=== PATIENT | male | born 1955 | race African-American/Black ===

== ENCOUNTER 2016-08-27 06:07 | Emergency (ER) ==
[2016-08-27] MEDS ORDERED: ZOSYN 3.375 GM/NS 50 ML IV ONE (07:09)
[2016-08-27 07:41] LABS: MANUAL DIFF NEEDED? NO
[2016-08-27 07:45] LABS: BASO% 0.2 % (0.0-0.8); IMM GRAN# 0.02 X1000 (0.0-0.04); IMM GRAN% 0.2 % (0.0-0.5); LYMPH# 1.33 X1000 (1.2-3.4); LYMPH% 13.4 % (20.5-51.1); MCH 29.6 PG (27-31); MCV 92.4 FL (81-99); MONO# 1.17 X1000 (0.11-0.59); MONO% 11.8 % (1.7-9.3); MPV 9.9 FL (7.4-10.4); NEUT% 74.4 % (42.2-75.2); PLT 298 X1000 (130-400); RBC 5.41 XMIL (4.7-6.1)
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
[2016-08-27 07:56] LABS: INR 1.2; PROTIME 12.7 Seconds (9.2-11.7); PTT 27.4 Seconds (22.0-36.0)
[2016-08-27 08:18] LABS: AGAP 16; ALBUMIN 3.5 g/dL (3.5-5.0); ALKALINE PHOSPHATASE 116 U/L (32-122); BUN 17 mg/dL (8-22); CALCIUM 8.6 mg/dL (8.8-10.2); CHLORIDE 91 mmol/L (98-107); COSMO 288; GOT 17 U/L (10-34); GPT 15 U/L (10-44); POTASSIUM 3.1 mmol/L (3.5-5.1); SODIUM 139 mmol/L (136-145); TCO2 32 mmol/L (25-35); TOTAL BILIRUBIN 2.27 mg/dL (0.20-1.00); TOTAL PROTEIN 7.4 g/dL (6.3-8.3)
[2016-08-27] MEDS ORDERED: NORCO-7.5 PO ONE (08:22)
[2016-08-27] MEDS ORDERED: CARDIZEM IV ONE (08:22)
--- NOTE | 2016-08-27 08:48 | EKG Report ---
Test Performed on : 08/27/2016 08:12:09 AM Test Reason : Chest Pain Blood Pressure : / mmHG Vent. Rate : 119 BPM Atrial Rate : 119 BPM P-R Int : 168 ms QRS Dur : 086 ms QT Int : 372 ms P-R-T Axes : 000 056 053 degrees QTc Int : 523 ms Sinus tachycardia. Low voltage QRS Prolonged QT Abnormal ECG No previous ECGs available Unconfirmed Result
[2016-08-27] MEDS ORDERED: SOLU-MEDROL IV ONE (09:17)
[2016-08-27 09:36] LABS: MAGNESIUM 1.1 mg/dL (1.5-2.7)
--- NOTE | 2016-08-27 10:01 | Diag Imaging Result Document ---
PROCEDURE NAME: ANGIOGRAM/PULMONARY ARTERIES - 08/27/2016 CTA CHEST: COMPARISON: None available. FINDINGS: There is no evidence of pulmonary embolism. There is trace atherosclerotic calcification at the aortic arch. There is no evidence of aortic aneurysm. There is cardiomegaly. There are coronary artery calcifications. Shotty mildly prominent noncalcified lymph nodes are noted in the mediastinum. There is a calcified right hilar lymph node indicating prior granulomatous disease. There is mild platelike subsegmental atelectasis at the inferior left upper lobe. The lungs are essentially clear otherwise. There is no definite airspace consolidation. There are no pleural fluid collections. There is no pneumothorax. IMPRESSION: 1. Mild left upper lobe atelectasis. 2. Cardiomegaly. 3. Nonspecific mild mediastinal lymphadenopathy. 4. No evidence of pulmonary embolism.
[2016-08-27 10:15] VITALS: BP 107/73
--- NOTE | 2016-08-27 10:42 | Diag Imaging Result Document ---
PROCEDURE NAME: KNEE 3 VIEWS LEFT - 08/27/2016 LEFT KNEE, THREE VIEWS: FINDINGS: There is some fragmentation of the attachment of the quadriceps tendon on the patella, which may be chronic. Otherwise, there is no evidence of fracture or dislocation. There is evidence of subcutaneous edema, generally. No definite evidence of effusion is present. IMPRESSION: No acute bony disease.
--- NOTE | 2016-08-29 13:33 | Extremity Venous Study ---
PROCEDURE NAME: Venous U/S Left Leg - 08/27/2016 REFERRING PHYSICIANS: Dr. Hair in the ER. INTERPRETING PHYSICIAN: Dr. Gaspar. REALTIME CAPTIONER: Chetna. PROCEDURE: The patient has pain, edema and redness of the left leg. The left lower extremity is imaged. The common femoral, superficial femoral, deep femoral, popliteal, posterior tibial, peroneal, greater saphenous are imaged. The Doppler is used to evaluate the veins for spontaneity, phasicity, respiratory excursion, and distal augmentation. All veins are compressible. No intraluminal clot is seen. INTERPRETATION: No evidence of deep or superficial venous thrombosis the left lower extremity in the veins identified.
== END 2016-08-27 10:20 | disposition home or self-care (01) ==
LOC: EDBD → ED 06:07
DX: L03.116 Cellulitis of left lower limb (principal); M79.662 Pain in left lower leg; M25.562 Pain in left knee; M79.89 Other specified soft tissue disorders; R94.31 Abnormal electrocardiogram [ECG] [EKG]; I50.9 Heart failure, unspecified; I10 Essential (primary) hypertension; G89.29 Other chronic pain; E11.9 Type 2 diabetes mellitus without complications; F17.210 Nicotine dependence, cigarettes, uncomplicated; Z79.899 Other long term (current) drug therapy
CPT/HCPCS: 71275; 80053; 82948; 83735; 83880; 84550; 85025; 85379; 85610; 85730; 87040; 93005; 93971; 96365; 96375; J2543; J2930; Q9967

== ENCOUNTER 2018-10-03 18:39 | Inpatient (IN) ==
[2018-10-03] MEDS ORDERED: ASPIRIN PO ONE (18:48)
[2018-10-03 19:54] LABS: BASO# 0.04 X1000 (0.0-0.2); BASO% 0.4 % (0.0-0.8); EOS# 0.02 X1000 (0.0-0.7); EOS% 0.2 % (0.0-10.0); HEMATOCRIT 44.9 % (42.0-52.0); HEMOGLOBIN 14.8 g/dL (14.0-18.0); IMM GRAN# 0.06 X1000 (0.0-0.04); IMM GRAN% 0.6 % (0.0-0.5); LYMPH# 1.02 X1000 (1.2-3.4); LYMPH% 9.7 % (20.5-51.1); MCH 30.5 PG (27-31); MCV 92.6 FL (81-99); MONO# 1.35 X1000 (0.11-0.59); MONO% 12.9 % (1.7-9.3); MPV 9.3 FL (7.4-10.4); NEUT# 7.98 X1000 (1.4-6.5); NEUT% 76.2 % (42.2-75.2); PLT 471 X1000 (130-400); RBC 4.85 XMIL (4.7-6.1); WBC 10.47 X1000 (4.8-10.8)
--- NOTE | 2018-10-03 20:00 | PROVIDER DOCUMENTATION ---
HPI-Respiratory General - General Chief Complaint: Dizziness Stated Complaint: Weakness/SOB Time Seen by Provider: 10/03/18 19:09 Unable to obtain history due to:: other (poor historian) Allergies/Adverse Reactions: Patient Allergies Allergy/AdvReac Type Severity Reaction Status Date / Time No Known Allergies Allergy Verified 10/03/18 18:46 Home Medications: Home Medication List Medication Instructions Recorded Confirmed Last Taken Type Valacyclovir [Valtrex] 500 mg PO BID #10 tab 07/29/18 08/13/18 08/11/18 08:00 Rx Hydroxyzine [Atarax] 25 mg PO TID PRN PRN 08/13/18 08/13/18 08/11/18 08:00 History Allopurinol [Zyloprim] 100 mg PO BID tablet 08/15/18 Unknown Rx Doxycycline 100 mg PO BID #10 tab 08/15/18 Unknown Rx Furosemide [Lasix] 40 mg PO BID #60 tab 08/15/18 Unknown Rx Insulin Glargine [Basaglar] 12 unit SUBQ DAILY #5 insuln.pen 08/15/18 Unknown Rx Spironolactone [Aldactone] 25 mg PO DAILY #30 tab 08/15/18 Unknown Rx Tramadol [Ultram] 50 mg PO Q6H PRN PRN tablet 08/15/18 Unknown Rx Furosemide [Lasix] 40 mg PO DAILY PRN #60 tab 09/18/18 Unknown Rx Spironolactone [Aldactone] 25 mg PO DAILY #30 tab 09/18/18 Unknown Rx - History of Present Illness-Resp Nature of Presenting Problem: C/O SOB and weakness. Pt is poor historian. He admits that sleeps in chair all the time, has been raising it for a week. Legs have had increasing swelling for a week, now abd is swollen. No fever, no cough, no palpitations. Has had occ brief (seconds) of CP. Says his PCP dismissed him, but denies running out of meds, says he is still taking them all Quality of Pain: reports: aching (legas) Severity in ED: reports: moderate Timing: reports: still present, constant, getting worse Context: denies: recent foreign travel Cough Quality/Degree: reports: no cough Modifying Factors: improves with: exertion Associated Symptoms: reports: shortness of breath, short of breath Similar Symptoms Previously?: Yes Recently seen or treated by another doctor?: No Review of Systems - Adult - REVIEW OF SYSTEMS - ADULT Constitutional: reports: no symptoms reported Eyes: reports: no symptoms reported Ears, Nose, Mouth & Throat: reports: no symptoms reported Cardiovascular: reports: no symptoms reported, edema Respiratory: reports: see HPI, dyspnea on exertion, shortness of breath Gastrointestinal: reports: no symptoms reported Genitourinary: reports: no symptoms reported Musculoskeletal: reports: no symptoms reported Integumentary: reports: no symptoms reported Neurological: reports: no symptoms reported Psychiatric: reports: no symptoms reported Endocrine: reports: no symptoms reported Hematologic/Lymphatic: reports: no symptoms reported Allergic/Immunologic: reports: no symptoms reported Past History - Adult - PAST MEDICAL HISTORY-ADULT Review of Records: reports: Medications Reviewed Major Childhood Illnesses: reports: denies history Cardiovascular: reports: blood clots, CHF, HTN, hyperlipidemia Respiratory: reports: asthma Gastrointestinal: reports: denies history Obstetrical/Gynecological: reports: denies history Genitourinary: reports: denies history Musculoskeletal: reports: chronic pain Neurological: reports: denies history Psychiatric: reports: anxiety Endocrine/Immune: reports: Diabetes Other Conditions: reports: denies history - PRIOR SURGERIES/PROCEDURES Surgical/Procedure History: reports: other (scrotal abscess) - IMMUNIZATION STATUS Childhood Immunizations: See Nurse Assessment Flu Vaccine: See Nurse Assessment - FAMILY HISTORY Family History: reviewed, not pertinent Physical Exam-General - PHYSICAL EXAM-ADULT Initial Vital Signs Reviewed: Yes - CONSTITUTIONAL General Appearance: alert, mild distress - EYES Eyes: PERRL/EOMI - HEAD, EARS, NOSE, MOUTH & THROAT HENMT: normocephalic/atraumatic, moist mucous membranes, normal ENT inspection, pharynx normal - NECK Neck: full range of motion, supple, normal inspection - RESPIRATORY Respiratory: no accessory muscle use, decreased breath sounds - CARDIOVASCULAR Cardiovascular: regular rate, rhythm, other (has 2+ pitting edema to abd, gets increasingly more as get further down on legs) - GASTROINTESTINAL (ABDOMEN) Abdominal Exam: non tender, soft - MUSCULOSKELETAL Back Exam: normal inspection, no CVA tenderness, no vertebral tenderness Extremity: normal range of motion, pedal edema. 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, grossly normal, no motor/sensory deficits - PSYCHIATRIC Psych/Mental Status: normal mood/affect, normal thought content, normal thought process, oriented x 3 Progress - PLAN OF CARE/RESULTS Progress/Plan/Lab Results: Vital Signs - 8 hr 10/03/18 18:42 10/03/18 21:06 Temperature 98.5 F Pulse Rate 90 88 Respiratory Rate 18 27 H Blood Pressure 109/79 114/83 O2 Sat by Pulse Oximetry 99 96 Laboratory Results - last 24 hr 10/03/18 10/03/18 10/03/18 18:48 19:37 19:37 WBC 10.47 RBC 4.85 Hgb 14.8 Hct 44.9 MCV 92.6 MCH 30.5 MCHC 33.0 RDW Std Deviation 16.0 H Plt Count 471 H MPV 9.3 Immature Gran % (Auto) 0.6 H Neut % (Auto) 76.2 H Lymph % (Auto) 9.7 L Leon % (Auto) 12.9 H Eos % (Auto) 0.2 Baso % (Auto) 0.4 Immature Gran # (Auto) 0.06 H Neut # (Auto) 7.98 H Lymph # (Auto) 1.02 L Leon # (Auto) 1.35 H Eos # (Auto) 0.02 Baso # (Auto) 0.04 PT INR PTT (Actin FS) Sodium 138 Potassium 3.1 L Chloride 99 Carbon Dioxide 26 Anion Gap 14 BUN 11 Creatinine 0.8 Estimated GFR/1.73 m2 > 60 BUN/Creatinine Ratio 14 Glucose 106 H POC Glucose 128 H Calculated Osmolality 275 Calcium 8.5 L Total Bilirubin 2.50 H AST 21 ALT 6 L Alkaline Phosphatase 198 H Creatine Kinase 147 Troponin T Bnw-H-Xisraiiknog Pept Total Protein 6.8 Albumin 3.0 L Globulin 4.0 Albumin/Globulin Ratio 1.0 10/03/18 10/03/18 10/03/18 19:37 19:37 19:52 WBC RBC Hgb Hct MCV MCH MCHC RDW Std Deviation Plt Count MPV Immature Gran % (Auto) Neut % (Auto) Lymph % (Auto) Leon % (Auto) Eos % (Auto) Baso % (Auto) Immature Gran # (Auto) Neut # (Auto) Lymph # (Auto) Leon # (Auto) Eos # (Auto) Baso # (Auto) PT 17.0 H INR 1.32 PTT (Actin FS) 33.4 Sodium Potassium Chloride Carbon Dioxide Anion Gap BUN Creatinine Estimated GFR/1.73 m2 BUN/Creatinine Ratio Glucose POC Glucose Calculated Osmolality Calcium Total Bilirubin AST ALT Alkaline Phosphatase Creatine Kinase Troponin T 0.124 H Bgi-M-Xhulzsgegkb Pept 1914 H Total Protein Albumin Globulin Albumin/Globulin Ratio Orders Category Date Time Status Cardiac Monitoring DIRECTED Care 10/03/18 18:49 Active Oxygen Therapy- ED Nursing DIRECTED Care 10/03/18 18:49 Active Saline Loc NOW Care 10/03/18 18:49 Active CHEST-PORTABLE [RAD] Stat Exams 10/03/18 18:49 Completed CBC WITH ELECTRONIC DIFF [HEME] Stat Lab 10/03/18 19:37 Completed CK PROFILE [SP CHEM] Stat Lab 10/03/18 19:37 Completed COMPREHENSIVE METABOLIC PANEL [CHEM] Stat Lab 10/03/18 19:37 Completed PRO B-NATRIURETIC PEPTIDE Stat Lab 10/03/18 19:37 Completed PROTIME WITH INR [COAG] Stat Lab 10/03/18 19:52 Completed PTT [COAG] Stat Lab 10/03/18 19:52 Completed TROPONIN T Stat Lab 10/03/18 19:37 Completed Aspirin Med 10/03/18 18:48 Discontinued 325 mg PO NOW ONE Enoxaparin 1 mg/kg [Lovenox 1 mg/kg] Med 10/03/18 21:52 Discontinued 1 each SUBQ NOW ONE Enoxaparin [Lovenox] Med 10/03/18 21:59 Discontinued 100 mg .ROUTE .STK-MED ONE Furosemide [Lasix] Med 10/03/18 20:50 Discontinued 80 mg IV NOW ONE Potassium Chloride 20% Liquid Med 10/03/18 20:50 Discontinued 40 meq PO NOW ONE CP/SOB/Palp >45 yrs of Age Stat Oth 10/03/18 18:48 Ordered EKG [EKG] Stat Ther 10/03/18 18:47 Draft He has mult old records, many were reviewed, He rendon shad a fib on EKG since 2017. Had mult echos last year, showing EF of 25% Has been seen by cards and nephrology. Also has hx od med noncompliance, taking meds just when he felt like it Result Diagrams: 10/03/18 19:37 10/03/18 19:37 - CONSULTS/PCP/HOSPITALIST Notification #1 *Consult/PCP/Hospitalist*: [facility] Consult Disposition: other (no answer) #2 Consult: [facility] Time Discussed: 22:35 Consult Disposition: Admit Departure - Departure Date of Disposition Decision: 10/03/18 Time of Disposition Decision: 19:20 DIAGNOSIS: Anasarca, Chronic atrial fibrillation Congestive heart failure Qualifiers: Heart failure type: unspecified Heart failure chronicity: unspecified Qualified Code(s): I50.9 - Heart failure, unspecified Disposition: ADMITTED INPATIENT 09 Certified Medical Emergency: Emergent Condition: Stable Additional Freetext Instructions: ED Follow Up Instructions: You have been treated by a care provider in the Emergency Department. These instructions are being provided to you so you can have an understanding of how to care for yourself upon discharge. Upon discharge from the Emergency Department, you are responsible for making arrangements for follow-up care by a physician of your choice. Take all prescribed medications as directed. Return to the Emergency Department immediately for any new or worsening symptoms. You may call the Physician Referral phone number at [phone] to obtain a list of Physicians who are taking new patients. Referrals and Follow-Ups: None,PCP [Primary Care Provider] - - Critical Care Note This patient required my direct & personal management of CC.: No Attestation - Physician/ ALESHIA Attestation Patient care was provided by Advanced Practice Provider:: No The physician spent face to face time with patient:: Yes Advanced Practice Provider documentation review:: Supervising physician onsite and consulted in the evaluation and care of this patient. The physician did have a face to face encounter with the patient.
[2018-10-03 20:02] LABS: AGAP 14; ALKALINE PHOSPHATASE 198 U/L (32-122); BUN 11 mg/dL (8-22); CALCIUM 8.5 mg/dL (8.8-10.2); CHLORIDE 99 mmol/L (98-107); CK PROFILE 147 U/L (24-204); COSMO 275; CREATININE 0.8 mg/dL (0.7-1.2); ESTIMATED GFR > 60; GLUCOSE 106 mg/dL (70-104); GOT 21 U/L (10-34); GPT 6 U/L (10-44); POTASSIUM 3.1 mmol/L (3.5-5.1); SODIUM 138 mmol/L (136-145); TCO2 26 mmol/L (25-35); TOTAL PROTEIN 6.8 g/dL (6.3-8.3)
--- NOTE | 2018-10-03 20:02 | Diag Imaging Result Doc PS360 ---
EXAM: CHEST-PORTABLE - 10/03/2018 HISTORY: dizziness/CP TECHNIQUE: Portable chest COMPARISON: 09/18/2018 FINDINGS: There is cardiomegaly similar to prior. There is mild prominence of vascular markings on the right. There is possibly some hazy edema at the left base. There is subsegmental atelectasis versus scarring at the left perihilar region. There is mild thickening of the right minor fissure. There are no large pleural effusion or pneumothorax identified. IMPRESSION: Cardiomegaly, with possible mild congestive heart failure. Electronically signed by Sp Becker 10/03/2018 8:00 PM
--- NOTE | 2018-10-03 20:02 | EKG Report ---
Test Performed on : 10/03/2018 6:53:30 PM Test Reason : dizziness Blood Pressure : / mmHG Vent. Rate : 081 BPM Atrial Rate : 241 BPM P-R Int : 000 ms QRS Dur : 092 ms QT Int : 420 ms P-R-T Axes : 000 106 -61 degrees QTc Int : 487 ms Atrial fibrillation. with premature ventricular or aberrantly conducted complexes. Rightward axis Pulmonary disease pattern Septal infarct (cited on or before 21-JAN-2018) Abnormal ECG When compared with ECG of 18-SEP-2018 12:41, (Unconfirmed) No significant change was found Unconfirmed Result
[2018-10-03 20:19] LABS: INR 1.32
[2018-10-03 20:20] LABS: PTT 33.4 Seconds (22.3-41.8)
[2018-10-03] MEDS ORDERED: LASIX IV ONE (20:50)
[2018-10-03] MEDS ORDERED: POTASSIUM CHLORIDE 20% LIQUID PO ONE (20:50)
[2018-10-03] MEDS ORDERED: LOVENOX 1 MG/KG SUBQ ONE (21:52)
[2018-10-03] MEDS ORDERED: LOVENOX ONE (21:59)
[2018-10-03] MEDS ORDERED: ZOFRAN ODT PO PRN (22:31)
[2018-10-04] MEDS: TYLENOL PO PRN ×2 (02:04→16:56)
[2018-10-04] MEDS: POTASSIUM CHLORIDE 20% LIQUID PO SCH ×4 (02:04→13:52)
[2018-10-04] MEDS: LASIX IV SCH ×3 (05:19→17:00)
--- NOTE | 2018-10-04 08:16 | HISTORY AND PHYSICAL ---
CHIEF COMPLAINT: Shortness of breath and dizziness. HISTORY OF PRESENT ILLNESS: This is a 63-year-old gentleman with a history of nonischemic cardiomyopathy with ejection fraction of 25% in June of 2018, systolic heart failure chronic and diabetes mellitus. He presented to the emergency room complaining of increasing shortness of breath, lower extremity edema and abdominal fullness, He was discharged from the hospital on 08/15, and at that time prescriptions were called in to [facility] for Lasix, spironolactone, glargine insulin, and doxycycline. The patient states that he opted not to fill these as he was feeling better on discharge. He does state that he was seen in the emergency room by Dr. Ochoa on 09/18, and at that time he was given prescriptions for Lasix and spironolactone. He stated he did pick these up although he states he has not taken them as directed. He denied any chest pain, palpitations, any syncope, any fevers or chills. PAST MEDICAL HISTORY: Nonischemic cardiomyopathy with an EF of 25% in June of 2018, chronic systolic heart failure, diabetes mellitus, gout, hypertension, medical noncompliance, history of Karen's gangrene and history of shingles. PAST SURGICAL HISTORY: Scrotal debridement secondary to Karen's gangrene, scrotal abscess, and right hydrocelectomy. SOCIAL HISTORY: He denies [*]or illicit drug use. He does drink alcohol. ALLERGIES: No known drug allergies. HOME MEDICATIONS: 1. Lasix 40 mg p.o. p.r.n. 2. Spironolactone. The patient states that he is not does not take these daily. REVIEW OF SYSTEMS: Discussed with the patient with pertinent positives stated in HPI. He denied any syncope, any productive cough, any fevers, chills, any night sweats, any nausea, vomiting, diarrhea, constipation, black or bloody vomitus or stools, any hematuria, dysuria, frequency, or urgency. PHYSICAL EXAMINATION: GENERAL: This is a 63-year-old gentleman who is lying in the bed watching TV in no distress. VITAL SIGNS: Blood pressure is 119/85 with a heart rate of 82, respirations are 20, temperature is 97.9 degrees, and O2 saturations are 98% on room air. EYES: Pupils are equal, round, and react to light. EOMs are intact. Sclerae are anicteric. HEENT: Head is normocephalic, atraumatic. Mucous membranes are moist. NECK: Supple with trachea midline. CARDIOVASCULAR: Regular rate and rhythm. S1 and S2 appreciated. No murmurs noted. He does have bilateral lower extremity edema from the thigh down with peripheral pulses palpable x4 extremities. PULMONARY: Breath sounds are clear with no increased work of breathing noted. GASTROINTESTINAL: Abdomen is soft, nontender, and nondistended with bowel sounds in all 4 quadrants. GENITOURINARY: He has no CVA nor suprapubic tenderness. NEUROLOGIC: He is alert and oriented x3. SKIN: Warm and dry. LABORATORY: WBC is 10.4 with hemoglobin 14.8, hematocrit 44.9, and platelets of 471,000. Sodium 138, potassium 3.1, BUN 11, creatinine 0.8 and glucose of 106. Total bilirubin is 2.5. Troponin is 0.124 with a proBNP of 1914. Chest x-ray revealed cardiomegaly with possible mild congestive heart failure. ASSESSMENT AND PLAN: 1. Acute systolic heart failure in the setting of chronic heart failure. 2. Shortness of breath. 3. Diabetes mellitus. 4. History of hypertension. 5. Elevated troponin. 6. Hypokalemia. 7. Medical noncompliance. PLAN: The patient has been admitted to the medical-surgical floor and placed on telemetry which we will continue. We will get a stat BMP as well as stat troponin and cardiac profile. He will have daily weights with strict I O. We will continue with IV Lasix for diuresis. We will monitor electrolytes and replete as appropriate. He will be placed on pattern blood glucose with sliding scale insulin. Further treatments pending hospital course. Dictated by FERNY Vital for Wilton Molina MD This chart was documented by, FERNY Vital and accurately reflects the services performed, treatment plan and medical decisions as attested by the providers signature Wilton Molina MD. cc: FERNY Vital MD
[2018-10-04 09:39] LABS: AGAP 14; BUN 11 mg/dL (8-22); CALCIUM 8.6 mg/dL (8.8-10.2); CHLORIDE 101 mmol/L (98-107); CK PROFILE 135 U/L (24-204); COSMO 284; CREATININE 0.7 mg/dL (0.7-1.2); ESTIMATED GFR > 60; GLUCOSE 133 mg/dL (70-104); POTASSIUM 2.9 mmol/L (3.5-5.1); SODIUM 142 mmol/L (136-145); TCO2 27 mmol/L (25-35)
[2018-10-04] MEDS ORDERED: LOVENOX SUBQ SCH (10:00)
[2018-10-04] MEDS: LOVENOX SUBQ SCH ×2 (10:13→21:51)
[2018-10-04] MEDS: LANOXIN PO SCH (18:18)
[2018-10-04] MEDS: CAPOTEN PO SCH (18:24)
--- NOTE | 2018-10-04 19:07 | CARDIOLOGY CONSULTATION ---
DATE: 10/04/2018 REQUESTING PHYSICIAN: Hospitalist Service REASON FOR CONSULTATION: Positive troponin. CHF. CHIEF COMPLAINT: Dyspnea and swelling. HISTORY OF PRESENT ILLNESS: Mr. Segal is an unfortunate 63-year-old black male who presented to the emergency room on 10/03/2018 at about 6:30 p.m. with complaints of two to three weeks of increasing swelling of the lower extremities associated with dyspnea/orthopnea. The patient states that since his last admission that took place in July 2018, the patient had been not very compliant with his medical regimen. He developed shingles at some point a few weeks ago and that has caused issues with discomfort in the left anterior rib cage where the shingle rash is and he has not really been following all of the instructions to deal with his underlying congestive heart failure. At the time of presentation, they did a chest x-ray that shows cardiomegaly with possible mild congestive heart failure and his admitting electrocardiogram done at 6:53 p.m. on 10/03/2018 shows atrial fibrillation with PVCs. The initial blood work showed a proBNP level of 1914, which is not necessarily the highest that he has ever had and his troponin levels were 0.124, 0.102, and 0.094 and that prompted the consultation. PAST MEDICAL HISTORY: Positive for systolic heart failure due to dilated nonischemic cardiomyopathy. In October of 2017 he underwent a left heart catheterization and right heart catheterization by Dr. Cornelius Herrera in [place]. This showed the presence of mild to moderate aortic stenosis, as he used dobutamine infusion to increase the gradient and calculate the valve area at 1 cm square.The coronary arteries were free of obstruction. The patient seems to have atrial fibrillation, at least since prior presentation to the hospital. He has diabetes mellitus. He has had issues with low blood pressure. PAST SURGICAL HISTORY: Positive for extensive scrotal debridement due to soft tissue necrosis with positive vancomycin resistant Enterococcus infection. This was done in April 2018 by Urology service. SOCIAL HISTORY: The patient is from his . He used to work at the [employer] in [place] for 34 years and he retired. He is not a smoker, not a drinker. FAMILY HISTORY: Is really noncontributory for the purposes of this admission. LIST OF HOME MEDICATIONS: Included, allopurinol 100 twice a day, doxycycline 100 twice a day, furosemide 40 twice a day, insulin, spironolactone, tramadol, and Valtrex. At some point in the past he was also on Xarelto, however that is not listed in his most recent medication list. The patient was supposed to follow up with Dr. Billy, however he has been dropped from his practice and right now he does not have any physician. He has not seen any of the cardiologists at the heart center at the office. He was supposed to make an appointment with Dr. Houston at some point. REVIEW OF SYSTEMS: The remaining review of systems is really noncontributory. His aortic stenosis is really not critical. PHYSICAL EXAMINATION: Blood pressure is 118/83, temperature 97.9, pulse 95, respirations 20. General: Awake and alert. Neck: Veins are distended. Chest: Diminished breath sounds at both bases. Decreased excursion at the bases. Heart sounds are irregularly irregular with a prominent systolic ejection murmur 2 to 3/6 at the left sternal border aortic area. He also has a third heart sound. Abdomen is obese, distended, possibly some ascites is present. Skin: He does have a rash of herpes zoster on the left anterior chest about the fifth intercostal space. This appears to be in a subacute to chronic state. Extremities showed 2+ edema, brawny. Pulses are diminished. Neurologic: Follows commands, moves all four extremities. LABORATORY DATA: Includes sodium of 142, potassium 2.9, BUN 11, creatinine 0.7. IMPRESSION: 1. Patient presents to the hospital with exacerbation of chronic congestive heart failure, systolic, 3 to 4 [place] Heart Association class, secondary to nonischemic dilated cardiomyopathy. 2. History of aortic stenosis with a prominent heart murmur. This is only mild to moderate. 3. Medically noncompliant. 4. Atrial fibrillation that appears to be permanent. 5. Diabetes mellitus type 2. 6. Hypokalemia. Electrolyte disturbance. 7. Elevation of troponin level. This probably corresponds to dilatation of the ventricles and a strain and not to coronary heart disease since his coronary arteries were normal in October of 2017 by cardiac catheterization. RECOMMENDATIONS: At this point in time I would suggest to educate this patient along the lines of needing to adhere to medical regimen that will require multiple medications, otherwise we will not be able to manage this patient at home. Perhaps it would be important to meet with family and caretakers to educate them also. At this point in time, I agree with your initial management of using loop diuretics and we will see how the patient does over the course of the ensuing days . No ischemic cardiac workup is necessary. The patient will be placed on Eliquis 5 mg twice a day for CVA prevention and we will see how he evolves. Upon discharge, refer back to PCP and Dr. Houston. cc: Joss Farmer MD MTDD
[2018-10-04] MEDS: ALDACTONE PO SCH (21:47)
--- NOTE | 2018-10-05 00:23 | HISTORY AND PHYSICAL ---
HISTORY AND PHYSICAL ADDENDUM: The patient is a 63-year-old, unfortunately extremely noncompliant, individual, who has chronic congestive heart failure, hypertension, hyperlipidemia, diabetes. We will admit him to the hospital, replace his potassium. His troponin is elevated. We will rule out myocardial infarction. He does have an EF around 25%. Continue Lasix. Will follow. cc: Wilton Molina MD
[2018-10-05] MEDS: CAPOTEN PO SCH ×3 (00:39→16:45)
[2018-10-05] MEDS: LANOXIN PO SCH ×2 (00:40→06:12)
--- NOTE | 2018-10-05 04:07 | EKG Report ---
Test Performed on : 10/05/2018 02:59:12 AM Test Reason : CHEST PAIN Blood Pressure : / mmHG Vent. Rate : 085 BPM Atrial Rate : 079 BPM P-R Int : 000 ms QRS Dur : 086 ms QT Int : 406 ms P-R-T Axes : 000 127 -67 degrees QTc Int : 483 ms Atrial fibrillation. with premature ventricular or aberrantly conducted complexes. Right axis deviation Pulmonary disease pattern Septal infarct (cited on or before 21-JAN-2018) Abnormal ECG When compared with ECG of 03-OCT-2018 18:53, No significant change was found Unconfirmed Result
[2018-10-05] MEDS: LASIX IV SCH ×2 (04:32→16:44)
[2018-10-05 06:31] LABS: HEMATOCRIT 44.8 % (42.0-52.0); HEMOGLOBIN 14.7 g/dL (14.0-18.0); MCH 30.5 PG (27-31); MCHC 32.8 g/dL (33-37); MCV 92.9 FL (81-99); MPV 9.7 FL (7.4-10.4); RBC 4.82 XMIL (4.7-6.1); RDW 16.2 % (11.5-14.5); WBC 12.62 X1000 (4.8-10.8)
[2018-10-05 08:32] LABS: AGAP 13; BUN 11 mg/dL (8-22); CALCIUM 8.5 mg/dL (8.8-10.2); CHLORIDE 101 mmol/L (98-107); COSMO 282; CREATININE 0.7 mg/dL (0.7-1.2); ESTIMATED GFR > 60; GLUCOSE 129 mg/dL (70-104); POTASSIUM 2.8 mmol/L (3.5-5.1); SODIUM 141 mmol/L (136-145); TCO2 27 mmol/L (25-35)
[2018-10-05] MEDS: LOVENOX SUBQ SCH ×2 (09:43→21:24)
[2018-10-05] MEDS: ALDACTONE PO SCH ×2 (09:43→21:19)
[2018-10-05] MEDS: TYLENOL PO PRN (10:01)
--- NOTE | 2018-10-05 23:58 | PROGRESS NOTE ---
DATE: 10/05/2018 SUBJECTIVE: Patient actually is asking to go home. States he is feeling better. Shortness of breath improved. Denies any chest pain, palpitations. States the swelling in his lower extremities has also improved. Denies any GI or issues. PHYSICAL EXAM: Vital signs: Temperature is afebrile, pulse 84, respiratory 16, BP 112/78. General: Patient is awake, alert, currently in no respiratory distress. Appears to be much improved from admission. HEENT: Normocephalic. Neck: Supple. Cardiovascular: Regular rate. No murmurs. Chest: Clear. No crackles currently. No wheezing. Good air movement. Abdomen: Soft, obese, nondistended, nontender. Extremities: Moves all extremities. Trace edema. Neurologic: No changes. ASSESSMENT: 1. Hypokalemia. Potassium is low at 2.9. 2. Mild leukocytosis. 3. Elevated troponin, which is actually back to normal. Cardiology does not feel as though this was an acute myocardial infarction. 4. Medical noncompliance. 5. Atrial fibrillation. 6. [place] Heart class 3 to 4, systolic congestive heart failure due to nonischemic cardiomyopathy. 7. Diabetes. PLAN: We will continue patient in the hospital. Replace his potassium, recheck in the a.m. Continue Lasix as well as captopril and Aldactone. If his potassium is back to normal tomorrow, we can discharge him home. cc: Wilton Molina MD
[2018-10-06] MEDS: CAPOTEN PO SCH ×2 (01:08→09:37)
[2018-10-06] MEDS: LASIX IV SCH (04:34)
[2018-10-06 06:07] VITALS: BP 123/90
[2018-10-06] MEDS ORDERED: LANOXIN PO SCH (09:00)
[2018-10-06] MEDS ORDERED: ELIQUIS PO SCH (09:00)
[2018-10-06 09:23] LABS: HEMATOCRIT 45.6 % (42.0-52.0); HEMOGLOBIN 14.9 g/dL (14.0-18.0); MCH 30.7 PG (27-31); MCHC 32.7 g/dL (33-37); MCV 93.8 FL (81-99); MPV 9.3 FL (7.4-10.4); RBC 4.86 XMIL (4.7-6.1); RDW 16.2 % (11.5-14.5); WBC 13.15 X1000 (4.8-10.8)
[2018-10-06] MEDS: ALDACTONE PO SCH (09:37)
[2018-10-06 09:46] LABS: AGAP 13; BUN 9 mg/dL (8-22); CALCIUM 8.8 mg/dL (8.8-10.2); CHLORIDE 99 mmol/L (98-107); COSMO 279; CREATININE 0.6 mg/dL (0.7-1.2); ESTIMATED GFR > 60; GLUCOSE 121 mg/dL (70-104); POTASSIUM 3.3 mmol/L (3.5-5.1); SODIUM 140 mmol/L (136-145); TCO2 28 mmol/L (25-35)
--- NOTE | 2018-10-06 21:02 | DISCHARGE SUMMARY ---
ADMISSION DATE: 10/03/2018 DISCHARGE DATE: 10/06/2018 DIAGNOSES: 1. Acute systolic heart failure in the setting of chronic systolic heart failure. 2. Shortness of breath. 3. Diabetes mellitus. 4. History of hypertension. 5. Elevated troponin. 6. Medical noncompliance. 7. Hypokalemia, resolved. CONSULTS: Dr. Joss Farmer, Cardiology. DIAGNOSTICS: Chest x-ray revealed cardiomegaly with possible mild congestive heart failure. HOSPITAL COURSE: Mr. Segal presented to the emergency room complaining of shortness of breath and dizziness. He was found to be in a systolic heart failure for which he was diuresed with IV Lasix. We continued his home medications with IV diuresis. Symptoms resolved. He improved greatly. The lower extremity edema that he had on admission improved, and he felt like he was back at his baseline. He denied any chest pain or palpitations while in the hospital. He did have an elevated troponin initially of 0.124. This was at 7:30 on the . We trended troponins, and on the at 2145 hours, troponin was normal at 0.085. Dr. Farmer was consulted due to his history of elevated troponins. He recommended that we continue with medical treatment. Mr. Segal has a long history of not being compliant with medications, many times after discharge not even picking them up from the pharmacy. Dr. Farmer did stress the importance of adhering to a medical regimen. The patient did voice understanding during the hospitalization. We trended electrolytes and repleted them as was appropriate. DISCHARGE MEDICATIONS: 1. Capoten 6.25 mg q.8 hours. 2. Digoxin 125 mcg p.o. daily. 3. Lasix 20 mg p.o. b.i.d. 4. Spironolactone 25 mg p.o. b.i.d. 5. Eliquis 5 mg p.o. b.i.d. FOLLOWUP: 1. He needs to follow up with Dr. 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 He did state that he has an appointment sometime in the next 2 weeks. He was encouraged to call, verify this appointment, and make sure that he keeps it. He did voice understanding. 2. He is being discharged home in stable condition with family members. This is a greater than 30-minute discharge. 3. Dr. Houston, he did state that he had a doctor's appointment with him, he thinks in the next 2 weeks. He was encouraged to call to verify the date and time of this appointment and encouraged strongly to keep this appointment as well as adhere to his medical regimen, to which he did voice understanding. 4. He has been instructed to call to be seen sooner or return to the ER for any syncope, dizziness, chest pain, palpitations, increasing shortness of breath, temperature greater than 101, any bruising, bleeding gums, any black or bloody vomitus or stools, or for any questions or concerns that he may have. Dictated by FERNY Vital for Wilton Molina MD This chart was documented by, FERNY Vital and accurately reflects the services performed, treatment plan and medical decisions as attested by the providers signature Wilton Molina MD. cc: FERNY Vital MD
--- NOTE | 2018-10-07 02:42 | DISCHARGE SUMMARY ---
ADMISSION DATE: 10/03/2018 DISCHARGE DATE: 10/06/2018 ADDENDUM: Patient seen and examined by myself. Full note dictated and discussed with nurse practitioner. On discharge, patient is awake, alert. Notes that he is feeling better. Discussed with patient the importance of controlling his symptoms by taking medications as prescribed. Hopefully, patient will continue to take his medication, Lasix, captopril, Aldactone and Eliquis. He will follow up outpatient with Cardiology. Please see full note. cc: Wilton Molina MD
== END 2018-10-06 14:34 | disposition home or self-care (01) | DRG 292 ==
LOC: P.ED 18:39 → SUATTDRO 22:51 → P.MEDSURG 22:51
PROVIDERS: ATTEND Family Medicine
CPT/HCPCS: 36415; 71010; 71045; 80048; 80053; 82550; 82948; 83735; 83880; 84484; 85025; 85027; 85610; 85730; 93005; 94761; 96372; 96374; 99285; A9270; J1650; J1940; XXXXX

== ENCOUNTER 2018-10-13 12:18 | Inpatient (IN) ==
[2018-10-13] MEDS ORDERED: VANCOMYCIN 1 GM/NS 1 GM/250 ML IVPB IV ONE (13:02)
[2018-10-13] MEDS ORDERED: NS 1,000 ML IV ONE ×4 (13:02→16:13)
[2018-10-13] MEDS ORDERED: NS 500 ML IV ONE ×2 (13:02→16:13)
[2018-10-13] MEDS ORDERED: ZOSYN 4.5 GM in NS 100 ML IV ONE (13:04)
[2018-10-13] MEDS ORDERED: LEVOPHED 8 MG in D5 1/2 NS 250 ML IV SCH ×2 (13:15→16:15)
--- NOTE | 2018-10-13 13:17 | PROVIDER DOCUMENTATION ---
This chart was entered by Eliza Wright Scribe, acting as scribe for Sridhar Muñiz MD. HPI-Male Problem - General Chief Complaint: Testicular Pain Stated Complaint: MALE Time Seen by Provider: 10/13/18 12:46 Source: patient, family Allergies/Adverse Reactions: Patient Allergies Allergy/AdvReac Type Severity Reaction Status Date / Time No Known Allergies Allergy Verified 10/09/18 23:59 Home Medications: Home Medication List Medication Instructions Recorded Confirmed Last Taken Type Apixaban [Eliquis] 2.5 mg PO BID #60 tab 10/06/18 Unknown Rx CAPTOpril [Capoten] 6.25 mg PO Q8H #90 tab 10/06/18 Unknown Rx Digoxin [Lanoxin] 125 microgm PO DAILY #30 tab 10/06/18 Unknown Rx Furosemide [Lasix] 20 mg PO BID #0 10/06/18 10/04/18 Unknown Rx Furosemide [Lasix] 20 mg PO BID #60 tab 10/06/18 Unknown Rx Spironolactone [Aldactone] 25 mg PO BID #60 tab 10/06/18 Unknown Rx Fluconazole [Diflucan] 150 mg PO DAILY #1 tab 10/10/18 Unknown Rx - History of Present Illness-Male Nature of Presenting Problem: 63 yo bm with history of chronic atrial fibrillation, CHF with EF of 25%, diabetes, DVT's requiring daily Eloquis, medication noncompliance,HTN, and scrotal abscess who presents by EMS with with markedly swollen red tender scrotum draining foul smelling purulent fluid and worsening abdomen swelling. Denies chest pain, fever, or sob. Location of Complaint: reports: scrotal Radiation: reports: other (abdomen) Quality of Pain: reports: fullness Severity in ED: reports: severe Onset/Duration: reports: other ("for a while") Timing: reports: still present, constant, getting worse Context/Activities at Onset: reports: light activity Urinary Symptoms: reports: no symptoms Sexual intercourse history: reports: Not Active Contraception: reports: none Associated Symptoms: reports: pain/swelling in testicle Associated Symptoms: reports: dizziness, malaise, swelling/mass in abdomen ( edema), weakness, other (scrotum edema with open wound). denies: back/neck pain , chest pain, cough, fever/chills, nausea, vomiting Similar Symptoms Previously?: Yes Recently seen or treated by another doctor?: No Review of Systems - Adult - REVIEW OF SYSTEMS - ADULT Constitutional: denies: chills, fever Eyes: denies: blurred vision, double vision Ears, Nose, Mouth & Throat: reports: no symptoms reported Cardiovascular: denies: chest pain, palpitations Respiratory: denies: cough, shortness of breath, wheezing Gastrointestinal: reports: see HPI, other (ascities). denies: diarrhea, nausea , vomiting Genitourinary: reports: see HPI, other (scrotum edema with open wound and infection) Musculoskeletal: reports: see HPI, other (weakness) Integumentary: reports: see HPI, skin sores/ulcer Neurological: reports: see HPI, dizziness/vertigo. denies: headache/migraines, slurred speech, syncope, tremors Psychiatric: reports: no symptoms reported Endocrine: reports: no symptoms reported Hematologic/Lymphatic: reports: no symptoms reported Allergic/Immunologic: reports: no symptoms reported All Other Systems: Reviewed and Negative Past History - Adult - PAST MEDICAL HISTORY-ADULT Review of Records: reports: Old Records Reviewed, Nursing Assessment Review, Medications Reviewed, Social history reviewed & non-contributory. Major Childhood Illnesses: reports: denies history Cardiovascular: reports: blood clots, CHF, HTN, hyperlipidemia Respiratory: reports: asthma Gastrointestinal: reports: denies history Genitourinary: reports: denies history Musculoskeletal: reports: chronic pain Neurological: reports: denies history Psychiatric: reports: anxiety Endocrine/Immune: reports: Diabetes Diabetes Type: Type 2 Other Conditions: reports: denies history - PRIOR SURGERIES/PROCEDURES Surgical/Procedure History: reports: other (scrotal abscess) - IMMUNIZATION STATUS Childhood Immunizations: See Nurse Assessment Flu Vaccine: See Nurse Assessment - FAMILY HISTORY Family History: reviewed, not pertinent - SOCIAL HISTORY Smoking: denies Substance Use: alcohol Alcohol Use Frequency: 2-3 times a month Number of drinks per typical drinking period:: 3-4 drinks Living Situation: alone Physical Exam-General - PHYSICAL EXAM-ADULT Exam Limited by: BP 75/46 Initial Vital Signs Reviewed: Yes - CONSTITUTIONAL General Appearance: alert, mild distress - EYES Eyes: PERRL/EOMI, pink conjunctivae - HEAD, EARS, NOSE, MOUTH & THROAT HENMT: moist mucous membranes, dental decay - NECK Neck: full range of motion, normal inspection - RESPIRATORY Respiratory: chest non-tender, lungs clear, normal breath sounds - CARDIOVASCULAR Cardiovascular: normal peripheral pulses, regular rate, rhythm - GASTROINTESTINAL (ABDOMEN) Abdominal Exam: distended (ascities). negative: rigid, rebound, tenderness - GENITOURINARY Male Genitalia: scrotal swelling, other (with open draining wound foul smell and yellow discharge) Rectal Exam: deferred Hemoccult Exam: deferred - LYMPHATIC Lymphatic: no adenopathy - MUSCULOSKELETAL Back Exam: normal inspection Extremity: no calf tenderness, normal capillary refill - SKIN Integumentary: normal color, normal turgor, warm/dry - NEUROLOGIC Neurologic: grossly normal, no motor/sensory deficits - PSYCHIATRIC Psych/Mental Status: normal mood/affect, normal thought content, normal thought process, oriented x 3 Progress - PLAN OF CARE/RESULTS Progress/Plan/Lab Results: 10/13/18 17:48 Gram Stain - Final Scrotum 10/13/18 13:37 Gram Stain - Final Scrotum Laboratory Results - last 24 hr 10/13/18 10/13/18 10/13/18 14:50 14:50 14:50 WBC 23.82 H RBC 4.62 L Hgb 13.6 L Hct 39.4 L MCV 85.3 MCH 29.4 MCHC 34.5 RDW Std Deviation 16.1 H Plt Count 280 MPV 9.7 Immature Gran % (Auto) 0.9 H Neut % (Auto) 92.6 H Lymph % (Auto) 2.6 L Williams % (Auto) 3.7 Eos % (Auto) 0.0 Baso % (Auto) 0.2 Immature Gran # (Auto) 0.22 H Neut # (Auto) 22.03 H Lymph # (Auto) 0.63 L Williams # (Auto) 0.89 H Eos # (Auto) 0.01 Baso # (Auto) 0.04 Segmented Neutrophils Not Reportable Sodium 142 Potassium 3.1 L Chloride 101 Carbon Dioxide 28 Anion Gap 13 BUN 24 H Creatinine 0.6 L Estimated GFR/1.73 m2 > 60 BUN/Creatinine Ratio 40 Glucose 85 POC Glucose Calculated Osmolality 286 Calcium 8.4 L Total Bilirubin 5.30 H AST 21 ALT 7 L Alkaline Phosphatase 205 H Total Protein 5.7 L Albumin 2.0 L Globulin 4.0 Albumin/Globulin Ratio 1.0 Lipase 7 L Plasma Lactate 1.8 10/13/18 18:58 WBC RBC Hgb Hct MCV MCH MCHC RDW Std Deviation Plt Count MPV Immature Gran % (Auto) Neut % (Auto) Lymph % (Auto) Williams % (Auto) Eos % (Auto) Baso % (Auto) Immature Gran # (Auto) Neut # (Auto) Lymph # (Auto) Williams # (Auto) Eos # (Auto) Baso # (Auto) Segmented Neutrophils Sodium Potassium Chloride Carbon Dioxide Anion Gap BUN Creatinine Estimated GFR/1.73 m2 BUN/Creatinine Ratio Glucose POC Glucose 77 Calculated Osmolality Calcium Total Bilirubin AST ALT Alkaline Phosphatase Total Protein Albumin Globulin Albumin/Globulin Ratio Lipase Plasma Lactate Orders Category Date Time Status Admit - [facility] Routine AdmDCTranf 10/13/18 20:08 Active Activity - Up with Assistance ORDERED Care 10/13/18 20:08 Active Central Line Placement per MD/ NOW Care 10/13/18 16:13 Inactive [place] Cath Insertion ORDERED Care 10/13/18 13:03 Completed IV Insertion ORDERED Care 10/13/18 16:13 Completed Intake and Output-Strict ORDERED Care 10/13/18 13:03 Completed Intake and Output-Strict ORDERED Care 10/13/18 16:13 Active Notify MD/PA/FERNY for exam NOW Care 10/13/18 16:13 Inactive Nursing- MD Consult Request ROUTINE Care 10/13/18 20:08 Completed Repeat Vital Signs .Blood Pressure Care 10/13/18 13:03 Inactive Repeat Vital Signs .Blood Pressure Care 10/13/18 16:13 Inactive Repeat Vital Signs .Heart Rate Care 10/13/18 13:03 Inactive Repeat Vital Signs .Heart Rate Care 10/13/18 16:13 Inactive Repeat Vital Signs .Oxygen Saturation Care 10/13/18 13:03 Inactive Repeat Vital Signs .Oxygen Saturation Care 10/13/18 16:13 Inactive Repeat Vital Signs .Respiratory Rate Care 10/13/18 13:03 Inactive Repeat Vital Signs .Respiratory Rate Care 10/13/18 16:13 Inactive Repeat Vital Signs .Temp Care 10/13/18 13:03 Inactive Repeat Vital Signs .Temp Care 10/13/18 16:13 Inactive Saline Loc DIRECTED Care 10/13/18 13:05 Completed Update & Confirm Home Medicati ROUTINE Care 10/13/18 20:08 Active Vital Signs Order ORDERED Care 10/13/18 20:08 Active Vital Signs Order Q15M Care 10/13/18 13:17 Completed Z-Document. for Tele Applied ORDERED Care 10/13/18 20:08 Completed Physician/Provider Consults Routine Cons 10/13/18 20:08 Ordered NPO Diet 10/13/18 13:05 Active ANAEROBIC CULTURE [RM] Routine Lab 10/13/18 17:48 Received BLOOD CULTURE [BLDCUL] Stat Lab 10/13/18 15:00 Results CBC WITH DIFF [HEME] Routine Lab 10/14/18 02:58 Completed CBC WITH ELECTRONIC DIFF [HEME] Stat Lab 10/13/18 14:50 Completed COMPREHENSIVE METABOLIC PANEL [CHEM] Routine Lab 10/13/18 20:44 Completed COMPREHENSIVE METABOLIC PANEL [CHEM] Stat Lab 10/13/18 14:50 Completed GRAM STAIN [DIREX] Routine Lab 10/13/18 17:48 Completed LACTATE, PLASMA [CHEM] Timed Lab 10/13/18 14:50 Completed LACTATE, PLASMA [CHEM] Timed Lab 10/13/18 16:13 Ordered LIPASE [CHEM] Stat Lab 10/13/18 14:50 Completed ROUTINE CULTURE [RM] Routine Lab 10/13/18 17:48 Received WOUND CULTURE INC GRAM STAIN [RM] Routine Lab 10/13/18 13:37 Results 0.9% Sodium Chloride Inj [Ns] 1,000 ml Med 10/13/18 13:06 Discontinued IV 999 mls/hr 0.9% Sodium Chloride Inj [Ns] 1,000 ml Med 10/13/18 16:08 Discontinued IV 999 mls/hr 0.9% Sodium Chloride Inj [Ns] 1,000 ml Med 10/13/18 13:02 Discontinued IV As Directed 0.9% Sodium Chloride Inj [Ns] 1,000 ml Med 10/13/18 16:13 Discontinued IV As Directed 0.9% Sodium Chloride Inj [Ns] 500 ml Med 10/13/18 13:02 Discontinued IV 999 mls/hr 0.9% Sodium Chloride Inj [Ns] 500 ml Med 10/13/18 16:13 Discontinued IV 999 mls/hr Dexamethasone [Decadron] Med 10/13/18 17:55 Discontinued 4 mg .ROUTE .STK-MED ONE Dextrose 5%-0.45% NaCl Inj [D5 1/2 Ns] 250 ml Med 10/13/18 13:15 Discontinued Norepinephrine [Levophed] 8 mg IV As Directed Dextrose 5%-0.45% NaCl Inj [D5 1/2 Ns] 250 ml Med 10/13/18 16:15 Discontinued Norepinephrine [Levophed] 8 mg IV As Directed Etomidate [Amidate] Med 10/13/18 17:22 Discontinued 40 mg .ROUTE .STK-MED ONE Lidocaine 2% Pf [Xylocaine-Mpf 2%] Med 10/13/18 17:22 Discontinued 5 ml .ROUTE .STK-MED ONE Ondansetron [Zofran] Med 10/13/18 17:55 Discontinued 4 mg .ROUTE .STK-MED ONE Pharmacy Order [Vancomycin IV Per Pharmacy] Med 10/13/18 20:08 Discontinued 1 each MISC DIRECTED Piperacillin/Tazobactam [Zosyn] 3.375 gm Med 10/13/18 20:08 Discontinued 0.9% Sodium Chloride Inj [Ns] 50 ml IV Q6H Piperacillin/Tazobactam [Zosyn] 4.5 gm Med 10/13/18 13:04 Discontinued 0.9% Sodium Chloride Inj [Ns] 100 ml IV NOW Vancomycin 1 gm/Ns Med 10/13/18 13:02 Discontinued 1 gm in 250 ml IV NOW Telemetry [OM.EQ] Routine Oth 10/13/18 20:08 Active EKG [EKG] Stat Ther 10/13/18 16:55 Ordered Transfer/Admit Order [TRANSFER] Routine Transfer 10/13/18 16:12 Completed MAP=73 at 1645, Dr. Botello request that central line be placed in operating room , urgent transfer to [facility] for emergent surgery Result Diagrams: 10/14/18 02:58 10/14/18 02:58 - REASSESSMENT Reassessment #1 Time Reassessed: 13:34 (dr muñiz at bedside speaking with family and pt about poc ) Status: unchanged Reassessment #2 Time Reassessed: 15:11 (dr muñiz at bedside speaking with pt) Status: unchanged Reassessment #3 Time Reassessed: 16:08 (blood pressure 83 stysolic) Status: unchanged Reassessment Comment: dr muñiz at bedside - CONSULTS/PCP/HOSPITALIST Notification #1 *Consult/PCP/Hospitalist*: dr sy sx Time Discussed: 16:22 Reason/Comments: consult #2 Consult: hospitalist dr roberts Time Discussed: 16:15 Reason/Comments: admit across [facility], admit to Dr. Bradley Consult Disposition: Admit #3 Consult: dr botello urologist Time Discussed: 16:36 Reason/Comments: sent to [facility] straight to OR,admit to hospitalist Consult Disposition: other (pt will go striaught to sx) Procedures - CENTRAL LINE Anesthetic: 1% Volume of Anesthetic (ml's): 10 Departure - Departure Date of Disposition Decision: 10/13/18 Time of Disposition Decision: 15:00 DIAGNOSIS: Septic shock, Karen's gangrene of scrotum, Chronic atrial fibrillation Disposition: ADMITTED INPATIENT 09 Certified Medical Emergency: Emergent Condition: Critical - Critical Care Note This patient required my direct & personal management of CC.: Yes Total Time (mins): 42 Critical Care Statement: This patient required my direct personal management to treat or rule out processes, the absence of which, could potentiallly result in sudden, clinically significant life or limb threatening deterioration. Attestation - Physician/ ALESHIA Attestation Patient care was provided by Advanced Practice Provider:: No The physician spent face to face time with patient:: Yes Advanced Practice Provider documentation review:: Supervising physician onsite and consulted in the evaluation and care of this patient. The physician did have a face to face encounter with the patient. This chart was documented by the indicated scribe, (Eliza Wright Scribe) and accurately reflects the services I performed and decisions made by me, Sridhar Muñiz MD, as attested by the provider's signature.
[2018-10-13 15:11] LABS: BASO# 0.04 X1000 (0.0-0.2); BASO% 0.2 % (0.0-0.8); EOS# 0.01 X1000 (0.0-0.7); HEMATOCRIT 39.4 % (42.0-52.0); HEMOGLOBIN 13.6 g/dL (14.0-18.0); IMM GRAN# 0.22 X1000 (0.0-0.04); IMM GRAN% 0.9 % (0.0-0.5); LYMPH# 0.63 X1000 (1.2-3.4); LYMPH% 2.6 % (20.5-51.1); MCH 29.4 PG (27-31); MCHC 34.5 g/dL (33-37); MCV 85.3 FL (81-99); MONO# 0.89 X1000 (0.11-0.59); MONO% 3.7 % (1.7-9.3); MPV 9.7 FL (7.4-10.4); NEUT# 22.03 X1000 (1.4-6.5); NEUT% 92.6 % (42.2-75.2); PLT 280 X1000 (130-400); RBC 4.62 XMIL (4.7-6.1); RDW 16.1 % (11.5-14.5); WBC 23.82 X1000 (4.8-10.8)
[2018-10-13 15:29] LABS: AGAP 13; ALKALINE PHOSPHATASE 205 U/L (32-122); BUN 24 mg/dL (8-22); CALCIUM 8.4 mg/dL (8.8-10.2); CHLORIDE 101 mmol/L (98-107); COSMO 286; CREATININE 0.6 mg/dL (0.7-1.2); ESTIMATED GFR > 60; GLUCOSE 85 mg/dL (70-104); GOT 21 U/L (10-34); GPT 7 U/L (10-44); LIPASE 7 U/L (13-60); POTASSIUM 3.1 mmol/L (3.5-5.1); SODIUM 142 mmol/L (136-145); TCO2 28 mmol/L (25-35); TOTAL PROTEIN 5.7 g/dL (6.3-8.3)
[2018-10-13] MEDS ORDERED: XYLOCAINE-MPF 2% ONE (17:22)
[2018-10-13] MEDS ORDERED: AMIDATE ONE (17:22)
--- NOTE | 2018-10-13 17:25 | HISTORY AND PHYSICAL ---
PRIMARY CARE PHYSICIAN: None. CHIEF COMPLAINT: Testicular pain. HISTORY OF PRESENTING ILLNESS: This is a 63-year-old male who presents to [facility] ER with complaints of scrotal swelling and pain. He states that they have been swollen for about 2 weeks, and this morning he had a pop and began draining a foul smelling purulent drainage. He has had a history of Karen's gangrene in the past. When he arrived, his blood pressure was 75/46. His white blood cell count was 23.82 and potassium was 3.1. We were unable to do a CT scan due to him being hypotensive and in septic shock. In the emergency room, he has been given 4 L of normal saline, vancomycin 1 gram IV x1, and Zosyn 4.5 g IV x1. The ER physician spoke with Urology who wants to send him to [facility] straight to surgery at this time for further evaluation and treatment. PAST MEDICAL HISTORY: Nonischemic cardiomyopathy with an ejection fraction of 25% in June of 2018, chronic systolic congestive heart failure, diabetes type 2, gout, DVT, hypertension and a history of Karen's gangrene. PAST SURGICAL HISTORY: Scrotal debridement, secondary to scrotal abscess, and right hydrocelectomy. FAMILY HISTORY: Reviewed and noncontributory. SOCIAL HISTORY: He currently lives alone. Denies any tobacco, alcohol or illicit drug use. ALLERGIES: He has no known drug allergies. HOME MEDICATIONS: A current list will need to be obtained and restarted as appropriate after reviewed. We will place an order for nursing to update and confirm home medications. LABORATORY DATA: White blood cell count of 23.82, hemoglobin 13.6, hematocrit 39.4, and platelets 280,000. Sodium 142, potassium 3.1, chloride 101, CO2 28, BUN of 24, creatinine 0.6, glucose 85, lipase of 7, and plasma lactate 1.8. REVIEW OF SYSTEMS: He denied any fever, chills, blurred vision, dizziness, chest pain, coughing, or shortness of breath. He denied any nausea or vomiting. He has had suprapubic abdominal pain, scrotal edema, and draining a foul smelling purulent drainage. Denied any constipation, diarrhea, burning or hurting with urination. PHYSICAL EXAMINATION: On arrival, he had a temperature of 97.7 degrees, pulse 84, respirations 18, blood pressure was 75/46. He has received 3 complete bags of normal saline, and is receiving a 4th at this time. Blood pressure is up to 91/59. GENERAL: This is a 63-year-old male who is lying in the bed and answers questions appropriately. HEENT: Normocephalic, atraumatic. Normal ENT inspection. Oropharynx and nares are clear. EYES: Pupils are equal, round, and reactive to light and accommodation. Extraocular movements are intact. NECK: Normal inspection. Normal range of motion. LUNGS: Clear to auscultation bilaterally with equal lung expansion, and chest wall movement. HEART: Regular rate and rhythm. No murmurs, rubs, or gallops. ABDOMEN: He had some distention with some ascites noted. Bowel sounds are present x4 quadrants. GENITOURINARY: He had some scrotal swelling and erythema, and an open drain to the underside of his scrotum that had a foul smelling yellow discharge. MUSCULOSKELETAL: He has 4/5 strength x4 extremities. NEUROLOGICAL: The cranial nerves 2-12 appear grossly intact. ASSESSMENT: 1. Septic shock. 2. Hypotension. 3. Scrotal cellulitis, concern for another Karen's gangrene. 4. Hypotension. 5. Leukocytosis. 6. Hypokalemia. PLAN: He is being transferred to the [facility]. The ER physician spoke with Urology. He wants to take him straight to surgery, and then he will be admitted to the intensive care unit. He is NPO at this time. Blood cultures x2 are pending. Urinalysis is pending. He has received 3 boluses of normal saline, and is on his 4th bag. He will be on vancomycin per pharmacy protocol. Zosyn 3.375 g IV q.6 placed on telemetry. Nursing will need to update and confirm home medications as previously discussed. Of course, we will consult Urology. Further orders after seen by attending and by urologist. Dictated by FERNY Jimenez for Joe Weston MD cc: FERNY Jimenez MD
[2018-10-13] MEDS ORDERED: ZOFRAN ONE (17:55)
[2018-10-13] MEDS ORDERED: DECADRON ONE (17:55)
--- NOTE | 2018-10-13 18:59 | HISTORY AND PHYSICAL ---
HISTORY AND PHYSICAL ADDENDUM: The patient came in with pain and draining in his right groin with excessive swelling. He has a history of CHF, EF about 25%, diabetes, gout. He also has a history of Karen gangrene. He was here not too long ago for a CHF exacerbation I believe. In any case, patient was evaluated and he had a white count, was somewhat hypokalemic. Kidney functions were normal, but his bilirubin has progressed. EXAMINATION: On exam, he has got a very swollen scrotum on both sides with evidence of drainage. He has got skin breakdown, which looks like an old scar, but then he has got subsequent drainage from the mid area of his scrotum with purulent brown drainage consistent with a septic abscess, which may be developing into gangrene and Karen gangrene. PROBLEM LIST: 1. Sepsis, associated with possible gangrene. He has had a lot of fluid in the ER and at risk for volume overload. 2. He is on vancomycin and Zosyn for antibiotic therapy. Dr. Botello has been contacted and will evaluate for debridement and excision of necrotic tissue, and he is being sent to [facility] for further management. We will monitor his blood sugars, vital signs. He may need some postoperative evaluation to make sure resuscitation has been completed. cc: Joe Weston MD
[2018-10-13] MEDS ORDERED: DEMEROL ONE (19:28)
[2018-10-13] MEDS ORDERED: LR 1,000 ML ONE (19:28)
[2018-10-13 19:34] LABS: HEMATOCRIT 41.7 % (42.0-52.0); HEMOGLOBIN 13.8 g/dL (14.0-18.0)
[2018-10-13] MEDS ORDERED: VANCOMYCIN IV PER PHARMACY MISC SCH ×2 (19:45→20:08)
[2018-10-13 19:51] LABS: AGAP 15; BUN 21 mg/dL (8-22); CALCIUM 8.4 mg/dL (8.8-10.2); CHLORIDE 101 mmol/L (98-107); COSMO 277; CREATININE 0.7 mg/dL (0.7-1.2); ESTIMATED GFR > 60; GLUCOSE 75 mg/dL (70-104); SODIUM 138 mmol/L (136-145); TCO2 22 mmol/L (25-35)
[2018-10-13] MEDS ORDERED: ZOSYN 3.375 GM in NS 50 ML IV SCH (20:08)
[2018-10-13] MEDS: LR 1,000 ML IV SCH (20:50)
[2018-10-13] MEDS: POTASSIUM CHLORIDE 20 MEQ/SWI 20 MEQ/100 ML IVPB IV SCH ×2 (20:51→23:30)
[2018-10-13] MEDS: ZOSYN 3.375 GM in NS 50 ML IV SCH (21:00)
[2018-10-13 21:15] LABS: AGAP 13; ALB/GLOB RATIO 0.5; ALBUMIN 1.7 g/dL (3.5-5.0); ALKALINE PHOSPHATASE 139 U/L (32-122); BUN 22 mg/dL (8-22); CALCIUM 8.3 mg/dL (8.8-10.2); CHLORIDE 102 mmol/L (98-107); COSMO 282; CREATININE 0.7 mg/dL (0.7-1.2); ESTIMATED GFR > 60; GLUCOSE 77 mg/dL (70-104); GOT 18 U/L (10-34); GPT 7 U/L (10-44); POTASSIUM 2.9 mmol/L (3.5-5.1); SODIUM 140 mmol/L (136-145); TCO2 25 mmol/L (25-35); TOTAL PROTEIN 5.1 g/dL (6.3-8.3)
--- NOTE | 2018-10-13 22:40 | CONSULTATION ---
DATE OF CONSULTATION: 10/13/2018 CHIEF COMPLAINT: Scrotal abscess. HISTORY OF PRESENT ILLNESS: Mr. Segal is a 63-year-old male with type 2 diabetes, CHF with ejection fraction of 25%, gout, hypertension, and history of prior Karen gangrene. The patient presents to the emergency room at [facility] with a severely swollen scrotum. This was stated to be present for several weeks now. However, earlier today, it started draining purulent, foul-smelling drainage. The patient has a history of Karen gangrene and underwent scrotal debridement back in April 2018. The patient had been seen several times by Urology and failed to follow up in the outpatient setting following his debridements of the scrotum. The patient presented today to the emergency room with a blood pressure of 75/46 and white blood cell count elevated at 23. The patient received 4 L of normal saline as well as vancomycin and Zosyn in the emergency room. The patient was transferred to [facility] for emergent surgical intervention. The patient was recently hospitalized earlier this week for scrotal swelling and CHF exacerbation. He was treated and discharged home. The patient re-presented back on October 09 as well as today with similar- type symptoms. Patient takes Eliquis and does not remember when he last took it. PAST MEDICAL HISTORY: 1. Nonischemic cardiomyopathy with an ejection fraction of 25%. 2. Chronic systolic heart failure. 3. Type 2 diabetes. 4. Gout. 5. History of hypertension. 6. History of Karen gangrene. PAST SURGICAL HISTORY: Scrotal debridement for Karen gangrene and right hydrocelectomy in April 2018. FAMILY HISTORY: Denies family history of malignancy. ALLERGIES: No known drug allergies. HOME MEDICATIONS: 1. Allopurinol 100 mg b.i.d. 2. Doxycycline 100 mg b.i.d. 3. Furosemide 40 mg b.i.d. 4. Insulin. 5. Spironolactone. 6. Tramadol. 7. Valtrex. 8. Eliquis SOCIAL HISTORY: The patient denies tobacco, alcohol or illicit drug use. PHYSICAL EXAMINATION: Vital signs: Temperature 97.4 degrees, heart rate 88, blood pressure 92/59, and oxygen saturation 95% on room air. General: No acute distress. Resting comfortably in bed. HEENT: Normocephalic, atraumatic. Pupils equal, round, reactive to light. The patient has poor dentition. He has moist mucous membranes. Cardiovascular: Evidence of lower extremity edema as well as irregular heartbeat with slight S1 heart murmur. Respiratory : Good respiratory effort without audible wheezing or rales. Abdomen: Soft, nontender, nondistended. Evidence of edema present in the suprapubic region. Genitourinary: Significant penile edema with inability to see the meatus. The penis appears to be quite firm due to underlying penile edema. The scrotum is significantly enlarged. Prior surgical site appears to be healthy. However, there is a necrotic area just medial to this overlying the median raphe. A moderate amount of purulence is seen coming from this necrotic area. No other areas of skin changes are seen. However, the patient has tenderness to palpation of the scrotum, and it is quite edematous and much larger than a normal appearance for him. Musculoskeletal: Moving all extremities. There is some lower extremity edema. Neurologic: Gross motor and sensory intact. Skin: The patient has a bandlike rash overlying his left chest wall as well as multiple other lesions present overlying the skin. LABORATORIES: White blood cell count 23.8, hemoglobin 13.8, hematocrit 41.7, platelets 280,000. Sodium 138, potassium 3, chloride 101, bicarb 22, BUN 21, creatinine 0.7, glucose 75, lactate 2.4, albumin 2.0. ASSESSMENT AND PLAN: Mr. Segal is a 63-year-old with a history of Karen gangrene of the scrotum, hypertension, congestive heart failure, type 2 diabetes, and ejection fraction of 25%, who presents in consultation regarding scrotal edema and scrotal abscess. The patient was initially evaluated by the emergency department at [facility] and transferred to [facility] for emergent procedure. The patient was seen in the preop area and had evidence of a necrotic lesion within the scrotum with significant purulent drainage. On arrival, it was recommended that he proceed with surgical intervention if he needed to have scrotal debridement and placement of a urethral catheter. H and P was delayed until after he was taken emergently to the operating room. Discussed with him the risks and benefits of procedure including resection of scrotal wall to remove infection, as well as remove all underlying infection from his subcutaneous tissue. The concern arose that he had a very large scrotal abscess due to the size and fluctuance of his scrotum which was leading to his pain and hypotension. I told him that this could be a very serious infection and can be life threatening if not treated. The patient had an elevated white blood cell count of 23,000 and had significant hypotension which is likely related to sepsis. Risks, benefits, and alternatives of the surgical procedure were discussed with the patient, and the patient elected to proceed. cc: Michael Dominguez MD MTDD
--- NOTE | 2018-10-13 22:59 | OPERATIVE NOTE ---
PROCEDURE DATE: 10/13/2018 PREOPERATIVE DIAGNOSES: 1. 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 2. Phimosis. POSTOPERATIVE DIAGNOSES: 1. 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 2. Phimosis. PROCEDURES PERFORMED: 1. Significant scrotal and perineal debridement with drainage of Karen gangrene. 2. Dorsal slit with urethral catheter placement. SURGEON: Michael Dominguez MD. MATH TEACHER: Rafi Botello MD. ESTIMATED BLOOD LOSS: 150 mL. SPECIMENS REMOVED: 1. Anaerobic cultures. 2. Scrotal tissue. DRAINS: A 14-Montserratian silicone catheter. ANESTHESIA: LMA. INDICATIONS FOR PROCEDURE: Mr. Segal is a 63 yo who presented as consult for scrotal swelling with purulent drainage. 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 He presented to the [place] ED today with significant scrotal drainage, hypotension, and elevated white blood cell count. Due to these findings, it was recommend that he be transferred to [facility] for emergent surgical intervention for possible Karen's gangrene. Risks, benefits, and alternatives were discussed with the patient and he elected to procedure. OPERATIVE FINDINGS: Patient was brought to the operating room and placed on the table in supine position. Patient had received preoperative antibiotics and underwent general anesthesia. Patient was then placed into dorsal lithotomy position. Patient was preppred and draped in usual sterile condition. Preoperative timeout was performed and all parties were in agreement including anesthesia, nursing, and surgical staff. The patient had a necrotic area in the mid portion of the scrotum with drainage of purulent material. The patient had prior resection scar present on the right hemiscrotum, with significant scrotal edema and penile edema were seen. There was purulence draining from this prior resection on the medial scrotal wall overlying the median raphe. The prior Karen's gangrene was also visualized and appeared to be well healed. Incision was made with a 10 blade into the scrotal wall, and this did not bleed, and a significant amount of purulence was then extracted and irrigated out. Several specimens were sent for anaerobic and aerobic cultures. The overlying tissue was then opened up using both sharp as well as electrocautery to open up the scrotal wall to get good access to the underlying subcutaneous tissues. A significant amount of purulence as well as necrotic tissue was seen and was sharply dissected out. This was all removed and sent for cultures as well as for scrotal pathology. This seemed to involve most of the right hemiscrotum and tracked up into bilateral inguinal canals. A large portion of necrotic tissue was removed in the subcutaneous planes. This was copiously irrigated with Saline solution and Betadine. Dissection was taken until good bleeding tissue was obtained, at which time the wound was then packed with laps. Attention was then placed to placing a urethral catheter. The patient had a very edematous foreskin that was quite firm, and it was difficult to retract to visualize the meatus. His penile shaft skin was very dense, and I was unable to adequately place the catheter. I performed dorsal slit to allow easy access to his urethral meatus. Using Metzenbaum scissors, overlying penile shaft skin was excised until the glans and the meatus were visualized. The dorsal slit was then closed using a 3-0 chromic suture in a running fashion, good hemostasis was obtained. I attempted to place a 16-Montserratian catheter at this time, but was unable to pass easily. Ultimately, I used a 14-Montserratian silicone catheter which was passed easily into the bladder with return of orange urine, then inflated 10 mL of sterile water and then placed to gravity drainage. Following this we re-evaluated our scrotal wound, and it appeared to be well debrided. Good hemostasis was visualized. Total resection of the scrotum took approximately 1 hour, at which time the decision was made to terminate the procedure, and the wound was then packed with Betadine-soaked Kerlix. Two Kerlix were inserted between the inguinal areas as well as into the underlying scrotal defect, and these two were tied to one another. Following this, hemostasis appeared to be well obtained. The patient's legs were taken out of candy canes, and a StatLock was applied to the lower extremity for stabilization of his catheter. ABD pads were then placed around the scrotum, and mesh panties were applied. The patient will be transferred to the hospital service and ICU for monitoring overnight. The patient has required blood pressure support with pressors with Levophed. The patient will continue on IV antibiotics and tailored to culture data. The patient remains on Zosyn and vancomycin. We will continue to monitor his renal function as well as his leukocytosis. cc: Michael Dominguez MD MTDD
[2018-10-13] MEDS: VANCOMYCIN 2 GM in NS 500 ML IV SCH (23:30)
[2018-10-13 23:43] LABS: URINE SOURCE CATH
[2018-10-13 23:44] LABS: COLOR YELLOW; GLUCOSE URINE TRACE mg/dL (NEGATIVE); TURBIDITY URINE TURBID (CLEAR)
[2018-10-13 23:45] LABS: BILIRUBIN URINE MODERATE (NEGATIVE); BLOOD URINE MODERATE (NEGATIVE); KETONE URINE TRACE mg/dL (NEGATIVE); PROTEIN URINE 300 mg/dL (NEGATIVE); SP GRAVITY URINE 1.021; UROBILINOGEN URINE 4 mg/dL (NORMAL)
[2018-10-13 23:46] LABS: LEUKOCYTES URINE TRACE (NEGATIVE); NITRITE URINE NEGATIVE (NEGATIVE); UR EPITHELIAL CELLS >10 /HPF (<10); URINE BACTERIA NEGATIVE /HPF; URINE RBC TNTC /HPF (<10); URINE WBC >40 /HPF (<10)
[2018-10-13 23:47] LABS: URINE CASTS GRANULAR PRESENT; URINE CRYSTALS NONE SEEN; URINE SMALL ROUND CELLS NONE SEEN; URINE YEAST NONE SEEN
[2018-10-14] MEDS: ZOSYN 3.375 GM in NS 50 ML IV SCH ×4 (03:17→21:39)
[2018-10-14 03:22] LABS: BASO% 0.3 % (0.0-0.8); HEMATOCRIT 36.9 % (42.0-52.0); HEMOGLOBIN 12.4 g/dL (14.0-18.0); IMM GRAN# 0.26 X1000 (0.0-0.04); IMM GRAN% 0.7 % (0.0-0.5); LYMPH% 2.8 % (20.5-51.1); MCH 29.3 PG (27-31); MCHC 33.6 g/dL (33-37); MCV 87.2 FL (81-99); MONO# 0.83 X1000 (0.11-0.59); MONO% 2.3 % (1.7-9.3); MPV 10.1 FL (7.4-10.4); NEUT# 33.91 X1000 (1.4-6.5); NEUT% 93.9 % (42.2-75.2); PLT 317 X1000 (130-400); RBC 4.23 XMIL (4.7-6.1); RDW 16.1 % (11.5-14.5)
[2018-10-14 03:49] LABS: LYMPHS 2 % (21-51); MONO 2 % (1-9); SEGS 96 % (42-75)
[2018-10-14 04:20] LABS: AGAP 13; ALB/GLOB RATIO 0.5; ALBUMIN 1.6 g/dL (3.5-5.0); ALKALINE PHOSPHATASE 136 U/L (32-122); BUN 22 mg/dL (8-22); CALCIUM 8.3 mg/dL (8.8-10.2); CHLORIDE 103 mmol/L (98-107); COSMO 280; CREATININE 0.7 mg/dL (0.7-1.2); ESTIMATED GFR > 60; GLUCOSE 88 mg/dL (70-104); GOT 17 U/L (10-34); GPT 7 U/L (10-44); MAGNESIUM 1.7 mg/dL (1.5-2.7); POTASSIUM 3.9 mmol/L (3.5-5.1); SODIUM 139 mmol/L (136-145); TCO2 23 mmol/L (25-35); TOTAL BILIRUBIN 4.69 mg/dL (0.20-1.00)
[2018-10-14] MEDS: LR 1,000 ML IV SCH (08:37)
[2018-10-14 09:43] LABS: INR 1.67
[2018-10-14 09:44] LABS: PTT 41.3 Seconds (22.3-41.8)
--- NOTE | 2018-10-14 09:50 | PROGRESS NOTE ---
DATE: 10/14/2018 SUBJECTIVE: The patient reports feeling fine. Mild pain around the surgical area. Denies any fever, chills, chest pain, or shortness of breath. OBJECTIVE: Vital Signs: Temperature 97.2 degrees, heart rate 116, respiratory rate 17, blood pressure 98/61, O2 saturation 100% on 4 L nasal cannula. General: This is a chronically ill- looking, 63-year-old, male, lying in bed, in no acute distress. HEENT: Head is normocephalic and atraumatic. Mucous membranes dry. Pupils are equal, round, reactive to light and accommodation. Neck: No JVD noted. No carotid bruits. No lymphadenopathy. No thyromegaly. Cardiovascular: S1 and S2 heard. No murmurs, gallops, or rubs. Regular rate and rhythm. Respiratory: Clear bilaterally to auscultation. No work of breathing or using accessory muscles. Abdomen: Soft. A little bit distended with some ascites noted. Bowel sounds present. No organomegaly. Genitourinary: Perineal area covered by a dressing. Good serosanguineous drainage. Extremities: No clubbing, cyanosis, or edema. Peripheral pulses present in both legs. Neurological: Patient alert and oriented x3. Moves 4 extremities. Coherent speech. LABORATORY DATA: White cell count 36.1, hemoglobin 12.4, hematocrit 36.9, platelets 317,000. Normal BMP. Total bilirubin 4.69, alkaline phosphatase 136. ASSESSMENT AND PLAN: 1. Septic shock secondary to scrotal abscess with near gangrene. Status post perineal debridement and drainage of gangrene. The patient is on vasopressors. Dr. Dominguez from Urology following this patient. White cell count is still very elevated. The patient is on vancomycin and Zosyn. I think, considering that this patient will require antibiotics for a long period of time, I prefer to get Infectious Disease involved in his care. Will follow recommendations from Urology. 2. Nonischemic cardiomyopathy with ejection fraction of 25%. The patient is not in exacerbation. Will continue with home medications for this patient. 3. Hypertension. Actually, the blood pressure is low because the patient is in septic shock. I would rather prefer to continue with vasopressors instead of using intravenous fluids because of the risk of volume overload for this patient. 4. Diabetes mellitus type 2. Will continue with Accu-Cheks before meals and also at bedtime, and sliding scale insulin as well. 5. Hypokalemia, resolved. DISPOSITION: At this point, will continue monitoring this patient here in the intensive care unit. Patient requiring vasopressors. White cell count is elevated. Will consult Infectious Disease and follow recommendations. cc: Boni Matthews MD MTDD
[2018-10-14] MEDS: CARDIZEM 125 MG in NS 100 ML IV SCH ×2 (10:09→18:12)
[2018-10-14] MEDS: DILAUDID IV PRN (10:15)
[2018-10-14] MEDS: VANCOMYCIN 2 GM in NS 500 ML IV SCH (10:43)
[2018-10-14] MEDS ORDERED: NS 250 ML ONE (11:16)
[2018-10-14 11:30] LABS: BASO# 0.38 X1000 (0.0-0.2); EOS# 0.35 X1000 (0.0-0.7); HEMATOCRIT 32.6 % (42.0-52.0); HEMOGLOBIN 11.5 g/dL (14.0-18.0); IMM GRAN# 1.33 X1000 (0.0-0.04); IMM GRAN% 3.6 % (0.0-0.5); LYMPH# 1.22 X1000 (1.2-3.4); LYMPH% 3.3 % (20.5-51.1); MCH 30.4 PG (27-31); MCHC 35.3 g/dL (33-37); MCV 86.2 FL (81-99); MONO# 1.22 X1000 (0.11-0.59); MONO% 3.3 % (1.7-9.3); MPV 10.6 FL (7.4-10.4); NEUT# 32.21 X1000 (1.4-6.5); NEUT% 87.8 % (42.2-75.2); PLT 294 X1000 (130-400); RBC 3.78 XMIL (4.7-6.1); WBC 36.71 X1000 (4.8-10.8)
[2018-10-14 11:47] LABS: BANDS 2 % (0-1); LYMPHS 8 % (21-51); SEGS 90 % (42-75)
--- NOTE | 2018-10-14 12:03 | INFECTIOUS DISEASE CONSULT REP ---
DATE: 10/14/2018 CONCLUSION: Dr. Bradley asked me to see the patient regarding shingles, which I think he has on the left side of the chest. Also, I noticed on examining the patient that he has oral candidiasis. The patient has undergone surgery for a scrotal abscess with concerns for Karen gangrene and phimosis. Dr. Dominguez performed the surgeries for that. RECOMMENDATIONS: I have gone ahead and started the patient on Valtrex 1 g p.o. every 8 hours and I have also started him on Mycostatin swish and swallow. DISCUSSION: The patient came in and has had surgery for the scrotal abscess, Karen gangrene and phimosis. He tells me that he started having a lot of pain in his left side of his chest which he has had before due to shingles where he has had pain before. He also told me that his tongue is sore. Laboratory tests thus [place] [address], hemoglobin 12.4, and platelet count 317,000. Creatinine is 0.7, GFR is greater than 60. Alkaline phosphatase is 136. Urinalysis showed white cells but no bacteria. The urine culture obtained yesterday and the surgical cultures from yesterday are all negative except one which is growing gram-positive cocci which have not been identified yet. REVIEW OF SYSTEMS: Eyes and ears: The patient can hear and see okay. Neck: He is not complaining of any stiffness. Respiratory: No cough or shortness of breath. Cardiac: No chest pain or palpitations. Gastrointestinal: No nausea, vomiting, or diarrhea. Genitourinary: See present illness. Neurologic: The patient is complaining of pain in the left side of the chest where he previously has had shingles. Has has not lost any motor or sensory function. Endocrine: Patient is diabetic. He does not have thyroid disease. Bones/joints/muscles: He is not complaining of any joint pain or muscle aching. MEDICAL DISEASES: Positive for diabetes mellitus, hypertension, congestive heart failure, and deep venous thrombosis of the legs. INFECTIOUS DISEASE HISTORY: Positive for Karen gangrene, scrotal abscess, leg cellulitis and shingles. FAMILY HISTORY: Positive for cancer, myocardial infarction and hypertension. [place]IAL HISTORY[place] He does not smoke cigarettes. He occasionally drinks alcoholic beverages. He does not abuse drugs. He is , he lives alone. He is retired. ALLERGIES: He has no known allergies. MEDICATIONS AT HOME: Include: 1. Eliquis. 2. Capoten. 3. Lanoxin. 4. Fluconazole. 5. Lasix. 6. Aldactone. PHYSICAL EXAMINATION: Vital Signs: Temperature is 98 degrees, pulse 82, respirations 17, blood pressure 98/61. The patient is 5 feet 10 inches tall and weighs 194 pounds. General: This is an ill-appearing middle-aged male. He does seem to be having pain from his shingles. Head/eyes/ears/nose/throat: He is missing many of his teeth. He has poor oral hygiene. There are no white patches on his tongue. He can hear my spoken words and see near objects. Neck: No stiffness. Lungs: Clear to auscultation. Cardiovascular: Heart rate is regular. Abdomen: Soft and nontender. Pelvic: The patient has multiple dressings in the perineal area and in the genital areas. He is bleeding. Thorax: The patient has some small pustular and vesicular lesions on the left part of the thorax. It is in a dermatomal disposition. Neurologic: The patient is awake. He can move his extremities. There is no tremor. His sensation is intact to touch. His memory was intact. Thank you for the consult. cc: James Mckoy MD
[2018-10-14] MEDS: LEVOPHED 8 MG in D5 1/2 NS 250 ML IV SCH ×2 (12:22→21:39)
--- NOTE | 2018-10-14 12:53 | PROGRESS NOTE ---
DATE: 10/14/2018 SUBJECTIVE: Postoperative day 1 from extensive scrotal debridement and a dorsal slit with urethral catheter placement. The patient had presented yesterday with hypotension and concern for sepsis due to scrotal abscess. This was drained and packed yesterday in the OR , and the patient has been in ICU since then. The patient had a fair bit of bleeding from the site overnight , which is a relatively good sign of healthy tissue. Dr. Botello was notified overnight of bleeding and recommend pressure dressing to be applied. The patient remains afebrile. His heart rate is stable at 100. Blood pressures are in the 90s, which has been unfortunately consistent for him, but he is requiring blood pressure support. The patient states that his pain is much improved since his procedure yesterday. OBJECTIVE: Vital Signs: Temperature 98.1 degrees, heart rate 96, blood pressure 93/62, oxygen saturation 100% on room air. Respiratory: Good respiratory effort without audible wheezing or rales. Abdomen: Soft, nontender, nondistended. No palpable masses. Slight suprapubic tenderness. Genitourinary: Evidence of moderate bleeding from the surgical site which has been packed with a pressure dressing. Dorsal slit appears to be well healed and closed with chromic sutures. Urethral catheter in place with clear yellow urine. The patient continues to have a significant amount of scrotal swelling, likely related to prior heart failure, as well as chronic inflammation of his scrotum. Dressing remains in place with Kerlix deep within his scrotum and groin bilaterally LABORATORY DATA: White blood cell count of 36.7, hemoglobin 11.5, hematocrit 32.6, platelets 294,000. PT 21, INR 1.6, PTT 41.3. Sodium 139, potassium 3.9, chloride 103, bicarbonate 23, BUN 22, creatinine 0.7, glucose 113. ASSESSMENT AND PLAN: Mr. Segal is a 63-year-old with history of significant chronic heart failure with an ejection fraction (EF) around 25%, hypertension, type 2 diabetes , and history of prior Karen's gangrene, who presented yesterday to the emergency room with scrotal swelling and drainage of purulent material. He was taken emergently to the operating room due to concern for septic shock and had drainage of his scrotum and resection of a portion of his scrotum. Necrotic tissue was seen throughout the subcutaneous tissues, which was excised. The patient was admitted to the ICU for blood pressure control with pressors overnight and continues to require pressors this morning. His white blood cell count is significantly elevated at 36,000. The patient had some bleeding last night, which seemed to respond to pressure dressing. His hematocrit at 11 o'clock today was 32.6, but 41.7 yesterday. On exam, he does have a significant amount of bleeding around the base of his penis and his scrotal incision. This appears to be slightly worse at lunchtime than this morning. In talking with Dr. Botello, the plan is to take him to the operating room later today if he continues to have bleeding. We will keep him n.p.o. at this time. The patient will be evaluated by Dr. Botello at bedside and likely will be taken by him to the operating room later. If he does not go today, the patient will ultimately need surgical intervention tomorrow for repeat excision and drainage of Karen's gangrene. We will continue with IV antibiotics and follow up Infectious Disease recommendations. cc: Michael Dominguez MD MTDD
[2018-10-14] MEDS: MYCOSTATIN SUSP PO SCH ×3 (13:00→21:37)
[2018-10-14] MEDS ORDERED: AMIDATE ONE (14:52)
[2018-10-14] MEDS: VALTREX PO SCH ×2 (15:38→21:37)
--- NOTE | 2018-10-14 17:27 | CARDIOLOGY CONSULTATION ---
DATE: 10/14/2018 REASON FOR PRESENTATION TO THE HOSPITAL: Bleeding and groin pain. HISTORY OF PRESENT ILLNESS: Mr. Segal is a 63-year-old black male who presented to the [facility] with scrotal swelling and pain. He had noticed some bleeding from that area. He has had a history of Karen gangrene in the past and has been treated with antibiotics on multiple occasions. He has been under urologic care. The patient has a nonischemic cardiomyopathy as well, and a history of atrial fibrillation. PAST MEDICAL HISTORY: 1. Significant for systolic heart failure with a nonischemic cardiomyopathy. Cardiac cath in 2018 demonstrated mild to moderate aortic stenosis and coronaries that were free of any obstruction. 2. Atrial fibrillation. 3. Repetitive infections in the groin area with a history of Karen gangrene. 4. Diabetes. 5. Gout. 6. Hypertension. SOCIAL HISTORY: Occasional alcohol. No tobacco or illicit drugs. FAMILY HISTORY: Significant for diabetes. REVIEW OF SYSTEMS: A 10-system review of systems is negative except for those things mentioned in HPI. PHYSICAL EXAMINATION: Vital signs: Patient is afebrile. Heart rate of 90, blood pressure 88/60. General: He is in no acute distress. HEENT: Oropharynx is moist. Poor dentition. Eye examination: Belmond conjunctivae. White sclerae. Neck: Examination shows no obvious thyromegaly or thyroid tenderness. Cardiovascular: He sounds to be in an irregularly irregular, mildly tachycardic rhythm. This is consistent with atrial fibrillation, which he has on a chronic basis. Chest: Clear bilaterally. He has no increased work of breathing. Abdomen: Soft, nontender, nondistended. He has no obvious organomegaly. Skin Exam: Seems warm and dry throughout. No obvious rashes. Neurological: He is moving all extremities well. He has no lateralizing deficits. Psychiatric: Alert, oriented and pleasant. Normal mood and affect pertinent data. PERTINENT DATA: His lab data demonstrates a white count of 36. Hematocrit of 32, platelet count of 294. He has a bandemia. INR 1.6, sodium 139, potassium 3.9. BUN is 22, creatinine 0.7. His albumin level is 1.6. His magnesium is 1.7. ASSESSMENT: Mr. Segal is a 63-year-old gentleman who presented with infectious issues, consistent with Karen gangrene. PLAN: Patient has a nonischemic cardiomyopathy, and it seems to be compensated. He has a history of chronic atrial fibrillation which presently seems to be reasonably rate controlled given his ongoing situation. For the time being, I have no further recommendations. We will try to manage his volume status as well as rate control. cc: Stevenson Boston MD
--- NOTE | 2018-10-14 17:31 | Diag Imaging Result Doc PS360 ---
CHEST-PORTABLE - 10/14/2018 INDICATION: central line placement COMPARISON: 10/03/2018 FINDINGS: There is a new left subclavian central line in good position with the catheter tip at the upper SVC. Stable significant cardiomegaly. Stable pulmonary vascular congestion. Stable opacification at the left lower lobe. IMPRESSION: No complication from line placement. Other findings are stable from prior. Electronically signed by Gatito Madrid 10/14/2018 5:28 PM
--- NOTE | 2018-10-14 21:46 | OPERATIVE NOTE ---
PROCEDURE DATE: 10/14/2018 PREOPERATIVE DIAGNOSES: 1. Karen gangrene. 2. Postoperative scrotal bleeding. POSTOPERATIVE DIAGNOSES: 1. Karen gangrene. 2. Postoperative scrotal bleeding. OPERATION: 1. Evacuation of scrotal hematoma with fulguration of bleeding. 2. Scrotal debridement of Karen gangrene. SURGEON: Michael Dominguez MD STORE SPECIALIST: Rafi Botello MD COMPLICATIONS: None. BLOOD LOSS: 10 mL SPECIMENS: Scrotal tissue and hematoma. DRAINS: Continued 14-Ukrainian silicone catheter. ANESTHESIA: LMA. OPERATIVE FINDINGS: The patient is brought to the operating room due to significant bleeding while in the ICU after his surgery yesterday. A large amount of clot was seen throughout the hemiscrotum and overlying dressings. Once all this was removed and inspected, there were several small areas or bleeding around the skin edges as well as deep within the right hemiscrotum. These were each fulgurated and good hemostasis was obtained. Some areas of devitalized tissue were seen deep within the surgical site which were also removed, and subsequently packing was replaced into the scrotum following hemostasis being obtained. INDICATIONS FOR PROCEDURE: Mr. Segal is a 63-year-old who presented to the emergency room yesterday with scrotal edema and purulent drainage from the scrotum. He was taken to the operating room and had significant scrotal debridement for Karen gangrene. The patient was admitted to the ICU and required blood pressure support overnight with Levophed. Last night the patient had significant bleeding postoperatively. On-call Urology attending was notified and recommended pressure dressing. This morning the patient continued to have a large amount of bleeding, and subsequently it was recommended that he receive fresh frozen plasma. He continued to have bleeding, likely related to being on Eliquis as well as underlying liver dysfunction. Due to these findings and significant bleeding, it was recommended that he be taken back to the operating room for repeat scrotal debridement and evacuation of hematoma. Risks , benefits and alternatives of the surgical procedure were discussed with the patient. The patient elected to proceed. PROCEDURE: After informed consent was obtained the patient was brought to the operating room and placed on the operating table in supine position. He underwent general anesthesia and complete infusion of previously scheduled antibiotics. Underwent General Anesthesia with LMA placed, he was placed into [employer] cane stirrups and his scrotal dressing was removed. A significant amount of overlying clot was adherent to his dressing, and this was all removed. Following removal, there was bleeding present from the scrotal skin edges as well as deep within the previously resected Karen gangrene. The patient was then prepped and draped in the usual sterile fashion. A preoperative time-out was performed, with all parties in agreement, including anesthesia, surgical and nursing staff. Following this, the residual clot within the prior resection bed was removed and devitalized tissue excised. Several small areas of bleeding were seen, most prominent on the right hemiscrotum, and each of these was cauterized. After removal of the deep and necrotic tissue, there was some active bleeding present, which was also removed and cauterized. Each layer of devitalized tissue was also removed. Difficult to know if this was related to clot formation overlying the tissue layers versus actual necrotic tissue. All of this was removed and then the wound was irrigated with saline and Vashe solution. All cavities were then adequately irrigated, and following this hemostasis was then again visualized, with no evidence of active bleeding. At this time Kerlix gauze was then was moistened with Vashe solution and reinserted into the wound beds. This was packed and ABD pads were then applied over top. Silk tape was then used for pressure support, and mesh panties were then attached. This patient was awoken and was taken to the ICU in stable condition. The patient will continue to be monitored in ICU overnight, with continued blood pressure control and IV antibiotics. Will follow-up his wound and blood cultures. cc: Michael Dominguez MD [facility]
[2018-10-15] MEDS: VANCOMYCIN 2 GM in NS 500 ML IV SCH (00:03)
[2018-10-15] MEDS: LR 1,000 ML IV SCH ×2 (00:12)
[2018-10-15] MEDS: DILAUDID IV PRN ×2 (01:10→09:33)
[2018-10-15] MEDS: CARDIZEM 125 MG in NS 100 ML IV SCH ×3 (01:13→22:13)
[2018-10-15] MEDS: ZOSYN 3.375 GM in NS 50 ML IV SCH ×4 (04:20→22:09)
[2018-10-15 05:59] LABS: BASO# 0.03 X1000 (0.0-0.2); BASO% 0.1 % (0.0-0.8); EOS# 0.01 X1000 (0.0-0.7); HEMATOCRIT 24.5 % (42.0-52.0); IMM GRAN# 0.51 X1000 (0.0-0.04); IMM GRAN% 1.9 % (0.0-0.5); LYMPH# 0.99 X1000 (1.2-3.4); LYMPH% 3.6 % (20.5-51.1); MCHC 32.7 g/dL (33-37); MCV 88.8 FL (81-99); MONO# 1.16 X1000 (0.11-0.59); MONO% 4.3 % (1.7-9.3); MPV 9.5 FL (7.4-10.4); NEUT# 24.48 X1000 (1.4-6.5); NEUT% 90.1 % (42.2-75.2); PLT 239 X1000 (130-400); RBC 2.76 XMIL (4.7-6.1); RDW 15.9 % (11.5-14.5); WBC 27.18 X1000 (4.8-10.8)
[2018-10-15] MEDS: VALTREX PO SCH ×3 (06:10→22:10)
[2018-10-15 06:14] LABS: LYMPHS 2 % (21-51); NRBC 1 % (0-0); SEGS 92 % (42-75)
[2018-10-15 06:31] LABS: AGAP 13; BUN 35 mg/dL (8-22); CHLORIDE 100 mmol/L (98-107); COSMO 289; CREATININE 1.1 mg/dL (0.7-1.2); ESTIMATED GFR > 60; GLUCOSE 187 mg/dL (70-104); POTASSIUM 4.1 mmol/L (3.5-5.1); SODIUM 138 mmol/L (136-145); TCO2 25 mmol/L (25-35)
[2018-10-15] MEDS: LEVOPHED 8 MG in D5 1/2 NS 250 ML IV SCH ×3 (06:35→22:12)
[2018-10-15] MEDS: MYCOSTATIN SUSP PO SCH ×4 (08:05→22:09)
[2018-10-15] MEDS: LASIX IV SCH ×2 (08:05→22:09)
--- NOTE | 2018-10-15 08:06 | PROGRESS NOTE ---
DATE: 10/15/2018 SUBJECTIVE: The patient was taken to the operating room yesterday due to the surgical bleeding, and underwent a scrotal debridement and evacuation of scrotal hematoma. The patient had minimal active bleeding on exploration, but it appears that he had coagulated a large portion of prior bleeding. There was some necrotic tissue that was also debrided yesterday. The patient was transferred back to the ICU. The patient has had decreased urinary output for the past 24 hours with only 352 mL recorded. He continues to have drainage from the catheter that is clear with no evidence of any bleeding. The patient overall states that he feels better. Denies any pain, abdominal distention, fevers or chills. He asked for more of a diet today. He remains on vasopressors for low BPs. OBJECTIVE: Vital Signs: Heart rate 76, blood pressure 103/50, and oxygen saturation 97%. General: No acute distress resting comfortably in bed. Respiratory: Good respiratory effort without audible wheezing or rales. Cardiovascular: 1+ lower extremity edema. Remains on Levophed. Abdomen: Soft, nontender, and nondistended. No suprapubic tenderness. : The patient has evidence of a dorsal slit with urethral catheter in place that is draining slightly orangish urine, without signs of bleeding. Wound is packed with no evidence of active bleeding. No obvious drainage of foul-smelling material. No evidence of crepitus. Musculoskeletal: Moving all extremities. Neurologic: Gross motor and sensory intact. LABORATORY: White blood cell count 27.1, hemoglobin 8, hematocrit 24.5, and platelets 239,000. Sodium 138, potassium 4.1, chloride 100, bicarb 25, BUN 35, creatinine 1.1, glucose 187, and calcium 8. Micro wound culture growing enterococcus. ASSESSMENT AND PLAN: Mr. 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 The patient underwent scrotal debridement both on 2018, as well as 10/14/2018. The patient had hematoma formation yesterday, and was taken back to the operating room to evacuate. A small amount of skin bleeding was visualized, but no evidence of any other active bleeding was seen. There was some necrotic tissue that was also excised yesterday. The patient's urinary output has decreased over the past 24 hours which could be partial related to being on Levophed. It does appear this Levophed dose has increased since yesterday. The patient has significant cardiac disease and typically is very tenuous regarding cardiorenal syndrome, and appears that he is starting to have an elevated renal function with creatinine 1.1 with decreased urinary output. His catheter is draining well and flushes easily. No evidence of any obstruction. Would re-engage Cardiology regarding management of fluid status as well as his pressors as he may benefit from switching to dobutamine or dopamine. Would plan for a wound change today with the wound care nurse. We will continue to monitor him and continue on broad-spectrum antibiotics. His infection count is slowly improving. His hemoglobin this morning though was 8 and hematocrit 24.5. Would recommend transfusion at this time, due to his cardiology history, hemodynamics, and acute drop in his hematocrit since admission. Ultimately, would leave up to Hospitalist and Cardiology on their threshold for transfusion. Continue urethral catheter to gravity drainage. Please call with questions or concerns. cc: Michael Dominguez MD [facility]
[2018-10-15] MEDS: BENADRYL IV PRN ×3 (08:07→22:10)
--- NOTE | 2018-10-15 08:15 | PROGRESS NOTE ---
DATE: 10/15/2018 SUBJECTIVE: Patient reports feeling itching, mostly in the left ribcage. Denies any other complaints. OBJECTIVE: Vitals: Temperature 97.6 degrees, heart rate 84, respiratory rate 19, blood pressure 102/64, O2 saturation 97% on 2 L nasal cannula. General Examination: This is a chronically ill- appearing 63-year-old -[place] male lying in bed in no acute distress. HEENT: Head is normocephalic, atraumatic. Neck: No JVD noted. No carotid bruits. No lymphadenopathy. No thyromegaly. Cardiovascular: S1, S2 heard. No murmurs, gallops, or rubs. Regular rate and rhythm. Respiratory: Clear bilaterally to auscultation. No work of breathing or using accessory muscles. Minimal crackles in both pulmonary bases. Abdomen: Soft, a little bit distended with some questionable ascites noted. Bowel sounds present. No organomegaly. Genitourinary: Perineal area covered by dressing. Extremities: No clubbing or cyanosis. Mild edema in both upper and lower extremities. Peripheral pulses present in both legs. Neurological: Patient alert and oriented x3. Moves 4 extremities. LABORATORY DATA: White cell count 27.80, hemoglobin 8.0, hematocrit 24.5, platelets 239,000. Normal BMP. ASSESSMENT AND PLAN: 1. 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 The patient clinically is doing fine. Yesterday, he underwent a second operation with evacuation of scrotal hematoma with fulguration of bleeding and scrotal debridement of Karen gangrene. That procedure was performed by Dr. Michael Dominguez, help appreciated. The patient continues to be on vasopressors. The patient is using Levophed. White cell count also continues to be elevated but he is not developing any fever. Currently, he is on vancomycin and Zosyn. Infectious Disease has been involved in his care. We will monitor this patient closely in the intensive care unit. 2. Non ischemic cardiomyopathy with ejection fraction of 25%. The patient is showing swelling in both upper and lower extremities. I think at this point, we need to restart Lasix. He is going to receive 40 mg IV q.12 hours. For further management of this condition Cardiology has been consulted. 3. Hypertension. Blood pressure actually is low. Patient on vasopressors. 4. Diabetes mellitus type 2. We are checking Accu-Chek before meals and also at bedtime and sliding scale insulin. 5. Hypokalemia, resolved. 6. Shingles. Patient has been evaluated by Dr. Mckoy and started him on valacyclovir. Will continue following recommendations from him. 7. Disposition: We will continue to monitor this patient closely in the ICU. cc: Boni Matthews MD MTDJackie
--- NOTE | 2018-10-15 22:14 | CARDIOLOGY PROGRESS NOTE ---
DATE: 10/15/2018 SUBJECTIVE: Mr. Segal underwent his operative intervention to his infection. He says he feels better today. His breathing is doing well. He is tolerating oral intake. He is a little bit sleepy during my examination, but wakes easily. OBJECTIVE/PHYSICAL: Vital signs: He is afebrile. Heart rate is 65, he appears to be in atrial fibrillation. His blood pressure is 97/63. General: He is in no acute distress. Cardiovascular: He sounds to be in an irregularly irregular rate controlled rhythm. He has no obvious murmurs. He has no S3. He has trace to 1+ bilateral lower extremity edema and warm extremities. He has chronic skin changes consistent with chronic edema. Chest: His chest exam sounds clear with poor inspiratory effort. Abdomen: His abdomen is soft, nontender. PERTINENT DATA: His white count is down to 27 from 36 yesterday, his hematocrit is 24, which was 41 on presentation, his platelet count is 239,000. He continues to have a significant left shift. His sodium is 138, potassium 4.1, BUN 35, creatinine is 1.1. ASSESSMENT: Mr. Segal is a 63-year-old black male who presented with complications related to a fairly chronic infection in his area. He has a chronic nonischemic cardiomyopathy as well as chronic atrial fibrillation. PLAN: We will continue with rate control, which seems to be doing reasonably well at this point. We will hold off any anticoagulation secondary to the patient's significant burden of anemia. He may benefit from a transfusion in the future. His rate is reasonably controlled. He is on IV diuretics which, at the present time, I agree with considering his significant load of IV fluids he is receiving. I have asked the pharmacy to concentrate any potential drips that could be concentrated. We will try to manage his volume status. cc: Stevenson Boston MD
--- NOTE | 2018-10-15 22:22 | INFECTIOUS DISEASE PROGRESS NO ---
DATE: 10/15/2018 PRESENT ILLNESS: Mr. Segal is being treated for shingles, oral candidiasis, and Karen gangrene with a scrotal abscess. He is status post evacuation of a scrotal hematoma and a scrotal debridement of Karen's gangrene. MEDICATIONS: He is receiving oral Valtrex 1000 mg every 8 hours, Nystatin swish and swallow 4 times a day, Zosyn 3.375 g IV every 6 hours, and IV vancomycin per pharmacy dosing. PHYSICAL EXAMINATION: Vital Signs: Temperature is 97.8 degrees, pulse rate 65 , respiratory rate 11, blood pressure 97/63, O2 saturation 98% on 3 L nasal cannula. General: This is a chronically ill-appearing, middle-aged gentleman. He is lying in the bed currently, in no acute distress. HEENT: Atraumatic, normocephalic. Oral mucous membranes are pink with a yellow coating. Sclerae are icteric. Neck: Supple. Trachea is midline. Cardiovascular: Irregularly irregular, atrial fibrillation on the monitor. There is a generalized pitting edema which is +1 to 2. Systolic murmur noted. Respiratory: Lung sounds are clear to auscultation in the upper lobes. Diminished in the bases. Abdomen: Soft, round, and nontender. Bowel sounds are active. Integumentary: Skin is warm and dry, with generalized edema noted. Scrotal incisions with dressings in place. There is a central line to the left subclavian, with site free of edema, erythema, or drainage. Neurologic: He is awake, alert, oriented. Able to move extremities with significant weakness noted. LABORATORY AND X-RAY: Today his white count is 27.18, hemoglobin 8, platelet count 239,000. Creatinine is 1.1. Estimated GFR is greater than 60. No imaging reports today. ASSESSMENT AND PLAN: Mr. Segal is being treated for left thoracic dermatome shingles rash which is improving. He was initially diagnosed with this several months ago in our office and was given Valtrex at that point. He says he took some and lost the rest, so he never completed his treatment. For now, we will continue the Valtrex 1 g every 8 hours as ordered. He also has oral candidiasis. We will continue the nystatin swish and swallow as well. As far as his scrotal infection is concerned, there is an Enterococcus faecalis growing which should be covered well with the Zosyn, which we will continue. There is another one with a gram-positive coccus growing which most likely will be the same Enterococcus faecalis. At this point, we will discontinue vancomycin because his urine output has diminished significantly, according to the nurse, and his creatinine has gone up. He has some lab work already ordered for Thursday. Unfortunately, Mr. Segal is very noncompliant with his treatments. These plans have been discussed with and recommended by Dr. Mckoy. COMORBIDITIES: Comorbidities for Mr. Segal include diabetes mellitus, congestive heart failure, lower extremity DVT, nonischemic cardiomyopathy, and previous scrotal debridement for Karen's gangrene, as well as medical noncompliance. Dictated by FERNY Aguirre for James Mckoy MD This chart was documented by, FERNY Aguirre and accurately reflects the services performed, treatment plan and medical decisions as attested by the providers signature James Mckoy MD. cc: MD JABARI Johns
[2018-10-16] MEDS: ZOSYN 3.375 GM in NS 50 ML IV SCH ×4 (02:37→21:27)
[2018-10-16] MEDS: DILAUDID IV PRN (02:38)
[2018-10-16] MEDS: VALTREX PO SCH ×3 (05:33→21:28)
[2018-10-16 06:07] LABS: BASO# 0.05 X1000 (0.0-0.2); BASO% 0.2 % (0.0-0.8); EOS# 0.01 X1000 (0.0-0.7); HEMATOCRIT 22.4 % (42.0-52.0); HEMOGLOBIN 7.2 g/dL (14.0-18.0); IMM GRAN# 1.17 X1000 (0.0-0.04); IMM GRAN% 4.3 % (0.0-0.5); LYMPH# 1.18 X1000 (1.2-3.4); LYMPH% 4.3 % (20.5-51.1); MCH 28.9 PG (27-31); MCHC 32.1 g/dL (33-37); MONO# 1.51 X1000 (0.11-0.59); MONO% 5.6 % (1.7-9.3); MPV 9.7 FL (7.4-10.4); NEUT# 23.21 X1000 (1.4-6.5); NEUT% 85.6 % (42.2-75.2); PLT 236 X1000 (130-400); RBC 2.49 XMIL (4.7-6.1); RDW 16.1 % (11.5-14.5); WBC 27.13 X1000 (4.8-10.8)
[2018-10-16 06:18] LABS: AGAP 14; BUN 41 mg/dL (8-22); CALCIUM 7.9 mg/dL (8.8-10.2); CHLORIDE 97 mmol/L (98-107); COSMO 285; CREATININE 1.4 mg/dL (0.7-1.2); ESTIMATED GFR > 60; GLUCOSE 185 mg/dL (70-104); POTASSIUM 4.1 mmol/L (3.5-5.1); SODIUM 135 mmol/L (136-145); TCO2 24 mmol/L (25-35)
[2018-10-16] MEDS: LEVOPHED 8 MG in D5 1/2 NS 250 ML IV SCH ×2 (06:40→19:13)
[2018-10-16 06:41] LABS: LYMPHS 8 % (21-51); NRBC 1 % (0-0); SEGS 92 % (42-75)
[2018-10-16] MEDS: MYCOSTATIN SUSP PO SCH ×4 (08:45→21:28)
[2018-10-16] MEDS ORDERED: NS 250 ML ONE (08:48)
--- NOTE | 2018-10-16 10:25 | PROGRESS NOTE ---
DATE: 10/16/2018 SUBJECTIVE: Patient reports still feeling itchy. He reports some burning and numbing in the left trunk. OBJECTIVE: VITAL SIGNS: Temperature 97.1 degrees, heart rate 67, respiratory rate 13, blood pressure 105/59, O2 sat 96% on 2 L nasal cannula. GENERAL: This is a chronically ill-looking 63- year-old -[place] male lying in the bed in no acute distress. HEENT: Head is normocephalic, atraumatic with icteric sclerae and pale conjunctivae. NECK: No JVD, no lymphadenopathy, no bruits, no thyromegaly. CARDIOVASCULAR: Irregularly irregular heart rhythm. There is systolic murmur located around the mitral area. No gallops or rubs noted. RESPIRATORY: Minimal crackles noted in pulmonary bases. The patient is not using any accessory muscles or having work of breathing. ABDOMEN: Soft, a little bit distended. Questionable ascites noted. Bowel sounds present. No organomegaly. GENITOURINARY: Perineal area covered by dressing. EXTREMITIES: No clubbing or cyanosis. Mild edema in both upper and lower extremities unchanged when compared with yesterday. Peripheral pulses present in both legs. Lower extremities and upper extremities cold to touch. NEUROLOGICAL: Patient alert and oriented x3. Moves 4 extremities. LABORATORY DATA: White cell count 27.13, hemoglobin 7.2, hematocrit 22.4, platelets 236,000. BMP remarkable for sodium 135 and creatinine 1.4. ASSESSMENT AND PLAN: 1. 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 Clinically, this patient is doing fine, not complaining of any pain in the surgical area. He underwent a total of 2 surgeries to take care of this infection. The second operation actually was evacuation of hematoma. The patient requiring still vasopressors, in this case Levophed that is 11 mcg per hour. We will continue with the same management. 2. Anemia of acute blood loss. As mentioned before, the patient had a scrotal hematoma that was draining but hemoglobin has dropped to 7.2 today so at this point, we are going to provide 2 units of PRBCs. Patient receiving Lasix 40 mg IV q.12 hours and will receive the first dose in the bag in between both units of blood. 3. Nonischemic cardiomyopathy with ejection fraction of 25%. Patient has been started on Lasix. Cardiology is following this patient. 4. Atrial fibrillation with RVR. Patient's heart rate is well controlled. We will continue with Cardizem. Currently he is requiring 5 mg per hour Cardizem. We will continue to monitor. 5. Hypertension. Blood pressure actually is low because of septic shock. Patient on vasopressors. All medications for high blood pressure have been held. 6. Diabetes mellitus type 2. We will continue with checking Accu-Cheks before meals and also at bedtime and sliding scale insulin as well. 7. Hypokalemia, resolved. 8. Shingles. Patient has been started on valacyclovir per Dr. Mckoy. There is a history of noncompliance. We will continue with the same management. 9. Acute kidney injury. Patient's creatinine started to get higher. Patient has been on vancomycin and according to cultures, the vancomycin has been stopped. I think at this point, we will continue to monitor BMP daily. The patient continues to be on Lasix. We will check renal function. If that continues to get worse, we may need to hold it. We will monitor this patient closely. DISPOSITION: The patient will remain in the ICU. cc: Boni Matthews MD [facility]
[2018-10-16] MEDS: LASIX IV SCH ×2 (11:40→21:28)
--- NOTE | 2018-10-16 14:03 | CARDIOLOGY PROGRESS NOTE ---
DATE: 10/16/2018 CHIEF COMPLAINT: Shortness of breath and swelling. SUBJECTIVE: Mr. Segal is receiving IV blood right now. He is feeling better. He is also on broad-spectrum antibiotics. He is growing Enterococcus Group D sensitive to vancomycin and penicillin from the wound of his scrotum. He is resting. OBJECTIVE: Vital Signs: Blood pressure is 94/65, temperature 97.2, pulse 64, and respirations 14. General: He is awake and follows commands. HEENT: Unremarkable. His conjunctivae are pale. He appears to be pale and chronically ill. Neck: The neck veins are slightly prominent. Respiratory: The chest sounds relatively clear to auscultation and percussion. Cardiovascular: Heart sounds are regular and rhythmic with a very loud third heart sound and a prominent systolic murmur over the mitral valve area and also a systolic murmur over the aortic area. The apical murmur is about 3/6 in intensity. The base of the aortic area appears to be 2/6 in intensity. There is a murmur of aortic regurgitation also noted. Gastrointestinal: The abdomen is nontender and not obese. Extremities: The extremities show trace diffuse edema. Neurological: He is somewhat lethargic. He moves all extremities. LABORATORY DATA: Blood work: White cell count has dropped to 27,000. Hemoglobin is 7.2 and hematocrit 22.4. Sodium is 135, potassium 4.1, BUN 41, and creatinine 1.4. IMPRESSION: 1. Patient who has soft tissue infection involving the perineal area. 2. Patient with nonischemic dilated cardiomyopathy. 3. Probably valvular heart disease including mitral regurgitation and aortic regurgitation. 4. Paroxysmal atrial fibrillation. 5. Chronic systolic heart failure, functional class 3 to 4. 6. Chronic kidney disease. 7. Diabetes mellitus type 2. 8. Previous episode of Karen's gangrene. RECOMMENDATIONS: At this point in time we will continue supportive care as we are doing. He is getting IV blood. We will keep in him on Lasix. We will use diltiazem as needed. Further advice will be forthcoming. cc: Joss Farmer MD
[2018-10-16] MEDS: CARDIZEM 125 MG in NS 100 ML IV SCH (19:13)
[2018-10-16 23:49] LABS: HEMATOCRIT 27.3 % (42.0-52.0); HEMOGLOBIN 9.1 g/dL (14.0-18.0)
[2018-10-17] MEDS: BENADRYL IV PRN ×2 (00:06→11:41)
[2018-10-17] MEDS: ZOSYN 3.375 GM in NS 50 ML IV SCH ×4 (02:50→20:40)
[2018-10-17] MEDS: DILAUDID IV PRN (02:51)
[2018-10-17 05:31] LABS: BASO# 0.04 X1000 (0.0-0.2); BASO% 0.2 % (0.0-0.8); EOS# 0.02 X1000 (0.0-0.7); EOS% 0.1 % (0.0-10.0); HEMATOCRIT 26.4 % (42.0-52.0); HEMOGLOBIN 8.6 g/dL (14.0-18.0); IMM GRAN# 1.37 X1000 (0.0-0.04); IMM GRAN% 6.7 % (0.0-0.5); LYMPH# 0.98 X1000 (1.2-3.4); LYMPH% 4.8 % (20.5-51.1); MCH 28.6 PG (27-31); MCHC 32.6 g/dL (33-37); MCV 87.7 FL (81-99); MONO# 1.13 X1000 (0.11-0.59); MONO% 5.5 % (1.7-9.3); MPV 9.6 FL (7.4-10.4); NEUT# 16.94 X1000 (1.4-6.5); NEUT% 82.7 % (42.2-75.2); PLT 184 X1000 (130-400); RBC 3.01 XMIL (4.7-6.1); RDW 15.7 % (11.5-14.5); WBC 20.48 X1000 (4.8-10.8)
[2018-10-17] MEDS: VALTREX PO SCH ×3 (05:40→21:33)
[2018-10-17 05:49] LABS: AGAP 12; BUN 35 mg/dL (8-22); CALCIUM 8.3 mg/dL (8.8-10.2); CHLORIDE 99 mmol/L (98-107); COSMO 286; CREATININE 1.3 mg/dL (0.7-1.2); ESTIMATED GFR > 60; GLUCOSE 170 mg/dL (70-104); POTASSIUM 3.5 mmol/L (3.5-5.1); SODIUM 137 mmol/L (136-145); TCO2 26 mmol/L (25-35)
--- NOTE | 2018-10-17 08:40 | PROGRESS NOTE ---
DATE: 10/17/2018 SUBJECTIVE: The patient reports feeling fine. He is a little bit sleepy this morning, but answered questions appropriately with coherent speech. As per nursing staff, he has been confused overnight and needed to be on soft restraints. OBJECTIVE: Vital Signs: Temperature 97.1 degrees, heart rate 70, respiratory rate 16, blood pressure 105/63. O2 saturation 99% on 3 L nasal cannula. General Examination: This is a chronically ill-looking,63-year-old, male, lying in bed, in no acute distress. HEENT: Head is normocephalic, atraumatic with anicteric sclerae, pale conjunctivae. Neck: No JVD noted. No carotid bruits. No lymphadenopathy. No thyromegaly. Cardiovascular: Irregularly irregular heart rhythm. Systolic murmur located in the mitral area and the aortic area as well. No gallops or rubs noted. Respiratory: Minimal crackles noted in both pulmonary bases. Patient not using any accessory muscles or having work of breathing. Abdomen: Abdomen is a little bit distended with questionable ascites noted, but bowel sounds are present. No organomegaly. Genitourinary: Perineal area covered by dressing, and Blackwood catheter in place with clear urine. Extremities: No clubbing, cyanosis, mild edema in both upper and lower extremities pretty much unchanged in comparing with the day before yesterday and yesterday. Peripheral pulses present in both legs. Upper and lower extremities also cold to touch. Neurological: Patient is a little bit sleepy, but answers questions appropriately. Moves 4 extremities spontaneously. LABORATORY DATA: White cell count 20.48, hemoglobin 8.6, hematocrit 26.4, platelets 194,000. BMP remarkable for creatinine 1.3. ASSESSMENT AND PLAN: 1. 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 Clinically, this patient is stable. There is no pain around the surgical area. White cell count is still elevated. Not developing any fever though. He continues to require vasopressors, in this case Levophed at 5 mcg/hour we will continue with the same management. Not on any vasopressors because of advanced heart disease. 2. Anemia of acute blood loss. Hemoglobin has dropped to 7.2, the patient had a hematoma that was drained the day before yesterday by Dr. Dominguez, so we have ordered 2 units of blood. After that, hemoglobin is 8.6. Today we will continue to monitor this patient closely. 3. Nonischemic cardiomyopathy with ejection fraction of 25%. The patient has been started on Lasix. There has been a mild elevation of creatinine, but it is not getting worse. We will continue with the same medications. 4. Atrial fibrillation with rapid ventricular rate. Cardizem drip has been administered to him. At this point, he is requiring 5 mg of Cardizem per hour so what we are going to do is to start Cardizem oral 30 mg p.o. q.6 hours and see if we can wean off this medication. 5. Hypertension. At this point, patient is in septic shock. Blood pressure is low. 6. Diabetes mellitus type 2. We will continue with incentive scale insulin and Accu-Chek before meals and also at bedtime. 7. Hypokalemia, resolved. 8. Shingles. Patient is on valacyclovir as per Dr. Mckoy recommendations. 9. Acute kidney injury. Creatinine has been slightly elevated today. We will continue to monitor. No worsening renal failure. 10. Disposition. Patient will remain in the ICU. cc: Boni Matthews MD
[2018-10-17] MEDS: LASIX IV SCH ×2 (09:00→20:40)
[2018-10-17] MEDS: MYCOSTATIN SUSP PO SCH ×4 (09:19→20:39)
[2018-10-17] MEDS: CARDIZEM PO SCH ×3 (09:19→20:38)
--- NOTE | 2018-10-17 11:24 | CARDIOLOGY PROGRESS NOTE ---
DATE: 10/17/2018 CHIEF COMPLAINT: Shortness of breath, irregular heartbeat. SUBJECTIVE: Mr. Segal remain somewhat confused, agitated last night. They had to apply restraints. He pulled his IJ line. He received a blood transfusion yesterday. Today his hemoglobin level actually is lower. He denies having any pain anywhere right now. He seems to be calm and comfortable. OBJECTIVE: Blood pressure is 107/63, temperature 97.2, pulse 77, respirations 12. He is awake and alert, follows commands. HEENT is unremarkable. Chest: Diminished breath sounds at bases. Heart sounds slightly irregular with a third heart sound and a prominent apical systolic murmur. Abdomen is nontender. Extremities showed trace edema. Neurologic: Follows some commands. He is slightly disoriented. DIAGNOSTIC DATA: Blood work shows sodium 137, potassium 3.5, BUN is 35, creatinine 1.3. White cell count is 20,480. IMPRESSION: 1. The patient has soft tissue infection in the perineal area. He has had Karen's gangrene before. 2. Nonischemic dilated cardiomyopathy. 3. Paroxysmal atrial fibrillation. 4. Congestive heart failure, chronic, functional class 3 to 4. Mitral regurgitation and aortic regurgitation. 5. Diabetes mellitus. 6. Chronic kidney disease. RECOMMENDATIONS: At this time, I would continue broad spectrum antibiotics as you are doing. We will resume some of his medications according to his clinical progress. Prognosis is really quite guarded. cc: Joss Farmer MD
[2018-10-17] MEDS: ALDACTONE PO SCH (11:36)
[2018-10-17] MEDS: LANOXIN PO SCH (11:36)
[2018-10-17] MEDS ORDERED: ATIVAN IV PRN (13:58)
[2018-10-17] MEDS: CAPOTEN PO SCH ×2 (14:02→21:34)
[2018-10-17] MEDS: LOVENOX SUBQ SCH (14:20)
[2018-10-17] MEDS: LEVOPHED 8 MG in D5 1/2 NS 250 ML IV SCH (15:24)
[2018-10-18] MEDS: CARDIZEM PO SCH ×4 (02:35→20:24)
[2018-10-18] MEDS: ZOSYN 3.375 GM in NS 50 ML IV SCH ×4 (02:36→20:24)
[2018-10-18 04:47] LABS: BASO# 0.03 X1000 (0.0-0.2); BASO% 0.2 % (0.0-0.8); EOS# 0.02 X1000 (0.0-0.7); EOS% 0.1 % (0.0-10.0); HEMATOCRIT 25.9 % (42.0-52.0); HEMOGLOBIN 8.6 g/dL (14.0-18.0); IMM GRAN# 0.74 X1000 (0.0-0.04); IMM GRAN% 4.6 % (0.0-0.5); LYMPH# 0.77 X1000 (1.2-3.4); LYMPH% 4.8 % (20.5-51.1); MCH 29.3 PG (27-31); MCHC 33.2 g/dL (33-37); MCV 88.1 FL (81-99); MONO# 0.96 X1000 (0.11-0.59); MONO% 5.9 % (1.7-9.3); MPV 9.6 FL (7.4-10.4); NEUT# 13.64 X1000 (1.4-6.5); NEUT% 84.4 % (42.2-75.2); PLT 164 X1000 (130-400); RBC 2.94 XMIL (4.7-6.1); RDW 15.6 % (11.5-14.5); WBC 16.16 X1000 (4.8-10.8)
[2018-10-18 04:58] LABS: AGAP 11; BUN 30 mg/dL (8-22); CALCIUM 8.4 mg/dL (8.8-10.2); CHLORIDE 100 mmol/L (98-107); COSMO 288; CREATININE 1.1 mg/dL (0.7-1.2); ESTIMATED GFR > 60; GLUCOSE 111 mg/dL (70-104); POTASSIUM 3.2 mmol/L (3.5-5.1); SODIUM 141 mmol/L (136-145); TCO2 30 mmol/L (25-35)
[2018-10-18 05:06] LABS: LYMPHS 2 % (21-51); MONO 2 % (1-9); NRBC 2 % (0-0); SEGS 96 % (42-75)
[2018-10-18] MEDS: CAPOTEN PO SCH ×3 (05:16→20:25)
[2018-10-18] MEDS: VALTREX PO SCH (05:16)
--- NOTE | 2018-10-18 08:39 | PROGRESS NOTE ---
DATE: 10/18/2018 SUBJECTIVE: Patient had been a little bit confused last night. This morning he looks fine to me. He is oriented to person and place not in time though. He answered questions appropriately with coherent speech. No other issues noted. OBJECTIVE: Vital Signs: Temperature 96.7 degrees, heart rate 72, respiratory rate 18, blood pressure 107/67, and O2 saturation 96% on 2 L nasal cannula. General Examination: This is a chronically ill-looking frail 63-year-old male lying in bed in no acute distress. HEENT: Head is normocephalic, atraumatic. Anicteric sclerae, and pale conjunctivae. Neck: No JVD noted. No carotid bruits. No lymphadenopathy. No thyromegaly. Cardiovascular: Irregularly irregular heart rhythm with systolic murmur located in the mitral area and in the aortic area as well. No murmurs, gallops, or rubs noted. Respiratory: Minimal crackles still noted in both pulmonary bases. Patient not using any accessory muscles or having work of breathing. Abdomen: A little bit distended with questionable ascites, but bowel sounds are present. No organomegaly noted. Genitourinary: Perineal area covered by dressing. Blackwood catheter in place with clear urine. Extremities: No clubbing, cyanosis, but mild edema in both upper and lower extremities. Peripheral pulses present in both legs. Neurological: Patient is a little bit sleepy, but patient answers questions appropriately. Moves 4 extremities spontaneously. LABORATORY DATA: White cell count 16.68, hemoglobin 8.6, hematocrit 25.9, and platelets 164,000 with normal BMP except potassium 3.2. ASSESSMENT AND PLAN: 1. 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 Clinically, patient is stable. Blood pressure also is stable. We have stopped vasopressors yesterday. Blood pressure is fine. White cell count has improved today from 20,000 to 16,000. At this point, we will continue with the same antibiotic. Dr. Mckoy from Infectious Disease is following this patient. We will follow recommendations. 2. Anemia of acute blood loss. Hemoglobin is stable so far after we transfused 2 units of blood. 3. Karen gangrene. Dr. Dominguez from Urology is following this patient. 4. Nonischemic cardiomyopathy with ejection fraction of 25%. The patient is on Lasix, that has been at the beginning of the treatment with Lasix and mild elevation of creatinine, but now is back to normal so we will continue with same management. There is less swelling in both upper and lower extremities as well. 5. Atrial fibrillation with rapid ventricular response. The patient is requiring Cardizem drip. I do see we decided to start oral Cardizem to help us wean off this drip, but unfortunately the patient has been confused and not able to take it by mouth. I think today we can try to do that and see how he does. 6. Hypertension. The patient is on septic shock so no blood pressure medication will be provided to him. 7. Diabetes mellitus type 2. We will continue with sliding scale insulin. Accu -Chek before meals and also at bedtime. 8. Shingles. Patient is on valacyclovir as per Dr. Mckoy recommendation. We will continue with the same management. 9. Acute kidney injury resolved. 10. Disposition: The patient will remain in the ICU for better monitoring. cc: Boni Matthews MD MTDD
[2018-10-18] MEDS: LANOXIN PO SCH (09:10)
[2018-10-18] MEDS: ALDACTONE PO SCH (09:10)
[2018-10-18] MEDS: LASIX IV SCH (09:10)
[2018-10-18] MEDS: MYCOSTATIN SUSP PO SCH ×4 (09:10→20:24)
[2018-10-18] MEDS: POTASSIUM CHLORIDE 20 MEQ/SWI 20 MEQ/100 ML IVPB IV SCH ×2 (09:11→10:37)
--- NOTE | 2018-10-18 10:17 | INFECTIOUS DISEASE PROGRESS NO ---
DATE: 10/18/2018 PRESENT ILLNESS: The patient has shingles on the left side of the chest. This has all cleared and there is no active infection. The patient also has oral candidiasis and Karen gangrene of the scrotum with an abscess present. MEDICATIONS: The patient is on Valtrex, nystatin swish and swallow and Zosyn. PHYSICAL EXAMINATION: Vital Signs: Temperature is 97.4 degrees, pulse 67, respirations 16, blood pressure 99/54. Generally: This is an ill-appearing, middle-aged male. He is sedated currently. Head/eyes/ears/nose/throat: No drainage noted from the nose or ears. Neck: No meningismus. Lungs: Clear to auscultation. Cardiovascular: Heart rate is regular. Chest: The area where the shingles were is completely dry. There are no vesicles. Abdomen: Soft and not tender. Cardiovascular: Heart rate is regular. Genitalia: The scrotal wound has a packing in it. The visible tissue that I saw was beefy red in color. There was no odor and I did not see any purulence in the wound. Neurologic: Patient is sedated. He did not respond to verbal stimuli. There is no tremor. LAB AND X-RAY: The patient's CBC today shows a white count of 16,160, hemoglobin is 8.6, and platelet count is 164,000 creatinine is 1.1. GFR is greater than 60. Culture from the scrotum grew Prevotella and Enterococcus. ASSESSMENT AND PLAN: As regarding the patient's shingles, it has cleared and I am going to discontinue Valtrex. As regarding the patient's scrotal infection, I am going to continue with Zosyn to provide coverage for both the Prevotella and the Enterococcus. As regarding the patient's oral candidiasis, I am going to keep nystatin going because the patient still is on antibiotics and if I stop it the oral candidiasis is likely to come back. COMORBIDITIES: Patient's comorbidities are the patient is a diabetic. He has congestive heart failure. He has had prior infections in his scrotum and the has medical noncompliance. cc: James Mckoy MD
[2018-10-18] MEDS: DILAUDID IV PRN (10:36)
--- NOTE | 2018-10-18 12:05 | INFECTIOUS DISEASE PROGRESS NO ---
DATE: 10/18/2018 I am back to see the patient again. All the packing has been removed from his scrotum now. He has a huge wound in his scrotum and much of the tissue is devitalized. There is no foul odor but there is some pus coming from the area also. There is tunneling of the infection also. cc: James Mckoy MD
[2018-10-18] MEDS: LOVENOX SUBQ SCH (15:06)
--- NOTE | 2018-10-18 17:38 | PROGRESS NOTE ---
DATE: 10/18/2018 SUBJECTIVE: No acute events overnight. The patient is resting comfortably in bed. The patient's packing of his wound was changed this morning by overnight nurse. The patient has had increased urinary output with over 8.9 L of urine recorded yesterday. The patient has been off pressors, and his blood pressures have been remaining stable. The patient remains afebrile. Denies any perineal pain. Denies any abdominal pain, nausea, vomiting, confusion, or shortness of breath. OBJECTIVE: Vital signs: Temperature 97.2, heart rate 63, oxygen saturation 100 % on room air, blood pressure 102/56. Respiratory: Good respiratory effort without audible wheezing or rales. Abdomen: Soft, nontender, nondistended. No palpable masses. Genitourinary: Urethral catheter in place with clear yellow urine. Redundant foreskin present that is slight edematous, able to visualize glans and meatus with catheter present. The patient's wound is packed with Kerlix. A small amount of brownish/necrotic material present on the lining of the anterior left scrotal wall. The rest of the tissue appears to be pink and healthy. Extremities: The patient has some 1+ lower extremity edema. Moving all extremities without issue. LABORATORY DATA: White blood cell count 16.6, hemoglobin 8.6, hematocrit 25.9, platelets 164,000. Sodium 141, potassium 3.2, chloride 100, bicarbonate 30, BUN 30, creatinine 1.1 , glucose 111. ASSESSMENT AND PLAN: Mr. Segal is a 63-year-old with congestive heart failure, hypertension, type 2 diabetes, and history of Karen's gangrene, who presented last Thursday as a consult regarding persistent scrotal edema with a draining abscess and another episode of Karen 's gangrene. Patient was taken to the operating room last week on Thursday and for scrotal debridement and resection of devitalized tissue. The patient has been packed over the weekend with regular exchanges by Nursing and appears to be doing better. His blood pressures have improved and he is off vasopressors. His white blood cell count is down trending and today is 16 from 20 yesterday. The patient denies any perineal pain and overall seems to be improving. The patient has had improved urinary output with over 8.9 L recorded yesterday. His creatinine is 1.1 from a creatinine of 1.3 on Thursday. Overall, I think the patient is improving. He is off pressors. He has been afebrile. We will continue to monitor. Likely, we will need another scrotal debridement likely on Thursday of this week. Will need continued wound management by [facility]. Continue antibiotics per Dr. Mckoy. We will continue to monitor. Please call with questions or concerns. cc: Michael Dominguez MD [facility]
[2018-10-19] MEDS: CARDIZEM PO SCH ×5 (02:45→20:07)
[2018-10-19] MEDS: DILAUDID IV PRN ×2 (02:45→13:00)
[2018-10-19] MEDS: ZOSYN 3.375 GM in NS 50 ML IV SCH ×4 (02:45→20:07)
[2018-10-19] MEDS: CAPOTEN PO SCH ×3 (04:26→20:06)
[2018-10-19 05:23] LABS: BASO# 0.03 X1000 (0.0-0.2); BASO% 0.2 % (0.0-0.8); HEMOGLOBIN 8.7 g/dL (14.0-18.0); IMM GRAN# 0.88 X1000 (0.0-0.04); IMM GRAN% 5.5 % (0.0-0.5); LYMPH# 1.07 X1000 (1.2-3.4); LYMPH% 6.7 % (20.5-51.1); MCHC 32.2 g/dL (33-37); MONO# 0.95 X1000 (0.11-0.59); MPV 9.6 FL (7.4-10.4); NEUT# 13.03 X1000 (1.4-6.5); NEUT% 81.6 % (42.2-75.2); PLT 177 X1000 (130-400); RDW 15.9 % (11.5-14.5); WBC 15.96 X1000 (4.8-10.8)
[2018-10-19 05:56] LABS: AGAP 10; BUN 22 mg/dL (8-22); CALCIUM 8.1 mg/dL (8.8-10.2); CHLORIDE 98 mmol/L (98-107); COSMO 284; CREATININE 0.8 mg/dL (0.7-1.2); ESTIMATED GFR > 60; GLUCOSE 120 mg/dL (70-104); MAGNESIUM 1.3 mg/dL (1.5-2.7); POTASSIUM 3.5 mmol/L (3.5-5.1); SODIUM 140 mmol/L (136-145); TCO2 32 mmol/L (25-35)
[2018-10-19] MEDS ORDERED: MAGNESIUM SULFATE 2 GM/S.W.I. 2 GM/50 ML IVPB IV ONE (07:04)
--- NOTE | 2018-10-19 08:21 | PROGRESS NOTE ---
DATE: 10/19/2018 SUBJECTIVE: No acute events overnight. Patient remains afebrile. The patient has good pain control and tolerating a diet. Denies any nausea or vomiting. The patient's wound dressings were changed yesterday by the wound care nurse and appear to be improving. OBJECTIVE: Vital signs: Temperature 97.4 degrees, heart rate 71, oxygen saturation 98% on room air. Blood pressure 96/58. General: No acute distress. Resting comfortably in bed. Respiratory: Good respiratory effort without audible wheezing or rales. Abdomen: Soft, nontender, nondistended. Genitourinary: The scrotal incision appears to be more pink than yesterday. Minimal devitalized tissue visualized within the scrotal wall. Packing and dressing in place. The patient's penis does have some areas of excoriation and remains very firm in the distal shaft skin. Urethral catheter in place draining clear yellow urine. No evidence of any crepitus present in penis or scrotum. Neurologic: Gross motor and sensory intact. Alert and oriented x3. Musculoskeletal: Moving all extremities. LABORATORY DATA: White blood cell count 15.96, hemoglobin 8.7, hematocrit 27, platelets 177,000. Sodium 140, potassium 3.5, chloride 98, bicarb 32, BUN 22, creatinine 0.8, glucose 120. ASSESSMENT AND PLAN: Mr. Segal is a 63-year-old with congestive heart failure, hypertension, type 2 diabetes, and history of Karen gangrene, who presented last week as a consult regarding persistent scrotal edema and a draining abscess, and developed another episode of Karen gangrene. The patient was taken to the operating room twice last week for scrotal debridement and resection of devitalized tissue. The patient has been packed and appears to be improving with b.i.d. wound changes. Most recent change this morning by the nursing staff. The patient's blood pressures have improved. He is off vasopressors. His white blood cell count remains stable at 15.96 today. The patient has minimal discomfort from his perineum. He has had good urinary output with over 4.5 L record yesterday. Overall, I think the patient has been doing well and continues to improve. I would recommend a repeat procedure, likely tomorrow, for scrotal debridement. Would make the patient n.p.o. in preparation for surgery tomorrow. Continue antibiotics per ID. Please call with questions or concerns. cc: Michael Dominguez MD MTDD
--- NOTE | 2018-10-19 08:29 | PROGRESS NOTE ---
DATE: 10/19/2018 SUBJECTIVE: Patient is definitely more awake today. No acute issues noted as per nursing staff overnight. OBJECTIVE: Vital Signs: Temperature 97.4 degrees, heart rate 61, respiratory 16, blood pressure 96/58, O2 saturation 100% on 3 L nasal cannula. General: This is a chronically ill-looking and frail, 63-year-old male, lying in bed, in no acute distress. HEENT: Head is normocephalic, atraumatic. Anicteric sclerae. Jamul conjunctivae. Neck: No JVD noted. No carotid bruit. No thyromegaly. Cardiovascular: Irregularly irregular heart rhythm with systolic murmur, 3- 4/6 intensity, located in the mitral and aortic area as well. No gallops or rubs noted. Respiratory: Crackles still noted in both pulmonary bases. Patient is not using any accessory muscles or having work of breathing. Abdomen: A little bit distended , questionable ascites. Bowel sounds are present. No organomegaly noted. Genitourinary: Perineal area covered by dressing, dry and clean. Blackwood catheter in place with clear urine. Extremities: No clubbing or cyanosis, but mild edema in both upper and lower extremities. Definitely better in comparing with a couple days ago. Peripheral pulses present in both legs. Neurological: Patient is definitely more awake than yesterday. The patient answers questions appropriately. Moves 4 extremities spontaneously. LABORATORY DATA: White cell count 15.96, hemoglobin 8.7, hematocrit 27.0, platelets 177,000. Normal BMP. Magnesium 1.3. ASSESSMENT AND PLAN: 1. 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 Clinically, this patient is stable. He was taken off of pressors yesterday. White cell [place] has [place] a [place] [address] to [address]. The patient is not spiking any fever. As per Dr. Dominguez from Urology, they are planning to do debridement tomorrow morning. We will follow recommendations. 2. Anemia of acute blood loss. After we transfused 2 units of blood, hemoglobin is much more stable. Will continue to check CBC daily 3. Karen gangrene. The patient receiving Zosyn. Dr. Dominguez is planning to do more procedures tomorrow. 4. Non ischemic cardiomyopathy with ejection fraction of 25%. The patient is on Lasix 60 mg IV. We will continue with the same management. 5. Atrial fibrillation with rapid ventricular response. Cardizem drip has been stopped. Currently the patient is on Cardizem 30 mg p.o. q.6 hours. We will continue to monitor this patient closely. 6. Hypertension. Blood pressure is better but he is not on any blood pressure medications because of septic shock. 7. Diabetes mellitus type 2. We will continue with sliding scale insulin and Accu-Chek before meals and also at bedtime. 8. Shingles. Patient is on valacyclovir as per Dr. Mckoy' recommendation. We will continue with same management. 9. Acute kidney injury, resolved. 10. Disposition. Will continue to keep this patient here in the intensive care unit. He is going to have a procedure, in this case debridement tomorrow. We will continue with the same management. cc: Boni Matthews MD MTDD
[2018-10-19] MEDS: ALDACTONE PO SCH (08:30)
[2018-10-19] MEDS: LASIX IV SCH (08:30)
[2018-10-19] MEDS: MYCOSTATIN SUSP PO SCH ×4 (08:30→20:07)
[2018-10-19] MEDS: LANOXIN PO SCH (08:30)
--- NOTE | 2018-10-19 10:39 | INFECTIOUS DISEASE PROGRESS NO ---
DATE: 10/19/2018 PRESENT ILLNESS: The patient's shingles have cleared. The patient now is being treated for Karen gangrene involving his scrotum. The patient also has oral candidiasis. MEDICATIONS: The patient is on Zosyn for treatment of the Karen gangrene and he is on nystatin swish and swallow for the oral candidiasis. PHYSICAL EXAMINATION: Vital Signs: Temperature is 97.5 degrees, pulse 63, respirations 13, blood pressure 98/72. General: This is a ill-appearing middle-aged male. He is alert today and in no acute distress. Head, eyes, ears, nose, and throat: He can hear my spoken words and see near objects. He does not have any white coating on his tongue. He has poor dental hygiene. Neck: No stiffness. Lungs: Clear to auscultation. Cardiovascular: Heart rate is regular. Thorax: The site where the patient had shingles has all cleared. Abdomen: Soft and nontender. Genitalia: This patient's scrotum is packed. Neurologic: Patient is alert. He can move his extremities. There is no tremor. Integument: No rash noted. LAB AND X-RAY: There is no new radiographic study. The CBC shows a white count of 15,960, hemoglobin 8.7, and platelet count 177,000. Creatinine is 0.8, GFR is greater than 60. ASSESSMENT AND PLAN: I plan to continue with Zosyn for the patient's Karen gangrene of the scrotum. Dr. Dominguez is going to be operating on the patient. COMORBIDITIES: He is a diabetic. He has congestive heart failure. He has a history of medical noncompliance. cc: James Mckoy MD
--- NOTE | 2018-10-19 14:58 | CARDIOLOGY PROGRESS NOTE ---
DATE: 10/19/2018 SUBJECTIVE: Mr. Segal reports he is doing well. He is not having any shortness of breath. No chest pain. OBJECTIVE: Vital Signs: He is afebrile, heart rate is 73, his blood pressure is 93/60. He continues to diurese. His I's and O's over the last 24 hours are -2.1 L. General: No acute distress. Cardiovascular: He is in a regular rate and rhythm. He has no obvious murmurs. He has no S3. He has minimal bilateral lower extremity edema with warm and well perfused lower extremities. Chest: Clear bilaterally. No increased work of breathing. Abdomen: Soft, nontender. PERTINENT DATA: Sodium is 140, potassium 3.5, BUN is 22, creatinine 0.8, which is improved. His magnesium level is 1.3. ASSESSMENT: Mr. Segal is a 63-year-old gentleman with a history of atrial fibrillation and nonischemic cardiomyopathy. PLAN: We will continue on current medications. We decreased his Lasix yesterday, and he has continued to diurese, although at a lesser amount. His rate is controlled. We will continue on the current medications with no alterations in care. cc: Stevenson Boston MD
[2018-10-19] MEDS: LOVENOX SUBQ SCH (15:02)
[2018-10-19] MEDS ORDERED: MIRALAX PO ONE (15:15)
[2018-10-19] MEDS ORDERED: TYLENOL PO PRN (15:17)
[2018-10-20] MEDS: DILAUDID IV PRN ×3 (02:40→11:53)
[2018-10-20] MEDS: ZOSYN 3.375 GM in NS 50 ML IV SCH ×4 (02:40→20:44)
[2018-10-20] MEDS: CARDIZEM PO SCH ×4 (02:40→21:28)
[2018-10-20] MEDS: BENADRYL IV PRN (04:30)
[2018-10-20] MEDS: CAPOTEN PO SCH ×3 (05:35→21:51)
[2018-10-20 06:07] LABS: BASO# 0.02 X1000 (0.0-0.2); BASO% 0.1 % (0.0-0.8); EOS# 0.01 X1000 (0.0-0.7); EOS% 0.1 % (0.0-10.0); HEMATOCRIT 27.4 % (42.0-52.0); HEMOGLOBIN 8.7 g/dL (14.0-18.0); IMM GRAN# 0.95 X1000 (0.0-0.04); LYMPH# 1.03 X1000 (1.2-3.4); LYMPH% 6.5 % (20.5-51.1); MCH 29.1 PG (27-31); MCHC 31.8 g/dL (33-37); MCV 91.6 FL (81-99); MONO# 1.05 X1000 (0.11-0.59); MONO% 6.6 % (1.7-9.3); MPV 10.2 FL (7.4-10.4); NEUT# 12.85 X1000 (1.4-6.5); NEUT% 80.7 % (42.2-75.2); PLT 193 X1000 (130-400); RBC 2.99 XMIL (4.7-6.1); RDW 16.5 % (11.5-14.5); WBC 15.91 X1000 (4.8-10.8)
[2018-10-20 06:27] LABS: LYMPHS 2 % (21-51); MONO 2 % (1-9); SEGS 94 % (42-75)
[2018-10-20 06:31] LABS: AGAP 10; BUN 19 mg/dL (8-22); CALCIUM 8.1 mg/dL (8.8-10.2); CHLORIDE 99 mmol/L (98-107); COSMO 283; CREATININE 0.7 mg/dL (0.7-1.2); ESTIMATED GFR > 60; GLUCOSE 119 mg/dL (70-104); MAGNESIUM 1.5 mg/dL (1.5-2.7); POTASSIUM 3.9 mmol/L (3.5-5.1); SODIUM 140 mmol/L (136-145); TCO2 31 mmol/L (25-35)
--- NOTE | 2018-10-20 07:36 | PROGRESS NOTE ---
DATE: 10/20/2018 SUBJECTIVE: No acute events overnight. The patient resting comfortably in bed this morning. Urethral catheter draining well, over the 3 L of urinary output of mostly thin, light orangish material. The patient has had regular wound dressing changes by nursing staff as well as wound care nursing. The patient has several areas of devitalized tissue that needs debridement. The patient is n.p.o. in preparation for procedure today. OBJECTIVE: Vital signs: Heart rate 66, blood pressure 96/65, oxygen saturation 98%, temperature 97.2 degrees. General: No acute distress. Resting comfortably in bed. Alert and oriented x3. Respiratory: Good respiratory effort without audible wheezing or rales. Abdomen: Soft, nontender, nondistended. No palpable masses. Genitourinary: Wound care dressing in place with Kerlix and ABD pads surrounding the phallus and scrotum. Urethral catheter in place draining light orangish urine. Musculoskeletal: Patient moving all extremities. LABORATORY DATA: White blood cell count 15.9, hemoglobin 8.7, hematocrit 27.4, platelets 193,000. Sodium 140, potassium 3.9, chloride 99, bicarb 31, BUN 19, creatinine 0.7, glucose 119, calcium 8.1. ASSESSMENT: Mr. Segal is a 63-year-old with congestive heart failure, hypertension, type 2 diabetes, and history of Karen gangrene, who presented with another episode of Karen gangrene with a draining abscess. The patient has been taking operative room twice for scrotal debridement and resection of devitalized tissue. The patient has had regular wound care changes. The patient continues to have a slightly elevated white blood cell count which is stable. Patient has remained afebrile and vital signs have been stable. PLAN: Take to the operating room today for scrotal debridement. Reviewed the risks, benefits, and alternatives to surgical intervention. Would continue with antibiotics per Infectious Disease. Please call with questions or concerns. cc: MD JABARI Celestin
[2018-10-20] MEDS: LASIX IV SCH (08:17)
[2018-10-20] MEDS: MIRALAX PO SCH (08:41)
[2018-10-20] MEDS: ALDACTONE PO SCH (08:41)
[2018-10-20] MEDS: LANOXIN PO SCH (08:41)
[2018-10-20] MEDS: MYCOSTATIN SUSP PO SCH ×4 (08:42→20:44)
--- NOTE | 2018-10-20 09:08 | PROGRESS NOTE ---
DATE: 10/20/2018 SUBJECTIVE: Patient continues to be awake and alert. No acute issues noted as per nursing staff overnight. OBJECTIVE: Vital Signs: Temperature 97.2, heart rate 61, respiratory rate 16, blood pressure 104/65, O2 saturation 100% on 2 L nasal cannula. General Examination: This is a chronically ill looking, 63-year-old, -[place] male, lying in bed, in no acute distress. HEENT: Head is normocephalic and atraumatic. Mucous membranes are dry. Icteric sclerae and pale conjunctivae. Neck: No JVD noted. No carotid bruits. No lymphadenopathy. Cardiovascular Examination: Irregularly irregular heart rhythm with a systolic murmur of 3-4/6 in intensity located in mitral and aortic area as well. No gallops or rubs noted. Respiratory Examination: Minimal crackles still noted in both pulmonary bases. The patient is not using any accessory muscles or having work of breathing. Abdomen: A little bit distended with questionable ascites but bowel sounds are present. No organomegaly noted. Genitourinary: Perineal area covered by dressing, dry and clean. Blackwood catheter in place with clear urine. Extremities: No clubbing or cyanosis but minimal edema in both upper and lower extremities, definitely better in comparing with a couple of days ago. Peripheral pulses present in both legs. Neurological Examination: The patient is alert and oriented x3. Moves 4 extremities. Laboratory Data: White cell count 15.91, hemoglobin 8.7, hematocrit 27.4, platelets 193,000. Normal BMP. ASSESSMENT AND PLAN: 1. 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 Clinically, this patient is stable. He has been off of pressors for the last 48 hours. White cell count is still elevated and it has not changed in comparing with yesterday. As per Dr. Dominguez, from Urology, they are planning to take him to the operating room today to do debridement of his scrotum. We will follow recommendations. 2. Karen's gangrene. The patient is receiving Zosyn as per Dr. James Mckoy' s recommendation. We will continue with same management. No fever or chills reported. 3. Shingles. The area of shingles located in the left ribcage has been cleared completely so valacyclovir has been discontinued. 4. Non ischemic cardiomyopathy with an ejection fraction of 25%. Cardiology is following with this patient. They have decreased the dose of Lasix from 60 to 40 mg intravenous. Swelling in both upper and lower extremities has been getting better. 5. Hypotension. Blood pressure is controlled without any vasopressors. Of course, all antihypertensive medication has been held. We will continue to monitor. 6. Diabetes mellitus type 2. We will continue with sliding scale insulin and Accu-Chek before meals and also at bedtime. 7. Atrial fibrillation with RVR. Patient is not on Cardizem drip anymore and we are able to control heart rate with oral medications. Will continue with the same management. 7. Acute kidney injury, resolved. 8. Disposition. We will continue to monitor this patient closely here in the intensive care unit. He is going to have debridement of the scrotal area today. I prefer to keep him here in the unit just in case he needs to be on pressors again or if his atrial fibrillation needs a Cardizem drip. We will continue to monitor this patient closely. cc: MD JABARI Leblanc
[2018-10-20] MEDS ORDERED: AMIDATE ONE (09:18)
[2018-10-20] MEDS ORDERED: XYLOCAINE-MPF 2% ONE (09:18)
[2018-10-20] MEDS ORDERED: ZOFRAN ONE (10:40)
[2018-10-20] MEDS ORDERED: EPHEDRINE ONE (10:47)
--- NOTE | 2018-10-20 10:52 | INFECTIOUS DISEASE PROGRESS NO ---
DATE: 10/20/2018 PRESENT ILLNESS: The patient is being treated for Karen's gangrene of the scrotum. The patient also has oral candidiasis. MEDICATIONS: The patient is on Zosyn for treatment of the Karen's gangrene and he is on nystatin swish and swallow for the oral candidiasis. PHYSICAL EXAMINATION: Vital Signs: The temperature is 97.8 degrees, pulse 56, respirations 15, blood pressure 96/65. General: In general this is an ill-appearing middle-aged male. He is in no acute distress. Head/eyes/ears/nose/throat: He can hear my spoken words and see near objects. He does not have any white coating on his tongue. He does have poor oral hygiene. Neck: The internal jugular catheter has been removed and the site is not swollen or draining. Thorax: Patient has a left subclavian catheter in place. The site is not swollen or draining. The place where he had shingles has cleared also. Abdomen: Soft and nontender. Genitalia: The patient's scrotal wound is packed. Neurologic: Patient is alert. He can move his extremities. There is no tremor. Integument: No rash. LAB AND X-RAY: There is no new lab or x-ray for today. ASSESSMENT AND PLAN: I plan to continue Zosyn for the Karen's gangrene and Mycostatin for the oral candidiasis. It appears that it has cleared; however, I am going to continue it because the patient is on long-term antibiotics and the oral candidiasis will probably return if the patient is not taking something to prevent that. COMORBIDITIES: Diabetes, congestive heart failure, and medical noncompliance. cc: James Mckoy MD
[2018-10-20] MEDS: LOVENOX SUBQ SCH (14:00)
--- NOTE | 2018-10-20 14:09 | OPERATIVE NOTE ---
PROCEDURE DATE: 10/20/2018 PREOPERATIVE DIAGNOSIS: Karen's gangrene. POSTOPERATIVE DIAGNOSIS: Karen's gangrene. PROCEDURE PERFORMED: 1. Scrotal debridement and resection of devitalized tissue. 2. Revision of dorsal slip. SURGEON: Michael Dominguez MD. PROP MAKING SUPERVISOR: None. COMPLICATIONS: None. BLOOD LOSS: 50 mL. DRAINS: 14-Mauritanian silicone catheter. SPECIMENS REMOVED: Penile and scrotal tissue. ANESTHESIA: LMA. OPERATIVE FINDINGS: Several areas of devitalized tissue were seen most prominent on the right proximal foreskin near the previous site of dorsal slit, and significant amount of necrotic tissue with a small amount of purulence was seen here. This was completely excised, and revision of the dorsal slit was undertaken as there was not enough penile shaft skin left after resection of the devitalized tissue. The patient also had a very firm end to this tissue with concern for residual infection. Looking at the scrotal skin as well as subcutaneous tissues, there was a significant amount of granulation tissue present in several areas that appeared to be necrotic, which were excised most prominent on the left portion of the scrotal defect. All of these areas removed and was washed out with Vashe solution with no residual scar tissue seen. Small amount of bleeding was seen from around the median raphe to the median septum which was cauterized. The rest of the wound was vigorously irrigated, and appeared to be healthy and viable. INDICATION FOR PROCEDURE: Mr. Segal is a 63-year-old with type 2 diabetes, hypertension, congestive heart failure, and history of prior Karen's gangrene, who presented to the emergency room last week with a draining scrotal abscess with a significant amount of purulence. He was taken to the operating room twice last week for debridement, and resection of overlying tissue. The patient presents back to the operating room today for repeat debridement. He has a concerning area of necrotic tissue present on the shaft skin which requires resection. It was recommended that he proceed to the operating room for surgical debridement and resection of Karen's gangrene. Risks, benefits, and alternatives of surgical procedure was discussed with the patient, and the patient elected to proceed. DESCRIPTION OF PROCEDURE: After informed consent was obtained, the patient was brought to the operating room, placed on the operative table in supine position, and received preoperative antibiotics. He underwent LMA placement. The patient was then placed into a dorsal lithotomy position with candy-cane like stirrups, at which time all of his packing was removed from the scrotum and scrotal wall. His Blackwood catheter was also removed. On inspection, the inner scrotal tissue appeared to be relatively well vascularized. There were several necrotic areas at the base of the scrotal wound as well as on the lateral portion on the left lateral wall of the scrotum. A large area within the penile shaft skin also appeared to be necrotic, and I was able to pass my finger through the necrotic tissue. At which time the patient then was prepped and draped in usual sterile fashion. A preoperative time-out was performed with all parties in agreement, including anesthesia, surgical and nursing staff. At which time, a 14-Mauritanian Blackwood catheter was inserted through the urethra into the bladder, which was obtained of a small amount of clear yellow urine. This was inflated with 10 mL of sterile water and placed to gravity drainage. At which time, attention was placed to the scrotal tissue. Several areas of devitalized tissue were seen, most prominent over the median raphe and septum as well as another area overlying the testicle. These were excised, and several areas that appeared to likely be granulation tissue were excised as well, as they had the appearance of necrotic tissue and infection. Good skin bleeding was seen from the cut surfaces and resolved with pressure. A small area overlying the testicle required cauterization due to persistent bleeding after pressure. The entirety of the wound was then irrigated with Vashe solution and, no other areas of devitalized or devascularized tissue were seen. Next, attention was placed to the penile shaft skin. I had previously placed a finger through a thinning of the skin wall of the previously performed dorsal slit. This easily punctured through on the right side with a small amount of purulence that returned. This appeared to be almost near the glans itself. Due to concern regarding the extra foreskin and a very firm indurated appearance, I performed a revision of his dorsal slit and excised the excess foreskin from the prior dorsal slit as well as the previously located necrotic area. Good skin bleeding was seen from all cut edges. Using a 3-0 chromic, a circumferential closure starting at the 12:00 position going in the clockwise position to the 06:00 position was performed. Then, a separate 3-0 chromic was used to go in a counterclockwise position and good hemostasis was obtained. There was a minimal collar around his glans and I was concerned about significant tethering or penile shortening with completion of a formal circumcision. Good hemostasis was visualized. The scrotal wound was then again irrigated with Vashe solution. Following this, Betadine soaked gauze was then inserted into the tunnels both in the right and left inguinal canals with no evidence of any devitalized tissue there. Then, the scrotum was then packed with the Kerlix. ABD pads were then placed, and a piece of iodoform was placed around the penile shaft and adhered with gauze to keep in place. The patient's legs were then lowered, and mesh panties were then applied. The patient was awoken and was taken to back to ICU in stable condition. The patient will continue to be monitored in the ICU. cc: Michael Dominguez MD MTDD
[2018-10-21] MEDS: CARDIZEM PO SCH ×4 (02:13→20:25)
[2018-10-21] MEDS: ZOSYN 3.375 GM in NS 50 ML IV SCH ×4 (02:14→20:25)
[2018-10-21 06:16] LABS: AGAP 9; BASO# 0.01 X1000 (0.0-0.2); BASO% 0.1 % (0.0-0.8); BUN 17 mg/dL (8-22); CALCIUM 7.5 mg/dL (8.8-10.2); CHLORIDE 98 mmol/L (98-107); COSMO 277; CREATININE 0.6 mg/dL (0.7-1.2); ESTIMATED GFR > 60; GLUCOSE 98 mg/dL (70-104); HEMATOCRIT 27.3 % (42.0-52.0); HEMOGLOBIN 8.4 g/dL (14.0-18.0); IMM GRAN# 0.42 X1000 (0.0-0.04); IMM GRAN% 3.7 % (0.0-0.5); LYMPH# 0.86 X1000 (1.2-3.4); LYMPH% 7.5 % (20.5-51.1); MCH 28.6 PG (27-31); MCHC 30.8 g/dL (33-37); MCV 92.9 FL (81-99); MONO# 1.01 X1000 (0.11-0.59); MONO% 8.8 % (1.7-9.3); MPV 10.1 FL (7.4-10.4); NEUT# 9.14 X1000 (1.4-6.5); NEUT% 79.9 % (42.2-75.2); PLT 197 X1000 (130-400); POTASSIUM 3.6 mmol/L (3.5-5.1); RBC 2.94 XMIL (4.7-6.1); RDW 16.9 % (11.5-14.5); SODIUM 138 mmol/L (136-145); TCO2 31 mmol/L (25-35); WBC 11.44 X1000 (4.8-10.8)
[2018-10-21] MEDS: CAPOTEN PO SCH ×3 (06:21→20:24)
[2018-10-21] MEDS: DILAUDID IV PRN ×3 (06:21→23:17)
[2018-10-21 07:08] LABS: LYMPHS 8 % (21-51); MONO 9 % (1-9); NRBC 3 % (0-0); SEGS 83 % (42-75)
--- NOTE | 2018-10-21 07:21 | PROGRESS NOTE ---
DATE: 10/21/2018 SUBJECTIVE: Postop day 1 from a scrotal debridement and revision of dorsal slit. No acute events overnight. The patient is resting comfortably this morning and is without complaints this morning. The patient has had good urinary output with over 2 L of urinary drainage that was clear yellow. The patient states his pain is well controlled. He has been tolerating a diet and has been afebrile with stable vital signs. OBJECTIVE: Vital Signs: Pulse 73, blood pressure 98/62, oxygen saturation 100% on room air, temperature 97.5 degrees. General: No acute distress. Resting comfortably in bed. Alert and oriented x3. Respiratory: Good respiratory effort without audible wheezing or rales. Abdomen: Soft, nontender, nondistended. No palpable masses. : Urethral catheter in place with well- healing revision of dorsal slit, chromic sutures in place with good hemostasis present. Scrotal wound with dressing in place. Edges appeared to be healthy and granulating appropriately. Decreased scrotal edema. Musculoskeletal: Moving all extremities. There is 1+ lower extremity edema. Labs: White blood cell count 11.4, hemoglobin 8.4, hematocrit 27.3, platelets 197,000. Sodium 138, potassium 3.6, chloride 98, bicarb 31, BUN 17, creatinine 0.6, glucose 98. ASSESSMENT AND PLAN: Mr. Segal is a 63-year-old with congestive heart failure, hypertension, type 2 diabetes, and a history of Karen's gangrene, who presented to the emergency room last week with a draining scrotal abscess and another episode of Karen's gangrene. The patient was taken to the operating room twice last week for scrotal debridement and resection of devitalized tissue. The patient had a repeat procedure yesterday with decreased evidence of devitalized tissue. He did have an area of necrotic tissue of the foreskin which was excised yesterday with revision of his dorsal slit. The patient's infection count has improved. He is down to 11.4 today. Patient remains afebrile with good drainage through his urethral catheter. We will continue to monitor him in the intensive care unit. Continue intravenous antibiotics per infectious disease, twice a day wound dressing changes per nursing and wound care nursing. Please call with questions or concerns. cc: MD JABARI Celestin
[2018-10-21] MEDS: LANOXIN PO SCH (07:59)
[2018-10-21] MEDS: LASIX IV SCH (07:59)
[2018-10-21] MEDS: MYCOSTATIN SUSP PO SCH ×4 (07:59→20:25)
[2018-10-21] MEDS: ALDACTONE PO SCH (08:12)
[2018-10-21] MEDS: MIRALAX PO SCH ×3 (08:13→20:25)
--- NOTE | 2018-10-21 09:55 | INFECTIOUS DISEASE PROGRESS NO ---
DATE: 10/21/2018 PRESENT ILLNESS: Mr. Segal is being treated for Karen's gangrene of the scrotum. He is status post debridement x3 on this admission. The most recent debridement was yesterday. There is also an oral candidiasis, which is improving. MEDICATIONS: He is receiving Zosyn 3.375 g IV every 6 hours as well as nystatin swish and swallow 4 times a day. PHYSICAL EXAMINATION: Vital Signs: Temperature is 97.5 degrees, pulse rate 79, respiratory rate 19, blood pressure 92/57, O2 saturation is 100% on room air. General: This is a chronically ill- appearing, middle-aged male who is lying in the bed, currently in mild distress due to dressing change to his wound site. HEENT: Atraumatic, normocephalic. Oral mucous membranes are pink and dry. Poor dentition is noted. Sclerae are mildly icteric. Neck: Supple. Trachea is midline. Cardiovascular: Regular rate and rhythm with normal sinus rhythm on the monitor. There is trace pretibial edema bilaterally as well as upper extremity edema which is moderate bilaterally. Respiratory: Lung sounds are generally clear to auscultation. Diminished in the bases. Abdomen: Soft, round, and nontender. Bowel sounds are active. Integumentary: There is an old shingles rash with scarring noted to his left thoracic dermatome. He has several skin tears and blisters noted to his upper extremities. The scrotum is swollen and mildly inflamed with tunneling noted. However, the area has improved with more beefy red tissue. The gangrenous foreskin has been removed. There is a central line in place to the left subclavian. The site is without edema, erythema, or drainage. Neurologic: He is awake, alert, and oriented. Able to move around in the bed with generalized weakness noted. LABORATORY AND X-RAY: Today, his white count has come down a little to 11.44, hemoglobin 8.4, platelet count 197,000. Creatinine is 0.6. Estimated GFR is greater than 60. He had previously grown Enterococcal faecalis and Prevotella bivia to the scrotal area. Urine and blood cultures have shown no growth. No imaging reports today. ASSESSMENT AND PLAN: Mr. Segal has been treated for Karen's gangrene of the scrotum which seems to be improving slowly. Today, his white count has come down some. For now, we will go ahead and continue the Zosyn as ordered, as well as the nystatin swish and swallow. His mouth looks better. However, we will continue the nystatin until a few days after his antibiotics have been discontinued. These plans have been discussed and recommended by Dr. Mckoy. COMORBIDITIES: For Mr. Segal include diabetes mellitus, congestive heart failure, and medical noncompliance. Dictated by FERNY Aguirre for James Mckoy MD This chart was documented by, FERNY Aguirre and accurately reflects the services performed, treatment plan and medical decisions as attested by the providers signature James Mckoy MD. cc: James Mckoy MD MTDJackie
--- NOTE | 2018-10-21 11:16 | PROGRESS NOTE ---
DATE: 10/21/2018 INTERVAL HISTORY: Patient underwent a surgical exploration, debridement of devitalized tissue, Karen gangrene on external genitalia yesterday which he tolerated well. Post procedure, he did not have acute overnight events. SUBJECTIVE: He is feeling fine, denying any complaints. He is eating okay. He has not had a bowel movement for a few days now. We discussed with him about possible transfer later today or tomorrow. I answered all of his questions currently. VITALS: Temperature 97.5 degrees, pulse 82, respiratory rate 15,blood pressure 105/71, saturating 100% on 1 to 2 L nasal cannula. PHYSICAL EXAMINATION: General: Does not appear in any acute distress. Mouth: Oral cavity is moist. Respiratory: Air entry bilaterally equal. No wheeze, rhonchi, or crackles. Cardiovascular: S1, S2 normal. Irregularly irregular. Systolic murmur about 4 on 6 intensity in mitral and aortic region. No gallop or rub. Abdomen: Soft, obese. Active bowel sounds. Nontender. Genitourinary: I removed the dressing on the wound of his surgical exploration. The dorsal surface of penis appears dry, healing well. There is a urine catheter. Neurologic: Alert and oriented x3. LABS: Suggestive of improving leukocytosis, normocytic anemia, normal platelet count, normal electrolytes. ASSESSMENT AND PLAN: 1. Septic shock secondary to Karen gangrene status post intravenous pressors. He has been off pressors for 48 hours. He is also status post debridement and surgical exploration of his wound 3 times during this admission by Urology, who is on board. Continue intravenous antibiotic, Zosyn, as per Infectious Disease recommendation. 2. Shingles on the left back dermatome status post valacyclovir, now resolved. 3. Acute systolic CHF exacerbation: History of nonischemic cardiomyopathy with ejection fraction of 25%. Continue intravenous Lasix as per Cardiology.Also, continue spironolactone and captopril for his heart failure. 4. Atrial fibrillation with rapid ventricular rate, status post intravenous Cardizem drip, now well controlled on oral diltiazem. Once we make sure he is not requiring any more surgical exploration, consider him on anticoagulation. Continue digoxin. 5. Constipation: increase Miralax frequency to BID. 5. Other issues: Acute kidney injury, resolved. Hypotension likely related to diltiazem use in acceptable range. 6. Disposition: I will consider to transfer this patient to floor as he is hemodynamically stable later today or tomorrow. Plan of care was discussed with him. All of his questions have been answered. CRITICAL CARE TIME: More than 30 minutes of critical care time was spent in taking care of this patient. cc: Kar Wan MD MTDD
[2018-10-21] MEDS: LOVENOX SUBQ SCH (14:47)
[2018-10-21] MEDS: BENADRYL IV PRN (21:39)
[2018-10-22] MEDS: CARDIZEM PO SCH ×4 (01:37→22:21)
[2018-10-22] MEDS: ZOSYN 3.375 GM in NS 50 ML IV SCH ×4 (02:59→22:22)
[2018-10-22] MEDS: BENADRYL IV PRN ×2 (03:00→23:59)
[2018-10-22] MEDS: CAPOTEN PO SCH ×3 (05:37→22:21)
[2018-10-22 05:39] LABS: BASO# 0.01 X1000 (0.0-0.2); BASO% 0.1 % (0.0-0.8); HEMATOCRIT 26.3 % (42.0-52.0); HEMOGLOBIN 8.2 g/dL (14.0-18.0); IMM GRAN# 0.23 X1000 (0.0-0.04); IMM GRAN% 2.1 % (0.0-0.5); LYMPH# 1.06 X1000 (1.2-3.4); LYMPH% 9.8 % (20.5-51.1); MCH 29.4 PG (27-31); MCHC 31.2 g/dL (33-37); MCV 94.3 FL (81-99); MONO# 0.96 X1000 (0.11-0.59); MONO% 8.9 % (1.7-9.3); MPV 10.1 FL (7.4-10.4); NEUT# 8.57 X1000 (1.4-6.5); NEUT% 79.1 % (42.2-75.2); PLT 233 X1000 (130-400); RBC 2.79 XMIL (4.7-6.1); RDW 17.8 % (11.5-14.5); WBC 10.83 X1000 (4.8-10.8)
[2018-10-22 06:02] LABS: AGAP 9; ALB/GLOB RATIO 0.7; ALBUMIN 2.3 g/dL (3.5-5.0); ALKALINE PHOSPHATASE 152 U/L (32-122); BUN 16 mg/dL (8-22); CALCIUM 8.3 mg/dL (8.8-10.2); CHLORIDE 97 mmol/L (98-107); COSMO 273; CREATININE 0.8 mg/dL (0.7-1.2); ESTIMATED GFR > 60; GLUCOSE 101 mg/dL (70-104); GOT 19 U/L (10-34); GPT 7 U/L (10-44); POTASSIUM 4.2 mmol/L (3.5-5.1); SODIUM 136 mmol/L (136-145); TCO2 30 mmol/L (25-35); TOTAL BILIRUBIN 2.26 mg/dL (0.20-1.00); TOTAL PROTEIN 5.5 g/dL (6.3-8.3)
[2018-10-22] MEDS: ALDACTONE PO SCH (08:46)
[2018-10-22] MEDS: LANOXIN PO SCH (08:46)
[2018-10-22] MEDS: LASIX IV SCH (08:46)
[2018-10-22] MEDS: MIRALAX PO SCH ×2 (08:47→22:22)
[2018-10-22] MEDS: MYCOSTATIN SUSP PO SCH ×4 (08:47→22:22)
[2018-10-22] MEDS: DILAUDID IV PRN ×2 (08:59→21:50)
--- NOTE | 2018-10-22 10:30 | PROGRESS NOTE ---
DATE: 10/22/2018 INTERVAL HISTORY: No acute events overnight. The patient's vitals were mostly in acceptable range. SUBJECTIVE: Patient denies new complaints. He has some soreness at the wound site, but no other complaints. He states he was taking blood thinners in the past for atrial fibrillation, could not tell me the details. However, looking at the records on previous discharge summary early 2018, he was discharged on Eliquis. Denying chest pain, shortness of breath. Denies nausea, vomiting, abdominal pain, except some soreness in the groin region. VITALS: Currently afebrile with temperature of 98.5 degrees, pulse 72 per minute, respiratory rate of 20 per minute, blood pressure 87/53. He is saturating 98% on room air. PHYSICAL EXAMINATION: General: He does not appear in any acute distress. Mouth: Oral cavity is moist. Lungs: Air entry bilaterally equal. No wheeze, rhonchi, crackles. Cardiovascular: S1, S2 normal. Irregularly irregular. Systolic murmur in mitral and aortic region about 4-6 intensity. No gallop, rub. Abdomen: Soft, obese. Active bowel sounds. Nontender. Genitourinary examination: He has a horizontal dorsal slit operation for his Karen gangrene. The wound has healthy granulation tissue without any pus, does not look infected. No active drainage. There is a urine catheter. Neurologic: Alert and oriented x3. INPUT AND OUTPUT: He had 2 L urine output yesterday. LABS: Suggestive of improving leukocytosis, normocytic anemia, normal platelet count, normal electrolytes with normal kidney function. ASSESSMENT AND PLAN: 1. Septic shock secondary to Karen gangrene status post intravenous pressors since 72 hours. He is also status post debridement surgical exploration with dorsal slit operation about 3 times during this admission by Urology. Continue intravenous Zosyn per Infectious Disease recommendation. 2. Shingles on the left back dermatome status post valacyclovir, now resolved. 3. Acute systolic congestive heart failure exacerbation with history of nonischemic cardiomyopathy and ejection fraction of 25%. Continue intravenous Lasix, spironolactone. He has not been getting his captopril because of low blood pressure. 4. Atrial fibrillation with rapid ventricular rate, status post intravenous Cardizem drip, now well controlled on oral diltiazem. Continue digoxin. Increase Lovenox dosing as his CHADS2 Vasc score is at least 3. He was previously on Eliquis at the time of discharge. I will consider switching him back to Eliquis. The Lovenox would be held on the day of any surgery intervention. 5. Hypotension due to drug use: Likely related to Diltiazem, lasix and aldactone. He is not receiving his captopril. 5. Constipation, resolved on MiraLAX. 6. Other issues. Acute kidney injury on admission, now resolved. Hypotension, likely in the setting of diltiazem and Lasix and spironolactone use, now improving. He has holding parameters on his captopril as well. DISPOSITION: I will transfer patient to routine surgical floor. Plan of care was discussed with him. All of his questions have been answered. cc: Kar Wan MD MTDD
[2018-10-22 10:33] LABS: IRON SATURATION 25 %; TIBC 232 ug/dL; TOTAL IRON 58 ug/dL (53-167); UNBOUND IRON 174 ug/dL (112-346)
[2018-10-22] MEDS: LOVENOX SUBQ SCH ×2 (10:34→22:22)
--- NOTE | 2018-10-22 11:00 | EKG Report ---
Test Performed on : 10/22/2018 10:05:03 AM Test Reason : FOllow up A Fib Blood Pressure : / mmHG Vent. Rate : 074 BPM Atrial Rate : 163 BPM P-R Int : 000 ms QRS Dur : 088 ms QT Int : 390 ms P-R-T Axes : 000 065 267 degrees QTc Int : 432 ms Atrial fibrillation. Low voltage QRS Septal infarct (cited on or before 21-JAN-2018) Abnormal ECG When compared with ECG of 05-OCT-2018 02:59, QRS axis shifted left Unconfirmed Result
--- NOTE | 2018-10-22 14:22 | PROGRESS NOTE ---
DATE: 10/22/2018 SUBJECTIVE: No acute events overnight. Remains afebrile with stable vital signs. Pain has been well controlled. Having good p.o. intake. The patient has been having regular wound dressing changes. He states he has had 2 done in the past 24 hours. Good urinary output from his Blackwood catheter. OBJECTIVE: Vital Signs: Temperature 98.6, heart rate 76, blood pressure 98/62, oxygen saturation 99% on 2 L nasal cannula. General: No acute distress. Resting comfortably in bed. HEENT: Normocephalic, atraumatic. Pupils equal, round, reactive to light. Abdomen: Soft, nontender, nondistended. Respiratory: No audible wheezing or rales. Genitourinary: Packing in place. Well-healing penile incision closed with a running chromic suture. No drainage present. Good healthy mucosa visualized around the urethra. Small amount of discoloration seen over the glans. Urethral catheter in place draining clear yellow urine. Skin edges of this scrotal wound are well healed without any issue. Neurologic: Gross motor and sensory intact. LABORATORY DATA: White blood cell count 10.8, hemoglobin 8.2, hematocrit 26.3, platelets 233,000. Sodium 136, potassium 4.2, chloride 97, bicarbonate 30, BUN 16, creatinine 0.8, glucose 101, calcium 8.3. ASSESSMENT AND PLAN: Mr. Segal is a 63-year-old with hypertension, type 2 diabetes, congestive heart failure, and a history of Karen gangrene who presents for an evaluation of repeat scrotal abscess. The patient has undergone several interventions with excision of devitalized tissue and underwent a revision of his dorsal slit on Thursday. His infection counts have improved. He remains afebrile. Vital signs are stable. His urethral catheter is in place draining clear yellow urine back. Continue to gravity drainage. The patient continues to be on intravenous antibiotics with twice daily wound changes. Overall, it seems like the patient is doing well. We will continue to monitor. cc: Michael Dominguez MD [facility]
--- NOTE | 2018-10-22 20:12 | INFECTIOUS DISEASE PROGRESS NO ---
DATE: 10/22/2018 PRESENT ILLNESS: The patient is being treated for Karen gangrene of his scrotum. However, the infection has spread into the suprapubic area and further in the perineum. The patient also has oral candidiasis, which continues to improve. MEDICATIONS: The patient is on Zosyn for the Karen gangrene and nystatin [id number] for the oral candidiasis. PHYSICAL EXAMINATION: Vital Signs: Temperature is 98.6 degrees, pulse 76, respirations 13, blood pressure 98/62. General: This is a chronically ill-appearing, middle-aged male. He is in no acute distress. Head, eyes, ears, nose, and throat: He can hear my spoken words and see near objects. He has poor oral hygiene, and there are no white patches present. The patient has poor oral hygiene. Neck: No stiffness. Lungs: Clear to auscultation. Cardiovascular: Heart rate is irregular. Abdomen: Soft and nontender. Genitalia: The penis has had debridement, and the scrotum has a large open wound where the scrotum is being packed. There is swelling in the suprapubic area as well as in the perineum. Neurologic: The patient is alert. He can move his extremities. There is no tremor. LABORATORY AND X-RAY: Creatinine 0.8. GFR is greater than 60. CBC shows a white count of 10,830, hemoglobin 8.2, and platelet count 233,000. There is no new radiographic study. ASSESSMENT AND PLAN: The patient has Karen gangrene of the scrotum, perineum, and suprapubic area. He also has oral candidiasis. My plan is to continue Zosyn and Mycostatin swish-and- swallow. COMORBIDITIES: Diabetes mellitus, congestive heart failure, medical noncompliance. cc: James Mckoy MD
[2018-10-23] MEDS: CARDIZEM PO SCH ×5 (03:30→21:30)
[2018-10-23] MEDS: ZOSYN 3.375 GM in NS 50 ML IV SCH ×4 (03:45→21:31)
[2018-10-23] MEDS: CAPOTEN PO SCH ×3 (04:09→21:30)
[2018-10-23] MEDS: BENADRYL IV PRN ×3 (04:56→14:32)
[2018-10-23] MEDS: DILAUDID IV PRN ×3 (05:46→15:55)
[2018-10-23] MEDS: MYCOSTATIN SUSP PO SCH ×4 (09:30→21:31)
[2018-10-23] MEDS: LOVENOX SUBQ SCH ×2 (09:31→21:56)
[2018-10-23] MEDS: LANOXIN PO SCH (09:32)
[2018-10-23] MEDS: LASIX PO SCH ×2 (09:32→21:32)
[2018-10-23] MEDS: ALDACTONE PO SCH (09:32)
[2018-10-23] MEDS: MIRALAX PO SCH ×2 (09:33→21:31)
--- NOTE | 2018-10-23 17:44 | PROGRESS NOTE ---
DATE: 10/23/2018 INTERVAL HISTORY: No acute overnight events. The patient was transferred from ICU to routine medical floor. SUBJECTIVE: He is feeling fine. He says physical therapy was able to walk with him yesterday. He does not remember the activities he did wit hPT. Denies chest pain, shortness of breath. He thinks his swelling of the lower extremity is better than before. OBJECTIVE: Vital Signs: Currently vitals suggest temperature of 97.7, pulse 75, respiratory rate 16, blood pressure 98/63, saturating 98% on room air. General: On physical exam he does not appear in any acute distress. HEENT: Oral cavity is moist. No pallor, cyanosis, clubbing, or icterus. Lungs: Air entry bilaterally equal. No wheezing, rhonchi or crackles. Cardiovascular: S1, S2 normal. No rub or gallop. He has a systolic murmur in mitral and aortic region of about 4 on 6 intensity without any radiation. Abdomen: Soft, obese. Active bowel sounds. Nontender. 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 Had evaluated the wound yesterday which had healthy granulation tissue without any pus. He also has a urine catheter. However, urine catheter is not currently connected with the urine collection bag and so that is why the urine is draining out. I immediately informed the patient's nurse about trying to reconnect the urine catheter under aseptic precautions. The patient's urologist will also be informed about this tomorrow. Input and output, he had 2.3 L of urine output yesterday, 3.2 L since today. Extremities: He does have bilateral lower extremity pitting edema which appears chronic. LABS: No new labs today. ASSESSMENT AND PLAN: 1. 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 He is status post debridement and surgical exploration with dorsal slit operation 3 times during this admission by Urology. Continue intravenous Zosyn as per Infectious disease recommendation. His septic shock has resolved. 2. Acute systolic congestive heart failure exacerbation with history of nonischemic cardiomyopathy and ejection fraction of 25%. Continue p.o. Lasix and spironolactone. He has not been receiving his captopril because of low blood pressure. 3. Atrial fibrillation with rapid ventricular rate, status post Cardizem drip, currently well controlled. Continue digoxin, diltiazem and enoxaparin for primary CV prophylaxis. He was previously on Eliquis at home. 4. Hypotension, due to use of diltiazem, Lasix and Aldactone. Currently in acceptable range. 5. Others: Continue MiraLAX for constipation. 6. Disposition: Patient remains inside the hospital as we monitor his postoperative course. 7. Physical therapy has been ordered. I will encourage patient to ambulate. He would likely go to rehab after this. Plan of care discussed with him. I will also place social work rehab consult. All of his questions have been answered satisfactorily. cc: Kar Wan MD MTDD
[2018-10-24] MEDS: DILAUDID IV PRN ×3 (00:21→15:42)
[2018-10-24] MEDS: CARDIZEM PO SCH ×4 (03:32→20:40)
[2018-10-24] MEDS: ZOSYN 3.375 GM in NS 50 ML IV SCH ×3 (04:00→18:44)
[2018-10-24] MEDS: CAPOTEN PO SCH ×3 (04:36→20:40)
[2018-10-24 06:53] LABS: BASO# 0.02 X1000 (0.0-0.2); BASO% 0.2 % (0.0-0.8); HEMATOCRIT 29.9 % (42.0-52.0); IMM GRAN# 0.06 X1000 (0.0-0.04); IMM GRAN% 0.6 % (0.0-0.5); LYMPH# 0.97 X1000 (1.2-3.4); LYMPH% 10.4 % (20.5-51.1); MCH 28.9 PG (27-31); MCHC 30.1 g/dL (33-37); MCV 96.1 FL (81-99); MONO# 1.32 X1000 (0.11-0.59); MONO% 14.1 % (1.7-9.3); MPV 9.9 FL (7.4-10.4); NEUT# 6.96 X1000 (1.4-6.5); NEUT% 74.7 % (42.2-75.2); PLT 396 X1000 (130-400); RBC 3.11 XMIL (4.7-6.1); RDW 19.4 % (11.5-14.5); WBC 9.33 X1000 (4.8-10.8)
[2018-10-24 07:10] LABS: AGAP 12; BUN 18 mg/dL (8-22); CALCIUM 8.7 mg/dL (8.8-10.2); CHLORIDE 98 mmol/L (98-107); COSMO 273; ESTIMATED GFR > 60; GLUCOSE 83 mg/dL (70-104); MAGNESIUM 1.7 mg/dL (1.5-2.7); PHOSPHORUS 2.9 mg/dL (2.7-4.5); SODIUM 136 mmol/L (136-145); TCO2 26 mmol/L (25-35)
[2018-10-24] MEDS ORDERED: MULTI-VITAMIN PO ONE (10:46)
--- NOTE | 2018-10-24 11:03 | PROGRESS NOTE ---
DATE: 10/24/2018 INTERVAL HISTORY: No acute overnight events. SUBJECTIVE: The patient is feeling much better today than he did yesterday. Denies chest pain, shortness of breath, abdominal pain. I discussed with him about his clinical condition and the fact that we are waiting for Urology. I also discussed with him that he needs to come out of bed and get a little stronger before we start talking about discharge. I also discussed with him about pending Urology recommendation about his wounds. I answered all of his questions satisfactorily. PHYSICAL EXAMINATION: Vital Signs: Currently, temperature 97.9 degrees, pulse 66, respiratory rate 18, blood pressure 101/72, saturating 95% on room air. General: Does not appear in any acute distress. He has a left-sided chest central line. HEENT: Oral cavity is moist. No pallor, cyanosis, clubbing, icterus. Lungs: Air entry bilaterally equal. No wheeze, rhonchi, crackles. Heart: S1, S2 normal. No murmur, rub, or gallop. Systolic murmur in mitral and aortic region, 4/6 intensity without radiation. Abdomen: Soft, obese. Active bowel sounds. Nontender. 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 He also has urine catheter connected with collection bag. LABORATORY DATA: Labs are suggestive of resolution of leukocytosis, normocytic anemia, normal platelet count, normal electrolytes. MICROBIOLOGY: No new microbiological data. IMAGING: No new imaging. ASSESSMENT AND PLAN: 1. 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 He is status post debridement, surgical exploration with dorsal slit operation 3 times during this hospital by Urology. Continue intravenous Zosyn as per Infectious Disease recommendation. 2. Acute systolic congestive heart failure exacerbation with history of nonischemic cardiomyopathy and an ejection fraction of 25%. Continue oral Lasix and spironolactone. He is receiving captopril intermittently. Continue Aldactone. 3. Atrial fibrillation with rapid ventricular rate, status post Cardizem drip. Currently well controlled on diltiazem, digoxin, and enoxaparin. Will resume his Eliquis at the time of discharge. 4. Acute blood loss anemia because of surgery. I will start the patient on iron and multivitamin. Currently stable without any need for blood transfusion. 5. Continue others. Continue MiraLAX for constipation. DISPOSITION: The patient will receive inpatient physical therapy for now. I am awaiting Urology evaluation of his wound, and decide if he would need further surgical exploration. Once there are no other surgical plans, my plan would be to discharge him home with home physical therapy. However, I want to have him come out of bed and walk using a cane or walker, and manage his activities before I could plan it. I am anticipating discharge in next 48 to 72 hours unless there is another surgical intervention planned. cc: Kar Wan MD
[2018-10-24] MEDS ORDERED: THERA M PLUS PO ONE (11:15)
[2018-10-24] MEDS: MIRALAX PO SCH ×2 (11:57→20:39)
[2018-10-24] MEDS: LANOXIN PO SCH (11:57)
[2018-10-24] MEDS: MYCOSTATIN SUSP PO SCH ×4 (11:57→20:39)
[2018-10-24] MEDS: ALDACTONE PO SCH (11:58)
[2018-10-24] MEDS: LASIX PO SCH ×2 (11:58→20:39)
[2018-10-24] MEDS: LOVENOX SUBQ SCH ×3 (11:59→23:54)
[2018-10-24] MEDS: FERROUS SULFATE PO SCH (12:02)
[2018-10-24] MEDS: BENADRYL IV PRN (20:41)
[2018-10-25] MEDS: ZOSYN 3.375 GM in NS 50 ML IV SCH ×4 (00:18→17:55)
[2018-10-25] MEDS: DILAUDID IV PRN ×2 (00:21→10:25)
[2018-10-25] MEDS: CAPOTEN PO SCH ×3 (05:14→20:54)
[2018-10-25] MEDS: CARDIZEM PO SCH ×4 (05:14→20:56)
--- NOTE | 2018-10-25 07:15 | PROGRESS NOTE ---
DATE: 10/25/2018 SUBJECTIVE: No acute events overnight. Patient is resting comfortably in bed this morning. Denies any fevers or chills. His urethral catheter is draining well with over 3 L of urine output of clear, yellow urinary output yesterday. The patient has been minimally ambulatory. He describes having some burning down in his scrotum and perineum this morning Denies scrotal pain this morning. He has been having b.i.d. wound dressing changes. OBJECTIVE: Vital Signs: Temperature 98.7 degrees, heart rate 77, blood pressure 100/74, oxygen saturation 98% on room air. General: No acute distress. Resting comfortably in bed. Alert and oriented x3. Respiratory: Good respiratory effort without audible wheezing or rales. Abdomen: Soft, nontender, nondistended. No palpable masses. : Urethral catheter in place with clear yellow urine. The glans of the penis has slight discoloration which appears to be getting better. The penile shaft skin is well healed with a small amount of clot present circumferentially. No active bleeding. Appears to be well healed without any obvious necrotic areas. Scrotal wound is packed with a Vashe dressing. Skin edges are clean, dry, and intact. Extremities: Lower extremity edema of 1+. Musculoskeletal: Moving all extremities. Labs: White blood cell count 9.3, hematocrit 29.9, hemoglobin 9, platelets 396,000. Sodium 136, potassium 4, chloride 98, bicarb 26, BUN 18, creatinine 1.0, glucose 83. ASSESSMENT/PLAN: Mr. Segal is a 63-year-old with hypertension, type 2 diabetes, congestive heart failure, and a history of Karen's gangrene who presented with repeat scrotal abscess and Karen's gangrene 2 weeks ago. The patient has been debrided three times now, most recently last Thursday. His penile and scrotal incisions appear to be well healing. He has been undergoing twice a day wound dressing changes. The patient clinically has improved. His white blood cell count has returned to normal. All of his incisions appear to be healing. We will continue with twice a day wound dressing changes, intravenous antibiotics per infectious disease recommendations. Ultimately, he will need closure of his scrotal wound but we will continue with twice a day wound dressing changes at this time. No necessary surgical intervention currently. The patient has been minimally ambulatory. Recommended continued physical therapy to assist in strength. Diet as tolerated. Encouraged him to be ambulatory today. Overall, I think he is improving and likely will be able to be discharged soon if deemed appropriate by the hospitalist for ambulation and his cardiac status. cc: Michael Dominguez MD MTDD
[2018-10-25] MEDS: MYCOSTATIN SUSP PO SCH ×4 (10:25→20:54)
[2018-10-25] MEDS: LASIX PO SCH ×2 (10:26→20:55)
[2018-10-25] MEDS: LANOXIN PO SCH (10:26)
[2018-10-25] MEDS: FERROUS SULFATE PO SCH (10:26)
[2018-10-25] MEDS: MIRALAX PO SCH ×2 (10:26→20:53)
[2018-10-25] MEDS: LOVENOX SUBQ SCH ×2 (10:26→20:55)
[2018-10-25] MEDS: ALDACTONE PO SCH (10:26)
[2018-10-25] MEDS: BENADRYL IV PRN (12:50)
[2018-10-25] MEDS: MORPHINE IV PRN (15:46)
--- NOTE | 2018-10-25 16:20 | PROGRESS NOTE ---
DATE: 10/25/2018 INTERVAL HISTORY: No acute events overnight. The patient denies any new complaints. We discussed with about possible transfer to long-term acute care tomorrow, and he is in agreement. He states that he has been making good amount of urine. Input and output suggests -2.5 L yesterday. He denies known history of using any inhalers at home. Currently, he denies any chest pain, shortness of breath, nausea, vomiting, or abdominal pain except for some pain at the wound site. OBJECTIVE: Vital Signs: Temperature 97.4 degrees, pulse 77 per minute, respiratory rate 18 per minute, blood pressure 100/82 and saturating 100% on room air. PHYSICAL EXAMINATION: General: He does not appear in any acute distress. Oral cavity is moist. No pallor, cyanosis, clubbing or icterus. Lungs: Air entry bilaterally equal. No wheezing, rhonchi or crackles. Cardiovascular: S1, S2 normal. No murmur, rub, or gallop. Systolic murmur in mitral and aortic region about 4 out of 6 intensity without any radiation. Abdomen: Soft, obese, and nontender. Active bowel sounds. On today's examination, he has horizontal scar after dorsal slit surgery for Karen gangrene with healthy granulation tissue and some mucoid discharge without any visible pus. He also has urine catheter connected with collection bag. LABORATORY: No new labs today. ASSESSMENT AND PLAN: 1. 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 Continue intravenous Zosyn as per ID recommendation. Infectious Disease is to plan for long-term antibiotics, and would appreciate recommendation at the time of discharge. Pending Urology recommendation about further plan. However, according to the note, they have recommended twice a day wound dressing changes with eventual need for closure of wound in the future without any need for current surgical intervention. 2. Acute systolic congestive heart failure exacerbation with history of nonischemic cardiomyopathy and ejection fraction of 25%. Continue oral Lasix and oral spironolactone with captopril. 3. Atrial fibrillation with rapid ventricular rate, status post Cardizem drip, currently well controlled on diltiazem drip, digoxin and enoxaparin. Resume Eliquis at the time of discharge. 4. Acute blood loss anemia because of surgery. Continue patient on iron and multivitamin currently stable without any need for blood transfusion. 5. Continue MiraLAX for constipation. 6. Disposition: The patient is hemodynamically stable. I think he should be ready to be discharged to long-term acute care facility in the next 24 to 48 hours. ID would recommend intravenous or p.o. antibiotics. Accordingly, we will discharge him in the next 24 hours and long-term acute care. 7. Plan of care were discussed with the patient. He is in agreement. All of his questions have been answered. cc: Kar Wan MD
--- NOTE | 2018-10-25 18:16 | INFECTIOUS DISEASE PROGRESS NO ---
DATE: 10/25/2018 PRESENT ILLNESS: The patient is being treated for Karen's gangrene of the scrotum. The infection had spread also to the suprapubic area and the perineum. The patient also has oral candidiasis which continues to improve. Enterococcus and Prevotella were the 2 organisms that were isolated from the patient's Karen's gangrene tissue. MEDICATIONS: The patient is on Zosyn 3.375 g IV every 6 hours and nystatin 5 mL swish and swallow q.i.d. for the candidiasis. PHYSICAL EXAMINATION: Vital Signs: Temperature is 97.8 degrees, pulse 73, respirations 18, blood pressure 103/66. General: This is a chronically ill-appearing middle-aged male. He is in no acute distress. Head, eyes, ears, nose, and throat: He can hear my spoken words and see near objects. He has poor oral hygiene. There are no white patches on his tongue tonight. Neck: No stiffness. Thorax: The patient has a left-sided subclavian catheter in place. The site is not swollen or draining. Lungs: Clear to auscultation. Cardiovascular: Heart rate is irregular. There is a systolic murmur present. Abdomen: Soft and nontender. Genitalia: The patient's wounds have been packed. Neurologic: Patient is alert. He can move his extremities. There is no tremor. DIAGNOSTIC STUDIES: There is no new radiographic study today. The CBC shows a white count of 9330, hemoglobin 9, and platelet count 396,000. Creatinine is 1, GFR is greater than 60. ASSESSMENT AND PLAN: 1. Patient has Karen's gangrene as mentioned above. 2. He also has oral candidiasis. He is being discharged to an LTAC tomorrow. I have written for the following orders while he is there at the LTAC for 2 weeks: Zosyn 3.375 g IV every 6 hours and nystatin 5 mL swish and swallow 4 times a day, both of these for 2 weeks. While he is there, I have also ordered a CBC with a differential and a creatinine every Thursday. I have also ordered that the patient's subclavian catheter should be removed after the last dose of Zosyn. I am giving the patient a appointment to come to my office in 2 weeks, at which time the patient will be examined. If he needs further antibiotics, then Augmentin can be used in a dose of 875 mg every [address] Dominguez is going to be following the patient and he will determine if any further surgery is needed and also he is in charge of the dressings to be used on the patient. PATIENT'S COMORBIDITIES: Include: 1. Diabetes mellitus. 2. Congestive heart failure. 3. Medical noncompliance. cc: James Mckoy MD
[2018-10-26] MEDS: ZOSYN 3.375 GM in NS 50 ML IV SCH ×3 (01:54→08:06)
[2018-10-26] MEDS: CARDIZEM PO SCH ×2 (01:54→10:03)
[2018-10-26] MEDS: MORPHINE IV PRN (03:18)
[2018-10-26] MEDS: CAPOTEN PO SCH (05:08)
[2018-10-26 06:02] LABS: BASO# 0.02 X1000 (0.0-0.2); BASO% 0.2 % (0.0-0.8); EOS# 0.03 X1000 (0.0-0.7); EOS% 0.3 % (0.0-10.0); HEMATOCRIT 31.6 % (42.0-52.0); HEMOGLOBIN 9.7 g/dL (14.0-18.0); IMM GRAN# 0.02 X1000 (0.0-0.04); IMM GRAN% 0.2 % (0.0-0.5); LYMPH# 0.93 X1000 (1.2-3.4); MCH 29.6 PG (27-31); MCHC 30.7 g/dL (33-37); MCV 96.3 FL (81-99); MONO# 1.19 X1000 (0.11-0.59); MONO% 12.8 % (1.7-9.3); MPV 9.5 FL (7.4-10.4); NEUT% 76.5 % (42.2-75.2); PLT 487 X1000 (130-400); RBC 3.28 XMIL (4.7-6.1); RDW 20.4 % (11.5-14.5); WBC 9.29 X1000 (4.8-10.8)
[2018-10-26 06:36] LABS: AGAP 12; BUN 18 mg/dL (8-22); CALCIUM 8.6 mg/dL (8.8-10.2); CHLORIDE 98 mmol/L (98-107); COSMO 276; CREATININE 0.9 mg/dL (0.7-1.2); ESTIMATED GFR > 60; GLUCOSE 103 mg/dL (70-104); MAGNESIUM 1.7 mg/dL (1.5-2.7); PHOSPHORUS 3.4 mg/dL (2.7-4.5); POTASSIUM 4.2 mmol/L (3.5-5.1); SODIUM 137 mmol/L (136-145); TCO2 27 mmol/L (25-35)
--- NOTE | 2018-10-26 07:06 | PROGRESS NOTE ---
DATE: 10/26/2018 SUBJECTIVE: No acute events overnight. The patient remains afebrile with stable vital signs. Pain seems to be well controlled, undergoing b.i.d. wound dressing changes without issue. Wounds appear to be well healing. Has some granulation tissue in the scrotal wound. His penile incision seems to be healing appropriately. A small amount of irritation is seen on the left portion of his glans that is improving. Urethral catheter in place draining clear yellow urine. OBJECTIVE: Vital Signs: Temperature 97.9 degrees, heart rate 59, blood pressure 98/57, oxygen saturation 100% on room air. General: No acute distress. Resting comfortably in bed. Respiratory: Good respiratory effort without audible wheezing or rales. Abdomen: Soft, nontender, nondistended. No palpable masses. Genitourinary: Urethral catheter in place with clear yellow urine. A small amount of meatal erosion, likely due to chronic indwelling catheter. The glans skin appears to be vascularized, slightly irritated. No evidence of necrosis. Penile incision is well healing. Dried blood clot present overlying it. No evidence of any necrotic tissue seen. Some discoloration from prior surgery is seen in the left portion of the foreskin. Scrotal wound appears to have good pink edges, scrotal packing in place. No pain to palpation or examination. LABORATORY DATA: White blood cell count 9.3, hemoglobin 9.7, hematocrit 31.6, platelets 487,000. Blood glucose 153. ASSESSMENT AND PLAN: Mr. Segal is a 63-year-old with hypertension, type 2 diabetes, congestive heart failure, and a history of Karen's gangrene who presented for draining scrotal abscess and another episode of Karen's gangrene approximately 2 weeks ago. The patient has been debrided multiple times now, last being on Thursday of last week. His incisions appear to be well healing. He has been undergoing twice daily wound dressing changes. The patient's clinical status is improved. His white blood cell count has returned to normal. The patient has indwelling catheter in draining clear yellow urine and is receiving intravenous antibiotics per Infectious Disease. I would recommend continued twice daily wound dressing changes at his facility. I would keep indwelling catheter in at this time to allow diversion of urine and healing of his scrotal incision. His catheter had previously been removed, and he just dribbled urine into the incision. I would hold off on removal at this time. If the patient's incisions are improving, we will potentially remove it at followup. Encouraged him to remain ambulatory while at the facility. Encouraged twice daily wound dressing changes and continue on intravenous antibiotics. We will continue to monitor while inpatient. Please call with questions or concerns. cc: Michael Dominguez MD MTDD
[2018-10-26] MEDS ORDERED: NORCO-7.5 PO PRN (09:10)
[2018-10-26] MEDS: MYCOSTATIN SUSP PO SCH (09:59)
[2018-10-26] MEDS: FERROUS SULFATE PO SCH (09:59)
[2018-10-26] MEDS: MIRALAX PO SCH (10:00)
[2018-10-26] MEDS: LOVENOX SUBQ SCH (10:00)
[2018-10-26] MEDS: ALDACTONE PO SCH (10:03)
[2018-10-26] MEDS: LANOXIN PO SCH (10:03)
--- NOTE | 2018-10-26 10:53 | DISCHARGE SUMMARY ---
ADMISSION DATE: 10/13/2018 DISCHARGE DATE: 10/26/2018 CONSULTATIONS: 1. Dr. Michael Dominguez with Urology. 2. Dr. James Mckoy with Infectious Disease. 3. Dr. Stevenson Boston with Cardiology. PERTINENT PROCEDURES: 1. scrotal and perineal debridement with drainage of Karen gangrene, dorsal slit with urethral catheter placement, performed by Dr. Dominguez. 2. Second scrotal debridement and resection of devitalized tissues, revision of the dorsal slit, performed by Dr. Allison Dominguez. 3. Evacuation of scrotal hematoma with fulguration, scrotal debridement of Karen gangrene, performed by Dr. Michael Dominguez. DISCHARGE DIAGNOSES: 1. 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 The patient has been on IV antibiotics with Zosyn per ID recommendations. The patient's Karen gangrene was secondary to Enterococcus and Prevotella, and will follow up with Dr. James Mckoy in [address] Dominguez in 10 days. He is being transitioned to LTAC to continue with IV antibiotics as well as wound care. He will keep his indwelling catheter at this time to allow diversion of urine and healing of his scrotal incision. 2. Acute systolic congestive heart failure exacerbation with history of nonischemic cardiomyopathy and an ejection fraction of 25%. He will continue on oral Lasix and oral spironolactone with captopril. He was evaluated by Cardiology. 3. Atrial fibrillation with rapid ventricular response status post Cardizem drip. Currently controlled with digoxin. He will resume his Eliquis at discharge. 4. Acute blood loss anemia because of surgery. The patient will continue on iron and multivitamin. He did receive 2 units of PRBCs and fresh frozen plasma. Hemoglobin and hematocrit remain stable. 5. Constipation. Continue MiraLAX. HOSPITAL COURSE: Briefly, Mr. Segal is a 63-year-old male with type 2 diabetes, congestive heart failure with an EF of 25%, gout, hypertension, and a history of prior for Karen gangrene. He presented to the ED at [facility] with a severely swollen scrotum that had been present for several weeks. However, on the day of his admission, it started draining a purulent, foul-smelling drainage. He did undergo a scrotal debridement back in April 2018 for his previous Karen gangrene and had been seen several times by Urology in failed to follow up for the outpatient appointment. When he arrived to [facility] ED, he was found to be in septic shock with blood pressures in the 70s and elevated white count of 23. He did receive the sepsis protocol with IV fluids and empiric antibiotics. Over the course of his hospital stay, he did have an episode of atrial fibrillation with rapid ventricular response and he had to be placed on a Cardizem drop drip. He also underwent 3 different scrotal debridements with Dr. Dominguez. He did have a drop in his hemoglobin and hematocrit secondary to surgeries. He had 2 units of blood as well as 2 units of FFP. He will continue with an indwelling [place] catheter. He is off IV pressors as well as the antiarrhythmics. He is tolerating p.o. and has been transitioned back to his home p.o. Lasix. He has been treated with IV Zosyn, followed by Infectious Disease, and will be discharged to LTAC today to continue IV Zosyn as well as wound care. VITAL SIGNS: At time of discharge, temperature is 97.6 degrees, heart rate 60, respirations 19, blood pressure is 98/57, O2 is 96% on room air. DISCHARGE DIET: Diabetic with Glucerna and LiquaCel protein 1 at lunch and 1 at the evening tray. DISCHARGE MEDICATIONS: 1. Ativan 1 mg IV q.3 hours p.r.n. 2. Cardizem 30 mg p.o. q.6 hours. 3. Captopril 6.25 mg p.o. q.8 hours. 4. Digoxin 125 mcg p.o. daily. 5. Benadryl 25 mg IV q.4 hours p.r.n. 1. Eliquis 5 mg p.o. b.i.d. 2. Lasix 40 mg p.o. daily. 7. Ferrous sulfate 325 mg p.o. daily. 9. [place] 7.5 one each p.o. q.6 hours p.r.n. 10. Morphine 2 mg IV b.i.d. p.r.n. 11. Mycostatin 5 mg p.o. 4 times a day. 12. Zosyn 3.375 g IV q.6 hours. 13. MiraLAX 17 g p.o. b.i.d. 14. Aldactone 25 mg p.o. daily. 15. Eliquis 5 mg p.o. b.i.d. FOLLOWUP: Mr. 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 He will need to discuss with his regular doctor about age- appropriate cancer screening including colonoscopy as well as the need for outpatient upper endoscopy for anemia, and follow up with Urologist, Dr. Dominguez, within 10 to 14 days of discharge, as well as Dr. James Mckoy in 2 weeks, and they have also increased his Eliquis dose to 5 mg b.i.d.; his home dose was 2.5 mg b.i.d. He can return to the ED or call 911 for any worsening symptoms. Dictated by FERNY Perales for Kar Wan MD cc: MD James Baeza MD Patrick Guthrie, MD Peter Johnson, MD I agree with the components of history, physical, assessment and plan. >30 minutes have been spent in discharging this patient. [facility]
[2018-10-26 11:37] VITALS: BP 95/68
--- NOTE | 2018-10-26 12:30 | PROGRESS NOTE ---
DATE: 10/26/2018 INTERVAL HISTORY: I evaluated the patient at bedside he did not have any interval overnight events. SUBJECTIVE: He is denying any complaints. His blood pressure was a little low and I made some changes in his Lasix; instead of b.i.d., I started him on once a day. OBJECTIVE: Vital signs: Currently, temperature 97.2 degrees, pulse 67, respiratory rate 16, blood pressure 95/68, saturating 95% on room air. Lungs: Air entry bilaterally equal. No wheeze, rhonchi, crackles. HEENT: He has missing teeth. Cardiovascular: S1, S2 normal. Systolic ejection murmur affecting mitral and aortic region. Abdomen: Soft, nontender. Extremities: On lower extremity examination, his edema bilateral lower extremities has significantly decreased. 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 ASSESSMENT AND PLAN: 1. 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 2. Acute systolic congestive heart failure exacerbation. 3. History of nonischemic cardiomyopathy with ejection fraction of 25%. 4. Atrial fibrillation with rapid ventricular rate. 5. Acute blood loss anemia because of surgery. 6. Constipation. PLAN: 1. The patient will be continued on intravenous antibiotics, Zosyn for about 2 weeks, with Nystatin swish and swallow for oral candidiasis. 2. The patient will follow up with Dr. Dominguez in 10 to 14 days' time. At that time, he will re- evaluate his wound and would decide if he would need further surgical intervention versus closure. 3. He should follow up with Dr. Mckoy in his clinic in about 2 weeks' time, at what point he would decide about continuing antibiotics versus switching it to Augmentin. 4. Hypotension. Is likely in the setting of multiple medication use and I have decreased his furosemide dose and he should hold his captopril if systolic blood pressure is less than 95 to 100. Plan of care discussed with him. All of his questions have been answered. Patient will be transferred to [facility] today. cc: Kar Wan MD
--- NOTE | 2018-10-26 14:24 | DISCHARGE SUMMARY ---
ADMISSION DATE: 10/13/2018 DISCHARGE DATE: 10/26/2018 ADDENDUM: MEDICATION LIST: 1. Eliquis 5 mg p.o. b.i.d. 2. Lasix 40 mg p.o. daily. Dictated by FERNY Perales for Kar Wan MD cc: Kar Wan MD These medications have been added in the previous discharge summary which has been edited. Patient was resumed on Eliquis and Lasix at discharge. [facility]
[2018-10-27] MEDS ORDERED: LASIX PO SCH (09:00)
== END 2018-10-26 14:09 | DRG 853 ==
LOC: P.ED 12:18 → ICU 18:58 → SUATTDRO 18:58 → 4N 10-22 14:28
PROVIDERS: ATTEND Internal Medicine
CPT/HCPCS: 36430; 71010; 71045; 80048; 80053; 80202; 81001; 82728; 82948; 83540; 83550; 83605; 83690; 83735; 84100; 85014; 85018; 85025; 85610; 85730; 86850; 86900; 86901; 86920; 87040; 87070; 87075; 87076; 87077; 87088; 87186; 87205; 88304; 93005; 93010; 94761; 96365; 96375; 97110; 97162; 97530; 99285; A9270; J1100; J1170; J1200; J1650; J1940; J2060; J2175; J2270; J2405; J2543; J3370; J3475; J3480; J7030; J7040; J7050; J7120; P9016; P9017; XXXXX

== ENCOUNTER 2019-01-25 14:18 | Inpatient (IN) ==
[2019-01-25] MEDS ORDERED: ROCEPHIN 1 GM in NS 50 ML IV ONE (15:14)
[2019-01-25] MEDS ORDERED: LASIX IV ONE (15:14)
[2019-01-25 16:09] LABS: BASO# 0.01 X1000 (0.0-0.2); BASO% 0.2 % (0.0-0.8); EOS# 0.02 X1000 (0.0-0.7); EOS% 0.3 % (0.0-10.0); HEMATOCRIT 42.2 % (42.0-52.0); LYMPH# 1.01 X1000 (1.2-3.4); LYMPH% 15.6 % (20.5-51.1); MCH 26.3 PG (27-31); MCHC 30.8 g/dL (33-37); MCV 85.3 FL (81-99); MONO# 0.88 X1000 (0.11-0.59); MONO% 13.6 % (1.7-9.3); MPV 9.9 FL (7.4-10.4); NEUT# 4.55 X1000 (1.4-6.5); NEUT% 70.3 % (42.2-75.2); PLT 260 X1000 (130-400); RBC 4.95 XMIL (4.7-6.1); RDW 17.9 % (11.5-14.5); WBC 6.47 X1000 (4.8-10.8)
--- NOTE | 2019-01-25 16:29 | Diag Imaging Result Doc PS360 ---
EXAM: CHEST-PORTABLE - 01/25/2019 HISTORY: sob, chf TECHNIQUE: Portable chest COMPARISON: 10/14/2018 FINDINGS: There is cardiomegaly similar to prior. There are vascular congestion and mild right basilar edema. There is dense opacity at the left base similar to prior. There are some perihilar atelectasis on the left. There is no pneumothorax identified. The prior central venous catheter has been removed. IMPRESSION: Mild pulmonary edema/congestive heart failure. Nonspecific dense opacity at left base similar to prior. Electronically signed by Sp Becker 01/25/2019 4:27 PM
[2019-01-25 16:42] LABS: AGAP 14; ALB/GLOB RATIO 0.7; ALBUMIN 3.3 g/dL (3.5-5.0); ALKALINE PHOSPHATASE 216 U/L (32-122); BUN 14 mg/dL (8-22); CHLORIDE 106 mmol/L (98-107); COSMO 281; CREATININE 0.9 mg/dL (0.7-1.2); ESTIMATED GFR > 60; GLUCOSE 88 mg/dL (70-104); GOT 29 U/L (10-34); GPT 15 U/L (10-44); POTASSIUM 3.8 mmol/L (3.5-5.1); SODIUM 141 mmol/L (136-145); TCO2 21 mmol/L (25-35); TOTAL BILIRUBIN 1.23 mg/dL (0.20-1.00); TOTAL PROTEIN 7.9 g/dL (6.3-8.3)
[2019-01-25] MEDS ORDERED: TYLENOL PO PRN (17:26)
[2019-01-25] MEDS ORDERED: ZOFRAN IV PRN (17:26)
[2019-01-25] MEDS ORDERED: NS NEB INH SCH (17:45)
[2019-01-25] MEDS ORDERED: LABETALOL IV PRN (18:08)
[2019-01-25] MEDS ORDERED: MAXIPIME 2 GM in NS 100 ML IV ONE (19:00)
[2019-01-25 19:24] LABS: URINE SOURCE CLEAN CATCH
[2019-01-25 19:30] LABS: UR EPITHELIAL CELLS <10 /HPF (<10); URINE BACTERIA NEGATIVE /HPF; URINE RBC <10 /HPF (<10); URINE WBC <10 /HPF (<10)
[2019-01-25 19:31] LABS: BILIRUBIN URINE NEGATIVE (NEGATIVE); BLOOD URINE NEGATIVE (NEGATIVE); COLOR STRAW; GLUCOSE URINE NEGATIVE (NEGATIVE); KETONE URINE NEGATIVE (NEGATIVE); LEUKOCYTES URINE NEGATIVE (NEGATIVE); NITRITE URINE NEGATIVE (NEGATIVE); PROTEIN URINE NEGATIVE (NEGATIVE); SP GRAVITY URINE 1.003; TURBIDITY URINE CLEAR (CLEAR); UROBILINOGEN URINE NORMAL (NORMAL)
[2019-01-25] MEDS: NORCO-5 PO PRN (19:56)
[2019-01-25 20:04] LABS: HEMOGLOBIN A1C 5.9 % (4.8-6.0)
[2019-01-25] MEDS: XOPENEX NEB INH SCH (22:00)
--- NOTE | 2019-01-25 22:14 | HISTORY AND PHYSICAL ---
CHIEF COMPLAINT: Three days of increasing shortness of breath and lower extremity swelling and pain. HISTORY OF PRESENT ILLNESS: Mr. Segal is a 63-year-old male with a history of nonischemic cardiomyopathy, chronic systolic congestive heart failure, atrial fibrillation on anticoagulation and chronic anemia who presented to the ER today with a chief complaint of 3 days of increasing shortness of breath and increased swelling in his lower extremities. The patient states that he noticed his legs were swollen quite a bit, and he was also having a lot of drainage from multiple bullae on his lower extremities. He denied having any chest pain, headache, dizziness or recent syncopal episodes. The patient states that he does not remember what medications he takes at home. The patient was discharged from [facility] about 3 months ago after being admitted with septic shock secondary to Karen gangrene, and he underwent extensive debridement at that time. Today in the ER, the patient was noted to have a blood pressure of 129/83 with heart rate of 55. PAST MEDICAL HISTORY: 1. Nonischemic cardiomyopathy. 2. Chronic systolic CHF with an ejection fraction of 25%. 3. Gout. 4. Atrial fibrillation. 5. Hypertension 6. History of DVT. 7. History of Karen gangrene. PAST SURGICAL HISTORY: 1. Scrotal debridement and irrigation. 2. Right hydrocelectomy. 3. Scrotal debridement and resection of devitalized tissue. 4. Secondary wound closure over scrotal wound. FAMILY HISTORY: Reviewed and noncontributory. SOCIAL HISTORY: The patient denies any tobacco, alcohol or illicit drug use. The patient states that he is and lives alone at home. ALLERGIES: No known drug allergies. HOME MEDICATIONS: The patient's home medication list is not available at this time. REVIEW OF SYSTEMS: A 12-point review of systems has been performed. Please refer to the history of present illness for pertinent positives and negatives. PHYSICAL EXAMINATION: VITAL SIGNS: Temperature 98 degrees, blood pressure 129/83, heart rate 55 respirations 16, O2 saturations 100% on 2 L nasal cannula. GENERAL: This is a chronically ill-appearing elderly male lying on the stretcher in no acute distress. HEAD: Normocephalic, atraumatic. EYES: Conjunctivae clear, EOMI, PERRLA. NECK: Supple. No JVD. No lymphadenopathy. HEART: S1, S2 normal. Bradycardic. LUNGS: Bilateral crackles. No wheezing. ABDOMEN: Positive bowel sounds. Soft, nontender, nondistended. EXTREMITIES: 3+ edema up to the thighs and abdomen. The patient has bullae on the lower extremities with serosanguineous fluid. NEUROLOGIC: The patient is alert and oriented x4. No focal neurologic deficits noted. LABORATORY DATA: White blood cell count 6.4, hemoglobin 13, hematocrit 42, platelets 260,000. Sodium 141, potassium 3.8, chloride 106, CO2 21, BUN 14, creatinine 0.9, AST 29, ALT 15, alkaline phosphatase 216. Troponin 0.09, proBNP 2447, albumin 3.3, lactate 2.7. UA negative. IMAGING: Chest x-ray shows mild pulmonary edema. Nonspecific dense opacity of the left lung base. ASSESSMENT AND PLAN: 1. Acute on chronic systolic congestive heart failure exacerbation. We will start the patient on diuretic therapy. We will also start the patient on aspirin, lisinopril and Coreg. We will also consult with the child development teacher for further recommendations. 2. Atrial fibrillation. The patient is currently rate controlled. We will continue on Coreg and Eliquis. 3. Nonischemic cardiomyopathy. Aware. 4. Possible pneumonia. Blood cultures have been ordered. The patient has been started on empiric antibiotic therapy. We will monitor the patient's response to therapy. We will also order procalcitonin. 5. Gastrointestinal prophylaxis. Continue on omeprazole. cc: Maura Dasilva MD MTDD
[2019-01-25] MEDS: HUMULIN R SUBQ SCH (23:54)
[2019-01-25] MEDS: ELIQUIS PO SCH (23:54)
[2019-01-25] MEDS: COREG PO SCH (23:54)
[2019-01-25] MEDS: ZYVOX 600 MG/D5W 600 MG/300 ML IVPB IV SCH (23:55)
[2019-01-26] MEDS ORDERED: KLOR-CON PO ONE (00:47)
[2019-01-26] MEDS ORDERED: LASIX IV SCH (04:00)
[2019-01-26] MEDS: PRILOSEC PO SCH (06:30)
[2019-01-26] MEDS: HUMULIN R SUBQ SCH ×4 (06:31→21:53)
[2019-01-26] MEDS: NORCO-5 PO PRN (06:36)
--- NOTE | 2019-01-26 06:37 | EKG Report ---
Test Performed on : 01/25/2019 2:38:19 PM Test Reason : SOB Blood Pressure : / mmHG Vent. Rate : 074 BPM Atrial Rate : 064 BPM P-R Int : 000 ms QRS Dur : 078 ms QT Int : 366 ms P-R-T Axes : 000 042 -67 degrees QTc Int : 406 ms Atrial fibrillation. Low voltage QRS Septal infarct (cited on or before 21-JAN-2018) Abnormal ECG When compared with ECG of 22-OCT-2018 10:05, No significant change was found Unconfirmed Result
[2019-01-26 07:53] LABS: HEMATOCRIT 40.3 % (42.0-52.0); HEMOGLOBIN 12.1 g/dL (14.0-18.0); MCH 25.9 PG (27-31); MCV 86.3 FL (81-99); MPV 9.9 FL (7.4-10.4); RBC 4.67 XMIL (4.7-6.1); RDW 17.9 % (11.5-14.5); WBC 6.31 X1000 (4.8-10.8)
[2019-01-26 08:14] LABS: AGAP 13; BUN 15 mg/dL (8-22); CALCIUM 8.3 mg/dL (8.8-10.2); CHLORIDE 106 mmol/L (98-107); COSMO 284; CREATININE 0.9 mg/dL (0.7-1.2); ESTIMATED GFR > 60; GLUCOSE 99 mg/dL (70-104); POTASSIUM 3.7 mmol/L (3.5-5.1); SODIUM 142 mmol/L (136-145); TCO2 23 mmol/L (25-35)
[2019-01-26] MEDS: MAXIPIME 2 GM in NS 100 ML IV SCH ×2 (09:27→21:44)
[2019-01-26] MEDS: COREG PO SCH (09:27)
[2019-01-26] MEDS: ASPIRIN EC PO SCH (09:27)
[2019-01-26] MEDS: ALDACTONE PO SCH (09:27)
[2019-01-26] MEDS: PRINIVIL PO SCH (09:28)
[2019-01-26] MEDS: ELIQUIS PO SCH ×2 (09:28→21:51)
[2019-01-26] MEDS: XOPENEX NEB INH SCH ×3 (10:34→22:25)
[2019-01-26] MEDS: HYDROCORTISONE 1% CREAM TOP SCH (11:45)
[2019-01-26] MEDS: ZYVOX 600 MG/D5W 600 MG/300 ML IVPB IV SCH (11:45)
[2019-01-26] MEDS ORDERED: MAGNESIUM SULFATE 2 GM/S.W.I. 2 GM/50 ML IVPB IV ONE (15:50)
--- NOTE | 2019-01-26 15:54 | CONSULTATION ---
DATE OF CONSULTATION: 01/26/2019 IMPRESSION: 1. Acute on chronic systolic heart failure. 2. Severe nonischemic cardiomyopathy with most recent left ventricular ejection fraction approximately 25%. 3. Moderate aortic stenosis. 4. Chronic atrial fibrillation. 5. Hypertension. 6. History of Karen's gangrene. RECOMMENDATIONS: 1. Diurese with intravenous Lasix as you are doing. 2. Continue angiotensin converting enzyme inhibitor and carvedilol as tolerated. 3. Continue long-term anticoagulation with Eliquis. 4. Patient counseled regarding need to limit sodium intake/salt intake. HISTORY: This 63-year-old male with past history of chronic systolic heart failure, severe nonischemic cardiomyopathy, moderate aortic stenosis, chronic atrial fibrillation, hypertension, and Karen's gangrene was admitted with progressive swelling and increasing shortness of breath with findings consistent with acute on chronic systolic heart failure. He reports a one week or so history of progressive dyspnea on exertion, orthopnea, and peripheral swelling. There has been no chest pain. He admits he does not restrict his sodium intake. He has been hospitalized several times over the last six months with congestive heart failure and also was hospitalized for Karen's gangrene with associated septic shock. He had extensive debridement for his Karen's gangrene. PAST MEDICAL HISTORY: 1. Severe nonischemic cardiomyopathy. 2. Moderate aortic stenosis. 3. Chronic atrial fibrillation. 4. Hypertension. 5. Previous DVT. 6. Gout. 7. Karen's gangrene. PAST SURGICAL HISTORY: Includes, scrotal debridement and irrigation, right hydrocelectomy, repeat scrotal debridement and resection of devitalized tissue, and secondary wound closure over scrotal wound. ALLERGIES: He has no known drug allergies. MEDICATIONS PRIOR TO ADMISSION: As listed. SOCIAL HISTORY: He denies smoking or alcohol use. He lives at home alone. FAMILY HISTORY: Negative for premature coronary disease. REVIEW OF SYSTEMS: Pulmonary: Noteworthy for progressive dyspnea. There has been no cough. Gastrointestinal: Negative. Constitutional: Noncontributory beyond history of present illness. Remainder of review of systems noncontributory beyond history of present illness with 14 total systems reviewed. PHYSICAL EXAMINATION: General: This is an older male in no distress on room air. Vital signs: Blood pressure 107/64, heart rate 67, oxygen saturation 98% on nasal cannula oxygen at 2 L per minute. HEENT exam: Extraocular movements intact. Mucous membranes are moist. Neck: Supple. Jugular venous distention is difficult to appreciate. Chest: Clear to auscultation bilaterally. Cardiac Exam: Reveals a irregular rate and rhythm without appreciable murmur or gallop. Abdomen: Soft. Bowel sounds are normal. Extremities: Demonstrate 2+ to 3+ edema extending up to the posterior thigh. Neurologic exam: Reveals him to be alert and fully oriented. Speech is fluent. He moves all four extremities equally well. Skin: Warm and dry. Psych exam: Reveals mood to be appropriate. PERTINENT DATA: Twelve lead EKG demonstrates atrial fibrillation and low voltage QRS. LABORATORY DATA: Includes a white blood cell count of 6.31, hematocrit 40.3, hemoglobin 12.1, platelet count 229. Sodium 142, potassium 3.7, chloride 106, carbon dioxide 23. BUN 15, creatinine 0.9, glucose 99. Initial troponin 0.098, followup troponin 0.087. proBNP level 2447. cc: Rafi Artis MD
--- NOTE | 2019-01-26 16:10 | PROGRESS NOTE ---
DATE: 01/26/2019 SUBJECTIVE: The patient continues to complain of extensive swelling in his abdomen and lower extremities. OBJECTIVE: Vital Signs: Temperature 98.6 degrees, blood pressure 107/64, heart rate 67, respirations 17, O2 saturation is 98% on 2 L nasal cannula. Intake 1.2 L. General: This is a chronically ill-appearing, elderly male lying in bed, in no acute distress. Head: Normocephalic, atraumatic. Heart: S1, S2 normal. Lungs: Diminished breath sounds at the bases. No crackles. No wheezing. Abdomen: Slightly distended. Positive bowel sounds. Soft, nontender. Extremities: There is 3+ edema up to the thighs. Neurologic: The patient is alert and oriented x4. LABS: Sodium 142, potassium 3.7, chloride 106, CO2 23, BUN 15, creatinine 0.9, glucose 99, magnesium 1.5, calcium 8.3. ASSESSMENT AND PLAN: 1. Acute on chronic systolic congestive heart failure exacerbation. Continue with diuretic therapy. Will await further recommendations from Cardiology. 2. Hypomagnesemia. We will replace the patient's magnesium. 3. Atrial fibrillation. The patient is rate controlled. Continue on Coreg and Eliquis. 4. Nonischemic cardiomyopathy. Aware. Continue on the current cardiac medications. 5. History of gout. Aware. 6. Pneumonia. Continue on cefepime and Zyvox. 7. Deep vein thrombosis prophylaxis. The patient is on Eliquis. cc: Maura Dasilva MD
[2019-01-26] MEDS ORDERED: NS 250 ML IV ONE (16:11)
--- NOTE | 2019-01-26 16:20 | EKG Report ---
Test Performed on : 01/26/2019 4:16:02 PM Test Reason : afib/aflutter? Blood Pressure : / mmHG Vent. Rate : 054 BPM Atrial Rate : 340 BPM P-R Int : 000 ms QRS Dur : 076 ms QT Int : 510 ms P-R-T Axes : 000 055 -65 degrees QTc Int : 483 ms Atrial fibrillation. with slow ventricular response. Low voltage QRS Nonspecific T wave abnormality Prolonged QT Abnormal ECG When compared with ECG of 25-JAN-2019 14:38, (Unconfirmed) QT has lengthened Confirmed by Sergio HAYES, Neal Olguin ([id number]) on 01/27/2019 4:19:21 PM
[2019-01-27] MEDS: HYDROCORTISONE 1% CREAM TOP SCH ×3 (00:42→22:48)
[2019-01-27] MEDS: ZYVOX 600 MG/D5W 600 MG/300 ML IVPB IV SCH ×2 (00:42→12:07)
[2019-01-27] MEDS: HUMULIN R SUBQ SCH ×4 (07:34→22:48)
[2019-01-27 07:42] LABS: AGAP 13; BUN 18 mg/dL (8-22); CALCIUM 8.5 mg/dL (8.8-10.2); CHLORIDE 104 mmol/L (98-107); COSMO 281; ESTIMATED GFR > 60; GLUCOSE 92 mg/dL (70-104); POTASSIUM 3.8 mmol/L (3.5-5.1); SODIUM 140 mmol/L (136-145); TCO2 23 mmol/L (25-35)
[2019-01-27] MEDS: PRILOSEC PO SCH (07:44)
[2019-01-27] MEDS: MAXIPIME 2 GM in NS 100 ML IV SCH (08:07)
[2019-01-27] MEDS: ASPIRIN EC PO SCH (08:07)
[2019-01-27] MEDS: ALDACTONE PO SCH (08:08)
[2019-01-27] MEDS: LASIX IV SCH ×2 (08:08→22:47)
[2019-01-27] MEDS: COREG PO SCH ×2 (08:08→22:47)
[2019-01-27] MEDS: PRINIVIL PO SCH (08:08)
[2019-01-27] MEDS: ELIQUIS PO SCH ×2 (08:08→22:47)
[2019-01-27] MEDS ORDERED: MAGNESIUM SULFATE 2 GM/S.W.I. 2 GM/50 ML IVPB IV ONE (10:09)
[2019-01-27] MEDS: XOPENEX NEB INH SCH ×3 (10:20→21:00)
--- NOTE | 2019-01-27 17:49 | PROGRESS NOTE ---
DATE: 01/27/2019 SUBJECTIVE: Patient reports some shortness of breath when recumbent and persistent swelling of lower extremities. Staff relates that he tends to get a relatively low blood pressure following his cardiovascular medications. OBJECTIVE: Vital Signs: Blood pressure 110/67, heart rate 50 to 57 with ECG monitor showing sinus bradycardia, oxygen saturation 100% on nasal cannula oxygen at 2 L/minute. Neck: Jugular venous distention is not appreciated. Chest: Fairly clear to auscultation. Cardiac: Regular rate and rhythm without appreciable murmur, rub, or gallop. Extremities: Moderate pretibial edema. LABORATORY DATA: Sodium 140, potassium 3.8, chloride 104, carbon dioxide 23, BUN 18, creatinine 1.0, glucose 92, albumin 3.0. IMPRESSION: 1. Acute on chronic systolic heart failure. 2. Severe nonischemic cardiomyopathy. 3. Moderate aortic stenosis. 4. Chronic atrial fibrillation. 5. Hypertension. 6. History of Karen gangrene. RECOMMENDATIONS: 1. Given tendency for low blood pressure, will stop lisinopril. Low dose losartan may be considered. 2. Continue low dose Coreg. 3. Continue efforts to diurese with intravenous Lasix. 4. Continue anticoagulation with Eliquis. cc: Rafi Artis MD
--- NOTE | 2019-01-28 03:54 | PROGRESS NOTE ---
DATE: 01/27/2019 SUBJECTIVE: The patient is resting comfortably in bed. He did have a period of low blood pressure this afternoon as well as some dizziness. OBJECTIVE: Vital Signs: Temperature 98.6 degrees, blood pressure 110/67, heart rate 50, respirations 18, O2 saturations 100% on 2 L nasal cannula. General: This is a chronically ill- appearing elderly male lying in bed in no acute distress. Heart: S1, S2, normal. Lungs: Equal air entry bilaterally. No crackles. No rales. Abdomen: Positive bowel sounds. Soft, nontender, and nondistended. Extremities: 3+ edema up to the thighs. Neurologic: The patient is alert and oriented x4. LABS: Reviewed. ASSESSMENT AND PLAN: 1. Acute on chronic systolic congestive heart failure exacerbation. Continue with diuretic therapy and the current cardiac medications. Cardiology is following. 2. Atrial fibrillation. Continue on Coreg and Eliquis. 3. Severe nonischemic cardiomyopathy. Aware. 4. Obesity. Aware. 5. Deep vein thrombosis prophylaxis. Continue on Eliquis. cc: Maura Dasilva MD
[2019-01-28] MEDS: HUMULIN R SUBQ SCH ×4 (06:41→23:48)
[2019-01-28] MEDS: PRILOSEC PO SCH (07:00)
[2019-01-28 07:14] LABS: HEMATOCRIT 38.7 % (42.0-52.0); HEMOGLOBIN 11.6 g/dL (14.0-18.0); MCH 26.3 PG (27-31); MCV 87.8 FL (81-99); MPV 9.6 FL (7.4-10.4); RBC 4.41 XMIL (4.7-6.1); RDW 18.2 % (11.5-14.5); WBC 5.25 X1000 (4.8-10.8)
[2019-01-28 07:33] LABS: MAGNESIUM 1.9 mg/dL (1.5-2.7); PHOSPHORUS 3.3 mg/dL (2.7-4.5)
[2019-01-28 07:47] LABS: AGAP 10; BUN 20 mg/dL (8-22); CALCIUM 8.2 mg/dL (8.8-10.2); CHLORIDE 104 mmol/L (98-107); COSMO 280; CREATININE 0.9 mg/dL (0.7-1.2); ESTIMATED GFR > 60; GLUCOSE 102 mg/dL (70-104); SODIUM 139 mmol/L (136-145); TCO2 25 mmol/L (25-35)
[2019-01-28] MEDS: ELIQUIS PO SCH ×2 (08:15→19:59)
[2019-01-28] MEDS: ALDACTONE PO SCH (08:15)
[2019-01-28] MEDS: COREG PO SCH ×2 (08:15→19:59)
[2019-01-28] MEDS: ASPIRIN EC PO SCH (08:15)
[2019-01-28] MEDS: LASIX IV SCH ×2 (08:16→19:58)
[2019-01-28] MEDS: HYDROCORTISONE 1% CREAM TOP SCH ×2 (08:16→20:30)
[2019-01-28] MEDS: XOPENEX NEB INH SCH ×3 (11:09→21:05)
[2019-01-29] MEDS: HUMULIN R SUBQ SCH ×4 (06:37→21:08)
[2019-01-29] MEDS: PRILOSEC PO SCH (06:40)
[2019-01-29 07:39] LABS: HEMATOCRIT 38.7 % (42.0-52.0); HEMOGLOBIN 11.7 g/dL (14.0-18.0); MCH 26.2 PG (27-31); MCHC 30.2 g/dL (33-37); MCV 86.6 FL (81-99); RBC 4.47 XMIL (4.7-6.1); WBC 5.43 X1000 (4.8-10.8)
[2019-01-29] MEDS: LASIX IV SCH ×2 (08:04→19:51)
[2019-01-29] MEDS: ELIQUIS PO SCH ×2 (08:04→21:01)
[2019-01-29] MEDS: ASPIRIN EC PO SCH (08:04)
[2019-01-29] MEDS: DIOVAN PO SCH (08:05)
[2019-01-29 08:06] LABS: AGAP 12; BUN 20 mg/dL (8-22); CALCIUM 8.4 mg/dL (8.8-10.2); CHLORIDE 103 mmol/L (98-107); COSMO 281; CREATININE 0.9 mg/dL (0.7-1.2); ESTIMATED GFR > 60; GLUCOSE 118 mg/dL (70-104); POTASSIUM 4.1 mmol/L (3.5-5.1); SODIUM 139 mmol/L (136-145); TCO2 24 mmol/L (25-35)
[2019-01-29] MEDS: ALDACTONE PO SCH (08:06)
[2019-01-29] MEDS: COREG PO SCH ×2 (08:06→21:01)
[2019-01-29] MEDS: HYDROCORTISONE 1% CREAM TOP SCH ×2 (08:21→21:10)
[2019-01-29] MEDS: XOPENEX NEB INH SCH ×3 (10:50→21:05)
--- NOTE | 2019-01-29 13:30 | PROGRESS NOTE ---
DATE: 01/29/2019 SUBJECTIVE: The patient is resting comfortably in bed. No acute events noted overnight. OBJECTIVE: Vital Signs: Temperature 97.7 degrees, blood pressure 113/64, heart rate 63, respirations 16, O2 saturations 100% on 2 L nasal cannula. General: This is an elderly male lying in bed in no acute distress. Heart: S1, S2 normal. Regular rate and rhythm. Lungs: Equal air entry bilaterally. No crackles, no rales. Abdomen: Positive bowel sounds. Soft, nontender, nondistended. Extremities: 2+ edema bilaterally. Neuro: The patient is alert and oriented x4. LABS: Reviewed. ASSESSMENT AND PLAN: 1. Acute on chronic systolic congestive heart failure exacerbation. Continue with diuretic therapy. 2. Severe nonischemic cardiomyopathy. Aware. 3. Atrial fibrillation. Continue on Coreg and Eliquis. 4. Morbid obesity. Aware. 5. Deep vein thrombosis prophylaxis. The patient is on Eliquis. 6. Will consult physical therapy. cc: Maura Dasilva MD MTDD
--- NOTE | 2019-01-29 19:02 | CARDIOLOGY PROGRESS NOTE ---
DATE: 01/29/2019 SUBJECTIVE: Mr. Segal reports he feels better. His breathing has improved. PHYSICAL EXAMINATION: Vital signs: Patient is afebrile. His heart rate is 67, blood pressure 100/70. Ins and outs seem poorly measured based on incontinent voids and continent voids not measured. His weight seems relatively stable. General: He is in no acute distress. Cardiovascular: He sounds to be in an irregularly irregular rhythm consistent with atrial fibrillation. He has marked bilateral lower extremity edema, which the patient feels has improved. Chest: Exam sounds coarse. He has mild basilar rales. No increased work of breathing. Abdomen: Soft, nontender. PERTINENT DATA: Sodium 139, potassium 4.1, BUN 20, creatinine 0.9. His proBNP is 2447 on the 11th. ASSESSMENT: Mr. Segal is a 63-year-old gentleman with heart failure. PLAN: We will continue on current medications. He seems to be diuresing and seems to be improving as far as his symptoms go. We will check a BMP in the morning to evaluate his volume status. He is on an ARB Aldactone as well as a beta-ramy. He continues on apixaban for his history of atrial fibrillation. cc: Stevenson Boston MD
[2019-01-30] MEDS: HUMULIN R SUBQ SCH ×4 (05:35→20:44)
[2019-01-30] MEDS: PRILOSEC PO SCH (06:20)
[2019-01-30] MEDS: ASPIRIN EC PO SCH (08:47)
[2019-01-30] MEDS: ELIQUIS PO SCH ×2 (08:47→20:42)
[2019-01-30] MEDS: DIOVAN PO SCH ×2 (08:47→20:43)
[2019-01-30] MEDS: COREG PO SCH ×2 (08:47→20:42)
[2019-01-30] MEDS: ALDACTONE PO SCH (08:47)
[2019-01-30] MEDS: LASIX IV SCH ×2 (08:47→20:44)
[2019-01-30] MEDS: HYDROCORTISONE 1% CREAM TOP SCH ×2 (08:48→20:50)
[2019-01-30 09:10] LABS: AGAP 10; BUN 22 mg/dL (8-22); CALCIUM 8.5 mg/dL (8.8-10.2); CHLORIDE 104 mmol/L (98-107); COSMO 284; CREATININE 0.9 mg/dL (0.7-1.2); ESTIMATED GFR > 60; GLUCOSE 130 mg/dL (70-104); SODIUM 140 mmol/L (136-145); TCO2 26 mmol/L (25-35)
[2019-01-30] MEDS: XOPENEX NEB INH SCH (10:27)
[2019-01-30] MEDS ORDERED: MAGNESIUM SULFATE 2 GM/S.W.I. 2 GM/50 ML IVPB IV ONE (10:35)
--- NOTE | 2019-01-30 14:52 | PROGRESS NOTE ---
DATE: 01/30/2019 SUBJECTIVE: The patient is resting comfortably in bed. He has no complaints. He states that he got up and walked with Physical Therapy yesterday. OBJECTIVE: Vital Signs: Temperature 97.5 degrees, blood pressure 130/66, heart rate 71, respirations 18, O2 saturation 96% on 2 L nasal cannula. General: This is a chronically ill- appearing elderly male, lying in bed in no acute distress. Heart: S1, S2 normal. Regular rate and rhythm. Lungs: Clear to auscultation bilaterally. No wheezing. No rales. No rhonchi. Abdomen: Positive bowel sounds. Soft, nontender, nondistended. Extremities: 2+ edema bilaterally. Neurologic: The patient is alert and oriented x4. DIAGNOSTIC STUDIES: Sodium 140, potassium 4, chloride 104, CO2 of 26, BUN 22, creatinine 0.9, glucose 130, magnesium 1.8. ASSESSMENT AND PLAN: 1. Acute on chronic systolic congestive heart failure exacerbation. Continue with diuretic therapy. 2. Severe nonischemic cardiomyopathy. Aware. 3. Atrial fibrillation. The patient is rate controlled. Continue on Coreg and Eliquis. 4. Morbid obesity. Aware. 5. Deep vein thrombosis prophylaxis. The patient is currently on Eliquis. 6. Continue with physical therapy. cc: aMura Dasilva MD
--- NOTE | 2019-01-30 15:20 | CARDIOLOGY PROGRESS NOTE ---
DATE: 01/30/2019 SUBJECTIVE: Mr. Segal reports he is doing okay today. He is having a little bit of back discomfort, making him a little bit uncomfortable. OBJECTIVE: Vital signs: Afebrile. Heart rate 71, blood pressure 130/66. His I's and O's are difficult to track as the patient has a number of incontinent voids. General: No acute distress. Cardiovascular: He is in an irregularly irregular rhythm. He has no murmurs. He has no S3. He has 2+ bilateral lower extremity edema. Warm and well-perfused extremities. Chest: Sounds clear bilaterally. He has no increased work of breathing. Abdomen: Soft, nontender. PERTINENT DATA: Sodium 140, potassium 4, BUN 22, creatinine 0.9, magnesium level is 1.8. ProBNP is 1,423 which is down from 2,447. ASSESSMENT: Mr. Segal is a 63-year-old gentleman with a history of heart failure. PLAN: I will try to bump up his valsartan to 40 mg b.i.d. We will recheck a BMP in the morning. He continues to diurese. I have no other recommendations at this time. cc: Stevenson Boston MD
[2019-01-30] MEDS: NORCO-5 PO PRN (23:12)
[2019-01-31 02:16] LABS: AGAP 12; BUN 24 mg/dL (8-22); CALCIUM 8.6 mg/dL (8.8-10.2); CHLORIDE 104 mmol/L (98-107); COSMO 285; CREATININE 0.9 mg/dL (0.7-1.2); ESTIMATED GFR > 60; GLUCOSE 129 mg/dL (70-104); MAGNESIUM 1.8 mg/dL (1.5-2.7); POTASSIUM 4.1 mmol/L (3.5-5.1); SODIUM 140 mmol/L (136-145); TCO2 24 mmol/L (25-35)
--- NOTE | 2019-01-31 04:17 | PROGRESS NOTE ---
DATE: 01/28/2019 SUBJECTIVE: The patient is resting comfortably in bed. He states that he feels that the swelling in his legs has improved. OBJECTIVE: Vital Signs: Temperature 98.1 degrees, blood pressure 100/63, heart rate 51, respirations 16, O2 saturation is 100% on room air. General: This is a chronically ill-appearing elderly male, lying in bed in no acute distress. Heart: S1, S2 normal, bradycardic. Lungs: Clear to auscultation bilaterally. Abdomen: Positive bowel sounds. Soft, nontender, nondistended. Extremities: 3+ edema. No cyanosis. No calf tenderness. Neurologic: The patient is alert and oriented x4. DIAGNOSTIC STUDIES: Reviewed. ASSESSMENT AND PLAN: 1. Acute on chronic systolic congestive heart failure exacerbation. Continue with diuretic therapy and the current cardiac medications. 2. Atrial fibrillation. Continue on Coreg and Eliquis. 3. Severe nonischemic cardiomyopathy. Aware. 4. Obesity. Aware. 5. Anemia. We will monitor the hemoglobin and hematocrit closely. 6. We will consult Physical Therapy. cc: Maura Dasilva MD
[2019-01-31] MEDS: HUMULIN R SUBQ SCH ×2 (06:01→21:00)
[2019-01-31] MEDS: PRILOSEC PO SCH (06:22)
--- NOTE | 2019-01-31 07:27 | EKG Report ---
Test Performed on : 01/31/2019 02:27:14 AM Test Reason : 30 beat run of v-tach per telemetry Blood Pressure : / mmHG Vent. Rate : 061 BPM Atrial Rate : 416 BPM P-R Int : 000 ms QRS Dur : 080 ms QT Int : 536 ms P-R-T Axes : 000 044 -61 degrees QTc Int : 539 ms Atrial fibrillation. Low voltage QRS Nonspecific T wave abnormality Abnormal ECG When compared with ECG of 26-JAN-2019 16:16, QT has lengthened Confirmed by Sergio HAYES, Neal Olguin ([id number]) on 02/01/2019 7:28:11 PM
[2019-01-31] MEDS: ASPIRIN EC PO SCH (09:02)
[2019-01-31] MEDS: DIOVAN PO SCH ×2 (09:02→20:26)
[2019-01-31] MEDS: ALDACTONE PO SCH (09:02)
[2019-01-31] MEDS: ELIQUIS PO SCH ×2 (09:02→20:26)
[2019-01-31] MEDS: COREG PO SCH (09:03)
[2019-01-31] MEDS: LASIX IV SCH ×2 (09:03→20:00)
[2019-01-31] MEDS: HYDROCORTISONE 1% CREAM TOP SCH ×2 (09:03→21:00)
[2019-01-31] MEDS ORDERED: LASIX IV ONE (11:05)
--- NOTE | 2019-01-31 11:37 | Diag Imaging Result Doc PS360 ---
EXAM: CHEST-PORTABLE HISTORY: dyspnea, chf TECHNIQUE: Chest single view COMPARISON: 01/25/2019 FINDINGS: Poor inspiratory effort. The heart remains enlarged. There is a small left pleural effusion with basilar atelectasis. There are infiltrates in the mid left lung and right lung base. The overall appearance is similar to the prior exam. IMPRESSION: No interval improvement. Electronically signed by Jaylon Delong 01/31/2019 11:35 AM
--- NOTE | 2019-01-31 14:02 | Diag Imaging Result Doc PS360 ---
CT THORAX W/O CONTRAST - 01/31/2019 INDICATION: pneumonia COMPARISON: Previous chest x-rays FINDINGS: There is severe cardiomegaly. There is also a moderate to large pericardial effusion. This measures about 2.6 cm posteriorly. There is severe body wall edema. There are [id number] bilateral pleural effusions. These measure up to about 3.3 cm in depth. No dense infiltrates. Upper abdominal images are grossly normal. There is calcified coronary artery disease. There are moderate degenerative changes of the spine. No acute or suspicious bony lesion. IMPRESSION: Negative for pneumonia. Congestive heart failure. Severe body wall edema. Pericardial and pleural effusions. This exam was performed using automated exposure control, adjustment of mA or kV according to patient size, and/or use of iterative reconstruction technique Electronically signed by Gatito Madrid 01/31/2019 2:00 PM
[2019-01-31] MEDS: NORCO-5 PO PRN (20:25)
[2019-01-31] MEDS: LOPRESSOR PO SCH ×2 (20:27→21:00)
[2019-02-01] MEDS: HUMULIN R SUBQ SCH ×6 (06:03→22:42)
--- NOTE | 2019-02-01 07:31 | EKG Report ---
Test Performed on : 02/01/2019 07:19:13 AM Test Reason : afib Blood Pressure : / mmHG Vent. Rate : 053 BPM Atrial Rate : 208 BPM P-R Int : 000 ms QRS Dur : 082 ms QT Int : 430 ms P-R-T Axes : 000 048 239 degrees QTc Int : 403 ms Atrial fibrillation. with slow ventricular response. Low voltage QRS Cannot rule out Anterior infarct , age undetermined Abnormal ECG When compared with ECG of 31-JAN-2019 02:27, (Unconfirmed) Nonspecific T wave abnormality no longer evident in Anterior leads QT has shortened Confirmed by Sergio HAYES, Neal Olguin ([id number]) on 02/01/2019 7:29:39 PM
[2019-02-01 07:39] LABS: HEMATOCRIT 36.9 % (42.0-52.0); HEMOGLOBIN 11.1 g/dL (14.0-18.0); MCH 25.8 PG (27-31); MCHC 30.1 g/dL (33-37); MCV 85.8 FL (81-99); MPV 9.6 FL (7.4-10.4); RBC 4.3 XMIL (4.7-6.1); RDW 17.8 % (11.5-14.5); WBC 4.6 X1000 (4.8-10.8)
[2019-02-01 07:52] LABS: MAGNESIUM 1.8 mg/dL (1.5-2.7); PHOSPHORUS 3.7 mg/dL (2.7-4.5)
[2019-02-01 07:53] LABS: AGAP 10; BUN 29 mg/dL (8-22); CALCIUM 8.9 mg/dL (8.8-10.2); CHLORIDE 103 mmol/L (98-107); COSMO 285; CREATININE 0.9 mg/dL (0.7-1.2); ESTIMATED GFR > 60; GLUCOSE 135 mg/dL (70-104); SODIUM 139 mmol/L (136-145); TCO2 26 mmol/L (25-35)
[2019-02-01] MEDS: NORCO-5 PO PRN ×2 (07:53→21:26)
[2019-02-01] MEDS: LASIX IV SCH ×2 (09:51→18:24)
[2019-02-01] MEDS: ALDACTONE PO SCH (09:51)
[2019-02-01] MEDS: ELIQUIS PO SCH ×2 (09:51→20:50)
[2019-02-01] MEDS: ASPIRIN EC PO SCH (09:51)
[2019-02-01] MEDS: DIOVAN PO SCH (09:51)
[2019-02-01] MEDS: PRILOSEC PO SCH (09:52)
[2019-02-01] MEDS: HYDROCORTISONE 1% CREAM TOP SCH ×2 (09:52→21:42)
[2019-02-01] MEDS: LOPRESSOR PO SCH ×2 (09:52→20:50)
[2019-02-01] MEDS ORDERED: ZAROXOLYN PO ONE (18:15)
--- NOTE | 2019-02-01 18:56 | PROGRESS NOTE ---
DATE: 02/01/2019 Mr. Segal was admitted on 01/25/2019. Presented with 3 days of increasing shortness of breath, lower extremity swelling and pain. A 63-year-old with a history of nonischemic cardiomyopathy, chronic systolic congestive heart failure, atrial fibrillation on anticoagulation, and chronic anemia, who presented to the emergency room with chief complaint of 3 days' history of increasing shortness of breath and increased swelling in the lower extremities. Patient states that he noticed his legs were swollen quite a bit, having a lot of drainage from multiple bullae in the lower extremities. Denied any chest pain, headache, dizziness, or recent syncopal episodes. States that he does not remember what medications he was taking. He came to [place]. PAST MEDICAL HISTORY: Once again: 1. Nonischemic cardiomyopathy. 2. Chronic systolic congestive heart failure with ejection fraction about 25%. 3. Gout. 4. Atrial fibrillation. 5. Hypertension. 6. History of DVT. 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 PAST SURGICAL HISTORY: 1. Scrotal debridement and irrigation. 2. Right hydrocelectomy. 3. Scrotal debridement and resection of devitalized treatment for his Karen gangrene. 4. Secondary wound closure over scrotal wound. He states that he is doing better, but he is very weak, unable to walk around. He wants to get home. Says he recently went through a divorce, had been 40 years, and so he is struggling. He is really homesick. OBJECTIVE: Temperature 97.6, pulse 45, respirations 18, blood pressure 96/64. Pupils are equal and round. No distended neck veins. Lungs are clear anterior and lateral. Cardiovascular exam regular rhythm and rate without murmur or S3. Abdomen is soft. Skin is warm and dry. DIAGNOSTIC STUDIES: Chest CT done on 01/31/2019: Negative for pneumonia. He does have pulmonary venous hypertension consistent with congestive heart failure. Severe body wall edema. Pericardial and pleural effusions. Chest x-ray from 01/31/2019 with no interval improvement. Poor inspiratory effort. Heart remains enlarged. Small left pleural effusion. Bibasilar atelectasis. There are infiltrates in the mid left lung and right lung base. Overall appearance similar to prior exam. ASSESSMENT AND PLAN: 1. Acute on chronic congestive heart failure. Making progress with diuresis. Continue diuretic therapy. 2. Severe nonischemic cardiomyopathy. 3. Atrial fibrillation. Rate is controlled. He is on Coreg and Eliquis. 4. Morbid obesity. 5. Deep vein thrombosis prophylaxis. 6. Weakness, deconditioning. Continue physical therapy and we will get Occupational Therapy to help as well. We will get Social Service involved to make sure of what our discharge plans are, and he wants to go home, but I do not know if he will have to go to rehabilitation for a while. cc: Neal Hill MD MTDD
--- NOTE | 2019-02-01 21:56 | PROGRESS NOTE ---
DATE: 01/31/2019 SUBJECTIVE: The patient is resting comfortably in bed. He has no complications at this time. OBJECTIVE: VITAL SIGNS: Temperature 97.4, blood pressure 117/76, heart rate 61, respirations 16, O2 saturation 99% on 3 L nasal cannula. GENERAL: This is a chronically ill appearing elderly male lying in bed in no acute distress. HEART: S1, S2 normal, regular rate and rhythm . LUNGS: Equal air entry bilaterally, no crackles, no rales. ABDOMEN: Positive bowel sounds, soft, nontender, nondistended. EXTREMITIES: No edema, no cyanosis. NEURO: The patient is alert, oriented. LABS: Reviewed. Chest x-ray shows infiltrates in the mid left lung and right lung base. ASSESSMENT AND PLAN: 1. Acute on chronic systolic congestive heart failure exacerbation. Patient remains on diuretic therapy. Management as per the lap hand tool. 2. Severe nonischemic cardiomyopathy . Aware. 3. Bilateral lung infiltrates. Will check a CT of the chest. The procalcitonin level was negative. 4. Atrial fibrillation. The patient is rate controlled. Continue on Coreg and Eliquis. 5. Morbid obesity. Aware. 6. Continue with physical therapy. cc: Maura Dasilva MD MTDD
[2019-02-02] MEDS: PRILOSEC PO SCH (06:41)
[2019-02-02] MEDS: LASIX IV SCH ×2 (06:42→17:29)
[2019-02-02] MEDS ORDERED: ZAROXOLYN PO ONE ×2 (07:00→18:23)
[2019-02-02] MEDS: HUMULIN R SUBQ SCH ×4 (07:06→21:18)
[2019-02-02] MEDS: LOPRESSOR PO SCH ×2 (09:28→20:12)
[2019-02-02] MEDS: DIOVAN PO SCH (09:28)
[2019-02-02] MEDS: ELIQUIS PO SCH ×2 (09:28→20:12)
[2019-02-02] MEDS: ALDACTONE PO SCH (09:28)
[2019-02-02] MEDS: ASPIRIN EC PO SCH (09:28)
[2019-02-02] MEDS: HYDROCORTISONE 1% CREAM TOP SCH ×2 (09:29→20:15)
[2019-02-02] MEDS: NORCO-5 PO PRN (12:43)
--- NOTE | 2019-02-02 16:04 | PROGRESS NOTE ---
DATE: 02/02/2019 SUBJECTIVE: Mr. Segal does feel a little better, a little stronger. His breathing is better, in better spirits today. OBJECTIVE: Temperature 97.2 degrees, pulse 50, respirations 22, blood pressure is 86/58. Blood pressures have ranged between 86-105/58-70. Less swelling in his legs. Lungs are clear in all lung palumbo. Cardiovascular Examination: Regular rhythm and rate without murmur or S3. Abdomen is soft. ASSESSMENT AND PLAN: 1. Acute on chronic congestive heart failure, making progress with diuresis. 2. Severe nonischemic cardiomyopathy. 3. Atrial fibrillation. Rate is controlled. He is on Coreg and Eliquis. 4. Morbid obesity. 5. Deep venous thrombosis prophylaxis. 6. Weakness. Continue physical therapy. His goal is to try and get back home. He will continue physical therapy and occupational therapy. 7. He is on Eliquis 5 mg twice a day, aspirin 81 mg a day, Lasix 60 mg intravenous every 12 hours, hydrocodone 5 mg every 6 hours as needed for pain. He is on sliding scale. Blood sugars appear well controlled. He is on Lopressor 25 mg twice a day, Prilosec 20 mg a day, spironolactone 25 mg daily, Diovan 40 mg daily, Zaroxolyn 5 mg that was given one dose yesterday and then another dose today. cc: Neal Hill MD
--- NOTE | 2019-02-02 21:24 | PROGRESS NOTE ---
DATE: 02/02/2019 SUBJECTIVE: Mr. Segal continues without shortness of breath or chest discomfort on room air. OBJECTIVE: Vital signs: Blood pressure 86/58, heart rate 50, oxygen saturation 92%. Jugular distention is evident suggesting elevated central venous pressure. Chest: Clear to auscultation. Cardiac Exam: Reveals an irregular rate and rhythm without appreciable murmur or gallop. Extremities: Demonstrate moderate edema. IMPRESSION: 1. Acute on chronic systolic heart failure. Patient continues to manifest signs of volume overload, but appears to be making progress slowly. 2. Severe nonischemic cardiomyopathy. 3. Moderate aortic stenosis. 4. Chronic atrial fibrillation. 5. Hypertension. 6. History of recent difficulty with Karen's gangrene. RECOMMENDATIONS: 1. Given tendency for low blood pressure, stop Coreg and start low-dose metoprolol. 2. Continue efforts to diurese aggressively. 3. Restrict sodium intake. cc: Rafi Artis MD MTDD
--- NOTE | 2019-02-02 21:32 | PROGRESS NOTE ---
DATE: 02/01/2019 SUBJECTIVE: Patient denies shortness of breath on room air. He continues with significant swelling. There has been no chest pain. OBJECTIVE: Blood pressure 96/64, heart rate 54 and regular. Oxygen saturation 100%.Neck: Jugular venous distention is demonstrated consistent with elevated central venous pressure. Chest: Clear to auscultation. Cardiac: Reveals a irregular rate and rhythm without appreciable gallop. Extremities: Demonstrate moderate edema. LABORATORY DATA: Includes a white blood cell count 4.6, hematocrit 36.9, hemoglobin 11.1, platelet count 237,000. Sodium 139, potassium 4.0, chloride 103, carbon dioxide 26, BUN 29, creatinine 0.9, glucose 135, magnesium 1.8. IMPRESSION: 1. Acute on chronic systolic heart failure. Patient continues to manifest signs of volume overload on exam and also radiographically despite diuresis thus far. It has been difficult to track his urine output as he is not using [place] catheter as he prefers to avoid this and is also not using bedside urinal. 2. Severe nonischemic cardiomyopathy. 3. Moderate aortic stenosis. 4. Chronic atrial fibrillation. 5. Hypertension. 6. History of Karen gangrene. RECOMMENDATIONS: 1. Continue low-dose valsartan. 2. Augment diuresis with a few doses of metolazone 5 mg as well as increase in IV Lasix to 60 mg IV q.12. cc: Rafi Artis MD
[2019-02-03] MEDS: LASIX IV SCH ×2 (06:17→17:27)
[2019-02-03] MEDS: PRILOSEC PO SCH (06:18)
[2019-02-03] MEDS: HUMULIN R SUBQ SCH ×3 (06:49→15:55)
[2019-02-03] MEDS: ALDACTONE PO SCH (09:37)
[2019-02-03] MEDS: ASPIRIN EC PO SCH (09:37)
[2019-02-03] MEDS: LOPRESSOR PO SCH (09:37)
[2019-02-03] MEDS: DIOVAN PO SCH (09:37)
[2019-02-03] MEDS: ELIQUIS PO SCH (09:37)
[2019-02-03] MEDS: HYDROCORTISONE 1% CREAM TOP SCH (09:38)
--- NOTE | 2019-02-03 13:15 | PROGRESS NOTE ---
DATE: 02/03/2019 SUBJECTIVE: Mr. Segal said he wants to go home. Still on supplementary O2. States his breathing is better and he is able to walk around and feels like he is ready. OBJECTIVE: Vital Signs: Temperature 98 degrees, pulse 67, respirations 18, blood pressure 95/57. HEENT: Pupils are equal and round. Lungs: Clear in all lung palumbo. Cardiovascular: Regular rate without murmur. S3. Extremities: Still has 1+ pitting edema from ankle pretty much up to his knee. ASSESSMENT: 1. Acute on chronic systolic heart failure. Continues to show manifest signs of volume overload, but making progress. He really wants to go home. 2. Severe nonischemic cardiomyopathy. 3. Moderate aortic stenosis. 4. Chronic atrial fibrillation. 5. Hypertension. 6. History of recent difficulty with Karen's gangrene. PLAN: I need to see if he is eligible for oxygen and if he needs it see if we can get it. He is determined to go home. We will try and get home health to help and see if we can get him ready for discharge. We are going to have to continue to diurese him. Continue present medication. cc: Neal Hill MD
--- NOTE | 2019-02-03 16:47 | ECHO REPORT ---
ORDER DATE: 01/31/2019 INDICATION: A 63-year-old male, patient of Dr. Dasilva, with pericardial effusion. M-MODE MEASUREMENTS: Left ventricle end diastole: 4.6. Left ventricle end systole: 4.1. Posterior wall: Cannot be properly measured, it is probably in the order of 1.2. Interventricular septum: 1.5. Left atrium: 5.6. Aortic diameter: 3.5. SUMMARY OF 2-DIMENSIONAL IMAGING: This study is very difficult. 1. The left ventricle is enlarged and it shows significant global impairment. Ejection fraction is estimated at 25% to no more than 30%. There is paradoxical contractility of the interventricular septum. There is mild to moderate concentric LVH. 2. The left atrium is markedly dilated. The right atrium is also markedly dilated. 3. The right ventricle is significantly enlarged. There is mild global hypokinesis of the right ventricle. 4. The tricuspid valve shows severe degree of regurgitation. 5. The inferior vena cava is dilated. Pulmonary pressure is estimated to be somewhere in the neighborhood of 57 to 62 mmHg. 6. The mitral annulus shows moderate calcification. The mitral valve shows moderate degree of regurgitation. The patient is in atrial fibrillation. 7. Pulsed wave Doppler of mitral inflow shows a single filling wave. 8. Diastolic function could not be evaluated. 9. The aortic valve is calcified and it shows restricted opening, consistent with a stenosis. Maximum gradient is 39 mmHg, mean gradient is 22 mmHg. Valve area is difficult to calculate, but it may be below 1 cm2. The patient seems to be in a low cardiac output state. The aortic stenosis may be severe. There is mild degree of aortic regurgitation. 10.The pulmonic valve shows mild to moderate degree of regurgitation. 11.There is some moderate sized, somewhat loculated pericardial effusion, appears to be larger in the posterior wall of the heart. There is also a moderate size to large size left pleural effusion. SUMMARY: This study shows: 1. Dilated left ventricle with mild to moderate concentric hypertrophy and impaired systolic function, ejection fraction 25% to 30%. 2. Marked dilatation of both atria. 3. Enlarged right ventricle with global hypokinesis. 4. Moderate mitral regurgitation. 5. Moderately severe to severe tricuspid regurgitation. 6. Pulmonary pressure of 57 to 62 mmHg. 7. Possibly severe aortic stenosis. Maximum gradient 39 mm, mean gradient 22 mmHg. 8. Low cardiac output state. Valve calculated at probably less than 1 cm2 in area. 9. Moderate to questionably large size pericardial effusion that appears to be loculated. It is adjacent to the posterior wall of the heart. 10.Left pleural effusion. Clinical correlation is strongly recommended. A CT of the chest should be performed to correlate or better assess the extent of the effusions. cc: MD Maura Gonzales MD
--- NOTE | 2019-02-03 17:29 | DISCHARGE SUMMARY ---
ADMISSION DATE: 01/25/2019 DISCHARGE DATE: 02/03/2019 INDICATION: He has no primary care physician. Complaint of 3 days history increased shortness of breath. Lower extremity swelling present on 01/25/2019. A 63-year-old with history of nonischemic cardiomyopathy, chronic systolic congestive heart failure, atrial fibrillation on anticoagulation, has chronic anemia. He presented to the emergency room with a chief complaint of 3-day history of increasing shortness of breath, increased swelling of lower extremities. The patient states that he noticed his legs were swollen quite a bit and he is having a lot a bit of drainage, multiple bullae in his lower extremities. Denied any chest pain, headache, dizziness or recent syncopal episodes. Patient states that he does not remember the medication he takes at home. The patient was discharged from [facility] about 3 months ago after being admitted for septic shock secondary to Karen gangrene, underwent extensive debridement at that time. PAST MEDICAL HISTORY: Once again: 1. Nonischemic cardiomyopathy. 2. Chronic systolic congestive heart failure with ejection fraction 25%. 3. Gout. 4. Atrial fibrillation. 5. Hypertension. 6. History of DVT. 7. History of Karen gangrene. PAST SURGICAL HISTORY: 1. Scrotal debridement and irrigation. 2. Right hydrocelectomy. 3. Scrotal debridement and resection of devitalized tissue last month. 4. Secondary wound closure over scrotal wound. ADMISSION DIAGNOSES: 1. Acute on chronic systolic congestive heart failure, nonischemic cardiomyopathy, was started on diuretic therapy. The patient on aspirin, lisinopril and Coreg. 2. Atrial fibrillation. His rate was controlled, kept on the Coreg and on his Eliquis. 3. Possible pneumonia. Was treated with some antibiotics. 4. Gastroesophageal reflux and gastrointestinal prophylaxis, was on omeprazole. 5. Dr. Artis was consulted. Cardiology felt he had acute on chronic systolic heart failure, severe nonischemic cardiomyopathy. Most recent left ventricular ejection fraction was estimated at 25%. 6. Moderate aortic stenosis. 7. Chronic atrial fibrillation. 8. Hypertension. 9. History of Karen gangrene. Continue diuresis. DIAGNOSTICS: 1. His EKG on 01/26 revealed atrial fibrillation, low voltage, and heart rate was 54 at that time. He showed continued progression with decreased pedal edema and leg edema and decreased pulmonary venous hypertension. 2. Chest x-ray repeated on 01/31/2019 did not show much interval improvement. Heart remains enlarged. 3. Chest CT on 01/31/2019 negative for pneumonia, but pulmonary venous hypertension severe body wall edema, pericardial and pleural effusions appreciated. He showed steady improvement and we got Physical Therapy involved. 4. Repeated an echocardiogram with Doppler on 01/31/2019. Summary: Left ventricle is enlarged, shows significant global impairment. Ejection fraction 25%, no more than 30%. There was paradoxical contractility of the interventricular septum. Mild to moderate concentric LVH. Left atrium markedly dilated. Right atrium also markedly dilated. Right ventricle is significantly enlarged. Mild global hypokinesis of the right ventricle. Tricuspid valve shows severe degree of regurgitation. Inferior vena cava was dilated. Pulmonary pressure estimated to be somewhere in the neighborhood of 57 to 62 mmHg. Mitral annulus showed moderate calcification. Mitral valve shows moderate degree of regurgitation. The patient was in atrial fibrillation during the exam. Pulsed wave Doppler of the mitral valve shows single filling wave. Diastolic dysfunction: Diastolic function could not be evaluated. Aortic valve calcified and showed restricted opening consistent with stenosis. Maximum gradient 39 mmHg, mean gradient 22 mmHg. Valve area difficult to calculate, may be below 1 cm sq. The patient seems to be a low cardiac output state. Aortic stenosis may be severe. Pulmonic valve showed moderate degree of regurgitation. He had some moderate size, somewhat loculated pericardial effusion, appears to be larger in the posterior of the heart. Also, moderate size, large size left pleural effusion. PLAN: Continue diuresis. Patient seemed to do better. We were able to wean him from the oxygen and he was requesting to go home on 02/03/2019. Encouraged him to get a primary care physician, follow up with Cardiology. He wants to go home and I will see if we can arrange for Home Health to come check on him. Encourage physical therapy and he needs to work on his weakness and deconditioning, but he has insisted on going home and not pursuing rehab. DISCHARGE MEDICATIONS: He will be on Eliquis 5 mg b.i.d., aspirin 81 mg a day, Lasix we will give him 80 mg p.o. twice a day. He has [place] 5 q.6 p.r.n. pain. He is on Lopressor 25 mg b.i.d., Prilosec 20 mg a day, Aldactone 25 mg a day and Diovan 40 mg a day. cc: Neal Hill MD
[2019-02-03 19:38] VITALS: BP 93/57
--- NOTE | 2019-02-03 20:41 | PROGRESS NOTE ---
DATE: 02/03/2019 SUBJECTIVE: Patient denies chest discomfort or dyspnea. He relates feeling much better and expresses strong desire to go home. OBJECTIVE: Vital Signs: Blood pressure 93/60, heart rate 50 and regular. Neck: Jugular venous distention still apparent. Chest: Clear to auscultation bilaterally. Cardiac: Reveals an irregular rate and rhythm without appreciable murmur or gallop. Extremities: Demonstrate moderate edema, which appears to be decreasing. IMPRESSION: 1. Acute on chronic systolic heart failure. Patient has made significant progress with diuresis. He strongly desires to go home today. 2. Severe nonischemic cardiomyopathy. 3. Moderate aortic stenosis. 4. Chronic atrial fibrillation. 5. Hypertension. 6. History of recent Karen gangrene. RECOMMENDATIONS: 1. Continue current cardiovascular regimen as tolerated. 2. Continue efforts to diurese as outpatient. 3. Close followup needed as an outpatient. He should have followup with Cardiology in approximately two weeks. cc: Rafi Artis MD
== END 2019-02-03 21:30 | disposition home or self-care (01) | DRG 293 ==
LOC: SUPCPDRO → ED 14:18 → EDIPHOLD 20:14 → SUATTDRO 20:14 → 3N 20:35
PROVIDERS: ATTEND Emergency Medicine
CPT/HCPCS: 71010; 71045; 71250; 80048; 80053; 81001; 82040; 82550; 82948; 83036; 83605; 83735; 83880; 84100; 84145; 84484; 85025; 85027; 87040; 93005; 93010; 93306; 94640; 94760; 94761; 96365; 96367; 96375; 97110; 97116; 97161; 97165; 97530; 97535; 99285; A9270; J0692; J0696; J1940; J2020; J2405; J3475; J7040; XXXXX

== ENCOUNTER 2019-02-08 12:43 | Inpatient (IN) ==
--- NOTE | 2019-02-08 13:37 | Diag Imaging Result Doc PS360 ---
CHEST-1 VIEW - 02/08/2019 INDICATION: edema COMPARISON: 01/31/2019 FINDINGS: Stable significant enlargement of the heart shadow. Stable pulmonary vascular congestion. There is decrease in the patchy infiltrate in the left midlung. No new infiltrates. No pneumothorax or large pleural effusion. IMPRESSION: Significant cardiomegaly and pulmonary vascular congestion. Improvement in the patchy infiltrate in the left midlung. Electronically signed by Gatito Madrid 02/08/2019 1:34 PM
--- NOTE | 2019-02-08 13:37 | EKG Report ---
Test Performed on : 02/08/2019 12:47:20 PM Test Reason : LOWER EX SWELLING Blood Pressure : / mmHG Vent. Rate : 065 BPM Atrial Rate : 241 BPM P-R Int : 000 ms QRS Dur : 084 ms QT Int : 400 ms P-R-T Axes : 000 027 186 degrees QTc Int : 416 ms Atrial fibrillation. Low voltage QRS Nonspecific T wave abnormality Abnormal ECG When compared with ECG of 01-FEB-2019 07:19, No significant change was found Unconfirmed Result
[2019-02-08] MEDS ORDERED: ZOFRAN IV ONE (14:28)
[2019-02-08] MEDS ORDERED: DILAUDID IV ONE (14:28)
[2019-02-08 14:36] LABS: BASO# 0.02 X1000 (0.0-0.2); BASO% 0.3 % (0.0-0.8); EOS# 0.04 X1000 (0.0-0.7); EOS% 0.6 % (0.0-10.0); HEMOGLOBIN 12.6 g/dL (14.0-18.0); IMM GRAN# 0.03 X1000 (0.0-0.04); IMM GRAN% 0.5 % (0.0-0.5); LYMPH# 0.85 X1000 (1.2-3.4); LYMPH% 13.4 % (20.5-51.1); MCH 25.7 PG (27-31); MCHC 30.7 g/dL (33-37); MCV 83.7 FL (81-99); MONO# 0.98 X1000 (0.11-0.59); MONO% 15.4 % (1.7-9.3); NEUT# 4.44 X1000 (1.4-6.5); NEUT% 69.8 % (42.2-75.2); PLT 342 X1000 (130-400); RDW 18.3 % (11.5-14.5); WBC 6.36 X1000 (4.8-10.8)
[2019-02-08 14:38] LABS: ESTIMATED GFR > 60
[2019-02-08 14:41] LABS: AGAP 15; ALB/GLOB RATIO 0.8; ALBUMIN 3.5 g/dL (3.5-5.0); ALKALINE PHOSPHATASE 230 U/L (32-122); BUN 51 mg/dL (8-22); CALCIUM 9.3 mg/dL (8.8-10.2); CHLORIDE 100 mmol/L (98-107); COSMO 289; CREATININE 1.3 mg/dL (0.7-1.2); GLUCOSE 98 mg/dL (70-104); GOT 31 U/L (10-34); GPT 11 U/L (10-44); POTASSIUM 4.4 mmol/L (3.5-5.1); SODIUM 138 mmol/L (136-145); TCO2 23 mmol/L (25-35); TOTAL BILIRUBIN 1.26 mg/dL (0.20-1.00); TOTAL PROTEIN 7.8 g/dL (6.3-8.3)
--- NOTE | 2019-02-08 15:10 | PROVIDER DOCUMENTATION ---
This chart was entered by Fanny Hinds Scribe, acting as scribe for Farhad Conley MD. HPI-Rash/Wound/ReCheck - General Chief Complaint: Edema Stated Complaint: [facility] Time Seen by Provider: 02/08/19 13:08 Source: patient Allergies/Adverse Reactions: Allergies Allergy/AdvReac Type Severity Reaction Status Date / Time No Known Allergies Allergy Verified 01/25/19 14:31 Home Medications: Home Medication List Medication Instructions Recorded Confirmed Last Taken Type ATORVAstatin [Lipitor] 40 mg PO DAILY 12/08/18 12/10/18 12/01/18 History 40 Apixaban [Eliquis] 5 mg PO BID 12/08/18 12/10/18 12/01/18 History Digoxin 125 mcg PO DAILY 12/08/18 12/10/18 12/01/18 History 125 Gabapentin 300 mg PO QHS 12/08/18 12/10/18 12/01/18 History 300 Hydrocodone/Acetaminophen 1 tab PO Q6H PRN 12/08/18 12/10/18 Unknown History [Hydrocodone-Acetamin 5-325 mg] Apixaban [Eliquis] 5 mg PO BID tab 02/03/19 Unknown Rx Aspirin EC 81 mg PO DAILY tab 02/03/19 Unknown Rx Furosemide 80 mg PO BID 30 Days #60 tab 02/03/19 Unknown Rx Hydrocodone/APAP 5 mg/325 mg 1 ea PO Q6H PRN PRN 20 Days #20 tab 02/03/19 Unkn own Rx [[place]-5] Metoprolol [Lopressor] 25 mg PO BID 30 Days #60 tab 02/03/19 Unknown Rx Spironolactone 25 mg PO DAILY 30 Days #30 tab 02/03/19 Unknown Rx Spironolactone [Aldactone] 25 mg PO DAILY 30 Days #30 tab 02/03/19 Unknown Rx Valsartan [Diovan] 40 mg PO DAILY 30 Days #30 tab 02/03/19 Unknown Rx - History of Present Illness-Dermatology Nature of Presenting Problem: Patient is a 63 year old male who presents with swelling and weeping blisters to bilateral legs. Patient states symptoms have been present for 2 weeks. Does not report shortness of breath. Location: reports: lower extremity (bilateral) Quality: reports: none Severity: reports: mild Onset/Duration: reports: other (2 weeks) Timing: reports: still present Context/Associated Symptoms: reports: blisters, other (swelling) Locality of Occurance: Home Similar Symptoms Previously?: Yes Recently seen or treated by another doctor?: No Review of Systems - Adult - REVIEW OF SYSTEMS - ADULT Constitutional: reports: no symptoms reported Eyes: reports: no symptoms reported Ears, Nose, Mouth & Throat: reports: no symptoms reported Cardiovascular: reports: no symptoms reported Respiratory: reports: no symptoms reported Gastrointestinal: reports: no symptoms reported Genitourinary: reports: no symptoms reported Musculoskeletal: reports: no symptoms reported Integumentary: reports: see HPI, other (swelling and weeping blisters to bilateral lower extremities.). denies: hives, itching, rash Neurological: reports: no symptoms reported Psychiatric: reports: no symptoms reported Endocrine: reports: no symptoms reported Hematologic/Lymphatic: reports: no symptoms reported Allergic/Immunologic: reports: no symptoms reported All Other Systems: Reviewed and Negative Past History - Adult - PAST MEDICAL HISTORY-ADULT Review of Records: reports: Old Records Reviewed, Nursing Assessment Review, Medications Reviewed, Social history reviewed & non-contributory. Major Childhood Illnesses: reports: denies history Cardiovascular: reports: blood clots, CHF, HTN, hyperlipidemia Respiratory: reports: asthma Gastrointestinal: reports: denies history Obstetrical/Gynecological: reports: denies history Genitourinary: reports: denies history Musculoskeletal: reports: chronic pain Neurological: reports: denies history Psychiatric: reports: anxiety Endocrine/Immune: reports: Diabetes Other Conditions: reports: denies history - PRIOR SURGERIES/PROCEDURES Surgical/Procedure History: reports: reviewed, not pertinent, other (scrotal abscess) - IMMUNIZATION STATUS Childhood Immunizations: See Nurse Assessment Flu Vaccine: See Nurse Assessment - FAMILY HISTORY Family History: reviewed, not pertinent - SOCIAL HISTORY Smoking: denies Substance Use: alcohol Alcohol Use Frequency: occasionally Physical Exam-General - PHYSICAL EXAM-ADULT Initial Vital Signs Reviewed: Yes - CONSTITUTIONAL General Appearance: alert, no apparent distress. negative: obese - HEAD, EARS, NOSE, MOUTH & THROAT HENMT: normocephalic/atraumatic, moist mucous membranes. negative: angioedema, hearing deficit - RESPIRATORY Respiratory: chest non-tender, lungs clear, normal breath sounds. negative: crackles, stridor - CARDIOVASCULAR Cardiovascular: normal peripheral pulses, regular rate, rhythm. negative: tachycardia, systolic murmur - GASTROINTESTINAL (ABDOMEN) Abdominal Exam: normal bowel sounds, non tender, soft. negative: guarding, rebound - GENITOURINARY Male Genitalia: scrotal swelling - MUSCULOSKELETAL Extremity: normal range of motion, swelling (bilateral lower extremities), other (weeping blisters to bilateral lower extremities). negative: deformity - SKIN Integumentary: normal color, normal turgor, warm/dry - NEUROLOGIC Neurologic: grossly normal. negative: aphasia, facial droop - PSYCHIATRIC Psych/Mental Status: normal mood/affect, oriented x 3. negative: anxious Progress - PLAN OF CARE/RESULTS Progress/Plan/Lab Results: Vital Signs - 8 hr 02/08/19 12:51 Temperature 97.5 F L Pulse Rate 61 Respiratory Rate 20 Blood Pressure 126/65 O2 Sat by Pulse Oximetry 99 Laboratory Results - last 24 hr 02/08/19 02/08/19 02/08/19 13:42 13:42 14:27 WBC 6.36 RBC 4.90 Hgb 12.6 L Hct 41.0 L MCV 83.7 MCH 25.7 L MCHC 30.7 L RDW Std Deviation 18.3 H Plt Count 342 MPV 9.0 Immature Gran % (Auto) 0.5 Neut % (Auto) 69.8 Lymph % (Auto) 13.4 L [place] % (Auto) 15.4 H Eos % (Auto) 0.6 Baso % (Auto) 0.3 Immature Gran # (Auto) 0.03 Neut # (Auto) 4.44 Lymph # (Auto) 0.85 L [place] # (Auto) 0.98 H Eos # (Auto) 0.04 Baso # (Auto) 0.02 Sodium 138 Potassium 4.4 Chloride 100 Carbon Dioxide 23 L Anion Gap 15 BUN 51 H Creatinine 1.3 H Estimated GFR/1.73 m2 > 60 BUN/Creatinine Ratio 39 Glucose 98 Calculated Osmolality 289 Calcium 9.3 Total Bilirubin 1.26 H AST 31 ALT 11 Alkaline Phosphatase 230 H Cdo-F-Qikmvejwatv Pept 1189 H Total Protein 7.8 Albumin 3.5 Globulin 4.3 Albumin/Globulin Ratio 0.8 Orders Category Date Time Status Blackwood Cath Insertion ORDERED Care 02/08/19 15:06 Active Diabetic Diet Diet 02/08/19 14:17 Active cxr [CHEST-1 VIEW] [RAD] Stat Exams 02/08/19 13:20 Completed CBC WITH ELECTRONIC DIFF [HEME] Stat Lab 02/08/19 14:27 Completed COMPREHENSIVE METABOLIC PANEL [CHEM] Stat Lab 02/08/19 13:42 Completed PRO B-NATRIURETIC PEPTIDE Stat Lab 02/08/19 13:42 Completed Hydromorphone [Dilaudid] Med 02/08/19 14:28 Discontinued 1 mg IV NOW ONE Ondansetron [Zofran] Med 02/08/19 14:28 Discontinued 4 mg IV NOW ONE EKG [EKG] Stat Ther 02/08/19 13:21 Draft Result Diagrams: 02/08/19 14:27 02/08/19 13:42 - EKG 1 Time of EKG reading by physician:: 12:47 EKG Read and Signed by:: Farhad Conley EKG Interpretation (*Must complete 3 of following elements*): Abnormal Rate: 65 Rhythm: atrial fibrillation [place]: normal QRS: other (low voltage) Comments: nonspecific T wave abnormality. - XRAY 1 XRAY Study: Chest Impression: See EMR Report ( CHEST-1 VIEW - 02/08/2019 INDICATION: edema COMPARISON: 01/31/2019 FINDINGS: Stable significant enlargement of the heart shadow. Stable pulmonary vascular congestion. There is decrease in the patchy infiltrate in the left midlung. No new infiltrates. No pneumothorax or large pleural effusion. IMPRESSION: Significant cardiomegaly and pulmonary vascular congestion. Improvement in the patchy infiltrate in the left midlung. Electronically signed by Gatito Madrid 02/08/2019 1:34 PM 02/08/19 [id number] Interpreting Physician: Gatito Madrid MD Dictated Date/Time: 02/08/19 3934 cc: Farhad Conley MD; None,PCP) - CONSULTS/PCP/HOSPITALIST Notification #1 *Consult/PCP/Hospitalist*: Dr Houston asked that pt be admitted to hospitalist. Time Discussed: 12:00 Consult Disposition: other (asked that hospitalist admit.) #2 Consult: Chandrika for Hospitalist Time Discussed: 15:14 Consult Disposition: Will see in ED, Admit Departure - Departure Date of Disposition Decision: 02/08/19 Time of Disposition Decision: 15:09 DIAGNOSIS: CHF exacerbation, Lower extremity edema Disposition: ADMITTED INPATIENT 09 Certified Medical Emergency: Emergent Condition: Fair Referrals and Follow-Ups: None,PCP [Primary Care Provider] - - Critical Care Note This patient required my direct & personal management of CC.: No Attestation - Physician/ ALESHIA Attestation Patient care was provided by Advanced Practice Provider:: No The physician spent face to face time with patient:: Yes Advanced Practice Provider documentation review:: Supervising physician onsite and consulted in the evaluation and care of this patient. The physician did have a face to face encounter with the patient. This chart was documented by the indicated scribe, (Fanny Hinds Scribe) and accurately reflects the services I performed and decisions made by me, Farhad Conley MD, as attested by the provider's signature.
[2019-02-08] MEDS ORDERED: LASIX IV ONE (16:20)
--- NOTE | 2019-02-08 17:21 | HISTORY AND PHYSICAL ---
PRIMARY CARE PROVIDER: None. 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 Houston's office for mild congestive heart failure exacerbation and bilateral lower extremity edema. HISTORY OF PRESENT ILLNESS: Mr. Segal is a 63-year-old male who is well known to our service with a past medical history of chronic systolic congestive heart failure, severe nonischemic cardiomyopathy, moderate aortic stenosis, chronic atrial fibrillation, hypertension, Karen gangrene, previous scrotal edema and irrigation, right hydrocelectomy, repeat scrotal debridement, and resection of devitalized tissues secondary to wound closure over scrotal wound. He was seen in Dr. Houston office today for a follow-up. He was found to have mild shortness of breath, as well as bilateral lower extremity edema, scrotal edema which I do believe is not anything new; however, he was oozing from blisters. Workup in the ED showed a slightly elevated proBNP. Chest x-ray continues to show significant cardiomegaly and pulmonary vascular congestion, but improvement in his infiltrate in the left mid lung. He states that actually he felt like his breathing has improved since his last discharge, although he is chronically short of breath. He does have pain in his bilateral lower extremities and complained of itching. He does not report any chest pain, fever, chills, cough, overt shortness of breath, dizziness, palpitations. We will admit him to the medical telemetry floor, start him on IV diuresis and his most recent discharge medications. He refused a Blackwood catheter. PAST MEDICAL HISTORY/DISCHARGE DIAGNOSES: 1. Acute on chronic systolic congestive heart failure. 2. Severe nonischemic cardiomyopathy, most recent EF 25%. 3. Moderate aortic stenosis. 4. Chronic atrial fibrillation. 5. Hypertension. 6. History of Karen gangrene. 7. History of DVT. 8. Gout. PAST SURGICAL HISTORY: 1. Scrotal I D with repeat debridement and resection of tissue secondary to wound closure. 2. Right hydrocelectomy. ALLERGIES: No known allergies. HOME MEDICATIONS: Are as per his last discharge. They have not been verified in the EMR. REVIEW OF SYSTEMS: A 12 point review of systems was completely negative except for those mentioned in HPI. PHYSICAL EXAMINATION: VITAL SIGNS: Temperature is 97.5 degrees, heart rate 61, respirations 20, blood pressure 126/65, O2 is 99% on room air. GENERAL: Mr. Segal is a 63-year-old male who is sitting up on the stretcher in the ER, eating dinner in no acute distress. HEENT: Atraumatic, normocephalic. PERRL. NECK: Supple. Trachea midline. CARDIOVASCULAR: Irregularly irregular rhythm. PULMONARY: Bilateral breath sounds clear. EXTREMITIES: Bilateral lower extremity edema with weeping as well as blisters noted bilaterally. He continues to have scrotal edema. I do not appreciate any signs of infection. Pedal pulses are hard to assess secondary to pitting edema. NEUROLOGIC: No focal deficits noted. DIAGNOSTIC DATA: Chest x-ray: Significant cardiomegaly and pulmonary vascular congestion. Improvement of the patchy infiltrate in the left mid lung. EKG: Atrial fibrillation at 65 beats per minute. White count 6, hemoglobin 12, hematocrit 41, platelet count 342,000. Sodium 138, potassium 4.4, BUN 51, creatinine 1.3, blood glucose is 98, total bilirubin 1.26, AST 31, ALT 11, alkaline phosphatase is 230. ProBNP 1189. ASSESSMENT AND PLAN: 1. Acute on chronic systolic congestive heart failure. We will continue with IV diuresis, home medications. 2. Bilateral lower extremity edema with weeping. We will continue with IV Lasix and home medications. 3. Severe nonischemic cardiomyopathy. Most recent EF is 25%. 4. Moderate aortic stenosis. 5. Chronic atrial fibrillation. Continue home metoprolol and Eliquis. 6. Hypertension. 7. History of Karen gangrene status post scrotal debridements, as well as resection. Aware. The patient was refusing Blackwood catheter. Further recommendations to follow physician evaluation and laboratory and diagnostic data. Dictated by FERNY Perales for Jude Fitzpatrick MD cc: Jude Fitzpatrick MD
[2019-02-08] MEDS ORDERED: ZOFRAN IV PRN (17:43)
--- NOTE | 2019-02-08 18:48 | HISTORY AND PHYSICAL ---
HISTORY AND PHYSICAL ADDENDUM: The patient seen and examined by me [id number]. All the laboratory, vital signs, and images were reviewed. X-ray showed significant cardiomegaly and pulmonary vascular congestion. ProBNP is elevated at 1189, but has been higher before, he basically has been sent from Dr. Houston office for CHF exacerbation and significant bilateral lower extremity edema with some blisters and has been weeping for a few days. The lower extremities are really sensitive to touch. He has some superficial ulcers close to the blisters, and some redness, but the white blood cells are normal and he is not complaining of fever or chills, so I do not think this is infected, but we will keep an eye on that. His creatinine has been up and down. We will keep an eye on that. He already received some Lasix in the emergency department. We will continue with Lasix IV as well and the rest of the home medications. Also, he has a history of chronic atrial fibrillation, hypertension, history of Karen gangrene, and history of DVT, gout. He has a moderate aortic stenosis, so we will keep an eye on all that as well. I agree with the rest of the nurse practitioner's assessment and plan. cc: Jude Fitzpatrick MD
[2019-02-08] MEDS: NEURONTIN PO SCH (21:21)
[2019-02-08] MEDS: LOPRESSOR PO SCH (21:21)
[2019-02-08] MEDS: ELIQUIS PO SCH (21:21)
[2019-02-09] MEDS: LASIX IV SCH ×2 (05:27→18:52)
[2019-02-09 09:21] LABS: BASO# 0.02 X1000 (0.0-0.2); BASO% 0.4 % (0.0-0.8); EOS# 0.04 X1000 (0.0-0.7); EOS% 0.7 % (0.0-10.0); HEMATOCRIT 35.4 % (42.0-52.0); HEMOGLOBIN 10.6 g/dL (14.0-18.0); IMM GRAN# 0.03 X1000 (0.0-0.04); IMM GRAN% 0.5 % (0.0-0.5); LYMPH# 0.95 X1000 (1.2-3.4); LYMPH% 16.8 % (20.5-51.1); MCH 25.6 PG (27-31); MCHC 29.9 g/dL (33-37); MCV 85.5 FL (81-99); MONO# 1.41 X1000 (0.11-0.59); MPV 9.1 FL (7.4-10.4); NEUT% 56.6 % (42.2-75.2); PLT 358 X1000 (130-400); RBC 4.14 XMIL (4.7-6.1); RDW 18.3 % (11.5-14.5); WBC 5.65 X1000 (4.8-10.8)
[2019-02-09 09:45] LABS: AGAP 14; ALB/GLOB RATIO 0.7; ALBUMIN 2.9 g/dL (3.5-5.0); ALKALINE PHOSPHATASE 168 U/L (32-122); BUN 49 mg/dL (8-22); CALCIUM 9.1 mg/dL (8.8-10.2); CHLORIDE 99 mmol/L (98-107); COSMO 292; CREATININE 1.1 mg/dL (0.7-1.2); ESTIMATED GFR > 60; GLUCOSE 90 mg/dL (70-104); GOT 22 U/L (10-34); GPT 9 U/L (10-44); MAGNESIUM 1.8 mg/dL (1.5-2.7); POTASSIUM 3.9 mmol/L (3.5-5.1); SODIUM 140 mmol/L (136-145); TCO2 27 mmol/L (25-35); TOTAL BILIRUBIN 1.16 mg/dL (0.20-1.00); TOTAL PROTEIN 7.2 g/dL (6.3-8.3)
--- NOTE | 2019-02-09 09:59 | Diag Imaging Result Doc PS360 ---
CHEST-2 VIEWS - 02/09/2019 INDICATION: fu chf COMPARISON: 02/08/2019 FINDINGS: Stable cardiomegaly and mild pulmonary vascular congestion. Stable consolidation of the left lower lobe with loss of the left hemidiaphragm. No significant pulmonary edema. No large pleural effusion. IMPRESSION: No change from prior. Electronically signed by Gatito Madrid 02/09/2019 9:57 AM
[2019-02-09] MEDS: ELIQUIS PO SCH ×2 (10:02→21:11)
[2019-02-09] MEDS: LANOXIN PO SCH (10:02)
[2019-02-09] MEDS: ASPIRIN PO SCH (10:02)
[2019-02-09] MEDS: LOPRESSOR PO SCH ×2 (10:04→21:11)
[2019-02-09] MEDS: ALDACTONE PO SCH (10:04)
[2019-02-09] MEDS: DIOVAN PO SCH (10:04)
[2019-02-09 11:13] LABS: EOS 2 % (1-10); LYMPHS 17 % (21-51); MONO 18 % (1-9); SEGS 63 % (42-75)
--- NOTE | 2019-02-09 11:21 | PROGRESS NOTE ---
DATE: 02/09/2019 SUBJECTIVE: This patient feels a little bit better compared with yesterday. He is still complaining of bilateral lower extremity pain and swelling. We will continue to monitor. I will ask again for strict ins and outs. OBJECTIVE: Vital Signs: Temperature 97.5 degrees, pulse 63, respiratory rate 20, blood pressure 101/72, oxygen saturation 98 on room air. HEENT: Head normocephalic. No trauma. PERRLA. Neck: Supple. Mild JVD. Central trachea. Chest: Coarse breath sounds, mostly at the bases, with some rales. Abdomen: Soft, nontender, nondistended. No hepatosplenomegaly. Extremities: Bilateral lower extremity edema with blisters. It is weeping. He also continues to have scrotal edema. I do not see any signs of infection, even though it is a little bit red. He is able to move all 4 extremities. Neurological Examination: Alert and oriented x3. No focal deficits. Laboratory: WBC 5.6, hemoglobin 10.6, hematocrit 35.4, platelets 358,000. Sodium 140, potassium 3.9, chloride 99, bicarbonate 27, BUN 49, creatinine 1.1, glucose 90, calcium 9.1. AST 22, ALT 9, alkaline phosphatase 168, albumin 2.9. ASSESSMENT AND PLAN: 1. Acute on chronic systolic congestive heart failure exacerbation. Continue with intravenous diuretics. Continue home medications. 2. Bilateral lower extremity edema with blister and weeping. Continue with intravenous Lasix and home medications. This is getting a little bit better. 3. Severe nonischemic cardiomyopathy. Most recent ejection fraction is 25%. 4. Moderate aortic stenosis. Aware. 5. Chronic atrial fibrillation. Continue with home metoprolol and Eliquis. 6. Hypertension, stable. 7. History of Karen's gangrene, status post scrotal debridements as well as resection. Aware. The patient has been refusing to use a Blackwood catheter. We will continue with the same treatment. cc: Jude Fitzpatrick MD
[2019-02-09] MEDS: NORCO-7.5 PO PRN (14:26)
[2019-02-09] MEDS: NEURONTIN PO SCH (21:11)
[2019-02-10] MEDS: LASIX IV SCH ×2 (06:10→15:31)
[2019-02-10 08:16] LABS: ESTIMATED GFR > 60
[2019-02-10 08:20] LABS: AGAP 13; ALB/GLOB RATIO 0.8; ALBUMIN 3.3 g/dL (3.5-5.0); ALKALINE PHOSPHATASE 206 U/L (32-122); BUN 52 mg/dL (8-22); CALCIUM 9.2 mg/dL (8.8-10.2); CHLORIDE 98 mmol/L (98-107); COSMO 294; CREATININE 1.2 mg/dL (0.7-1.2); GLUCOSE 114 mg/dL (70-104); GOT 25 U/L (10-34); GPT 11 U/L (10-44); POTASSIUM 3.9 mmol/L (3.5-5.1); SODIUM 140 mmol/L (136-145); TCO2 29 mmol/L (25-35); TOTAL BILIRUBIN 0.87 mg/dL (0.20-1.00); TOTAL PROTEIN 7.4 g/dL (6.3-8.3)
[2019-02-10] MEDS: DIOVAN PO SCH (08:41)
[2019-02-10] MEDS: LOPRESSOR PO SCH ×2 (08:42→20:24)
[2019-02-10] MEDS: ALDACTONE PO SCH (08:42)
[2019-02-10] MEDS: ELIQUIS PO SCH ×2 (08:42→20:24)
[2019-02-10] MEDS: LANOXIN PO SCH (08:42)
[2019-02-10] MEDS: ASPIRIN PO SCH (08:42)
--- NOTE | 2019-02-10 11:57 | PROGRESS NOTE ---
DATE: 02/10/2019 SUBJECTIVE: This patient's legs look better. He is still having some blister and weeping, I have requested an evaluation by Wound Care today. He has a history of Karen infection. He refused a Blackwood catheter, and he is using a diaper so it is very difficult to measure the urine output. OBJECTIVE: Vital Signs: Temperature 97.4 degrees, pulse 61, respiratory rate 16, blood pressure 100/60, oxygen saturation 100% on room air. HEENT: Head normocephalic, no trauma. PERRLA. Neck: Supple. No JVD. No masses. Central trachea. Chest: Coarse breath sounds mostly at the bases with some rales. Abdomen: Soft, nontender, nondistended. No hepatosplenomegaly. Abdominal wall edema mostly on the lower side. Extremities: Bilateral lower extremity edema with blisters. He has weeping. He continues to have scrotal edema and also thigh edema that is a little bit tense. He is able to move all 4 extremities. Neurological: Alert and oriented x3. No focal deficits. LABORATORY: Sodium 140, potassium 3.9, chloride 98, bicarbonate 29, BUN 52, creatinine 1.2, glucose 114, calcium 9.2, albumin 3.3. ASSESSMENT AND PLAN: 1. Acute on chronic systolic congestive heart failure exacerbation. Continue with IV diuretics. I will increase the dose from 40 twice a day to 80 twice a day IV. I will continue to monitor this patient closely. 2. Bilateral lower extremity edema with blisters and weeping. Continue with IV Lasix as above. Wound Care has been consulted. 3. Severe nonischemic cardiomyopathy. Most recent ejection fraction is around 25%. Continue with his home medications. 4. Moderate aortic stenosis. Aware. 5. Chronic atrial fibrillation. Continue with metoprolol and Eliquis. 6. Hypertension, stable. 7. History of Karen gangrene status post scrotal debridement as well as resection. Aware. This patient has been refusing to use a Blackwood catheter. We have consulted Wound Care. cc: Jude Fitzpatrick MD MTDD
[2019-02-10] MEDS: NORCO-7.5 PO PRN (16:01)
[2019-02-10] MEDS: NEURONTIN PO SCH (20:24)
--- NOTE | 2019-02-10 20:41 | GENERAL SURGERY CONSULTATION ---
DATE: 02/10/2019 HISTORY OF PRESENT ILLNESS: Mr. Segal is a 63-year-old gentleman with known congestive heart failure and has recurrent lower extremity edema. He now presents with some blistering of his lower extremities. I have been asked to see him for that. He has been treated with wraps in the past. PAST MEDICAL HISTORY: His other medical problems include nonischemic cardiomyopathy, aortic stenosis, chronic atrial fibrillation, hypertension, history of DVT, history of Karen gangrene, history of gout. PAST SURGICAL HISTORY: His previous surgeries include I and D of the scrotum and right hydrocelectomy. MEDICATIONS: Listed. ALLERGIES: He has no known drug allergies. REVIEW OF SYSTEMS: Primarily pertinent for the symptoms of congestive heart failure. PHYSICAL EXAMINATION: He is afebrile. Heart rate is 79. Blood pressure 107/60. He has bilateral breath sounds. Abdomen is soft. He has significant wrinkling of his lower extremities consistent with resolution of his edema. He has some old blisters on both sides. No pedal pulses are present. LABORATORY DATA: White count is 5600, hemoglobin 10.6. BUN 52, creatinine 1.2. ASSESSMENT AND PLAN: Lower extremity edema due to congestive heart failure with blisters. This has significantly improved with diuresis. We will get a lower extremity arterial study to evaluate his arterial flow before considering compression wraps. cc: Frank Gaspar MD
[2019-02-11] MEDS: LASIX IV SCH ×2 (04:35→18:03)
[2019-02-11 07:32] LABS: BASO# 0.03 X1000 (0.0-0.2); BASO% 0.5 % (0.0-0.8); EOS# 0.06 X1000 (0.0-0.7); HEMATOCRIT 36.7 % (42.0-52.0); IMM GRAN# 0.03 X1000 (0.0-0.04); IMM GRAN% 0.5 % (0.0-0.5); LYMPH% 19.1 % (20.5-51.1); MCH 25.6 PG (27-31); MCV 85.5 FL (81-99); MONO# 1.09 X1000 (0.11-0.59); MPV 8.9 FL (7.4-10.4); NEUT# 3.44 X1000 (1.4-6.5); NEUT% 59.9 % (42.2-75.2); PLT 322 X1000 (130-400); RBC 4.29 XMIL (4.7-6.1); RDW 18.6 % (11.5-14.5); WBC 5.75 X1000 (4.8-10.8)
[2019-02-11 07:53] LABS: AGAP 12; BUN 49 mg/dL (8-22); CALCIUM 10.1 mg/dL (8.8-10.2); CHLORIDE 99 mmol/L (98-107); COSMO 294; CREATININE 1.1 mg/dL (0.7-1.2); ESTIMATED GFR > 60; GLUCOSE 88 mg/dL (70-104); POTASSIUM 3.8 mmol/L (3.5-5.1); SODIUM 141 mmol/L (136-145); TCO2 30 mmol/L (25-35)
[2019-02-11] MEDS: ASPIRIN PO SCH (09:47)
[2019-02-11] MEDS: NORCO-7.5 PO PRN ×2 (09:47→16:26)
[2019-02-11] MEDS: ALDACTONE PO SCH (09:47)
[2019-02-11] MEDS: DIOVAN PO SCH (09:48)
[2019-02-11] MEDS: LANOXIN PO SCH (09:48)
[2019-02-11] MEDS: LOPRESSOR PO SCH ×2 (09:49→20:34)
[2019-02-11] MEDS: ELIQUIS PO SCH ×2 (09:49→20:34)
[2019-02-11] MEDS: MIRALAX PO SCH (16:26)
[2019-02-11] MEDS ORDERED: LUBRIDERM LOTION TOP ONE (17:55)
--- NOTE | 2019-02-11 18:13 | PROGRESS NOTE ---
DATE: 02/11/2019 SUBJECTIVE: He is still having blisters, weeping, his legs look better but he does have swelling at the level of the thigh, surgery department evaluated this patient. I will follow their recommendations. OBJECTIVE: Vital Signs: Temperature 97.3 degrees, pulse 63, respiratory rate 18, blood pressure 103/61, oxygen saturation 99 on room air. HEENT: Head normocephalic. No trauma. PERRLA. Neck: Supple. No JVD. No masses. Central trachea. Chest: Coarse breath sounds mostly at the bases with some rales. Abdomen: Soft, nontender, nondistended. No hepatosplenomegaly. Abdominal wall edema mostly on the lower side. Extremities: Bilateral lower extremity edema with blister weeping, he continues to have scrotal edema and thigh edema as well that is a little bit tense. He is able to move all 4 extremities. Neurological: The patient is alert and oriented x3. No focal deficits. LABORATORY: WBC 5.7, hemoglobin 11, hematocrit 36.7, platelets 322,000. Sodium 141, potassium 3.8, chloride 99, bicarbonate 30, BUN 49, creatinine 1.1, glucose 88, calcium 10.1. ASSESSMENT AND PLAN: 1. Acute on chronic systolic congestive heart failure exacerbation, continue with IV diuretics, yesterday increased the dose of the Lasix from 40 twice a day to 80 twice a day intravenous, I will continue to monitor. Kidney function seems to be stable. 2. Bilateral lower extremity edema with blisters and weeping, continue with IV Lasix as above, wound care and Surgery Department has been consulted and evaluated this patient already. 3. Severe nonischemic cardiomyopathy, most recent ejection fraction is around 25%. Continue with home medications. 4. Moderate aortic stenosis. Aware. 5. Chronic atrial fibrillation, continue with metoprolol and Eliquis. 6. Hypertension stable. 7. History of Karen gangrene status post scrotal debridement as well as resection, aware. This patient has been refusing to use a Blackwood catheter. Will continue with wound care as well. cc: Jude Fitzpatrick MD
[2019-02-11] MEDS: NEURONTIN PO SCH (20:34)
[2019-02-12] MEDS: LASIX IV SCH ×2 (04:17→17:35)
[2019-02-12 08:02] LABS: AGAP 10; CHLORIDE 94 mmol/L (98-107); GLUCOSE 91 mg/dL (70-104); POTASSIUM 3.8 mmol/L (3.5-5.1); SODIUM 135 mmol/L (136-145); TCO2 31 mmol/L (25-35)
[2019-02-12 08:03] LABS: BUN 45 mg/dL (8-22); CALCIUM 8.4 mg/dL (8.8-10.2); COSMO 281; ESTIMATED GFR > 60
[2019-02-12] MEDS: MIRALAX PO SCH (08:27)
[2019-02-12] MEDS: LOPRESSOR PO SCH ×2 (08:27→20:49)
[2019-02-12] MEDS: ELIQUIS PO SCH ×2 (08:27→20:49)
[2019-02-12] MEDS: NORCO-7.5 PO PRN ×3 (08:27→23:58)
[2019-02-12] MEDS: ASPIRIN PO SCH (08:28)
[2019-02-12] MEDS: LANOXIN PO SCH ×2 (08:28→08:32)
[2019-02-12] MEDS: ALDACTONE PO SCH (08:28)
[2019-02-12] MEDS: DIOVAN PO SCH (08:28)
--- NOTE | 2019-02-12 14:10 | PROGRESS NOTE ---
DATE: 02/12/2019 SUBJECTIVE: This patient is feeling better. His legs are better. His thigh and scrotum looks about the same, maybe a little bit better though. Surgery Department recommended to do arterial study; it has been completed, pending report and recommendations. Likely this patient will be discharged in the next 24 to 48 hours. OBJECTIVE: Vital Signs: Temperature 97.7 degrees, pulse 67, respiratory rate 16, blood pressure 117/80, oxygen saturation 100% on room air. HEENT: Head normocephalic, no trauma. PERRLA. Neck: Supple. No JVD. No masses. Central trachea. Chest: Coarse breath sounds mostly at the bases with some rales. Abdomen: Soft, nontender, nondistended. No hepatosplenomegaly. Abdominal wall edema mostly on the lower side. Extremities: Bilateral lower extremity edema with blisters, weeping. He continues to have scrotal edema and thigh edema as well that is a little bit tense. He is able to move all 4 extremities. Neurological examination: The patient is alert and oriented x3. No focal deficits. LABORATORY: Sodium 135, potassium 3.8, chloride 94, bicarbonate 31. BUN 45, creatinine 1, glucose 91, calcium 8.4. ASSESSMENT AND PLAN: 1. Acute on chronic systolic heart failure exacerbation. Continue with intravenous diuretics. He seems to be tolerating this really well. Kidney function seems to be stable. 2. Bilateral lower extremity edema with blisters and weeping. Continue with intravenous Lasix as above. Continue with wound care. Surgery Department following this patient. They have recommended an arterial flow study to consider compression wraps. 3. Severe nonischemic cardiomyopathy, most recent ejection fraction around 35%. Continue home medications. 4. Moderate aortic stenosis, aware. 5. Chronic atrial fibrillation. Continue with metoprolol and Eliquis. 6. Hypertension, stable. 7. History of Karen gangrene, status post scrotal debridement, as well as resection, aware. The patient has been refusing to use a Blackwood catheter. We will continue with wound care as well. cc: Jude Fitzpatrick MD
--- NOTE | 2019-02-12 14:40 | VASCULAR LAB ---
PROCEDURE NAME: Arterial Bilateral Legs - 02/10/2019 REFERRING PHYSICIAN: Hubert. PATIENT PROFILE: A 63-year-old male. ACTIVITY SPECIALIST: Butch Ricks RVT. INDICATIONS: Lower extremity ulcers. FINDINGS: Systolic brachial blood pressure on the right is 111 mmHg, on the left 113 mmHg; right high thigh is 224 mmHg, left high thigh 205 mmHg; right low thigh 174 mmHg, left low thigh 178 mmHg; right calf 277 mmHg, left calf 267 mmHg; right ankle 280 mmHg, left ankle 289 mmHg. There is pulsatile flow in both feet and both great toes. At rest, the right ankle-brachial index is 2.48; the left ankle-brachial index is 2.56. INTERPRETATION: Elevated ankle-brachial indices bilaterally of the lower extremities at rest suggesting calcification of the peripheral arteries in a diabetic. The pulse waveforms appeared to be normal throughout both lower extremities. cc: MD Frank Gay MD
[2019-02-12] MEDS: NEURONTIN PO SCH (20:49)
[2019-02-13] MEDS: LASIX IV SCH ×2 (06:04→18:31)
[2019-02-13] MEDS: NORCO-7.5 PO PRN ×2 (06:07→18:31)
[2019-02-13 08:07] LABS: AGAP 5; BUN 44 mg/dL (8-22); CALCIUM 8.4 mg/dL (8.8-10.2); CHLORIDE 96 mmol/L (98-107); COSMO 286; ESTIMATED GFR > 60; GLUCOSE 112 mg/dL (70-104); POTASSIUM 4.1 mmol/L (3.5-5.1); SODIUM 137 mmol/L (136-145); TCO2 36 mmol/L (25-35)
[2019-02-13] MEDS: DIOVAN PO SCH (10:08)
[2019-02-13] MEDS: LANOXIN PO SCH (10:08)
[2019-02-13] MEDS: ALDACTONE PO SCH (10:08)
[2019-02-13] MEDS: ELIQUIS PO SCH ×2 (10:08→21:57)
[2019-02-13] MEDS: LOPRESSOR PO SCH ×2 (10:08→21:59)
[2019-02-13] MEDS: ASPIRIN PO SCH (10:08)
[2019-02-13] MEDS: MIRALAX PO SCH (10:10)
--- NOTE | 2019-02-13 13:58 | PROGRESS NOTE ---
DATE: 02/13/2019 SUBJECTIVE: The patient is resting comfortably in bed. His legs are better. He is thigh and scrotum look a little bit better compared with yesterday. It is still edematous, pitting edema. Surgery department recommended to do an arterial study to see if they can wrap his legs. Likely, we will see the results tomorrow and I will get the wound care nurse to check on this patient. OBJECTIVE: Vital Signs: Temperature 97.8 degrees, pulse 70, respiratory rate 18, blood pressure 113/54, oxygen saturation 98 on room air. HEENT: Head normocephalic. No trauma. PERRLA. Neck: Supple. No JVD. No masses. Central trachea. Chest: Coarse breath sounds, mostly at the bases, with some rales. Abdomen: Soft, nontender, nondistended. No hepatosplenomegaly. Abdominal wall edema at the lower base as well as lower back. Extremities: Bilateral lower extremity edema with some blisters. It has been weeping a little bit but compared with admission, much better. He continues to have scrotal edema and thigh edema as well but compared with yesterday, it looks better. He is able to move all 4 extremities. Neurological Examination: This patient is alert and oriented x3. No focal deficits. Laboratory: Sodium 137, potassium 4.1, chloride 96, bicarbonate 36, BUN 44, creatinine 1, glucose 112, calcium 8.4. ASSESSMENT AND PLAN: 1. Acute on chronic systolic heart failure exacerbation. Likely, this is resolved. He is not complaining of shortness of breath. He is tolerating the intravenous Lasix really well. Kidney function seems to be stable. 2. Bilateral lower extremity edema with blisters and weeping. We will continue with intravenous Lasix. I will wait for surgery department re-evaluation and wound care nurse re-evaluation to see if I can send this patient home tomorrow. 3. Severe nonischemic cardiomyopathy. Most recent ejection fraction around 35%. Continue home medication. 4. Moderate aortic stenosis, aware. 5. Chronic atrial fibrillation. Continue with metoprolol and Eliquis. 6. Hypertension, stable. 7. History of Karen's gangrene, status post scrotal debridement as well as resection. Aware. This patient refuses to use a Blackwood catheter. We will continue with wound care as well. cc: Jude Fitzpatrick MD
[2019-02-13] MEDS ORDERED: DULCOLAX PR PRN (14:25)
[2019-02-13] MEDS: NEURONTIN PO SCH (21:57)
[2019-02-14] MEDS: LASIX IV SCH (05:48)
[2019-02-14 08:03] VITALS: BP 110/53
[2019-02-14] MEDS: ELIQUIS PO SCH (08:21)
[2019-02-14] MEDS: ASPIRIN PO SCH (08:21)
[2019-02-14] MEDS: LOPRESSOR PO SCH (08:21)
[2019-02-14] MEDS: MIRALAX PO SCH (08:21)
[2019-02-14] MEDS: DIOVAN PO SCH (08:21)
[2019-02-14] MEDS: ALDACTONE PO SCH (08:22)
[2019-02-14] MEDS: LANOXIN PO SCH (08:23)
[2019-02-14 09:30] LABS: AGAP 11; BUN 38 mg/dL (8-22); CHLORIDE 93 mmol/L (98-107); COSMO 280; CREATININE 0.9 mg/dL (0.7-1.2); ESTIMATED GFR > 60; GLUCOSE 116 mg/dL (70-104); POTASSIUM 4.2 mmol/L (3.5-5.1); SODIUM 135 mmol/L (136-145); TCO2 31 mmol/L (25-35)
[2019-02-14] MEDS: NORCO-7.5 PO PRN (11:54)
--- NOTE | 2019-02-14 15:01 | GENERAL SURGERY PROGRESS NOTE ---
DATE: 02/14/2019 SUBJECTIVE: Mr. Segal's lower extremity arterial waveforms are normal appearing. So, he should be fine for compression wraps. Chandrika is going to put his Unna boots on which should heal his blisters without difficulty. Once they are healed, he can switch to compression hose. cc: Frank Gaspar MD
--- NOTE | 2019-02-15 07:44 | DISCHARGE SUMMARY ---
ADMISSION DATE: 02/08/2019 DISCHARGE DATE: 02/14/2019 DISCHARGE DIAGNOSES: 1. Acute on chronic systolic heart failure exacerbation. 2. Bilateral lower extremity edema with blisters and weeping. 3. Severe nonischemic cardiomyopathy with an ejection fraction of 35%. 4. Moderate aortic stenosis. 5. Chronic atrial fibrillation. 6. Hypertension. 7. History of Karen's gangrene. PROCEDURES PERFORMED: 1. Chest x-ray dated 02/08/2019. Impression: Significant cardiomegaly and pulmonary vascular congestion. 2. Chest x-ray dated 02/09/2019. Impression: No change from prior. 3. Extremity arterial study dated 02/10/2019. Interpretation: Elevated ankle-brachial indices bilaterally of the lower extremities at rest suggesting calcification of the peripheral arteries in a diabetic. Pulse waveforms appear to be normal throughout both lower extremities. Left ankle-brachial index is 2.56. CONSULTATIONS: Surgery department, Dr. Gaspar; wound care Department. HOSPITAL COURSE: A 63-year-old, male with a past medical history of chronic systolic heart failure, severe nonischemic cardiomyopathy, moderate aortic stenosis, chronic atrial fibrillation, hypertension, Karen's gangrene, previous scrotal edema, and edema with surgery in that area, right hydrocelectomy, repeat scrotal debridement and resection of devitalized tissue secondary to wound closure over the scrotal wound. He had seen Dr. Houston the day of admission, 02/08/2019, who recommended to come to the emergency department due to shortness of breath, bilateral lower extremity edema, and scrotal edema. The extremity has been oozing from blisters. Workup in the emergency department showed an elevated BNP. Chest x-ray continues to have significant cardiomegaly and pulmonary vascular congestion. He has shortness of breath. He does have pain in his bilateral lower extremities and complained of itchiness. He did not report any chest pain, fever, chills, cough, overt shortness of breath, dizziness, or palpitations. He was admitted to the medical floor. He was placed on IV diuretics and the lower extremity edema was improving on a daily basis. We consulted wound care and also surgery department who agreed with the treatment. They took care of the blisters and also they have suggested to do an extremity arterial study to see if we are able to put some compression wraps. The wound care nurse will do that today. He will be discharged home today. He is significantly better. I talked to him multiple times about his diet and taking his medications as prescribed. He will need to go with home health so they will take care of the compression wraps and follow up with Dr. Houston in 1 to 2 weeks, primary care doctor also in 1 week. PHYSICAL EXAMINATION: Vital Signs: Temperature 98.1 degrees, pulse 71, respiratory rate 18, blood pressure 110/53, oxygen saturation 94% on room air. HEENT: Head normocephalic. No trauma. PERRLA. Neck: Supple. No JVD. No masses. Central trachea. Chest: Coarse breath sounds, mostly at the bases, with some rales. Abdomen: Soft, nontender, nondistended. No hepatosplenomegaly. Some abdominal wall edema at the lower base as well, as well as lower back. Extremities: Bilateral lower extremity edema with some blisters on his legs. They are much better compared with admission. He is not oozing too much today, much better. He continues to have some scrotal edema and thigh edema as well but compared with admission, it is much better as well. He is able to move all 4 extremities. Neurological Examination: The patient is alert and oriented x3. No focal deficits. LABORATORY: Sodium 135, potassium 4.2, chloride 93, bicarbonate 31, BUN 38, creatinine 0.9, glucose 116, calcium 9. DISCHARGE MEDICATIONS: 1. Eliquis 5 mg p.o. b.i.d. 2. Aspirin 81 mg p.o. daily. 3. Digoxin 125 mcg p.o. daily. 4. Dulcolax 10 mg per rectal daily as needed. 5. Gabapentin 300 mg p.o. at bedtime. 6. Elmore 5 one tablet p.o. q.6 hours. 7. Metoprolol 25 mg p.o. b.i.d. 8. Spironolactone 25 mg p.o. daily. 9. Valsartan 40 mg p.o. daily. 10. MiraLAX 17 g p.o. daily. FOLLOWUP: With Dr. Houston in 1 to 2 weeks. He will need to call to schedule the appointment. Time discharging this patient was 30 minutes. cc: Jude Fitzpatrick MD
== END 2019-02-14 16:01 | disposition home health service (06) | DRG 293 ==
LOC: ED 12:43 → EDIPHOLD 12:44 → 3N 17:27
PROVIDERS: ATTEND Internal Medicine
CPT/HCPCS: 71010; 71020; 71045; 71046; 80048; 80053; 82948; 83735; 83880; 85025; 93005; 93923; 96374; 96375; 97161; 99285; A9270; J1170; J1940; J2405; XXXXX

== ENCOUNTER 2019-03-23 17:21 | Observation (INO) ==
--- NOTE | 2019-03-23 18:05 | PROVIDER DOCUMENTATION ---
HPI-General Adult - General Chief Complaint: B/P Problems Stated Complaint: BP PROBLEMS Time Seen by Provider: 03/23/19 17:34 Source: patient Allergies/Adverse Reactions: Patient Allergies Allergy/AdvReac Type Severity Reaction Status Date / Time No Known Allergies Allergy Verified 01/25/19 14:31 Home Medications: Home Medication List Medication Instructions Recorded Confirmed Last Taken Type ATORVAstatin [Lipitor] 40 mg PO DAILY 12/08/18 12/10/18 12/01/18 History 40 Apixaban [Eliquis] 5 mg PO BID 12/08/18 12/10/18 12/01/18 History Digoxin 125 mcg PO DAILY 12/08/18 12/10/18 12/01/18 History 125 Gabapentin 300 mg PO QHS 12/08/18 12/10/18 12/01/18 History 300 Hydrocodone/Acetaminophen 1 tab PO Q6H PRN 12/08/18 12/10/18 Unknown History [Hydrocodone-Acetamin 5-325 mg] Aspirin EC 81 mg PO DAILY tab 02/03/19 Unknown Rx Metoprolol [Lopressor] 25 mg PO BID 30 Days #60 tab 02/03/19 Unknown Rx Spironolactone 25 mg PO DAILY 30 Days #30 tab 02/03/19 Unknown Rx Valsartan [Diovan] 40 mg PO DAILY 30 Days #30 tab 02/03/19 Unknown Rx Polyethylene Glycol 3350 [Miralax] 17 gm PO DAILY powder, packet 02/14/19 Un known Rx - History of Present Illness -Gen Adult Nature of Presenting Problems: Pt. is 63 yom that presents with c/o hypotension while at home. Pt. was seen by his home health nurse and she called EMS due to his BP. He has bilateral lower extremity cellulitis and states he is on antibiotics but doesn't have any with him. He is on multiple BP medications. Location of Pain/Injury: reports: lower extremity (bilateral). denies: none, head, face, mouth, neck, chest, upper extremity, hand(s), abdomen, back, pelvis, genitalia, feet, upper body, lower body, generalized, other Pain Radiation: reports: no radiation. denies: arm(s), back, buttocks, chest, epigastric, feet, groin, jaw, flank (L), legs (lower), LLQ, LUQ, neck, periumbilical, flank (R), RLQ, RUQ, shoulder(s), scapula, scrotal, sternal no tch, suprapubic, legs (upper), urethral, vaginal, other Quality of Pain: reports: aching, pressure. denies: burning, cramping, fullness, throbbing, tightness Severity: reports: mild. denies: moderate, severe Onset/Duration: reports: unsure, gradual Timing: reports: still present. denies: improving, intermittent, getting worse Context/Activities at Onset: reports: none. denies: light activity, moderate activity, vigorous activity, recent emotional stress, recent physical stress, recent trauma history, possible bad food, cold exposure, eating, out of country travel, rest, sleep, sexual activity, other Modifying Factors: improves with: nothing Associated Symptoms: reports: weakness. denies: denies symptoms, anxiety, arm pain, back/neck pain, chest pain, constipation, cough, diaphoresis, diarrhea, dizziness, EENT symptoms, fatigue, fever/chills, genitourinary problems, headaches, heartburn, joint pain, loss of appetite, malaise, muscle aches, sinus congestion/drainage, nausea, rash, seizure, shortness of breath, sensory/motor loss, pain with inspiration, swelling/mass in abdomen, syncope, vomiting, trouble walking, other Similar Symptoms Previously?: Yes Recently seen or treated by another doctor?: No Review of Systems - Adult - REVIEW OF SYSTEMS - ADULT Constitutional: reports: no symptoms reported Eyes: reports: no symptoms reported Ears, Nose, Mouth & Throat: reports: no symptoms reported Cardiovascular: reports: see HPI, syncope. denies: edema, irregular heart rate, orthopnea Respiratory: reports: no symptoms reported Gastrointestinal: reports: no symptoms reported Genitourinary: reports: no symptoms reported Musculoskeletal: reports: no symptoms reported Integumentary: reports: no symptoms reported Neurological: reports: no symptoms reported Psychiatric: reports: no symptoms reported Past History - Adult - PAST MEDICAL HISTORY-ADULT Review of Records: reports: Old Records Reviewed, Nursing Assessment Review, Medications Reviewed, Social history reviewed & non-contributory. Major Childhood Illnesses: reports: denies history Cardiovascular: reports: blood clots, CHF, HTN, hyperlipidemia Respiratory: reports: asthma Gastrointestinal: reports: denies history Obstetrical/Gynecological: reports: denies history Genitourinary: reports: denies history Musculoskeletal: reports: chronic pain Neurological: reports: denies history Psychiatric: reports: anxiety Endocrine/Immune: reports: Diabetes Other Conditions: reports: denies history - PRIOR SURGERIES/PROCEDURES Surgical/Procedure History: reports: other - IMMUNIZATION STATUS Childhood Immunizations: See Nurse Assessment Flu Vaccine: See Nurse Assessment - FAMILY HISTORY Family History: reviewed, not pertinent - SOCIAL HISTORY Smoking: denies Physical Exam-General - PHYSICAL EXAM-ADULT Initial Vital Signs Reviewed: Yes - CONSTITUTIONAL General Appearance: alert, no apparent distress. negative: anxious, obtunded, combative - EYES Eyes: PERRL/EOMI, pink conjunctivae - HEAD, EARS, NOSE, MOUTH & THROAT HENMT: normocephalic/atraumatic, moist mucous membranes - NECK Neck: non-tender, full range of motion, supple, normal inspection - RESPIRATORY Respiratory: lungs clear, normal breath sounds - CARDIOVASCULAR Cardiovascular: normal peripheral pulses, regular rate, rhythm, no edema - GASTROINTESTINAL (ABDOMEN) Abdominal Exam: normal bowel sounds, non tender, soft - LYMPHATIC Lymphatic: no adenopathy. negative: axilla node tender, cervical node tenderness - MUSCULOSKELETAL Back Exam: normal inspection, no CVA tenderness, no vertebral tenderness Extremity: erythema (Bilateral lower extremities), inflammation (Bilateral lower extremities), swelling (Bilateral lower extremities), tenderness (Bilateral lower extremities). negative: deformity, joint effusion Peripheral Pulses: radial (R): 2+, radial (L): 2+ - SKIN Integumentary: normal color, normal turgor, warm/dry - NEUROLOGIC Neurologic: grossly normal, no motor/sensory deficits - PSYCHIATRIC Psych/Mental Status: normal mood/affect, normal thought content, normal thought process, oriented x 3 Progress - PLAN OF CARE/RESULTS Progress/Plan/Lab Results: Vital Signs - 8 hr 03/23/19 17:46 Temperature 97.8 F Pulse Rate 89 Respiratory Rate 21 Blood Pressure 82/47 O2 Sat by Pulse Oximetry 98 Orders Category Date Time Status Saline Loc NOW Care 03/23/19 17:58 Ordered CHEST-PORTABLE [RAD] Stat Exams 03/23/19 17:59 Ordered BLOOD CULTURE [BLDCUL] Stat Lab 03/23/19 17:58 Uncollected CBC WITH ELECTRONIC DIFF [HEME] Stat Lab 03/23/19 17:58 Uncollected CK PROFILE [SP CHEM] Stat Lab 03/23/19 17:58 Uncollected COMPREHENSIVE METABOLIC PANEL [CHEM] Stat Lab 03/23/19 17:58 Uncollected LACTATE, PLASMA [CHEM] Stat Lab 03/23/19 17:58 Uncollected PRO B-NATRIURETIC PEPTIDE Stat Lab 03/23/19 17:59 Ordered TROPONIN T Stat Lab 03/23/19 17:58 Uncollected URINALYSIS W/POSS RFLX CULT [URINALYSIS] Stat Lab 03/23/19 17:59 Uncollected EKG [EKG] Stat Ther 03/23/19 17:58 Ordered Result Diagrams: 03/23/19 18:02 03/23/19 18:02 - EKG 1 Time of EKG reading by physician:: 17:57 EKG Read and Signed by:: Avelino Gardner EKG Interpretation (*Must complete 3 of following elements*): Abnormal Rate: 89 Rhythm: A-fib - XRAY 1 XRAY Study: Chest ([facility] - [address] [place] [address] [place], [place] [id number] [facility] - [address] [place] [address] Department of Imaging Patient: HALEIGH CHERYADM Date: 03/23/19#: [id number] : 1955DM Status: PRE ERAcct#: [id number] Age/Sex: 63/MRoom/Bed: Loc: ED Ordering Physician: Yanni De Jesus Family Physician: Jose Daniel Hannah Reason for Procedure: Hypotension Signed EXAM: CHEST- PORTABLE HISTORY: Hypotension TECHNIQUE: Portable chest single view COMPARISON: 02/09/2019 FINDINGS: The lungs are well expanded. The heart remains enlarged. The vessels are not distended. There are increased in terstitial markings in the left lung base. Small left pleural effusion. IMPRESSION: No interval change. Electronically signed by Jaylon Delong 03/23/2019 6:16 PM 03/23/191815 Interpreting Physician: Jaylon Delong MD Dictated Date/Time: 03/23/191814 cc: Yanni De Jesus; Jose Daniel Hannah) XRAY Interpretation: See note - CONSULTS/PCP/HOSPITALIST Notification #1 *Consult/PCP/Hospitalist*: Dr. Boston Time Discussed: 20:36 Reason/Comments: Consult Consult Disposition: other (If we feel like he needs admission then he will see him in the morning.) #2 Consult: Dr. Nieto Time Discussed: 20:46 Reason/Comments: Admission Consult Disposition: Will see in ED, Admit Departure - Departure Date of Disposition Decision: 03/23/19 Time of Disposition Decision: 20:38 DIAGNOSIS: Elevated d-dimer, Lower extremity edema, Chronic atrial fibrillation, Noncompliance with medication regimen, Pleural effusion on left Disposition: ADMITTED INPATIENT 09 Certified Medical Emergency: Emergent Condition: Stable Referrals and Follow-Ups: Jose Daniel Hannah CRNP [Primary Care Provider] - - Critical Care Note This patient required my direct & personal management of CC.: No Attestation - Physician/ ALESHIA Attestation Patient care was provided by Advanced Practice Provider:: Yes Advanced Practice Provider:: Yanni De Jesus Advanced Practice Provider documentation review:: The Mid-level provider documentation, treatment plan and medical decision making was reviewed by the physician who agrees with all treatment and medical decision making by the [facility]. The physician spent face to face time with patient:: No Advanced Practice Provider documentation review:: Supervising physician onsite and consulted in the evaluation and care of this patient. The physician did not have a face to face encounter with the patient.
--- NOTE | 2019-03-23 18:14 | EKG Report ---
Test Performed on : 03/23/2019 5:51:30 PM Test Reason : Blood Pressure : / mmHG Vent. Rate : 089 BPM Atrial Rate : 416 BPM P-R Int : 000 ms QRS Dur : 086 ms QT Int : 374 ms P-R-T Axes : 000 028 180 degrees QTc Int : 455 ms Atrial fibrillation. Low voltage QRS Cannot rule out Anterior infarct , age undetermined Abnormal ECG When compared with ECG of 08-FEB-2019 12:47, (Unconfirmed) No significant change was found Unconfirmed Result
--- NOTE | 2019-03-23 18:18 | Diag Imaging Result Doc PS360 ---
EXAM: CHEST-PORTABLE HISTORY: Hypotension TECHNIQUE: Portable chest single view COMPARISON: 02/09/2019 FINDINGS: The lungs are well expanded. The heart remains enlarged. The vessels are not distended. There are increased interstitial markings in the left lung base. Small left pleural effusion. IMPRESSION: No interval change. Electronically signed by Jaylon Delong 03/23/2019 6:16 PM
[2019-03-23 18:27] LABS: HEMATOCRIT 37.7 % (42.0-52.0); HEMOGLOBIN 11.6 g/dL (14.0-18.0); MCH 25.1 PG (27-31); MCHC 30.8 g/dL (33-37); MCV 81.4 FL (81-99); RBC 4.63 XMIL (4.7-6.1); RDW 18.1 % (11.5-14.5); WBC 5.71 X1000 (4.8-10.8)
[2019-03-23 18:28] LABS: BASO# 0.02 X1000 (0.0-0.2); BASO% 0.4 % (0.0-0.8); EOS# 0.03 X1000 (0.0-0.7); EOS% 0.5 % (0.0-10.0); IMM GRAN# 0.02 X1000 (0.0-0.04); IMM GRAN% 0.4 % (0.0-0.5); LYMPH# 1.12 X1000 (1.2-3.4); LYMPH% 19.6 % (20.5-51.1); MONO# 0.74 X1000 (0.11-0.59); MPV 9.2 FL (7.4-10.4); NEUT# 3.78 X1000 (1.4-6.5); NEUT% 66.1 % (42.2-75.2); PLT 510 X1000 (130-400)
[2019-03-23 18:45] LABS: AGAP 13; ALB/GLOB RATIO 0.8; ALBUMIN 3.1 g/dL (3.5-5.0); ALKALINE PHOSPHATASE 209 U/L (32-122); BUN 40 mg/dL (8-22); CALCIUM 8.8 mg/dL (8.8-10.2); CHLORIDE 103 mmol/L (98-107); CK PROFILE 73 U/L (24-204); COSMO 287; CREATININE 1.1 mg/dL (0.7-1.2); ESTIMATED GFR > 60; GLUCOSE 93 mg/dL (70-104); GOT 29 U/L (10-34); GPT 11 U/L (10-44); POTASSIUM 4.8 mmol/L (3.5-5.1); SODIUM 139 mmol/L (136-145); TCO2 23 mmol/L (25-35); TOTAL BILIRUBIN 0.58 mg/dL (0.20-1.00)
[2019-03-23 20:24] LABS: URINE SOURCE CLEAN CATCH
[2019-03-23 20:28] LABS: BILIRUBIN URINE NEGATIVE (NEGATIVE); BLOOD URINE NEGATIVE (NEGATIVE); COLOR YELLOW; GLUCOSE URINE NEGATIVE (NEGATIVE); KETONE URINE NEGATIVE (NEGATIVE); LEUKOCYTES URINE NEGATIVE (NEGATIVE); NITRITE URINE NEGATIVE (NEGATIVE); PH URINE 5.5; PROTEIN URINE NEGATIVE (NEGATIVE); SP GRAVITY URINE 1.008; TURBIDITY URINE CLEAR (CLEAR); UROBILINOGEN URINE NORMAL (NORMAL)
[2019-03-23 20:29] LABS: UR EPITHELIAL CELLS <10 /HPF (<10); URINE BACTERIA NEGATIVE /HPF; URINE RBC <10 /HPF (<10); URINE WBC <10 /HPF (<10)
--- NOTE | 2019-03-23 21:28 | EKG Report ---
Test Performed on : 03/23/2019 8:30:38 PM Test Reason : hypotension Blood Pressure : / mmHG Vent. Rate : 077 BPM Atrial Rate : 087 BPM P-R Int : 000 ms QRS Dur : 084 ms QT Int : 396 ms P-R-T Axes : 000 030 173 degrees QTc Int : 448 ms Atrial fibrillation. Low voltage QRS Cannot rule out Anterior infarct (cited on or before 23-MAR-2019) Abnormal ECG When compared with ECG of 23-MAR-2019 17:51, (Unconfirmed) No significant change was found Unconfirmed Result
--- NOTE | 2019-03-23 21:54 | Diag Imaging Result Doc PS360 ---
EXAM: CT ANGIOGRM PULMONARY ARTERIES HISTORY: R/O PE TECHNIQUE: CT chest with intravenous contrast. Pulmonary chill protocol with MIP images. COMPARISON: 01/31/2019 FINDINGS: There is a small left pleural effusion measuring 2.5 cm posteriorly and inferiorly in the midline. Resolution of the prior right pleural effusion. Cardiomegaly remains. Pulmonary edema persists. Tiny pericardial effusion. No thoracic aortic aneurysm or dissection. Normal opacification of the pulmonary arteries and their major branches. There calcified right hilar lymph nodes. Atelectasis in the left lower lobe. No consolidation. No bronchiectasis. IMPRESSION: 1.No pulmonary emboli 2.Cardiomegaly with pulmonary edema and a small left effusion consistent with congestive failure This exam was performed using automated exposure control, adjustment of mA or kV according to patient size, and/or use of iterative reconstruction technique. Electronically signed by Jaylon Delong 03/23/2019 9:52 PM
--- NOTE | 2019-03-23 22:16 | HISTORY AND PHYSICAL ---
PRIMARY CARE PHYSICIAN: Dr. Jose Daniel Hannah CHIEF COMPLAINT: Hypotension. HISTORY OF PRESENTING ILLNESS: A 63-year-old male with a history of CHF systolic dysfunction, nonischemic cardiomyopathy, chronic atrial fibrillation and hypertension who was brought to the emergency department due to home health nurse finding that he was having a low blood pressure. His blood pressure systolic was with in the 80s. He was brought to the emergency department. He had laboratories drawn that did show he had an elevated troponin. His case was discussed with Cardiology, who recommended the patient be admitted for further management. The patient does have a history of noncompliance however. He is a poor historian. However, he had denied any headache, fever, chills, nausea, vomiting, diarrhea, chest pain, or any weight changes. PAST MEDICAL HISTORY: CHF, systolic dysfunction, severe nonischemic cardiomyopathy with EF of 25% and moderate aortic stenosis, chronic atrial fibrillation, hypertension, Karen gangrene, DVT, gout, noncompliance. PAST SURGICAL HISTORY: I and D of his scrotal regions and right hydrocelectomy. ALLERGIES: No known drug allergies. CURRENT MEDICATIONS: Include digoxin 125 mcg p.o. daily, gabapentin, Mobic p.o. at bedtime, [place] 5 mg p.o. q.6 hours, Eliquis 5 mg p.o. b.i.d., Lipitor 40 daily, Lopressor 25 mg p.o. b.i.d., aspirin 81 mg p.o. daily, Diovan 40 mg p.o. daily, Lasix 80 mg p.o. b.i.d., spironolactone 25 mg p.o. daily. SOCIAL HISTORY: He denies any history of smoking, alcohol or illicit drug use. FAMILY HISTORY: No history of coronary disease. REVIEW OF SYSTEMS: Fourteen point review of system is as in HPI. Other systems negative. PHYSICAL EXAMINATION: GENERAL: Cooperative, friendly male. He is resting more comfortably now. VITAL SIGNS: Temperature 97.8 degrees, pulse 89, respirations 21, blood pressure 82/47. HEENT: Atraumatic, normocephalic. Extraocular movements intact. PERRLA. NECK: No masses. CHEST: Clear to auscultation. CARDIOVASCULAR: Regular rate and rhythm. ABDOMEN: Soft positive bowel sounds. EXTREMITIES: There is edema and moderate erythema noted bilaterally. : No bladder distention. SKIN: Warm. LABORATORIES AND STUDIES: WBCs 5.71, hemoglobin 9.6, hematocrit 37.7, platelets 510,000. Sodium 139, potassium 4.8, chloride 103, CO2 is 23, BUN is 40, creatinine 4.1, glucose is 93. Troponin 0.281. ASSESSMENT: This is a 63-year-old male with a history of congestive heart failure, severe nonischemic cardiomyopathy, chronic atrial fibrillation and hypertension who was brought to the emergency department due to patient having low blood pressure. He was evaluated in the ED. It was also noted that he had elevated troponins. His case was discussed with Cardiology, who recommended the patient be admitted for further management. 1. Hypotension. 2. Elevated troponin. Possible non-ST elevation myocardial infarction. 3. Congestive heart failure, systolic dysfunction with ejection fraction 25%. 4. Chronic atrial fibrillation. 5. Hypertension. PLAN: 1. We will admit patient to [facility]. 2. We will monitor blood pressure closely. 3. We will trend his troponins. 4. Consult Cardiology. 5. Continue with gentle diuresis. 6. Resume his anticoagulation with Eliquis. 7. Monitor blood pressure closely. 8. Eliquis will suffice was deep vein thrombosis prophylaxis. 9. We will continue to follow and reassess, make further recommendation based on patient's clinical course. cc: Jason Nieto MD MTDD
[2019-03-24] MEDS ORDERED: ASPIRIN PO ONE (01:26)
[2019-03-24 04:52] LABS: BASO# 0.01 X1000 (0.0-0.2); BASO% 0.2 % (0.0-0.8); EOS# 0.03 X1000 (0.0-0.7); EOS% 0.5 % (0.0-10.0); HEMATOCRIT 39.5 % (42.0-52.0); HEMOGLOBIN 11.8 g/dL (14.0-18.0); IMM GRAN# 0.02 X1000 (0.0-0.04); IMM GRAN% 0.4 % (0.0-0.5); LYMPH# 1.54 X1000 (1.2-3.4); LYMPH% 27.2 % (20.5-51.1); MCH 24.6 PG (27-31); MCHC 29.9 g/dL (33-37); MCV 82.5 FL (81-99); MONO# 0.73 X1000 (0.11-0.59); MONO% 12.9 % (1.7-9.3); MPV 8.9 FL (7.4-10.4); NEUT# 3.33 X1000 (1.4-6.5); NEUT% 58.8 % (42.2-75.2); PLT 522 X1000 (130-400); RBC 4.79 XMIL (4.7-6.1); RDW 18.2 % (11.5-14.5); WBC 5.66 X1000 (4.8-10.8)
[2019-03-24 05:16] LABS: AGAP 14; BUN 39 mg/dL (8-22); CHLORIDE 100 mmol/L (98-107); COSMO 286; ESTIMATED GFR > 60; GLUCOSE 88 mg/dL (70-104); POTASSIUM 4.1 mmol/L (3.5-5.1); SODIUM 139 mmol/L (136-145); TCO2 25 mmol/L (25-35)
[2019-03-24] MEDS ORDERED: NORCO-5 PO PRN (08:51)
[2019-03-24] MEDS ORDERED: ZOFRAN IV PRN (08:55)
[2019-03-24] MEDS ORDERED: TYLENOL PO PRN (08:55)
[2019-03-24] MEDS: ELIQUIS PO SCH ×2 (09:51→23:13)
[2019-03-24] MEDS: MIRALAX PO SCH (09:51)
[2019-03-24] MEDS: ASPIRIN EC PO SCH (09:51)
[2019-03-24 09:54] LABS: HEMOGLOBIN A1C 5.8 % (4.8-6.0)
--- NOTE | 2019-03-24 10:42 | EKG Report ---
Test Performed on : 03/24/2019 10:23:56 AM Test Reason : elevated troponins Blood Pressure : / mmHG Vent. Rate : 066 BPM Atrial Rate : 441 BPM P-R Int : 000 ms QRS Dur : 092 ms QT Int : 436 ms P-R-T Axes : 000 -04 138 degrees QTc Int : 457 ms Atrial fibrillation. Low voltage QRS Cannot rule out Inferior infarct , age undetermined Cannot rule out Anterior infarct (cited on or before 23-MAR-2019) Abnormal ECG When compared with ECG of 23-MAR-2019 20:30, (Unconfirmed) Nonspecific T wave abnormality, improved in Inferior leads Confirmed by Segundo HAYES, Satinder Luna ([id number]) on 03/27/2019 9:31:47 PM
[2019-03-24] MEDS ORDERED: LASIX IV ONE (11:35)
[2019-03-24] MEDS: ALDACTONE PO SCH (12:01)
[2019-03-24] MEDS: LANOXIN PO SCH (12:01)
--- NOTE | 2019-03-24 12:11 | CARDIOLOGY CONSULTATION ---
DATE: 03/24/2019 HISTORY OF PRESENT ILLNESS: Cardiology was consulted. The patient has congestive heart failure, was noted to be hypotensive. I had seen Mr. Segal in the office. We had started him on Entresto given his severe LV dysfunction. However, home health noticed low blood pressure. In addition, he had seen a nurse practitioner in [place], and was noted to have low blood pressure, and he was advised to stop the Entresto. The patient felt weak. Denies chest pain. As far as his pedal edema and shortness of breath is concerned, it is stable. There is no orthopnea or paroxysmal nocturnal dyspnea. He has not had any increasing pedal edema. He came to the emergency room, was admitted. Chest CT revealed pulmonary edema. He has chronically elevated troponins. REVIEW OF SYSTEMS: A 14-point review of systems was done. Gastrointestinal: There is no history of nausea, vomiting, diarrhea. There is no history of hematemesis or melena. Central Nervous System: No focal weakness to suggest a CVA or TIA. Genitourinary: There is no dysuria or hematuria. PAST MEDICAL HISTORY: 1. Atrial fibrillation. 2. Anticoagulation therapy. 3. He has moderate aortic stenosis. On 10/29/2017, the patient underwent a left heart catheterization, which revealed normal coronary arteries. Right heart catheterization was done. Aorta 80/60, mean 15, RV 52/15, pulmonary artery pressure 52/50, pulmonary capillary wedge pressure of 17, peak gradient across the aortic valve was 30 with dobutamine challenge, aortic valve area was ranging about 1.5 square cm. He has moderate aortic stenosis. He had a transthoracic echocardiogram. Aortic valve area was 1.27 square cm, with severe LV dysfunction, ejection fraction of 25%. Medical management recommended at the present time. 4. Systolic heart failure. 5. Hypertension. 6. Anticoagulation therapy. 7. 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 8. Depression. 9. Gout. HOME MEDICATIONS: Include: 1. Digoxin 125 mcg a day. 2. Gabapentin. 3. [place] as needed. 4. Eliquis 5 mg p.o. b.i.d. 5. Lipitor 40 mg a day. 6. Lopressor 25 mg b.i.d. 7. Enteric-coated aspirin. 8. Diovan 40. 9. Spironolactone 25 mg b.i.d. SOCIAL HISTORY: He denies smoking or illicit drug abuse at the present time. PHYSICAL EXAMINATION: Vital Signs: Blood pressure when he came in was 82/47. This morning, blood pressure was 120/70. Heart: First and second heart sounds were heard. There was a systolic murmur. Respiratory: Bibasilar scattered inspiratory crepitations. Abdomen: Soft, nontender. There was no guarding or rigidity. Bowel sounds were heard. Extremities: No pedal edema. He had venous stasis ulcers on the left ying. ASSESSMENT AND PLAN: Mr. Luis Enrique Segal is a 63-year-old gentleman with moderate aortic stenosis, severe left ventricular dysfunction, normal coronary artery disease, chronic atrial fibrillation, on anticoagulation therapy, hypertension, who comes with complaints of having had low blood pressure and feeling weak. He feels much better today. RECOMMENDATIONS: 1. I had started him on Entresto, which has been stopped as an outpatient. We will leave him on Diovan 40 mg a day. 2. He has severe LV dysfunction. We will continue with his beta blockers. He is on Diovan, and we will change the medications to Toprol-XL as far as beta-blockers are concerned. 3. As far as diuretic therapy is concerned, he is on spironolactone 25 mg. We will continue that. We will give him injection Lasix 40 mg IV now, and then start him on Lasix p.o. 40 mg daily. 4. Anticoagulation therapy. He is on Eliquis 5 mg p.o. b.i.d. I have not made any changes. 5. We will also check digoxin levels in the morning. 6. If his blood pressure is stable, we will discharge him home. I will make followup appointments to see me in the office in a couple of weeks. Thank you for the consult. Will follow hospital course. cc: Jose Houston MD
[2019-03-24] MEDS: TOPROL XL PO SCH ×2 (14:54→23:13)
--- NOTE | 2019-03-24 16:24 | PROGRESS NOTE ---
DATE: 03/24/2019 SUBJECTIVE: The patient is resting comfortably in bed. No acute events noted overnight. OBJECTIVE: Vital Signs: Temperature 97.5 degrees, blood pressure 105/64, heart rate 78, respirations 16, O2 saturation is 100% on room air. General: This is a chronically ill-appearing elderly male, lying in bed in no acute distress. Heart: S1, S2 normal. Systolic ejection murmur. Lungs: Equal air entry bilaterally. No wheezing. No rales. No rhonchi. Abdomen: Positive bowel sounds. Soft, nontender, nondistended. Extremities: No edema, no cyanosis. No calf tenderness. Neurologic: The patient is alert and oriented x3. LABORATORY DATA: White blood cell count 5.6, hemoglobin 11, hematocrit 39, platelets 522,000. Sodium 131, potassium 4.1, chloride 100, CO2 of 25, BUN 39, creatinine 1, glucose 88. Troponin 0.127. TSH 1.24. ASSESSMENT AND PLAN: 1. Acute on chronic systolic congestive heart failure exacerbation. The patient's cardiac medications have been adjusted by the rn perioperative. We will continue to monitor the patient while on diuretic therapy. 2. Chronic atrial fibrillation. The patient is rate controlled. Continue on Eliquis, digoxin, and Toprol-XL. 3. Moderate aortic stenosis. Aware. 4. Ischemic cardiomyopathy with an ejection fraction of 25%. Aware. 5. Elevated troponin. Continue on the current cardiac medications. 6. Hyponatremia. Monitor closely. 7. Anemia. Stable. 8. Left lower extremity wound. Will consult wound care. Will consult PT. cc: Maura Dasilva MD [facility]
[2019-03-24] MEDS: BENADRYL PO PRN ×2 (18:57→23:23)
[2019-03-24] MEDS ORDERED: LOPRESSOR PO SCH (21:00)
[2019-03-24] MEDS ORDERED: LIPITOR PO SCH (21:00)
[2019-03-24] MEDS ORDERED: NEURONTIN PO SCH (21:00)
--- NOTE | 2019-03-25 06:21 | Diag Imaging Result Doc PS360 ---
EXAM: CHEST-PORTABLE HISTORY: Dyspnea TECHNIQUE: Portable chest single view COMPARISON: 03/23/2019 FINDINGS: The heart remains enlarged. There is atelectasis and/or infiltrates in the left base with a left-sided effusion. Mild central vascular prominence. Apparent artifact laterally in the left chest. IMPRESSION: No interval improvement. Electronically signed by Jaylon Delong 03/25/2019 6:19 AM
[2019-03-25] MEDS ORDERED: VANCOMYCIN IV PER PHARMACY MISC SCH (07:15)
[2019-03-25 07:26] LABS: AGAP 10; BUN 33 mg/dL (8-22); CALCIUM 9.3 mg/dL (8.8-10.2); CHLORIDE 102 mmol/L (98-107); COSMO 285; CREATININE 0.7 mg/dL (0.7-1.2); ESTIMATED GFR > 60; GLUCOSE 104 mg/dL (70-104); MAGNESIUM 1.6 mg/dL (1.5-2.7); PHOSPHORUS 3.4 mg/dL (2.7-4.5); SODIUM 139 mmol/L (136-145); TCO2 27 mmol/L (25-35)
[2019-03-25] MEDS ORDERED: LASIX PO SCH (09:00)
[2019-03-25] MEDS ORDERED: DIOVAN PO SCH (09:00)
[2019-03-25] MEDS: MIRALAX PO SCH (10:41)
[2019-03-25] MEDS: ASPIRIN EC PO SCH (10:42)
[2019-03-25] MEDS: ELIQUIS PO SCH (10:42)
[2019-03-25] MEDS: TOPROL XL PO SCH (10:43)
[2019-03-25] MEDS: ALDACTONE PO SCH (10:43)
[2019-03-25] MEDS: LANOXIN PO SCH (10:43)
[2019-03-25 13:13] VITALS: BP 88/57
--- NOTE | 2019-03-29 15:48 | DISCHARGE SUMMARY ---
ADMISSION DATE: 03/24/2019 DISCHARGE DATE: 03/25/2019 DISCHARGE DIAGNOSES: 1. Hypotension. 2. Congestive heart failure, chronic, not in exacerbation. 3. Chronic atrial fibrillation. 4. Severe nonischemic cardiomyopathy. CONSULTATIONS: Dr. Houston from cardiology. PROCEDURES: 1. Chest x-ray done on admission showed no interval change. Lungs were well expanded. Increased interstitial marking in the left lung base. 2. Pulmonary arteriogram showed no pulmonary emboli, cardiomegaly with pulmonary edema, and small left pleural effusion consistent with congestive failure. 3. Chest x-ray done at discharge showed no interval improvement. HOSPITAL COURSE: This is a 63-year-old, male with a past medical history of CHF, systolic dysfunction, nonischemic cardiomyopathy, and chronic atrial fibrillation who presented to the emergency department complaining of low blood pressure. Actually, home health nurse sent this patient to the hospital for low blood pressure. The patient was admitted for observation. There was some mild elevated troponin but the patient was not complaining of chest pain. Patient was evaluated by Dr. Houston. He made some changes to his medication. Reports that if blood pressure improves, patient can be discharged. The next day, the patient was not complaining of any dizziness. Blood pressure was in the range of 110s and 120s so patient was discharged with the medication that we adjusted according to cardiology and he is going to be seen in a couple of weeks by a financial reporting specialist. DISCHARGE PHYSICAL EXAMINATION: Vital Signs: Temperature 97.4 degrees, heart rate 60, respiratory rate 16, blood pressure 113/69, O2 saturation 100% on room air. General Examination: This is a chronically ill-appearing, 63-year-old, male, lying in bed, in no acute distress. Cardiovascular Examination: S1 and S2 heard. Irregularly irregular. No murmurs, gallops, or rubs. Respiratory Examination: No wheezing or rales noted. Abdomen: Soft, nontender to palpation. Bowel sounds present. No organomegaly. Extremities: No clubbing, cyanosis. Mild edema in both lower extremities. Neurological Examination: The patient is alert and oriented x3. Moves 4 extremities. DISCHARGE DISPOSITION: Home with home health. HOME MEDICATIONS: 1. Toprol-XL 25 mg 1 tablet p.o. b.i.d. 2. Furosemide 40 mg 1 tablet p.o. daily. 3. Digoxin 125 mcg 1 tablet p.o. daily. 4. Gabapentin 300 mg 1 tablet p.o. at bedtime. 5. [place] 5 mg 1 tablet p.o. every 6 hours as needed. 6. Eliquis 5 mg 1 tablet p.o. b.i.d. 7. Lipitor 40 mg 1 tablet p.o. daily. 8. Aspirin 81 mg 1 tablet p.o. daily. 9. Spironolactone 25 mg 1 tablet p.o. daily. 10. MiraLAX 1 pack as needed. Time discharging this patient was 30 minutes. cc: Boni Matthews MD
== END 2019-03-25 17:36 | disposition home health service (06) | DRG 315 ==
LOC: SUPCPDRO → ED 17:21 → INTOOBSV 18:00 → EDIPHOLD 03-24 00:13 → SUATTDRO 03-24 00:13 → 4N 03-24 12:53
PROVIDERS: ADMIT Family Medicine; ATTEND Internal Medicine

== ENCOUNTER 2019-05-19 18:24 | Inpatient (IN) ==
--- NOTE | 2019-05-19 18:58 | PROVIDER DOCUMENTATION ---
HPI-General Adult - General Chief Complaint: Edema Stated Complaint: CHF, POSSIBLE AFIB Time Seen by Provider: 05/19/19 18:57 Source: patient Allergies/Adverse Reactions: Patient Allergies Allergy/AdvReac Type Severity Reaction Status Date / Time No Known Allergies Allergy Verified 05/19/19 19:45 Home Medications: Home Medication List Medication Instructions Recorded Confirmed Last Taken Type Spironolactone 25 mg PO DAILY 30 Days #30 tab 02/03/19 05/19/19 Unknown Rx Acetaminophen [Tylenol] 650 mg PO Q6H PRN PRN tab 03/25/19 05/19/19 Unknown Rx Metoprolol Succinate E.r. [Toprol 25 mg PO BID #60 tab 03/25/19 05/19/19 Unknown Rx Xl] Albuterol Sulfate Inhaler 2 puff INH Q6H PRN PRN 05/19/19 05/19/19 Unknown History [Ventolin Hfa] Amitriptyline HCl 75 mg PO DAILY 05/19/19 05/19/19 Unknown History Ascorbic Acid/Ascorbate Sodium 500 mg PO DAILY 05/19/19 05/19/19 Unknown History [Vitamin C 250 mg Tablet Chew] Cholecalciferol (Vitamin D3) 5,000 unit PO ORDERED 05/19/19 05/19/19 Unknown History [Vitamin D3] Furosemide [Lasix] 40 mg PO DAILY 05/19/19 05/19/19 05/15/19 09:00 History Iron Polysaccharide Complex [Ezfe 200 mg PO DAILY 05/19/19 05/19/19 Unknown History 200] Magnesium Oxide 400 mg PO DAILY 05/19/19 05/19/19 Unknown History - History of Present Illness -Gen Adult Nature of Presenting Problems: This is a 63yo male who presents with CC of shortness of breath and swelling in his legs and belly. The patient has a history of CHF. He reports that the onset was 3 days ago, and that he recently ran out of his water pill medications. The patient denies use of O2 at home and is currently sating well on room air. The patient reports that he has noted swelling in both his legs and abdomen. The patient denies liver or kidey disease. The patient denies chest pain. The patient denies cough or fevers. Onset/Duration: reports: 3 days ago Timing: reports: still present Context/Activities at Onset: reports: other (ran out of water pill medication) Associated Symptoms: reports: other (swelling) Similar Symptoms Previously?: Yes Review of Systems - Adult - REVIEW OF SYSTEMS - ADULT Constitutional: denies: fever Eyes: reports: no symptoms reported. denies: blurred vision Ears, Nose, Mouth & Throat: reports: no symptoms reported. denies: throat pain Cardiovascular: reports: no symptoms reported. denies: chest pain Respiratory: reports: shortness of breath. denies: cough Gastrointestinal: reports: no symptoms reported. denies: abdominal pain, diarrhea, nausea, vomiting Genitourinary: reports: no symptoms reported, flank pain Musculoskeletal: reports: no symptoms reported. denies: back pain Integumentary: reports: itching, rash (lower extremity chronic itching rash) Neurological: reports: no symptoms reported Psychiatric: reports: no symptoms reported Endocrine: reports: no symptoms reported Hematologic/Lymphatic: reports: no symptoms reported, other (no bleeding) Allergic/Immunologic: reports: no symptoms reported Past History - Adult - PAST MEDICAL HISTORY-ADULT Review of Records: reports: Old Records Reviewed, Nursing Assessment Review Major Childhood Illnesses: reports: denies history Cardiovascular: reports: blood clots, CHF, HTN, hyperlipidemia Respiratory: reports: asthma Gastrointestinal: reports: denies history Obstetrical/Gynecological: reports: denies history Genitourinary: reports: denies history Musculoskeletal: reports: chronic pain Neurological: reports: denies history Psychiatric: reports: anxiety Endocrine/Immune: reports: Diabetes Other Conditions: reports: denies history - PRIOR SURGERIES/PROCEDURES Surgical/Procedure History: reports: other - IMMUNIZATION STATUS Childhood Immunizations: See Nurse Assessment Flu Vaccine: See Nurse Assessment - FAMILY HISTORY Family History: reviewed, not pertinent - SOCIAL HISTORY Smoking: denies Substance Use: none/never Alcohol Use Frequency: occasionally Physical Exam-General - PHYSICAL EXAM-ADULT Initial Vital Signs Reviewed: Yes - CONSTITUTIONAL General Appearance: appears well, alert, no apparent distress - EYES Eyes: negative: conjuctival exudate - HEAD, EARS, NOSE, MOUTH & THROAT HENMT: normocephalic/atraumatic, moist mucous membranes - RESPIRATORY Respiratory: no respiratory distress, decreased breath sounds (bilaterally in lower lobes) - CARDIOVASCULAR Cardiovascular: regular rate, rhythm, JVD, other (2+ LE edema) - GASTROINTESTINAL (ABDOMEN) Abdominal Exam: non tender, soft, distended - MUSCULOSKELETAL Extremity: swelling (bilateral LE). negative: tenderness - SKIN Integumentary: other (venous stasis changes in LE bilaterally, some blistering noted on the RLE and healing blisters on the LLE) - NEUROLOGIC Neurologic: grossly normal - PSYCHIATRIC Psych/Mental Status: normal mood/affect, normal thought content, normal thought process Progress - PLAN OF CARE/RESULTS Result Diagrams: 05/19/19 21:38 05/19/19 20:07 - REASSESSMENT Reassessment #1 Status: other (Patient with desaturation with pulse ox while walking to low 90%. Discussed case with hospitalist who have agreed to admit the patient.) - EKG 1 EKG Interpretation (*Must complete 3 of following elements*): Normal Rate: 77 Rhythm: atrial fibrillation Howell: left QRS: normal ST Wave: normal Prior EKG Comparison: unchanged from prior Comments: prior 03/25/19 Departure - Departure Date of Disposition Decision: 05/20/19 Time of Disposition Decision: 00:12 DIAGNOSIS: Congestive heart failure Qualifiers: Heart failure type: other Qualified Code(s): I50.9 - Heart failure, unspecified CHF exacerbation Qualifiers: Heart failure type: unspecified Qualified Code(s): I50.9 - Heart failure, unspecified Disposition: ADMITTED INPATIENT 09 Certified Medical Emergency: Emergent Condition: Fair Referrals and Follow-Ups: Jose Daniel Hannah CRNP [Primary Care Provider] - - Critical Care Note This patient required my direct & personal management of CC.: No Attestation - Physician/ ALESHIA Attestation Patient care was provided by Advanced Practice Provider:: No The physician spent face to face time with patient:: Yes Advanced Practice Provider documentation review:: Supervising physician onsite and consulted in the evaluation and care of this patient. The physician did have a face to face encounter with the patient.
--- NOTE | 2019-05-19 19:50 | Diag Imaging Result Doc PS360 ---
EXAM: CHEST-2 VIEWS - 05/19/2019 HISTORY: Shortness of breath TECHNIQUE: Chest two views COMPARISON: 03/25/2019 portable chest FINDINGS: There is cardiomegaly similar to prior. There is mild prominence of central vascular markings. There is possibly mild hazy basilar edema. There are small left and tiny right pleural effusions. There is no dense consolidation or pneumothorax identified. There is some thoracic spondylosis noted. IMPRESSION: Cardiomegaly with mild congestive heart failure. Electronically signed by Sp Becker 05/19/2019 7:47 PM
--- NOTE | 2019-05-19 21:03 | EKG Report ---
Test Performed on : 05/19/2019 8:44:10 PM Test Reason : Reports possible afib Blood Pressure : / mmHG Vent. Rate : 077 BPM Atrial Rate : 441 BPM P-R Int : 000 ms QRS Dur : 080 ms QT Int : 412 ms P-R-T Axes : 000 115 -07 degrees QTc Int : 466 ms Atrial fibrillation. Right axis deviation Low voltage QRS Cannot rule out Anteroseptal infarct (cited on or before 23-MAR-2019) Abnormal ECG When compared with ECG of 24-MAR-2019 10:23, QRS axis shifted right Minimal criteria for Inferior infarct are no longer present Questionable change in initial forces of Septal leads Nonspecific T wave abnormality now evident in Anterior leads Unconfirmed Result
[2019-05-19 21:40] LABS: AGAP 19; ALBUMIN 3.8 g/dL (3.5-5.0); ALKALINE PHOSPHATASE 218 U/L (32-122); BUN 25 mg/dL (8-22); CALCIUM 9.2 mg/dL (8.8-10.2); CHLORIDE 105 mmol/L (98-107); COSMO 280; ESTIMATED GFR > 60; GLUCOSE 72 mg/dL (70-104); GOT 53 U/L (10-34); GPT 25 U/L (10-44); POTASSIUM 4.9 mmol/L (3.5-5.1); SODIUM 139 mmol/L (136-145); TCO2 15 mmol/L (25-35); TOTAL BILIRUBIN 1.82 mg/dL (0.20-1.00); TOTAL PROTEIN 7.5 g/dL (6.3-8.3)
[2019-05-19] MEDS ORDERED: LASIX IV ONE (22:14)
[2019-05-19 22:15] LABS: BASO# 0.03 X1000 (0.0-0.2); BASO% 0.4 % (0.0-0.8); EOS# 0.05 X1000 (0.0-0.7); EOS% 0.7 % (0.0-10.0); IMM GRAN# 0.02 X1000 (0.0-0.04); IMM GRAN% 0.3 % (0.0-0.5); LYMPH# 1.29 X1000 (1.2-3.4); MCH 27.1 PG (27-31); MCHC 29.7 g/dL (33-37); MCV 91.1 FL (81-99); MONO# 1.21 X1000 (0.11-0.59); MONO% 17.8 % (1.7-9.3); NEUT% 61.8 % (42.2-75.2); PLT 323 X1000 (130-400); RBC 4.28 XMIL (4.7-6.1); RDW 21.5 % (11.5-14.5)
[2019-05-19 22:27] LABS: HEMATOCRIT 38.5 % (42.0-52.0); HEMOGLOBIN 11.8 g/dL (14.0-18.0)
[2019-05-19] MEDS ORDERED: TYLENOL PO ONE (22:29)
[2019-05-20] MEDS ORDERED: VENTOLIN HFA INH PRN (00:16)
[2019-05-20] MEDS ORDERED: TYLENOL PO PRN (00:16)
[2019-05-20] MEDS ORDERED: VITAMIN D PO SCH (00:30)
--- NOTE | 2019-05-20 05:03 | HISTORY AND PHYSICAL ---
CHIEF COMPLAINT: Shortness of breath, increased lower extremity and abdominal swelling, and increasing weight. HISTORY OF PRESENT ILLNESS: Mr. Segal is a 63-year-old man with a past medical history of nonischemic cardiomyopathy and chronic systolic congestive heart failure with ejection fraction of 20%, who normally sees Dr. Houston as an outpatient for his systolic congestive heart failure. Apparently the patient ran out of his diuretic since the last 3 to 4 days, and since then he had started noticing increasing weight. He was complaining of orthopnea, bilateral lower extremity swelling and shortness of breath. His home care agency nurse evaluated him today and he was found to have 11 pounds of weight gain over the last few weeks, so he was advised to come to the emergency room. In the emergency room he was found to have a mildly elevated troponin, chronic atrial fibrillation, elevated proBNP, and on walking in the hallway his oxygen saturation dropped to the mid 80s, so the Hospitalist Team was consulted for further management. At the time of my evaluation the patient denies any chest pain. He feels short of breath on physical exertion. He denies any palpitation. He denies any cough, nausea or vomiting. He states apart from running out of his diuretic pills since the last few days he has been taking his medicine; however, he is not sure if he was taking his blood thinners. REVIEW OF SYSTEMS: Positive for shortness of breath on lying down. Negative for headache. Negative for chest pain. Negative for palpitation. Negative for nausea and vomiting. Negative for cough. PAST MEDICAL HISTORY: 1. Nonischemic cardiomyopathy. 2. Chronic systolic congestive heart failure with ejection fraction of 25%. 3. Multiple superficial venous thrombosis of bilateral lower extremities. 4. Chronic atrial fibrillation. 5. Karen gangrene. 6. Pulmonary hypertension. 7. Anxiety. 8. Moderate aortic stenosis. 9. Essential hypertension. PAST SURGICAL HISTORY: Incision and drainage of his scrotal lesions, and right hydrocelectomy. ALLERGIES: No known drug allergies. FAMILY HISTORY: No history of coronary artery disease or congestive heart failure. PERSONAL HISTORY: He denies any smoking, alcohol or illicit drug use. CURRENT MEDICATIONS: He is listed to be taking spironolactone 25 mg daily, metoprolol succinate extended release 25 mg b.i.d., acetaminophen 650 mg every 6 hours as needed, albuterol inhaler 2 puffs inhaled every 6 hours for shortness of breath, amitriptyline 75 mg daily, ascorbic acid 500 mg daily, cholecalciferol 5000 units daily, iron polysaccharide complex 200 mg daily, magnesium 400 mg daily, furosemide 440 mg daily. On previous discharge summary he was listed to be taking Eliquis 5 mg b.i.d., and digoxin 125 mcg daily; however, it has not been reconciled currently and the patient does not have the pill bottles when I looked inside his bag. PHYSICAL EXAMINATION: VITAL SIGNS: Temperature of 98.2, pulse 86, respiratory rate 22, blood pressure 129/93. He was currently saturating 95% on 2 L nasal cannula. GENERAL: Not in acute distress in sitting down position; however, when he tries to lie down in the bed he becomes short of breath. HEENT: No pallor, cyanosis, clubbing or icterus. Oral cavity is moist. LUNGS: Air entry bilaterally equal. No wheeze or rhonchi. Inspiratory crackles bilateral infrascapular region. No egophony. CARDIAC: S1, S2 normal. Heart rhythm is irregularly irregular. Systolic crescendo-decrescendo murmur best heard over right second intercostal space. No rub or gallop. ABDOMEN: Distended. Tympanic to percussion. No hepatosplenomegaly. There is dullness in the flanks and positive hepatojugular reflex. EXTREMITIES: He has bilateral lower extremity edema extending up to thigh level. There are some blisters affecting bilateral legs because of edema. NEUROLOGIC: He is alert and oriented x3. He is able to sit up in the bed and stand up without anyone's help. LABORATORY DATA: Significant for normocytic anemia, normal platelet count. His BUN is 25, creatinine of 1. He does have chronically elevated total bilirubin of 1.8, AST of 53, elevated alkaline phosphatase. Troponin of 0.155. ProBNP of 2391. No microbiological data. Chest x-ray had cardiomegaly with mild congestive heart failure. EKG had chronic atrial fibrillation. ASSESSMEN: 1. Acute on chronic systolic congestive heart failure exacerbation due to medication noncompliance. The patient reports to have ran out of medications since last 3 to 4 days. 2. Acute hypoxic respiratory failure due to acute pulmonary edema and pulmonary vascular congestion due to acute congestive heart failure exacerbation. 3. Elevated troponin without chest pain. Apparently the patient has had elevated troponin on previous admissions as well, his coronary angiography in 2018 did not have any obstructive coronary artery disease. 4. Nonischemic cardiomyopathy. 5. Chronic atrial fibrillation. 6. Prior history of multiple superficial venous thrombosis. PLAN: We will admit the patient in the telemetry unit. We will start him on IV diuresis considering he had a previous history of hypotension. We will judiciously monitor his blood pressure and kidney function with electrolytes. I will resume most of his home medications. I will also trend his troponins, he denies any chest pain and his coronary angiogram over 1 year ago did not have any obstructive coronary artery disease. His EKG did not have ST elevation or significant ST depressions. This could be nonspecific. I will also start him on apixaban as per the previous discharge summary. He may need proper medication reconciliation, in the Cardiology notes he was also listed to be taking Entresto that the patient is unaware of. I will also monitor daily weight. cc: Kar Wan MD
[2019-05-20] MEDS: LASIX IV SCH ×2 (06:07→18:42)
--- NOTE | 2019-05-20 07:07 | EKG Report ---
Test Performed on : 05/20/2019 06:36:25 AM Test Reason : Follow up heart rhythm Blood Pressure : / mmHG Vent. Rate : 081 BPM Atrial Rate : 361 BPM P-R Int : 000 ms QRS Dur : 084 ms QT Int : 420 ms P-R-T Axes : 000 107 -24 degrees QTc Int : 487 ms Atrial flutter. with variable AV block. Rightward axis Low voltage QRS Cannot rule out Anterior infarct (cited on or before 23-MAR-2019) Abnormal ECG When compared with ECG of 19-MAY-2019 20:44, (Unconfirmed) Atrial flutter. has replaced Atrial fibrillation. Confirmed by Domenica HAYES, Donnie Vaca ([id number]) on 05/22/2019 9:00:21 AM
[2019-05-20] MEDS ORDERED: TOPROL XL PO SCH (09:00)
--- NOTE | 2019-05-20 09:33 | PROGRESS NOTE ---
DATE: 05/20/2019 SUBJECTIVE: Mr. Segal was admitted yesterday. He is a patient of [facility]ERN[facility]ier. He came in with shortness of breath, increased lower extremity and abdominal swelling, increased weight. This is a 63 year old with a past medical history of nonischemic cardiomyopathy, chronic systolic congestive heart failure and ejection fraction around 20%. He normally sees Dr. Houston as an outpatient for systolic congestive heart failure. The patient ran out of his diuretic the last three or fours days and since that time noticed increased weight, increased swelling in his legs, increased leg pain, shortness of breath, increased orthopnea. PAST MEDICAL HISTORY: 1. Nonischemic cardiomyopathy. 2. Chronic systolic congestive heart failure, ejection fraction 25%. 3. Multiple superficial venous thromboses of bilateral lower extremities. 4. Chronic atrial fibrillation. 5. Karen gangrene in the past. 6. Pulmonary hypertension. 7. Anxiety. 8. Moderate aortic stenosis. 9. Essential hypertension. PAST SURGICAL HISTORY: Incision and drainage of his scrotal lesions with Karen gangrene. Right hydrocelectomy. OBJECTIVE: Vital Signs: Afebrile, temperature 97.3, pulse 79, respirations 19, and blood pressure 138/93. HEENT: The pupils are equal and round. Lungs: Clear in all lung palumbo. Cardiovascular: Regular rate without murmur, S3. Abdomen: Soft. Skin: Warm and dry. Weight: 214 pounds. Extremities: He has maybe 1+ edema still in his legs. You can see where he has had chronic venous insufficiency and lymphedema, chronic venous stasis dermatosis. LABORATORIES: Lab review from yesterday, white count was 6800, hematocrit was 38, platelet count is 323,000. Sodium 139, potassium 4.9, chloride 105, BUN 25, creatinine 1.0, AST is 53, ALT is 25. His troponin was 0.144. ProBNP 2391. His x-ray, cardiomegaly and mild congestive heart failure. That was the x-ray from yesterday. ASSESSMENT AND PLAN: 1. Nonischemic cardiomyopathy, presented decompensation and increased swelling, so acute-on- chronic systolic heart failure exacerbation, mainly because he ran out of his Lasix. He seems to be doing better and improving. 2. Acute hypoxemic respiratory failure due to acute pulmonary edema and pulmonary vascular congestion due to acute congestive heart failure exacerbation. This is better. His breathing is better. He is able to breathe lying flat. 3. Elevated troponin with chest pain. The patient has had an elevated troponin on previous admissions. As well, his coronary angiography on 10/04 did not have any obstructive coronary artery disease. 4. Atrial fibrillation, rate is controlled. 5. Prior history of superficial venous thrombosis, chronic venous stasis. We will check labs today with his diuresis and in the morning. He is on Elavil 75 mg a day, Eliquis 5 mg b.i.d., ascorbic acid 500 mg a day, ferrous sulfate 325 mg a day, Lasix 40 mg IV q.12 h., magnesium oxide 400 mg a day, Aldactone 25 mg a day, vitamin D 5000 units p.o. once a week. cc: Neal Hill MD
[2019-05-20] MEDS: ELIQUIS PO SCH ×2 (10:34→21:25)
[2019-05-20] MEDS: ELAVIL PO SCH (10:35)
[2019-05-20] MEDS: ALDACTONE PO SCH (10:35)
[2019-05-20] MEDS: VITAMIN C PO SCH (10:35)
[2019-05-20] MEDS: FERROUS SULFATE PO SCH (10:35)
[2019-05-20] MEDS: MAG-OX PO SCH (10:35)
[2019-05-21] MEDS: LASIX IV SCH (06:20)
[2019-05-21 07:57] LABS: BASO# 0.02 X1000 (0.0-0.2); BASO% 0.4 % (0.0-0.8); EOS# 0.05 X1000 (0.0-0.7); EOS% 0.9 % (0.0-10.0); HEMATOCRIT 36.1 % (42.0-52.0); LYMPH# 0.76 X1000 (1.2-3.4); LYMPH% 13.9 % (20.5-51.1); MCH 27.5 PG (27-31); MCHC 30.5 g/dL (33-37); MCV 90.3 FL (81-99); MONO# 0.84 X1000 (0.11-0.59); MONO% 15.4 % (1.7-9.3); MPV 9.3 FL (7.4-10.4); NEUT# 3.79 X1000 (1.4-6.5); NEUT% 69.4 % (42.2-75.2); PLT 312 X1000 (130-400); RDW 21.3 % (11.5-14.5); WBC 5.46 X1000 (4.8-10.8)
[2019-05-21 08:07] LABS: AGAP 16; BUN 27 mg/dL (8-22); CALCIUM 9.5 mg/dL (8.8-10.2); CHLORIDE 103 mmol/L (98-107); COSMO 281; ESTIMATED GFR > 60; GLUCOSE 95 mg/dL (70-104); MAGNESIUM 1.7 mg/dL (1.5-2.7); POTASSIUM 3.9 mmol/L (3.5-5.1); SODIUM 138 mmol/L (136-145); TCO2 19 mmol/L (25-35)
--- NOTE | 2019-05-21 09:38 | DISCHARGE SUMMARY ---
ADMISSION DATE: 05/19/2019 DISCHARGE DATE: 05/21/2019 A 63-year-old man followed by Dr. Dietz's [employer], Jose Daniel Hannah, I believe. Past medical history of nonischemic cardiomyopathy, chronic systolic heart failure with ejection fraction of 20%, normally followed by Dr. 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 Apparently ran out of his diuretic for about 4 days ago. Since that time, he has noticed increased weight, increased orthopnea, bilateral lower extremity swelling, shortness of breath. Home care agency evaluated him and found to have 11 pounds weight gain over the last few weeks, so came into the hospital. Admission diagnosis of acute on chronic systolic congestive heart failure exacerbation due to medication noncompliance. So he was admitted and diuresed. He had acute hypoxic respiratory failure due to acute pulmonary edema, pulmonary vascular congestion and with diuresis his breathing improved and we checked cardiac enzymes. He did have an elevated troponin, but did not seem to have active ischemia and we did note he had elevated troponin on previous admissions. He had a coronary angiography in 2018 that did not show any obstructive coronary lesions. He has chronic atrial fib. His rate was controlled and he showed steady improvement, wanted to go home on 05/21/2019. DISCHARGE ORDERS OR MEDICATIONS: He will take his amitriptyline 75 mg daily, ascorbic acid vitamin C daily, vitamin D3 27419 units, I think he takes that once a month, Lasix 40 mg p.o. he will take that q.a.m., iron polysaccharide complex 200 mg a day, magnesium oxide 400 mg a day, metoprolol ER 25 mg p.o. b.i.d., spironolactone 25 mg a day. Note that his hematocrit remained stable at 36, hemoglobin 11. LABORATORY DATA: From this morning, sodium 138, potassium 3.9, chloride 103, BUN 27, creatinine 1.0. cc: Neal Hill MD
[2019-05-21] MEDS: ELIQUIS PO SCH (10:54)
[2019-05-21] MEDS: MAG-OX PO SCH (10:54)
[2019-05-21] MEDS: VITAMIN C PO SCH (10:54)
[2019-05-21] MEDS: ALDACTONE PO SCH (10:54)
[2019-05-21] MEDS: ELAVIL PO SCH (10:54)
[2019-05-21] MEDS: FERROUS SULFATE PO SCH (10:54)
[2019-05-21 12:38] VITALS: BP 131/84
== END 2019-05-21 14:14 | disposition home or self-care (01) | DRG 291 ==
LOC: ED 18:24 → 3N 18:25 → SUATTDRO 18:25
PROVIDERS: ATTEND Emergency Medicine

== ENCOUNTER 2019-10-29 11:05 | Inpatient (IN) ==
[2019-10-29] MEDS ORDERED: NS 1,000 ML IV ONE ×2 (11:26→13:45)
[2019-10-29] MEDS ORDERED: ZOSYN 4.5 GM in NS 100 ML IV ONE (11:26)
[2019-10-29] MEDS ORDERED: VANCOMYCIN 1 GM/NS 1 GM/250 ML IVPB IV ONE ×2 (11:26→16:00)
[2019-10-29] MEDS ORDERED: LASIX IV ONE (11:26)
--- NOTE | 2019-10-29 11:42 | Diag Imaging Result Doc PS360 ---
EXAM: CHEST-PORTABLE INDICATION: ams TECHNIQUE: One view COMPARISON: 05/19/2019 FINDINGS: There are interstitial infiltrates with a basilar predominance bilaterally suggesting pulmonary edema. There is stable linear scarring in the left midlung zone. There is trace fissural fluid on the right. No large effusion is appreciated, however. No pneumothorax is identified. There is stable cardiomegaly and suggestion of pulmonary venous congestion. IMPRESSION: Pulmonary venous congestion and mild interstitial edema as described. Electronically signed by Claude Garza 10/29/2019 11:40 AM
[2019-10-29 12:19] LABS: ALLEN TEST NO; BE -6.4 mmoll (-3.0-3.0); BLOOD TYPE ARTERIAL; HCO3-(ACT) 19.9 mmoll (20.0-26.0); METHB 1.1 % (0.0-1.5); O2(CT) 20.8 mL/dL (15.0-23.0); O2HB 95.7 % (95.0-99.0); PCO2(98.6) 21 mmHg (35-45); PO2(98.6) 116 mmHg (60-100); SAMPLE BLOOD; SAO2 99.1 % (95.0-100.0); THB 15.4 g/dL (11.5-17.4); pH(98.6) 7.46 (7.35-7.45)
[2019-10-29 12:22] LABS: MODALITY CANNULA
[2019-10-29 12:39] LABS: INR 1.56; PROTIME 18.9 Seconds (11.0-16.0)
[2019-10-29 12:40] LABS: PTT 40.3 Seconds (22.3-41.8)
[2019-10-29 12:44] LABS: BASO# 0.05 X1000 (0.0-0.2); BASO% 0.6 % (0.0-0.8); EOS# 0.03 X1000 (0.0-0.7); EOS% 0.4 % (0.0-10.0); HEMATOCRIT 47.8 % (42.0-52.0); IMM GRAN# 0.06 X1000 (0.0-0.04); IMM GRAN% 0.8 % (0.0-0.5); LYMPH# 1.07 X1000 (1.2-3.4); LYMPH% 13.6 % (20.5-51.1); MCH 30.4 PG (27-31); MCHC 31.4 g/dL (33-37); MONO# 1.03 X1000 (0.11-0.59); MONO% 13.1 % (1.7-9.3); MPV 9.4 FL (7.4-10.4); NEUT# 5.63 X1000 (1.4-6.5); NEUT% 71.5 % (42.2-75.2); PLT 279 X1000 (130-400); RBC 4.93 XMIL (4.7-6.1); RDW 17.7 % (11.5-14.5); WBC 7.87 X1000 (4.8-10.8)
[2019-10-29 13:15] LABS: ESTIMATED GFR > 60
[2019-10-29 13:25] LABS: AGAP 21; ALB/GLOB RATIO 0.6; ALBUMIN 2.8 g/dL (3.5-5.0); ALKALINE PHOSPHATASE 176 U/L (32-122); BUN 31 mg/dL (8-22); CALCIUM 9.6 mg/dL (8.8-10.2); CHLORIDE 97 mmol/L (98-107); CK PROFILE 77 U/L (24-204); COSMO 272; CREATININE 1.4 mg/dL (0.7-1.2); GLUCOSE 86 mg/dL (70-104); GOT 25 U/L (10-34); GPT 9 U/L (10-44); PHOSPHORUS 3.6 mg/dL (2.7-4.5); POTASSIUM 4.9 mmol/L (3.5-5.1); SODIUM 133 mmol/L (136-145); TCO2 15 mmol/L (25-35); TOTAL BILIRUBIN 4.47 mg/dL (0.20-1.00); TOTAL PROTEIN 7.6 g/dL (6.3-8.3)
[2019-10-29] MEDS ORDERED: NS 500 ML IV ONE (13:45)
--- NOTE | 2019-10-29 13:49 | PROVIDER DOCUMENTATION ---
This chart was entered by Eliza Wright Scribe, acting as scribe for Avelino Gardner MD. HPI-Rash/Wound/ReCheck - General Stated Complaint: DIABETIC ULCERS Time Seen by Provider: 10/29/19 11:09 Source: patient, EMS ([facility]) Allergies/Adverse Reactions: Allergies Allergy/AdvReac Type Severity Reaction Status Date / Time No Known Allergies Allergy Verified 05/19/19 19:45 Home Medications: Home Medication List Medication Instructions Recorded Confirmed Last Taken Type Acetaminophen [Tylenol] 650 mg PO Q6H PRN PRN tab 03/25/19 05/19/19 Unknown Rx Metoprolol Succinate E.r. [Toprol 25 mg PO BID #60 tab 03/25/19 05/19/19 Unknown Rx Xl] Albuterol Sulfate Inhaler 2 puff INH Q6H PRN PRN 05/19/19 05/19/19 Unknown History [Ventolin Hfa] Amitriptyline HCl 75 mg PO DAILY 05/19/19 05/19/19 Unknown History Ascorbic Acid [Vitamin C] 500 mg PO DAILY 05/19/19 05/19/19 Unknown History Cholecalciferol (Vitamin D3) 50,000 unit PO ORDERED 05/19/19 05/20/19 Unknown History [Vitamin D3] Furosemide [Lasix] 40 mg PO DAILY 05/19/19 05/19/19 05/15/19 09:00 History Iron Polysaccharide Complex [Ezfe 200 mg PO DAILY 05/19/19 05/19/19 Unknown History 200] Magnesium Oxide 400 mg PO DAILY 05/19/19 05/19/19 Unknown History Apixaban [Eliquis] 5 mg PO BID 30 Days #60 tab 05/21/19 Unknown Rx - History of Present Illness-Dermatology Nature of Presenting Problem: 64 yobm presents to the ed via ems ([facility]) for c/o generalized pain, double vision, cough, diabetic ulcerations to BLE and decubitus ulcerations to buttock. pt sts onset has been gradual and worsening. he had home health but it was cancelled so pt has ot had wound bandages changed in approximately 3 weeks. pt is a uncontrolled diabetic and lives alone. his daughter comes by sometimes to check in on him but otherwise has no help. pt is unkept in appearance and has on soiled with urine briefs Location: reports: lower extremity, other (buttocks) Quality: reports: painful Severity: reports: moderate Onset/Duration: reports: gradual Timing: reports: still present, constant, getting worse Context/Associated Symptoms: reports: change in skin texture, edema (from abd to feet), lesion, tender area Locality of Occurance: Home Similar Symptoms Previously?: Yes Recently seen or treated by another doctor?: No Review of Systems - Adult - REVIEW OF SYSTEMS - ADULT Constitutional: denies: chills, fever Eyes: reports: see HPI, double vision Ears, Nose, Mouth & Throat: reports: no symptoms reported Cardiovascular: reports: no symptoms reported Respiratory: reports: see HPI, cough. denies: shortness of breath, wheezing Gastrointestinal: denies: diarrhea, nausea, vomiting Genitourinary: reports: no symptoms reported Musculoskeletal: reports: see HPI, other (generalized pain) Integumentary: reports: see HPI, skin sores/ulcer Neurological: denies: dizziness/vertigo, headache/migraines Psychiatric: reports: no symptoms reported Endocrine: reports: no symptoms reported Hematologic/Lymphatic: reports: no symptoms reported Allergic/Immunologic: reports: no symptoms reported All Other Systems: Reviewed and Negative Past History - Adult - PAST MEDICAL HISTORY-ADULT Review of Records: reports: Old Records Reviewed, Nursing Assessment Review, Medications Reviewed, Social history reviewed & non-contributory. Major Childhood Illnesses: reports: denies history Cardiovascular: reports: A-Fib, blood clots, CHF, HTN, hyperlipidemia Respiratory: reports: asthma Gastrointestinal: reports: denies history Genitourinary: reports: denies history Musculoskeletal: reports: chronic pain Neurological: reports: denies history Psychiatric: reports: anxiety Endocrine/Immune: reports: Diabetes Diabetes Type: Type 2 Other Conditions: reports: denies history - PRIOR SURGERIES/PROCEDURES Surgical/Procedure History: reports: reviewed, not pertinent - IMMUNIZATION STATUS Childhood Immunizations: See Nurse Assessment Flu Vaccine: See Nurse Assessment - FAMILY HISTORY Family History: reviewed, not pertinent - SOCIAL HISTORY Smoking: denies Substance Use: denies Living Situation: family Physical Exam-General - PHYSICAL EXAM-ADULT Initial Vital Signs Reviewed: Yes (noted BP 99/70 HR 86) - CONSTITUTIONAL General Appearance: alert, no apparent distress (pt c/o generalized pain but appears to be in no distress), obese - EYES Eyes: PERRL/EOMI, pink conjunctivae - HEAD, EARS, NOSE, MOUTH & THROAT HENMT: moist mucous membranes - NECK Neck: non-tender, full range of motion, supple, normal inspection - RESPIRATORY Respiratory: chest non-tender, lungs clear, normal breath sounds, increased rate (25) - CARDIOVASCULAR Cardiovascular: tachycardia (118) - CHEST (BREASTS) Chest/Breast: deferred - GASTROINTESTINAL (ABDOMEN) Abdominal Exam: normal bowel sounds, soft, other (pt has edema noted to abdomen) - GENITOURINARY Male Genitalia: scrotal swelling Rectal Exam: other (pt has stage 2 quarter size ulceration noted to gluteal fold) Hemoccult Exam: deferred - MUSCULOSKELETAL Back Exam: no CVA tenderness, no vertebral tenderness Extremity: pelvis stable, other (multiple ulcerations to BLE with purlent discharge and foul odor. BLE skin changes are noted with statsis. pt has dry gangrene on left lateral great toe) - SKIN Integumentary: warm/dry, decubitus (gluteal fold), other (ulcerations noted on BLE) - NEUROLOGIC Neurologic: grossly normal - PSYCHIATRIC Psych/Mental Status: normal mood/affect, normal thought content, normal thought process, oriented x 3 Progress - PLAN OF CARE/RESULTS Progress/Plan/Lab Results: Vital Signs - 8 hr 10/29/19 11:16 10/29/19 12:12 Temperature 97.8 F Pulse Rate 103 H Respiratory Rate 25 H Blood Pressure 101/80 O2 Sat by Pulse Oximetry 96 96 10/29/19 11:57 Influenza Screen - Final Nasopharyngeal Laboratory Results - last 24 hr 10/29/19 10/29/19 10/29/19 11:00 11:57 11:57 WBC RBC Hgb Hct MCV MCH MCHC RDW Std Deviation Plt Count MPV Immature Gran % (Auto) Neut % (Auto) Lymph % (Auto) [place] % (Auto) Eos % (Auto) Baso % (Auto) Immature Gran # (Auto) Neut # (Auto) Lymph # (Auto) [place] # (Auto) Eos # (Auto) Baso # (Auto) PT INR PTT (Actin FS) Specimen Type ARTERIAL Sample Site L BRACHIAL pH 7.46 H pCO2 21 L pO2 116 H HCO3 19.9 L Base Excess -6.4 L Oxyhemoglobin 95.7 ABG O2 Sat (Calculated) 20.8 ABG O2 Saturation 99.1 ABG Carboxyhemoglobin 2.20 ABG Methemoglobin 1.1 Neal Test NO A-a O2 Difference 57.0 Total Hemoglobin 15.4 Lactate 4.30 H* Liter Flow 2.0 Blood Gas Modality CANNULA FiO2 % 28.0 Sodium 133 L Potassium 4.9 Chloride 97 L Carbon Dioxide 15 L Anion Gap 21 BUN 31 H Creatinine 1.4 H Estimated GFR/1.73 m2 > 60 BUN/Creatinine Ratio 22 Glucose 86 POC Glucose 79 D Calculated Osmolality 272 Calcium 9.6 Phosphorus 3.6 Magnesium 2.0 Total Bilirubin 4.47 H AST 25 ALT 9 L Alkaline Phosphatase 176 H Creatine Kinase 77 Troponin T High Sens Dat-G-Isvbtyqlfev Pept Total Protein 7.6 Albumin 2.8 L Globulin 4.8 Albumin/Globulin Ratio 0.6 Plasma Lactate 10/29/19 10/29/19 10/29/19 11:57 11:57 11:57 WBC RBC Hgb Hct MCV MCH MCHC RDW Std Deviation Plt Count MPV Immature Gran % (Auto) Neut % (Auto) Lymph % (Auto) [place] % (Auto) Eos % (Auto) Baso % (Auto) Immature Gran # (Auto) Neut # (Auto) Lymph # (Auto) [place] # (Auto) Eos # (Auto) Baso # (Auto) PT INR PTT (Actin FS) Specimen Type Sample Site pH pCO2 pO2 HCO3 Base Excess Oxyhemoglobin ABG O2 Sat (Calculated) ABG O2 Saturation ABG Carboxyhemoglobin ABG Methemoglobin Neal Test A-a O2 Difference Total Hemoglobin Lactate Liter Flow Blood Gas Modality FiO2 % Sodium Potassium Chloride Carbon Dioxide Anion Gap BUN Creatinine Estimated GFR/1.73 m2 BUN/Creatinine Ratio Glucose POC Glucose Calculated Osmolality Calcium Phosphorus Magnesium Total Bilirubin AST ALT Alkaline Phosphatase Creatine Kinase Troponin T High Sens 198 H* Zkf-N-Eixmglidjgb Pept 4282 H Total Protein Albumin Globulin Albumin/Globulin Ratio Plasma Lactate 5.0 H* 10/29/19 10/29/19 11:57 11:57 WBC 7.87 RBC 4.93 Hgb 15.0 Hct 47.8 MCV 97.0 MCH 30.4 MCHC 31.4 L RDW Std Deviation 17.7 H Plt Count 279 MPV 9.4 Immature Gran % (Auto) 0.8 H Neut % (Auto) 71.5 Lymph % (Auto) 13.6 L [place] % (Auto) 13.1 H Eos % (Auto) 0.4 Baso % (Auto) 0.6 Immature Gran # (Auto) 0.06 H Neut # (Auto) 5.63 Lymph # (Auto) 1.07 L [place] # (Auto) 1.03 H Eos # (Auto) 0.03 Baso # (Auto) 0.05 PT 18.9 H INR 1.56 PTT (Actin FS) 40.3 Specimen Type Sample Site pH pCO2 pO2 HCO3 Base Excess Oxyhemoglobin ABG O2 Sat (Calculated) ABG O2 Saturation ABG Carboxyhemoglobin ABG Methemoglobin Neal Test A-a O2 Difference Total Hemoglobin Lactate Liter Flow Blood Gas Modality FiO2 % Sodium Potassium Chloride Carbon Dioxide Anion Gap BUN Creatinine Estimated GFR/1.73 m2 BUN/Creatinine Ratio Glucose POC Glucose Calculated Osmolality Calcium Phosphorus Magnesium Total Bilirubin AST ALT Alkaline Phosphatase Creatine Kinase Troponin T High Sens Vjr-T-Qmobfgtrlps Pept Total Protein Albumin Globulin Albumin/Globulin Ratio Plasma Lactate Orders Category Date Time Status Cardiac Monitoring NOW Care 10/29/19 11:32 Active Finger Stick Blood Sugar (ED) DIRECTED Care 10/29/19 11:21 Active Notify Provider of NEWS Score NOW Care 10/29/19 11:32 Active Nursing- Obtain EKG once Care 10/29/19 11:21 Active Saline Loc NOW Care 10/29/19 11:22 Active CHEST-PORTABLE [RAD] Stat Exams 10/29/19 11:24 Completed ABG [RESP] Routine Lab 10/29/19 11:00 Completed BLOOD CULTURE [BLDCUL] Stat Lab 10/29/19 12:06 Received CBC WITH ELECTRONIC DIFF [HEME] Stat Lab 10/29/19 11:57 Completed CK PROFILE [SP CHEM] Stat Lab 10/29/19 11:57 Completed COMPREHENSIVE METABOLIC PANEL [CHEM] Stat Lab 10/29/19 11:57 Completed INFLUENZA SCREEN A/B Stat Lab 10/29/19 11:57 Completed LACTATE, PLASMA [CHEM] Stat Lab 10/29/19 11:57 Completed MAGNESIUM [CHEM] Stat Lab 10/29/19 11:57 Completed PRO B-NATRIURETIC PEPTIDE Stat Lab 10/29/19 11:57 Completed PROTIME WITH INR [COAG] Stat Lab 10/29/19 11:57 Completed PTT [COAG] Stat Lab 10/29/19 11:57 Completed ROUTINE CULTURE [RM] Routine Lab 10/29/19 11:57 Received TROPONIN T HIGH SENSITIVITY Stat Lab 10/29/19 11:57 Completed URINALYSIS W/POSS RFLX CULT [URINALYSIS] Stat Lab 10/29/19 11:24 Uncollected WOUND CULTURE INC GRAM STAIN [RM] Routine Lab 10/29/19 11:57 Received phos [PHOSPHORUS] [CHEM] Stat Lab 10/29/19 11:57 Completed 0.9% Sodium Chloride Inj [Ns] 1,000 ml Med 10/29/19 11:26 Discontinued IV 999 mls/hr Furosemide [Lasix] Med 10/29/19 11:26 Discontinued 80 mg IV NOW ONE Ns 1000 ml IV Bolus X1 Med 10/29/19 13:45 Ordered 0.9% Sodium Chloride Inj [Ns] 1,000 ml IV 999 mls/hr Ns 500 ml IV Bolus X1 Med 10/29/19 13:45 Ordered 0.9% Sodium Chloride Inj [Ns] 500 ml IV 999 mls/hr Piperacillin/Tazobactam [Zosyn] 4.5 gm Med 10/29/19 11:26 Discontinued 0.9% Sodium Chloride Inj [Ns] 100 ml IV NOW Vancomycin 1 gm/Ns Med 10/29/19 11:26 Discontinued 1 gm in 250 ml IV NOW O2 Per Protocol Stat Oth 10/29/19 11:32 Completed EKG [EKG] Stat Ther 10/29/19 11:22 Ordered Result Diagrams: 10/29/19 11:57 10/29/19 11:57 - REASSESSMENT Reassessment #1 Time Reassessed: 13:46 Status: improving (Patient has lactate 5.0, likely severe sepsis, but not septic shock. Will need IV bolus of 30ml/kg of IDBW. Using the IDBW calculator, he requires 2500ml fluids IV. However, he also is volume overloaded with CHF/pulmonary edema, so will need IV lasix 80mg. Given Vanc/zosyn for diabetic gangrene/cellulitis) - EKG 1 Time of EKG reading by physician:: 12:10 EKG Read and Signed by:: Avelino Gardner EKG Interpretation (*Must complete 3 of following elements*): Abnormal Rate: 105 Rhythm: a flutter with variable av block [place]: right QRS: other (low voltage qrs) IN Interval: normal ST Wave: normal Comments: cannot rule out anterior infarct, age undetermined - XRAY 1 XRAY: Bilateral XRAY Study: Chest Impression: See EMR Report (IMPRESSION: Pulmonary venous congestion and mild interstitial edema as described. Electronically signed by Claude Garza 10/29/2019 11:40 AM) - CONSULTS/PCP/HOSPITALIST Notification #1 *Consult/PCP/Hospitalist*: hospitalist dr roberts Time Discussed: 13:44 (spoke with Toyin) Consult Disposition: Will see in ED, Admit Departure - Departure Date of Disposition Decision: 10/29/19 Time of Disposition Decision: 13:47 DIAGNOSIS: Severe sepsis with acute organ dysfunction, Gangrene of left foot, Cellulitis of left leg, Anasarca, Sacral decubitus ulcer, stage II CHF (congestive heart failure), NYHA class IV Qualifiers: Congestive heart failure type: combined Congestive heart failure chronicity: acute on chronic Qualified Code(s): I50.43 - Acute on chronic combined systolic (congestive) and diastolic (congestive) heart failure Disposition: ADMITTED INPATIENT 09 Certified Medical Emergency: Emergent Condition: Critical Referrals and Follow-Ups: Jose Daniel Hannah CRNP [Primary Care Provider] - - Critical Care Note This patient required my direct & personal management of CC.: Yes Total Time (mins): 45 Critical Care Statement: This patient required my direct personal management to treat or rule out processes, the absence of which, could potentiallly result in sudden, clinically significant life or limb threatening deterioration. Attestation - Physician/ ALESHIA Attestation Patient care was provided by Advanced Practice Provider:: No The physician spent face to face time with patient:: Yes Advanced Practice Provider documentation review:: Supervising physician onsite and consulted in the evaluation and care of this patient. The physician did have a face to face encounter with the patient. This chart was documented by the indicated scribe, (Eliza Wright Scribe) and accurately reflects the services I performed and decisions made by me, Avelino Gardner MD, as attested by the provider's signature.
--- NOTE | 2019-10-29 15:13 | HISTORY AND PHYSICAL ---
PRIMARY CARE PHYSICIAN: Dr. Jose Daniel Hannah. CHIEF COMPLAINT: Generalized pain to bilateral lower extremities secondary to diabetic ulcerations to bilateral lower extremities, and a decubitus ulceration to his buttock. HISTORY OF PRESENTING ILLNESS: This is a 64-year-old -[place] male, who presents to [facility] via EMS for complaints of generalized pain and diabetic ulcerations to bilateral lower extremities, also notes a decubitus ulceration to his buttock and has gradually been worsening. He had some home health but it was canceled at some point and so for the past 3 weeks, his bandages have not been changed. He has uncontrolled diabetes and lives alone. His daughter does come in to check on him but otherwise has no help. When he arrived, he appeared unkempt in appearance and had soiled himself with urine in his briefs. His bilateral lower extremities had multiple ulcerations with purulent drainage and foul odor. His skin changes are noted with stasis. He had some dry gangrene on the left lateral great toe. He had a decubitus to the gluteal fold. His lactate was 5. His white blood cell count was normal at 7.80. He had a creatinine of 1.4, which is slightly elevated as he has a normal creatinine of 0.7 to 1. His proBNP was 4282, which appears to be somewhat around his baseline. So he will be admitted to the Medical Unit for further evaluation and treatment. PAST MEDICAL HISTORY: Nonischemic cardiomyopathy, chronic systolic congestive heart failure with a known ejection fraction of 25%, multiple superficial venous thrombosis of the bilateral lower extremities, chronic atrial fibrillation, Karen's gangrene, pulmonary hypertension, anxiety, moderate aortic stenosis, and essential hypertension. PAST SURGICAL HISTORY: An I and D of scrotal lesion and a right hydrocelectomy. FAMILY HISTORY: Reviewed and noncontributory. SOCIAL HISTORY: He currently lives alone. Daughter does come to check on him periodically. Denies any tobacco, alcohol, or illicit drug use. ALLERGIES: He has no known drug allergies. HOME MEDICATIONS: A current list will need to be obtained, reconciled, reviewed, restarted as appropriate. Will place an order for nursing to update and confirm home medications. LABORATORY DATA: Showed a white blood cell count of 7.87, hemoglobin 15, hematocrit 47.8, platelets 279,000. PT and INR of 18.9 and 1.56. ABG with a pH of 7.46, pCO2 of 21, pO2 116, bicarbonate 19.9 with a lactate of 4.30 on 2 L via nasal cannula. Sodium 133, potassium 4.9, chloride 97, CO2 of 15, BUN of 31, creatinine 1.4, magnesium of 2. Troponin T high- sensitivity was 198. ProBNP of 4282. Plasma lactate of 5. Chest x-ray showed pulmonary venous congestion and mild interstitial edema. REVIEW OF SYSTEMS: He denied any fever, chills, blurred vision, dizziness, chest pain, coughing, shortness of breath. He does have pain to bilateral lower extremities secondary to his ulcerations to the bilateral lower extremities. Denied any abdominal pain, constipation, diarrhea, burning or hurting with urination. PHYSICAL EXAMINATION: VITAL SIGNS: On arrival, he had a temperature of 97.8 degrees, pulse 103, respirations 25, blood pressure 101/80, saturating 96% on 2 L via nasal cannula. GENERAL: This is a 64-year-old -[place] male lying in the bed, answers questions appropriately. HEEMNT: Normocephalic, atraumatic. Normal ENT inspection. Oropharynx and nares are clear. EYES: Pupils are equal, round, reactive to light and accommodation. Extraocular movements are intact. NECK: Normal inspection, normal range of motion. LUNGS: Clear to auscultation bilaterally with equal lung expansion and chest wall movement. HEART: He did have some mild tachycardia. No murmurs, rubs, or gallops. ABDOMEN: Soft, nontender. Bowel sounds are present x4 quadrants. Does note some nonpitting edema to his abdomen. EXTREMITIES: He has multiple ulcerations to bilateral lower extremities with a purulent drainage and foul-smelling odor. He has some dry gangrene on the left lateral great toe. He has about a stage 2 quarter-sized ulceration to the left gluteal fold. NEUROLOGICAL: The cranial nerves II through XII appear grossly intact. ASSESSMENT: 1. Sepsis. 2. Bilateral lower extremity cellulitis. 3. Stage 2 decubitus to left gluteal fold. 4. Acute kidney injury. PLAN: He will be admitted to the Medical Unit, placed on telemetry, diabetic diet, healthy heart diet, SCDs for DVT prophylaxis. We will consult General Surgery, place on Zosyn 4.5 g IV q.6., vancomycin per Pharmacy protocol, normal saline at 75 mL/hour, Lovenox 40 mg subcutaneously for DVT prophylaxis. Update and confirm home medications. He received 80 mg of IV Lasix in the emergency room, I am going to wait to give any more until seen by attending. We will recheck a CBC and BMP in the a.m. Further orders after seen by attending and internal control consultant. Dictated by FERNY Jimenez for Joe Weston MD cc: FERNY Jimenez MD Charles Misori, CRNP
[2019-10-29] MEDS ORDERED: NS 1,000 ML IV SCH (15:45)
[2019-10-29] MEDS ORDERED: LOVENOX SUBQ SCH (15:45)
[2019-10-29] MEDS ORDERED: VANCOMYCIN IV PER PHARMACY MISC SCH (15:45)
[2019-10-29] MEDS ORDERED: ZOFRAN IV PRN (15:45)
[2019-10-29] MEDS ORDERED: D50W SYRINGE IV ONE (15:54)
--- NOTE | 2019-10-29 17:52 | HISTORY AND PHYSICAL ---
ADDENDUM: OBJECTIVE: The patient came in. I am going to stop his fluids. He looked like he was puffy puffy. LABORATORY DATA: Creatinine 1.4. He just looks like he is working hard to breathe and his chest x-ray shows edema. In any case, the patient is stable although he looks like he is working a little harder to breathe. I am not sure if he has underlying heart failure, but he has decubitus ulcers. He has got an ischemic toe on the left foot. He has been getting wound care, but apparently that stopped somehow over for the last several weeks. He has got heart failure with an EF of 25%, so I have to be careful with the fluids. In any case, he has got cellulitis. We will give him antibiotics. He has gotten a sepsis protocol, but I think now we are going to have to consider turning around and giving him some diuretics because it looks like his respiratory status is a bit worse. His creatinine is usually more normal. It is 1.4. We will continue to trend that and see how things go. I believe his elevated troponin is probably related to his sepsis. We will get a surgical consult because he may need debridement and he does have an ischemic foot. He has got chronic venous changes, so we will see how things go from that standpoint. cc: Joe Weston MD
--- NOTE | 2019-10-29 18:06 | EKG Report ---
Test Performed on : 10/29/2019 12:10:48 PM Test Reason : cp Blood Pressure : / mmHG Vent. Rate : 105 BPM Atrial Rate : 374 BPM P-R Int : 000 ms QRS Dur : 084 ms QT Int : 320 ms P-R-T Axes : 000 101 -03 degrees QTc Int : 422 ms Atrial flutter. with variable AV block. Rightward axis Low voltage QRS Cannot rule out Anterior infarct (cited on or before 23-MAR-2019) Abnormal ECG When compared with ECG of 20-MAY-2019 06:36, QT has shortened Unconfirmed Result
[2019-10-29] MEDS ORDERED: NS 500 ML ONE (19:21)
[2019-10-29] MEDS: LASIX IV SCH ×2 (19:23→20:21)
[2019-10-29] MEDS: ZYVOX 600 MG/D5W 600 MG/300 ML IVPB IV SCH (20:29)
[2019-10-29] MEDS: ZOSYN 4.5 GM in NS 100 ML IV SCH (20:29)
[2019-10-29] MEDS: D50W SYRINGE IV PRN (23:50)
[2019-10-30 01:36] LABS: ALLEN TEST YES; BE -9.3 mmoll (-3.0-3.0); BLOOD TYPE ARTERIAL; HCO3-(ACT) 17.6 mmoll (20.0-26.0); O2HB 96.2 % (95.0-99.0); PCO2(98.6) 24 mmHg (35-45); PO2(98.6) 121 mmHg (60-100); SAMPLE BLOOD; SAO2 99.6 % (95.0-100.0); THB 14.7 g/dL (11.5-17.4); pH(98.6) 7.37 (7.35-7.45)
[2019-10-30 01:38] LABS: MODALITY CANNULA
[2019-10-30] MEDS: ZOSYN 4.5 GM in NS 100 ML IV SCH ×3 (02:22→13:45)
--- NOTE | 2019-10-30 03:00 | EKG Report ---
Test Performed on : 10/30/2019 01:28:35 AM Test Reason : afib Blood Pressure : / mmHG Vent. Rate : 100 BPM Atrial Rate : 115 BPM P-R Int : 000 ms QRS Dur : 082 ms QT Int : 382 ms P-R-T Axes : 000 108 007 degrees QTc Int : 492 ms Atrial fibrillation/ atrial flutter Rightward axis Low voltage QRS Cannot rule out Anterior infarct (cited on or before 23-MAR-2019) Abnormal ECG When compared with ECG of 29-OCT-2019 12:10, (Unconfirmed) QT has lengthened Confirmed by Rajiv Zhao MD ([id number]) on 11/01/2019 7:29:40 PM
[2019-10-30] MEDS: TYLENOL PO PRN (05:02)
[2019-10-30 07:57] LABS: BASO# 0.03 X1000 (0.0-0.2); BASO% 0.4 % (0.0-0.8); EOS# 0.02 X1000 (0.0-0.7); EOS% 0.3 % (0.0-10.0); HEMATOCRIT 48.2 % (42.0-52.0); HEMOGLOBIN 15.2 g/dL (14.0-18.0); IMM GRAN# 0.03 X1000 (0.0-0.04); IMM GRAN% 0.4 % (0.0-0.5); LYMPH# 0.62 X1000 (1.2-3.4); LYMPH% 7.8 % (20.5-51.1); MCH 30.7 PG (27-31); MCHC 31.5 g/dL (33-37); MCV 97.4 FL (81-99); MONO# 1.47 X1000 (0.11-0.59); MONO% 18.5 % (1.7-9.3); MPV 10.3 FL (7.4-10.4); NEUT# 5.76 X1000 (1.4-6.5); NEUT% 72.6 % (42.2-75.2); PLT 249 X1000 (130-400); RBC 4.95 XMIL (4.7-6.1); RDW 18.5 % (11.5-14.5); WBC 7.93 X1000 (4.8-10.8)
[2019-10-30] MEDS: LASIX IV SCH (08:15)
[2019-10-30] MEDS: ELAVIL PO SCH (08:15)
--- NOTE | 2019-10-30 08:29 | Diag Imaging Result Doc PS360 ---
EXAM: CHEST-PORTABLE INDICATION: dyspnea TECHNIQUE: One view COMPARISON: 10/29/2019 FINDINGS: Pulmonary venous congestion and edema appears to have worsened slightly. There is evidence of small bilateral effusions that appear to have slightly increased. No other new consolidation is identified. Cardiac silhouette is stable. IMPRESSION: Interval worsening of edema and increase in the small pleural effusions. Electronically signed by Claude Garza 10/30/2019 8:26 AM
[2019-10-30] MEDS ORDERED: MAG-OX PO SCH (09:00)
[2019-10-30] MEDS ORDERED: NIFEREX PO SCH (09:00)
[2019-10-30] MEDS ORDERED: LASIX PO SCH (09:00)
[2019-10-30] MEDS: ZYVOX 600 MG/D5W 600 MG/300 ML IVPB IV SCH ×2 (09:20→20:11)
[2019-10-30 10:56] LABS: CALCIUM 9.1 mg/dL (8.8-10.2); POTASSIUM 4.9 mmol/L (3.5-5.1)
[2019-10-30] MEDS ORDERED: HEMOCYTE PO SCH (12:00)
[2019-10-30 12:44] LABS: URINE SOURCE CLEAN CATCH
[2019-10-30] MEDS: HEMOCYTE PO SCH (12:46)
[2019-10-30 12:47] LABS: BILIRUBIN URINE SMALL (NEGATIVE); BLOOD URINE NEGATIVE (NEGATIVE); COLOR YELLOW; GLUCOSE URINE NEGATIVE (NEGATIVE); KETONE URINE TRACE mg/dL (NEGATIVE); LEUKOCYTES URINE LARGE (NEGATIVE); NITRITE URINE NEGATIVE (NEGATIVE); PH URINE 5.5; PROTEIN URINE 30 mg/dL (NEGATIVE); SP GRAVITY URINE 1.026; TURBIDITY URINE HAZY (CLEAR); UROBILINOGEN URINE NORMAL (NORMAL)
[2019-10-30 12:48] LABS: UR EPITHELIAL CELLS <10 /HPF (<10); URINE BACTERIA NEGATIVE /HPF; URINE WBC TNTC /HPF (<10)
[2019-10-30] MEDS ORDERED: NS 500 ML IV ONE (13:21)
[2019-10-30] MEDS ORDERED: D5 1/2 NS 1,000 ML IV SCH (14:30)
--- NOTE | 2019-10-30 14:57 | PROGRESS NOTE ---
DATE: 10/30/2019 SUBJECTIVE: Patient has no major complaints. He looks a little bit better than he did yesterday. He is not working as hard to breathe, but his lactate level is still very elevated. OBJECTIVE: Vital Signs: Blood pressure is 104/78, heart rate of 91, respiratory rate of 31, temp is 97.5 degrees. Cardiovascular: Regular rate and rhythm. Pulmonary: Bilateral breath sounds. Clear to auscultation. GI: Soft, nontender, nondistended. Bowel sounds are positive. Extremities: He still has fairly significant lesions on his lower extremities and ischemic toe lesion with eschar. PROBLEM LIST: 1. Sepsis with cellulitis. He is growing out gram-negative rods from his wounds. He also looks like he has got a urinary tract infection. We are cautiously trying to hydrate him because he has an elevated lactate level but he also has significant heart failure, so it is a difficult situation. 2. Laboratory data. His creatinine is up to 2. He has had chronic renal failure before, so we are going to monitor that. He is on broad spectrum antibiotics. Continue that for the time being. I may get an Business Taxes Specialist consult just because he has persistent lactic acidosis and I am not sure if that is truly just sepsis or is just heart failure and problems with perfusion. 3. Heart failure. We will continue diuresis, but we have to monitor his kidney function. If that is getting worse, we are going to have issues. But his chest x-ray shows worsening pulmonary edema. Will consider getting a Cardiology opinion. 4. Venous stasis. He had arterial studies. They actually looked pretty good, so this may just be chronic venous stasis. We cannot get an angiogram now because of his concurrent issues. 5. Acute kidney injury. We will continue to monitor. 6. Hypoglycemia which has happened previously and probably related to sepsis. He is on a D5 infusion at this time. We will continue to monitor. DISPOSITION: Prognosis is relatively poor. cc: Joe Weston MD
[2019-10-30] MEDS: LOVENOX SUBQ SCH (15:27)
[2019-10-30] MEDS ORDERED: VANCOMYCIN 1,600 MG in NS 250 ML IV SCH (16:00)
[2019-10-30] MEDS ORDERED: LASIX IV ONE (17:19)
[2019-10-30] MEDS: ALBUMIN 25% IV SCH (17:35)
[2019-10-30] MEDS ORDERED: LASIX IV SCH (18:00)
[2019-10-30] MEDS: ZOSYN 2.25 GM in NS 50 ML IV SCH (19:40)
[2019-10-31] MEDS: ZOSYN 2.25 GM in NS 50 ML IV SCH ×4 (02:45→20:05)
--- NOTE | 2019-10-31 04:19 | GENERAL SURGERY CONSULTATION ---
DATE: 10/31/2019 REASON FOR CONSULTATION: Lower extremity edema, cellulitis and wounds, and infected acute decubitus ulcer. HISTORY OF PRESENT ILLNESS: This is a 64-year-old male who has had chronic edema and wounds of his legs, who presented to the emergency department with complaints of worsening wounds. His home health had been canceled for some reason. His dressings have not been changed, and he was having a foul odor and drainage from his wounds. PAST MEDICAL HISTORY: Cardiomyopathy, congestive heart failure, chronic lower extremity edema with nonhealing wounds, history of Karen's gangrene, chronic atrial fibrillation, pulmonary hypertension, moderate aortic stenosis, and hypertension. PAST SURGICAL HISTORY: I and D of scrotal lesion and right hydrocelectomy. FAMILY HISTORY: Reviewed and noncontributory. SOCIAL HISTORY: He lives alone. Denies tobacco, alcohol or illicit drug use. ALLERGIES: No known drug allergies. CURRENT MEDICATIONS: Tylenol, Elavil, Lovenox, vitamin D, ferrous fumarate, Lasix, Zyvox, morphine, Zofran, Zosyn. REVIEW OF SYSTEMS: Ten systems reviewed and negative except as noted above. PHYSICAL EXAMINATION: Vital Signs: He is afebrile. Vital signs are stable. General: He is a chronically ill-appearing male in no distress. Cardiovascular: Regular rate and rhythm. Respiratory: Bilateral breath sounds. No work of breathing. Skin: There is a tiny gluteal and decubitus stage 2 on the right side without any necrotic tissue or foul odor. There is macerations and small spread out superficial ulcerations of both legs with associated edema and chronic skin thickening with venous stasis changes. LABORATORY DATA: CBC and metabolic profile reviewed and unremarkable. ASSESSMENT AND PLAN: The patient is a 64-year-old male with bilateral lower extremity venous stasis ulcers, congestive heart failure, gluteal decubitus ulcer. We will place a Mepilex over the gluteal ulcer and order Unna boot for the legs as well as leg elevation. cc: Denton Houston MD
[2019-10-31 05:10] LABS: BASO# 0.05 X1000 (0.0-0.2); BASO% 0.7 % (0.0-0.8); EOS# 0.06 X1000 (0.0-0.7); EOS% 0.8 % (0.0-10.0); HEMOGLOBIN 14.9 g/dL (14.0-18.0); IMM GRAN# 0.02 X1000 (0.0-0.04); IMM GRAN% 0.3 % (0.0-0.5); LYMPH# 0.75 X1000 (1.2-3.4); MCH 30.4 PG (27-31); MCHC 31.7 g/dL (33-37); MCV 95.9 FL (81-99); MONO# 1.07 X1000 (0.11-0.59); MONO% 14.3 % (1.7-9.3); MPV 9.7 FL (7.4-10.4); NEUT# 5.53 X1000 (1.4-6.5); NEUT% 73.9 % (42.2-75.2); PLT 309 X1000 (130-400); RDW 17.7 % (11.5-14.5); WBC 7.48 X1000 (4.8-10.8)
[2019-10-31 05:31] LABS: CALCIUM 8.6 mg/dL (8.8-10.2); CREATININE 1.9 mg/dL (0.7-1.2); POTASSIUM 4.8 mmol/L (3.5-5.1)
[2019-10-31] MEDS: ALBUMIN 25% IV SCH ×2 (05:39→17:55)
[2019-10-31] MEDS: LASIX IV SCH ×2 (05:59→18:22)
[2019-10-31 06:03] LABS: LYMPHS 11 % (21-51); MONO 13 % (1-9); SEGS 76 % (42-75)
--- NOTE | 2019-10-31 08:26 | CARDIOLOGY CONSULTATION ---
DATE: 10/30/2019 CONSULTATION REQUESTED BY: Hospitalist Service. REASON FOR CONSULTATION: Congestive heart failure. CHIEF COMPLAINT: Dyspnea, pain in the leg, swelling. HISTORY: Mr. Segal is an unfortunate 64-year-old black gentleman, who presented to the emergency room yesterday, October 28, at 1121 hours in the morning, complaining of increasing pain in the legs and dyspnea that has been going on for a few days. He had missed his medications for at least 2 days. He was unable to care for himself and then he ended up calling for help. Upon arrival to the emergency room, they did a chest x-ray that is reported as pulmonary venous congestion with mild interstitial edema. A proBNP level was checked; it was high at 4282. This is 1 of the highest that he has had before in the past. His initial sodium was low at 133, BUN was 31, creatinine 1.4. His oxygen on 2 L showed a pO2 of 116, pH 7.46. His white cell count was 7870. He was found to have extensive lesions in the legs. He was admitted for management of possible cellulitis, sepsis and heart failure. At the time of my examination, they are doing an echocardiogram on him. He is very short of breath when speaking. He is having pain in the legs. PAST HISTORY: Very extensive. He carries a diagnosis of a dilated nonischemic cardiomyopathy. He has been found to have aortic stenosis that is at least moderate. He has had 1 episode of atrial fibrillation in the past. He has diabetes mellitus. He has a surgical history positive for cellulitis of the pelvic area, scrotal debridement, Karen gangrene. His most recent hospital admission took place in May 2019 with diagnosis of exacerbation of congestive heart failure. FAMILY HISTORY: Really noncontributory. SOCIAL HISTORY: He lives by himself. He really has no home support. 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 Not a smoker or a drinker. HOME MEDICATIONS: Include the following: Amitriptyline 75 daily, vitamin D 3, furosemide 40 daily and magnesium oxide. REVIEW OF SYSTEMS: He is in theory a regular patient of Dr. Houston. He was seen at the office last time in January of 2019. At that time, the assessment was basically that he had the cardiomyopathy nonischemic with relatively low blood pressure, chronic heart failure systolic, and back then he was supposed to be taking metoprolol, spironolactone and Lasix. PHYSICAL EXAMINATION: Vital Signs: Today blood pressure is 95/75, pulse 81, respirations 18, temperature is 96.4 degrees. General: He is awake, alert, chronically ill, somewhat shaky, appears to be chronically nauseated. HEENT: Jugular venous distention. Chest: Diminished breath sounds. There is some abdominal wall edema. There are extensive lesions in the left anterior chest that may resemble a rash of shingles with significant scarring. Heart: Sounds are somewhat irregular. There is a prominent systolic murmur over the aortic area. Question of gallop. Abdomen: Shows abdominal wall edema, question of hepatomegaly. Extremities: Showed extensive ulcerations in the legs, chronic skin changes, diminished pulses. The legs are very swollen, 2+ to 3+ edema. Neurological: He follows simple commands. He appears to be alert, oriented x3. IMPRESSION: 1. Patient who is certainly chronically ill presenting with extensive cellulitis of the lower extremities, possible sepsis. 2. Chronic systolic heart failure, dilated nonischemic cardiomyopathy. 3. Aortic stenosis, moderate to severe. 4. Atrial fibrillation in the past. His electrocardiogram from admission showed atrial flutter versus coarse atrial fibrillation. It actually looks more like coarse atrial fibrillation. RECOMMENDATION: At this time, we will try to put him on some diuretics with albumin to achieve euvolemia. We cannot give him beta blockers here because he is really fluid overloaded. Echocardiogram has been done. The patient's general condition appears to be quite compromised. I want to check a pre-albumin level and also a procalcitonin. Further advice will follow. cc: Joss Farmer MD [facility]
[2019-10-31] MEDS: ELAVIL PO SCH (08:49)
[2019-10-31] MEDS: ZYVOX 600 MG/D5W 600 MG/300 ML IVPB IV SCH ×2 (08:49→20:43)
[2019-10-31 12:36] LABS: ALLEN TEST NO; BE -8.9 mmoll (-3.0-3.0); BLOOD TYPE ARTERIAL; METHB 1.1 % (0.0-1.5); MODALITY CANNULA; O2(CT) 20.2 mL/dL (15.0-23.0); O2HB 96.7 % (95.0-99.0); PCO2(98.6) 26 mmHg (35-45); PO2(98.6) 154 mmHg (60-100); SAMPLE BLOOD; SAO2 99.6 % (95.0-100.0); THB 14.7 g/dL (11.5-17.4); pH(98.6) 7.36 (7.35-7.45)
--- NOTE | 2019-10-31 14:02 | PROGRESS NOTE ---
DATE: 10/31/2019 SUBJECTIVE: Patient has no major complaints. OBJECTIVE: Vital Signs: Blood pressure is 113/64, heart rate of 102 respiratory rate 27, temperature 98.1 degrees, satting 96% on 5 L. Cardiovascular: Regular rate and rhythm. Pulmonary: Bilateral breath sounds. Clear to auscultation. GI: Soft, nontender, nondistended. Bowel sounds are positive. LABORATORY DATA: White count is 7, hemoglobin and hematocrit 14 and 47, platelets 309. A pH 7.36, pCO2 26, PaO2 154. Lactate is down to 3.3 thankfully. Creatinine of 1.9. Pre-albumin is less than 3. PROBLEM LIST: 1. Sepsis and infected decubitus ulcers. He has a Pseudomonas positive culture. We are going to continue empiric antibiotics. One of the cultures is also positive for gram-positive cocci; so we will continue the Zyvox for the time being. 2. Acute systolic heart failure exacerbation. He got worse with fluids, so we will continue diuresis. I appreciate Dr. Farmer's assistance. We are going to get albumin and see how he does. 3. Chronic venous stasis ulcers. Surgery is following. He is going to get wound care. He is in Unna boots. 4. Hypoglycemia. We will supplement and follow. Seems to be resolving. 5. Acute on chronic renal failure. Aware of diagnosis. Continue to monitor. DISPOSITION: Pending clinical status. cc: Joe Weston MD
[2019-10-31] MEDS: LOVENOX SUBQ SCH (14:29)
--- NOTE | 2019-10-31 15:28 | ECHO REPORT ---
ORDER DATE: 10/31/2019 ECHOCARDIOGRAPHIC MEASUREMENTS: 1. Interventricular septum 1.1. 2. Left ventricular posterior wall 1.1. 3. Diastolic diameter 5.5. 4. Left atrium 5.2. 5. Aorta 3.6. 6. Left atrial end systolic volume index 68.63. 7. Aortic valve leaflets severely calcified, trileaflet by planimetry. Aortic valve area of 0.8 sq cm. 8. Mitral valve was normal. There is moderate to severe mitral annular calcification. There is moderate severe mitral regurgitation. 9. Tricuspid leaflets have restricted movement appeared to be tethered. 10. Mitral valve leaflets normal. 11. There is severe biatrial enlargement. 12. Right ventricle is dilated with severely reduced right ventricular systolic function. 13. There is severe tricuspid regurgitation. Peak velocity across the tricuspid valve was 2.6 m/sec. 14. Pulmonary artery systolic pressure of 40 mmHg. 15. Normal left ventricular cavity size with severely reduced systolic function. Estimated ejection fraction of 25%. 16. Peak velocity across the aortic valve was 2.5 m/sec with a mean gradient of 16 mmHg. Aortic valve area of 1 square cm by VTI. Left ventricular stroke volume index of 22.8. There is low-flow, low gradient, severe aortic stenosis. 17. Moderator band noted in the right ventricle, normal variant. 18. There is trace posterior pericardial effusion. There is no tamponade. Pleural effusion noted. cc: MD Joe Vidal MD [facility]
--- NOTE | 2019-10-31 15:50 | PULMONOLOGY CONSULTATION ---
DATE: 10/31/2019 REQUESTING PROVIDER: Dr. Joe Weston. REASON FOR CONSULTATION: Septic shock, heart failure. HISTORY OF PRESENT ILLNESS: This is a 64-year-old male who was initially admitted on October 29, 2019 with sepsis secondary to bilateral lower extremity cellulitis. He has a significant medical history of congestive heart failure and had multiple hospital admissions last year secondary to congestive heart failure. Upon arrival to the ER, the patient was desaturated on room air. He was put on nasal cannula at 4 L. Initial blood work also showed acute renal failure, elevated troponin T, elevated proBNP. Chest x-ray showed pulmonary venous congestion with mild interstitial edema suggesting acute on chronic systolic congestive heart failure exacerbation. The patient currently is lying in bed on nasal cannula at 5 L with oxygen saturation staying at the high 90s. He has no fever in the last 24 hours. He did show some mild tachypnea at this time. He is complaining of cough and shortness of breath with any activities including speaking. He reports no fever, chills, chest pain, palpitation, bowel habit change, urination discomfort. He has constant pain in the bilateral lower extremities which has improved some since admission. He still has general weakness. There is no family at the bedside. PAST MEDICAL HISTORY: 1. Nonischemic cardiomyopathy. 2. Chronic systolic congestive heart failure with known ejection fraction of 25%. 3. Moderate aortic stenosis. 4. Multiple superficial venous thrombosis of the bilateral lower extremities. 5. Chronic atrial fibrillation. 6. Karen gangrene. 7. Uncontrolled diabetes mellitus type 2. 8. Pulmonary hypertension. 9. Anxiety. 10. Essential hypertension. PAST SURGICAL HISTORY: I D of scrotal lesion and a right hydrocelectomy. FAMILY HISTORY: Reviewed and noncontributory. SOCIAL HISTORY: The patient lives at home alone. He has his daughter coming to check on him occasionally. He has no history of alcohol, tobacco, or illicit drug use. 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 ALLERGIES: No known drug allergies. REVIEW OF SYSTEMS: A 10-point review of systems was conducted and the pertinent is listed within the HPI, otherwise noncontributory. PHYSICAL EXAMINATION: Vital Signs: Temperature 96.7, blood pressure 103/83, pulse 83, respiratory rate 16, oxygen saturation 97% on nasal cannula at 5 L. General: Lying in bed with no acute distress noted initially, but as the patient started talking some mild shortness of breath noted. HEENT: Atraumatic, normocephalic. Trachea midline. Mucosa pink and moist. Pupils equal, round, reactive to light. Respiratory: Even and unlabored initially. As patient started to talk he developed some mild tachypnea and shortness of breath with mild increased work of breathing but no accessory muscle use noted. Symmetrical excursion. Auscultation revealed diminished breathing sounds bilaterally, but no wheezing noted. Cardiovascular: Regular rate and rhythm with S1 and S2 appreciated. Gastrointestinal: Soft, nontender, nondistended. Bowel sounds present in all 4 quadrants. Extremities: Bilateral lower extremities, multi-ulcerations of bilateral lower extremities with dry and clean dressing at this time. Dry gangrene noted on the left lateral great toe. No cyanosis. Neurologic: Alert and oriented x3. Speech fluent. Follows commands. LAB DATA: White blood cells 7.48, hemoglobin 14.9, hematocrit 47.0, platelet 309,000. Sodium 147, potassium 4.8, chloride 102, carbon dioxide 17, BUN 37, creatinine 1.9, glucose 115. ABG, pH 7.36, pCO2 26, PO2 154, HC03 18.0, base excess -8.9, oxyhemoglobin 96.7, lactate 3.30 on nasal cannula at 5 L. IMAGING DATA: Chest x-ray on October 30, 2019 showed interval worsening of edema and increase in the small pleural effusions. ASSESSMENT: This is a 64-year-old male with a medical history of nonischemic cardiomyopathy, extensive chronic systolic congestive heart failure, multiple superficial venous thrombosis of the bilateral lower extremities, chronic atrial fibrillation, moderate aortic stenosis, uncontrolled diabetes mellitus type 2, pulmonary hypertension, anxiety, and essential hypertension. He had multiple hospitalization last year secondary to congestive heart failure. He has been admitted since October 29, 2019 with sepsis secondary to bilateral lower extremity cellulitis and acute on chronic congestive heart failure exacerbation. 1. Acute hypoxemic respiratory failure. 2. Sepsis and shock with no fever or leukocytosis. Shock possibly secondary to diuretic therapy since admission. 3. Worsening pulmonary edema with increased small bilateral effusions. 4. Bilateral lower extremity cellulitis. Left leg wound culture grew Pseudomonas aeruginosa which is sensitive to Zosyn. 5. Acute on chronic renal failure. 6. Acute on chronic congestive heart failure exacerbation with pulmonary edema, pleural effusions, and proBNP elevation. PLAN: 1. Supplemental oxygen as needed with titrated supplemental oxygen to the patient's needs per clinical protocol. We will keep monitoring the patient's response closely. 2. Diuretic as tolerated. Patient currently on Lasix 80 mg q.12 hours. We will keep monitoring the patient's blood pressure closely. 3. Antibiotics including Zosyn and Linezolid has been started since admission. 4. We will follow up with CBC, BMP, procalcitonin, urine culture, and blood culture. 5. We will check ABG and chest x-ray if indicated. 6. Further recommendations pending hospital course. Thank you for the courtesy of this consult. Dr. Sarkar did the examination, evaluation, management orders. FERNY did the dictation for Dr. Sarkar according to his direction. EVALUATION TIME: Total evaluation time in minutes 33. Dictated by FERNY Bueno for Geovanna Sarkar MD cc: FERNY Bueno MD [facility]
[2019-11-01] MEDS: ZOSYN 2.25 GM in NS 50 ML IV SCH ×4 (00:45→19:53)
[2019-11-01] MEDS: ALBUMIN 25% IV SCH ×2 (05:01→17:24)
[2019-11-01] MEDS: LASIX IV SCH ×2 (06:13→18:40)
[2019-11-01] MEDS: D50W SYRINGE IV PRN (07:15)
--- NOTE | 2019-11-01 07:57 | CARDIOLOGY PROGRESS NOTE ---
DATE: 11/01/2019 CHIEF COMPLAINT: Weakness, shortness of breath, pain in the legs. SUBJECTIVE: Mr. Segal is feeling somewhat better. He is not having as much pain. He is less short of breath. He appears to be less toxic. OBJECTIVE: Vital signs: Blood pressure is 91/73, pulse 84, respirations 16, temperature is 97 degrees. General: The patient is awake, follows simple commands. HEENT: Jugular venous distention noted. Chest: Diminished breath sounds at bases. Heart: Sounds irregularly irregular with a gallop, a third heart sound. Abdomen: Shows pulsatile liver. Extremities: Showed that they are covered now with dressing. Neurological exam: Follows simple commands. BLOOD WORK: We do not have the blood work from this morning. Yesterday, prealbumin was checked and it was less than 3 mg/dL indicating severe malnutrition. His echocardiogram from yesterday shows ejection fraction 25% with possibly severe degree of aortic stenosis. Appears to be low-flow, low-gradient. The culture of his legs is growing Pseudomonas aeruginosa and Staphylococcus aureus. The Staphylococcus aureus appears to be MRSA. IMPRESSION: 1. Patient who has severe cellulitis and sepsis syndrome. This is arising from soft tissue infection of the legs. 2. Dilated nonischemic cardiomyopathy decompensated. 3. Severe malnutrition. 4. Aortic stenosis, low-flow low-gradient type. 5. Atrial fibrillation, permanent. RECOMMENDATIONS: At this time, we will continue supportive therapy. Nutritional support is roper. Cardiac-romero, I would suggest to continue present management. We are going to have to continue with Lasix and albumin for a day or two and then try to get him started on some sort of vasodilator. If his blood pressure drops too much, we may have to put a PICC line on him and initiate low-dose dopamine and low-dose dobutamine, dopamine could be 3 mcg/kg and dobutamine 5 mcg/kg/minute. We will follow the patient. cc: Joss Farmer MD
[2019-11-01] MEDS: ZYVOX 600 MG/D5W 600 MG/300 ML IVPB IV SCH (08:07)
[2019-11-01] MEDS: ELAVIL PO SCH (08:07)
[2019-11-01] MEDS: HEMOCYTE PO SCH (08:07)
[2019-11-01 08:23] LABS: BASO# 0.04 X1000 (0.0-0.2); BASO% 0.6 % (0.0-0.8); EOS# 0.03 X1000 (0.0-0.7); EOS% 0.4 % (0.0-10.0); HEMATOCRIT 44.6 % (42.0-52.0); IMM GRAN# 0.02 X1000 (0.0-0.04); IMM GRAN% 0.3 % (0.0-0.5); LYMPH# 0.65 X1000 (1.2-3.4); LYMPH% 9.3 % (20.5-51.1); MCH 30.4 PG (27-31); MCHC 31.4 g/dL (33-37); MCV 96.7 FL (81-99); MONO# 1.08 X1000 (0.11-0.59); MONO% 15.5 % (1.7-9.3); MPV 9.9 FL (7.4-10.4); NEUT# 5.17 X1000 (1.4-6.5); NEUT% 73.9 % (42.2-75.2); PLT 273 X1000 (130-400); RBC 4.61 XMIL (4.7-6.1); RDW 17.9 % (11.5-14.5); WBC 6.99 X1000 (4.8-10.8)
[2019-11-01 08:39] LABS: CALCIUM 8.8 mg/dL (8.8-10.2); CREATININE 1.8 mg/dL (0.7-1.2); POTASSIUM 5.8 mmol/L (3.5-5.1)
--- NOTE | 2019-11-01 08:43 | GENERAL SURGERY PROGRESS NOTE ---
DATE: 11/01/2019 SUBJECTIVE: The patient feels better. OBJECTIVE: Vital Signs: He is afebrile. Vital signs are stable. General: He is awake and alert. No acute distress. Extremities: His lower legs are wrapped with Unna boots. There appears to be less edema. ASSESSMENT AND PLAN: Mr. Segal has bilateral lower extremity edema with infected ulcers. We are treating with antibiotics and Unna boots. He has a stage II sacral decubitus ulcer, which is being treated with offloading and a foam dressing. We will see intermittently. cc: Denton Houston MD
[2019-11-01] MEDS: TYLENOL PO PRN (10:08)
[2019-11-01] MEDS ORDERED: CALCIUM GLUCONATE 4.65 MEQ in NS 50 ML IV ONE (13:11)
[2019-11-01] MEDS ORDERED: LOKELMA POWDER PACKET PO SCH (13:15)
[2019-11-01] MEDS ORDERED: BLISTEX MEDICATED BERRY LIP BALM TOP PRN (13:21)
--- NOTE | 2019-11-01 13:37 | Diag Imaging Result Doc PS360 ---
EXAM: CHEST-PORTABLE INDICATION: chf TECHNIQUE: One view COMPARISON: 10/30/2019 FINDINGS: Pulmonary venous congestion and interstitial edema appears to have improved slightly. A small effusion on the left appears to have decreased. The right effusion is approximately stable. No new consolidation is identified. There is stable cardiomegaly. IMPRESSION: Interval slight improvement of pulmonary venous congestion and interstitial edema. Electronically signed by Claude Garza 11/01/2019 1:35 PM
--- NOTE | 2019-11-01 13:44 | PROGRESS NOTE ---
DATE: 11/01/2019 SUBJECTIVE: He looks like he is having a little bit worse time breathing today. OBJECTIVE: Vital Signs: Blood pressure 95/69, heart rate of 84, respiratory rate of 24, temperature 97.6 degrees, 97% on 5 L. Cardiovascular: Regular rate and rhythm. Pulmonary: Bilateral breath sounds clear to auscultation. Gastrointestinal: Abdomen soft, nontender, nondistended. Bowel sounds were positive on breathing and I think he has some rales. LABORATORY DATA: White count 6.9, hemoglobin and hematocrit 14 and 44, platelets 273,000. Sodium 135, potassium is 5.8, creatinine is 1.8. PROBLEM LIST: 1. Acute systolic congestive heart failure exacerbation. We will continue to monitor. He is on high-dose diuretics. Cardiology is following. His echo this admission shows EF of 25%, consistent with previous heart failure. 2. Cellulitis with sepsis. He has positive cultures for Pseudomonas, just pansensitive and then another Pseudomonas, which is pansensitive and then methicillin-resistant Staphylococcus aureus. He is currently on Zyvox and Zosyn and seems to be stable. We will continue wound care as well. 3. Chronic venous stasis ulcers. He is on Unna boots. We will continue wound care. 4. Hypoglycemia that seems to have resolved. 5. Acute on chronic renal failure. He has developed some hyperkalemia. We will treat with Lokelma and calcium and follow closely. DISPOSITION: Pending clinical status. I am not sure if he may not benefit from some positive inotrope. I defer that to cardiology. cc: Joe Weston MD
[2019-11-01] MEDS: LOVENOX SUBQ SCH (13:52)
[2019-11-01 14:11] LABS: INR 1.91; PROTIME 22.3 Seconds (11.0-16.0)
--- NOTE | 2019-11-01 16:05 | Diag Imaging Result Doc PS360 ---
EXAM: CHEST-PORTABLE INDICATION: PICC placement TECHNIQUE: One view COMPARISON: 11/01/2019 FINDINGS: There is a newly placed PICC line. The tip projects over the lower SVC in the expected position. Otherwise, the chest is unchanged as compared to the earlier radiograph. IMPRESSION: Interval placement of right PICC line as described. Stable chest, otherwise. Electronically signed by Claude Garza 11/01/2019 4:02 PM
--- NOTE | 2019-11-01 17:00 | PROVIDER PROGRESS NOTE ---
Progress Note Dr. Sarkar Progress Note/Pulmonary and or critical care Subjective: The patient is awake and alert. He states he is feeling some better today. No family at the bedside. Input was appreciated from Dr. Weston and other teams on the case. Objective: Vital Signs: T 97.4 (no fever in last 24 hours), [place] 83, RR 16, BP 100/75 and SaO2 100% on NC 5L. Physical Examination: General: Lying in bed. No acute distress noted. HEENT: Normocephalic. Atraumatic. Trachea midline. Mucosa pink and moist. Chest: Even and unlabored. Symmetrical excursion. Improved air entry bilaterally. CVS: Irregularly irregular. S1 and S2 appreciated. Abdomen: Soft. Non-distended. Normoactive bowel sounds in all 4 quadrants. Extremities: BLE dressings intact with off-loading boots in place. Neuro: Awake and alert. Answer simple questions. Follow simple commands. Labs and Radiology: Laboratory Results 10/31/19 10/31/19 10/31/19 18:28 19:29 22:12 WBC RBC Hgb Hct MCV MCH MCHC RDW Std Deviation Plt Count MPV Immature Gran % (Auto) Neut % (Auto) Lymph % (Auto) [place] % (Auto) Eos % (Auto) Baso % (Auto) Immature Gran # (Auto) Neut # (Auto) Lymph # (Auto) [place] # (Auto) Eos # (Auto) Baso # (Auto) PT INR Sodium Potassium Chloride Carbon Dioxide Anion Gap BUN Creatinine Estimated GFR/1.73 m2 BUN/Creatinine Ratio Glucose POC Glucose 73 86 79 Calculated Osmolality Calcium 11/01/19 11/01/19 11/01/19 00:18 02:37 05:23 WBC RBC Hgb Hct MCV MCH MCHC RDW Std Deviation Plt Count MPV Immature Gran % (Auto) Neut % (Auto) Lymph % (Auto) [place] % (Auto) Eos % (Auto) Baso % (Auto) Immature Gran # (Auto) Neut # (Auto) Lymph # (Auto) [place] # (Auto) Eos # (Auto) Baso # (Auto) PT INR Sodium Potassium Chloride Carbon Dioxide Anion Gap BUN Creatinine Estimated GFR/1.73 m2 BUN/Creatinine Ratio Glucose POC Glucose 90 75 64 L Calculated Osmolality Calcium 11/01/19 11/01/19 11/01/19 06:43 07:11 07:30 WBC RBC Hgb Hct MCV MCH MCHC RDW Std Deviation Plt Count MPV Immature Gran % (Auto) Neut % (Auto) Lymph % (Auto) [place] % (Auto) Eos % (Auto) Baso % (Auto) Immature Gran # (Auto) Neut # (Auto) Lymph # (Auto) [place] # (Auto) Eos # (Auto) Baso # (Auto) PT INR Sodium 135 L Potassium 5.8 H D Chloride 99 Carbon Dioxide 19 L Anion Gap 17 BUN 37 H Creatinine 1.8 H Estimated GFR/1.73 m2 46 BUN/Creatinine Ratio 21 Glucose 91 POC Glucose 66 L 66 L Calculated Osmolality 278 Calcium 8.8 11/01/19 11/01/19 11/01/19 07:30 07:50 09:40 WBC 6.99 RBC 4.61 L Hgb 14.0 Hct 44.6 MCV 96.7 MCH 30.4 MCHC 31.4 L RDW Std Deviation 17.9 H Plt Count 273 MPV 9.9 Immature Gran % (Auto) 0.3 Neut % (Auto) 73.9 Lymph % (Auto) 9.3 L [place] % (Auto) 15.5 H Eos % (Auto) 0.4 Baso % (Auto) 0.6 Immature Gran # (Auto) 0.02 Neut # (Auto) 5.17 Lymph # (Auto) 0.65 L [place] # (Auto) 1.08 H Eos # (Auto) 0.03 Baso # (Auto) 0.04 PT INR Sodium Potassium Chloride Carbon Dioxide Anion Gap BUN Creatinine Estimated GFR/1.73 m2 BUN/Creatinine Ratio Glucose POC Glucose 82 116 H Calculated Osmolality Calcium 11/01/19 11/01/19 11/01/19 11:50 13:55 14:05 WBC RBC Hgb Hct MCV MCH MCHC RDW Std Deviation Plt Count MPV Immature Gran % (Auto) Neut % (Auto) Lymph % (Auto) [place] % (Auto) Eos % (Auto) Baso % (Auto) Immature Gran # (Auto) Neut # (Auto) Lymph # (Auto) [place] # (Auto) Eos # (Auto) Baso # (Auto) PT 22.3 H INR 1.91 Sodium Potassium Chloride Carbon Dioxide Anion Gap BUN Creatinine Estimated GFR/1.73 m2 BUN/Creatinine Ratio Glucose POC Glucose 131 H 94 Calculated Osmolality Calcium 11/01/19 15:56 WBC RBC Hgb Hct MCV MCH MCHC RDW Std Deviation Plt Count MPV Immature Gran % (Auto) Neut % (Auto) Lymph % (Auto) [place] % (Auto) Eos % (Auto) Baso % (Auto) Immature Gran # (Auto) Neut # (Auto) Lymph # (Auto) [place] # (Auto) Eos # (Auto) Baso # (Auto) PT INR Sodium Potassium Chloride Carbon Dioxide Anion Gap BUN Creatinine Estimated GFR/1.73 m2 BUN/Creatinine Ratio Glucose POC Glucose 85 Calculated Osmolality Calcium Assessment: Acute hypoxemic respiratory failure. Sepsis and shock with no fever or leukocytosis. Shock possibly secondary to diuretic therapy since admission. Worsening pulmonary edema with increased small bilateral effusions. BLE cellulitis. Left leg wound culture grows Pseudomonas Aeruginosa and Staphylococcus Aureus. Acute on chronic renal failure. Congestive heart failure with pulmonary edema, pleural effusions and proBNP elevation. Troponin T elevation. Plan: Supplemental oxygen as needed. We titrated supplemental oxygen to the patients needs per clinical protocols. We will keep monitoring patients response closely. We will keep monitoring patients blood pressure closely. Continue antibiotics including Zosyn and Linezolid. Continue diuretic as tolerated. Total evaluation time in minutes: 33.
[2019-11-01] MEDS: DOBUTAMINE 250 MG/D5W 250 MG/250 ML IV.SOLN IV SCH (18:20)
[2019-11-01] MEDS: CUBICIN 500 MG in NS 100 ML IV SCH (19:46)
[2019-11-02] MEDS: ZOSYN 2.25 GM in NS 50 ML IV SCH ×4 (01:48→19:57)
[2019-11-02] MEDS: DOBUTAMINE 250 MG/D5W 250 MG/250 ML IV.SOLN IV SCH ×3 (01:48→20:26)
[2019-11-02 04:50] LABS: ALLEN TEST YES; BE -6.8 mmoll (-3.0-3.0); BLOOD TYPE ARTERIAL; HCO3-(ACT) 19.5 mmoll (20.0-26.0); METHB 0.4 % (0.0-1.5); O2(CT) 18.3 mL/dL (15.0-23.0); O2HB 91.7 % (95.0-99.0); PCO2(98.6) 32 mmHg (35-45); PO2(98.6) 66 mmHg (60-100); SAMPLE BLOOD; SAO2 94.1 % (95.0-100.0); THB 14.2 g/dL (11.5-17.4); pH(98.6) 7.35 (7.35-7.45)
[2019-11-02 04:51] LABS: MODALITY CANNULA
[2019-11-02] MEDS: ALBUMIN 25% IV SCH ×2 (06:02→17:16)
[2019-11-02] MEDS: LASIX IV SCH ×2 (06:02→18:13)
[2019-11-02 06:32] LABS: BASO# 0.04 X1000 (0.0-0.2); BASO% 0.7 % (0.0-0.8); EOS# 0.02 X1000 (0.0-0.7); EOS% 0.4 % (0.0-10.0); HEMATOCRIT 37.2 % (42.0-52.0); HEMOGLOBIN 12.1 g/dL (14.0-18.0); LYMPH# 0.42 X1000 (1.2-3.4); LYMPH% 7.9 % (20.5-51.1); MCH 31.3 PG (27-31); MCHC 32.5 g/dL (33-37); MCV 96.1 FL (81-99); MONO# 0.68 X1000 (0.11-0.59); MONO% 12.7 % (1.7-9.3); MPV 9.2 FL (7.4-10.4); NEUT# 4.18 X1000 (1.4-6.5); NEUT% 78.3 % (42.2-75.2); PLT 236 X1000 (130-400); RBC 3.87 XMIL (4.7-6.1); RDW 17.4 % (11.5-14.5); WBC 5.34 X1000 (4.8-10.8)
[2019-11-02 06:55] LABS: CALCIUM 8.6 mg/dL (8.8-10.2); CREATININE 1.6 mg/dL (0.7-1.2); MAGNESIUM 1.7 mg/dL (1.5-2.7); POTASSIUM 3.3 mmol/L (3.5-5.1)
--- NOTE | 2019-11-02 07:33 | Diag Imaging Result Doc PS360 ---
EXAM: CHEST-1 VIEW 11/02/2019 HISTORY: SOB TECHNIQUE: AP portable at 0552 COMMENT: There is pleural thickening and/or loculated effusion on the right. There is cardiomegaly. There is ill-defined opacity in the left base. There is generalized interstitial opacity bilaterally particularly in the parahilar areas and right lower lobe. Compared to 11/01/2019 this has not changed appreciably. There is some platelike opacity in the left upper lobe which has not changed since 10/30/2019 or 02/09/2019 and is probably fibrotic. IMPRESSION: Cardiomegaly. Pulmonary edema. Right pleural effusion. Electronically signed by Jamison Esquivel 11/02/2019 7:30 AM
[2019-11-02] MEDS: DOPAMINE 400 MG/D5W 400 MG/500 ML IV.SOLN IV SCH (08:10)
--- NOTE | 2019-11-02 08:43 | CARDIOLOGY PROGRESS NOTE ---
DATE: 11/02/2019 CHIEF COMPLAINT: Shortness of breath, swelling. SUBJECTIVE: Mr. Segal is feeling a little better. Yesterday, we initiated low-dose dobutamine. Blood pressure is still running marginally low. He is having less pain in the legs. Overall, he is feeling better. OBJECTIVE: Vital signs: Temperature 97.6 degrees, pulse 85, respirations 19, blood pressure 98/64. General: He is awake, follows some commands. He is in no distress. HEENT: Prominent jugular veins. Chest: Diminished breath sounds at bases. Heart: Sounds are slightly irregular with a systolic murmur 2/6 intensity. This is more noticeable than on previous days. Abdomen: Nontender with a pulsatile liver. Extremities: Showed that they are wrapped with dressing. Pulses are markedly diminished. Neurologic exam: Follows some simple commands. BLOOD WORK: White cell count 5340, hemoglobin 12.1, hematocrit 37.2. The pH is 7.35, pCO2 is 32, pO2 is 66. Sodium 134, potassium 3.3, BUN 39, creatinine 1.6. IMPRESSION: 1. Patient who presented with decompensated congestive heart failure functional class IV [employer]. This is chronic. Secondary to dilated nonischemic cardiomyopathy. 2. Persistent atrial fibrillation. 3. Aortic stenosis, low-flow, low-gradient, probably severe. 4. Cellulitis both lower extremities with culture growing methicillin-resistant Staphylococcus aureus and Pseudomonas aeruginosa. RECOMMENDATIONS: At this time, we will continue with supportive measures. He is on IV Lasix and albumin. He is already on dobutamine. I am going to put him on low-dose dopamine and see how he does over the next 2-3 days. Nutritional support is roper in his case. We will continue to follow. cc: Joss Farmer MD
[2019-11-02] MEDS: ELAVIL PO SCH (08:58)
[2019-11-02] MEDS: HEMOCYTE PO SCH (08:59)
[2019-11-02] MEDS: SOLU-CORTEF IV SCH ×2 (13:13→19:59)
[2019-11-02] MEDS: LOVENOX SUBQ SCH (13:18)
[2019-11-02] MEDS: BENADRYL CREAM TOP PRN (14:20)
--- NOTE | 2019-11-02 18:03 | PROGRESS NOTE ---
DATE: 11/02/2019 SUBJECTIVE: The patient is still having some shortness of breath, but overall is doing okay. OBJECTIVE: Blood pressure is 113/84, heart rate 104, respiratory rate of 19, temperature was 98.1 degrees. LAB DATA: White count 5, hemoglobin and hematocrit 12 and 37, platelets 236,000. PH 7.35, pCO2 32, PaO2 66. Creatinine 1.6. Cortisol is 12.6. PROBLEM LIST: 1. Acute systolic congestive heart failure. He is still on high dose diuretics. He has been started on dobutamine. He is also on dopamine. Appreciate Cardiology intervention. 2. Pseudomonas and Methicillin-resistant Staphylococcus aureus cellulitis. He is on Zyvox and Zosyn. He is on day 3 and he is on day 1 of daptomycin. DISPOSITION: He still fairly ill. We are going to continue to monitor him in the unit, continue diuresis, and follow. cc: Joe Weston MD
--- NOTE | 2019-11-02 19:04 | PROVIDER PROGRESS NOTE ---
Progress Note Dr. Sarkar Progress Note/Pulmonary and or critical care Subjective: The patient is awake and alert. He still has significant SOB with activities. He is on Dobutamine and Dopamine drips at this time. No family at the bedside. Input was appreciated from Dr. Weston and other teams on the case. Objective: Vital Signs: T 97.6 (no fever in last 24 hours), [place] 109, RR 21, BP 115/73 and SaO2 97% on NC 2L. Physical Examination: General: Lying in bed. No acute distress noted. HEENT: Normocephalic. Atraumatic. Trachea midline. Mucosa pink and moist. Chest: Even and unlabored. Symmetrical excursion. Improved air entry bilaterally. CVS: Irregularly irregular. S1 and S2 appreciated. Abdomen: Soft. Non-distended. Normoactive bowel sounds in all 4 quadrants. Extremities: BLE dressings intact with off-loading boots in place. Neuro: Awake and alert. Answer simple questions. Follow simple commands. Labs and Radiology: Laboratory Results 10/31/19 11/01/19 11/01/19 10:13 19:51 22:22 WBC RBC Hgb Hct MCV MCH MCHC RDW Std Deviation Plt Count MPV Neut % (Auto) Lymph % (Auto) [place] % (Auto) Eos % (Auto) Baso % (Auto) Neut # (Auto) Lymph # (Auto) [place] # (Auto) Eos # (Auto) Baso # (Auto) Specimen Type Sample Site pH pCO2 pO2 HCO3 Base Excess Oxyhemoglobin ABG O2 Sat (Calculated) ABG O2 Saturation ABG Carboxyhemoglobin ABG Methemoglobin Neal Test A-a O2 Difference Total Hemoglobin Lactate Liter Flow Blood Gas Modality FiO2 % Sodium Potassium Chloride Carbon Dioxide Anion Gap BUN Creatinine Estimated GFR/1.73 m2 BUN/Creatinine Ratio Glucose POC Glucose 103 94 Calculated Osmolality Calcium Magnesium Procalcitonin SEE COMMENTS Cortisol 11/01/19 11/02/19 11/02/19 23:26 01:47 04:40 WBC RBC Hgb Hct MCV MCH MCHC RDW Std Deviation Plt Count MPV Neut % (Auto) Lymph % (Auto) [place] % (Auto) Eos % (Auto) Baso % (Auto) Neut # (Auto) Lymph # (Auto) [place] # (Auto) Eos # (Auto) Baso # (Auto) Specimen Type ARTERIAL Sample Site R RADIAL pH 7.35 pCO2 32 L pO2 66 HCO3 19.5 L Base Excess -6.8 L Oxyhemoglobin 91.7 L ABG O2 Sat (Calculated) 18.3 ABG O2 Saturation 94.1 L ABG Carboxyhemoglobin 2.20 ABG Methemoglobin 0.4 Neal Test YES A-a O2 Difference 94.0 Total Hemoglobin 14.2 Lactate 3.00 H Liter Flow 2.0 Blood Gas Modality [place] FiO2 % 28.0 Sodium Potassium Chloride Carbon Dioxide Anion Gap BUN Creatinine Estimated GFR/1.73 m2 BUN/Creatinine Ratio Glucose POC Glucose 102 99 Calculated Osmolality Calcium Magnesium Procalcitonin Cortisol 11/02/19 11/02/19 11/02/19 05:00 05:00 05:00 WBC 5.34 RBC 3.87 L Hgb 12.1 L Hct 37.2 L MCV 96.1 MCH 31.3 H MCHC 32.5 L RDW Std Deviation 17.4 H Plt Count 236 MPV 9.2 Neut % (Auto) 78.3 H Lymph % (Auto) 7.9 L [place] % (Auto) 12.7 H Eos % (Auto) 0.4 Baso % (Auto) 0.7 Neut # (Auto) 4.18 Lymph # (Auto) 0.42 L [place] # (Auto) 0.68 H Eos # (Auto) 0.02 Baso # (Auto) 0.04 Specimen Type Sample Site pH pCO2 pO2 HCO3 Base Excess Oxyhemoglobin ABG O2 Sat (Calculated) ABG O2 Saturation ABG Carboxyhemoglobin ABG Methemoglobin Neal Test A-a O2 Difference Total Hemoglobin Lactate Liter Flow Blood Gas Modality FiO2 % Sodium 134 L Potassium 3.3 L D Chloride 99 Carbon Dioxide 20 L Anion Gap 15 BUN 39 H Creatinine 1.6 H Estimated GFR/1.73 m2 53 BUN/Creatinine Ratio 24 Glucose 212 H D POC Glucose 261 H D Calculated Osmolality 284 Calcium 8.6 L Magnesium 1.7 Procalcitonin Cortisol 11/02/19 11/02/19 11/02/19 05:00 05:02 07:43 WBC RBC Hgb Hct MCV MCH MCHC RDW Std Deviation Plt Count MPV Neut % (Auto) Lymph % (Auto) [place] % (Auto) Eos % (Auto) Baso % (Auto) Neut # (Auto) Lymph # (Auto) [place] # (Auto) Eos # (Auto) Baso # (Auto) Specimen Type Sample Site pH pCO2 pO2 HCO3 Base Excess Oxyhemoglobin ABG O2 Sat (Calculated) ABG O2 Saturation ABG Carboxyhemoglobin ABG Methemoglobin Neal Test A-a O2 Difference Total Hemoglobin Lactate Liter Flow Blood Gas Modality FiO2 % Sodium Potassium Chloride Carbon Dioxide Anion Gap BUN Creatinine Estimated GFR/1.73 m2 BUN/Creatinine Ratio Glucose POC Glucose 95 D 96 Calculated Osmolality Calcium Magnesium Procalcitonin Cortisol 12.6 11/02/19 11/02/19 11/02/19 10:09 11:05 15:37 WBC RBC Hgb Hct MCV MCH MCHC RDW Std Deviation Plt Count MPV Neut % (Auto) Lymph % (Auto) [place] % (Auto) Eos % (Auto) Baso % (Auto) Neut # (Auto) Lymph # (Auto) [place] # (Auto) Eos # (Auto) Baso # (Auto) Specimen Type Sample Site pH pCO2 pO2 HCO3 Base Excess Oxyhemoglobin ABG O2 Sat (Calculated) ABG O2 Saturation ABG Carboxyhemoglobin ABG Methemoglobin Neal Test A-a O2 Difference Total Hemoglobin Lactate Liter Flow Blood Gas Modality FiO2 % Sodium Potassium Chloride Carbon Dioxide Anion Gap BUN Creatinine Estimated GFR/1.73 m2 BUN/Creatinine Ratio Glucose POC Glucose 133 H 172 H 153 H Calculated Osmolality Calcium Magnesium Procalcitonin Cortisol Assessment: Acute hypoxemic respiratory failure. Sepsis and shock with no fever or leukocytosis. Shock possibly secondary to diuretic therapy since admission. Worsening pulmonary edema with increased small bilateral effusions. BLE cellulitis. Left leg wound culture grows Pseudomonas Aeruginosa and Staphylococcus Aureus. Acute on chronic renal failure. Congestive heart failure with pulmonary edema, pleural effusions and proBNP elevation. Troponin T elevation. Plan: Supplemental oxygen as needed. We titrated supplemental oxygen to the patients needs per clinical protocols. We will keep monitoring patients response closely. Continue Dobutamine and Dopamine per Cardiology. We will keep monitoring patients blood pressure closely. We are checking serum cortisol at this time. We will start stress dosage of Solu-Cortef if serum cortisol below 20. Continue antibiotics including Zosyn and Linezolid. Continue diuretic as tolerated. Total evaluation time in minutes: 34.
[2019-11-02] MEDS: CUBICIN 500 MG in NS 100 ML IV SCH (19:54)
[2019-11-02] MEDS: VALTREX PO SCH (20:00)
[2019-11-03] MEDS: ZOSYN 2.25 GM in NS 50 ML IV SCH ×4 (02:59→19:50)
[2019-11-03] MEDS: SOLU-CORTEF IV SCH ×3 (03:22→19:49)
[2019-11-03] MEDS: ALBUMIN 25% IV SCH ×2 (05:48→18:06)
[2019-11-03] MEDS: BENADRYL CREAM TOP PRN ×2 (05:48→19:59)
[2019-11-03] MEDS: DOBUTAMINE 250 MG/D5W 250 MG/250 ML IV.SOLN IV SCH ×2 (05:48→15:38)
[2019-11-03] MEDS: LASIX IV SCH ×2 (05:59→18:06)
[2019-11-03 06:05] LABS: HEMATOCRIT 42.1 % (42.0-52.0); HEMOGLOBIN 13.6 g/dL (14.0-18.0); LYMPH# 0.19 X1000 (1.2-3.4); LYMPH% 4.9 % (20.5-51.1); MCH 30.5 PG (27-31); MCHC 32.3 g/dL (33-37); MCV 94.4 FL (81-99); MONO# 0.17 X1000 (0.11-0.59); MONO% 4.4 % (1.7-9.3); MPV 9.6 FL (7.4-10.4); NEUT# 3.49 X1000 (1.4-6.5); NEUT% 90.7 % (42.2-75.2); PLT 260 X1000 (130-400); RBC 4.46 XMIL (4.7-6.1); RDW 17.3 % (11.5-14.5); WBC 3.85 X1000 (4.8-10.8)
[2019-11-03 06:26] LABS: CALCIUM 9.1 mg/dL (8.8-10.2); CREATININE 1.6 mg/dL (0.7-1.2); MAGNESIUM 1.7 mg/dL (1.5-2.7); POTASSIUM 3.7 mmol/L (3.5-5.1)
[2019-11-03 06:58] LABS: LYMPHS 5 % (21-51); MONO 4 % (1-9); SEGS 91 % (42-75)
[2019-11-03] MEDS: DOPAMINE 400 MG/D5W 400 MG/500 ML IV.SOLN IV SCH (07:05)
[2019-11-03] MEDS: HEMOCYTE PO SCH (08:02)
[2019-11-03] MEDS: VALTREX PO SCH ×2 (08:02→19:59)
[2019-11-03] MEDS: ELAVIL PO SCH (08:02)
--- NOTE | 2019-11-03 10:49 | CARDIOLOGY PROGRESS NOTE ---
DATE: 11/03/2019 CHIEF COMPLAINT: Shortness of breath, swelling of the legs, cellulitis. SUBJECTIVE: Mr. Segal is still short of breath. Swelling is still present. He is not in any pain. He is a little more lethargic than yesterday. OBJECTIVE: Vital signs: Blood pressure 115/88, pulse 93, respirations 22/min temperature 98.8 degrees. We have put the patient on dobutamine and dopamine. Dopamine renal doses, dobutamine low-dose. HEENT: Jugular venous distention is still present. Chest: Diminished breath sounds at bases. Heart: Sounds are slightly irregular with a systolic murmur 2-3/6 over the aortic area consistent with aortic stenosis. Abdomen: Slightly distended. Extremities: Showed that the legs are wrapped, however, the thighs are swollen 3+. Neurologic exam: He drifts into sleep. Lethargic today. White cell count is 3850, hemoglobin 13.6, hematocrit 42.1. Sodium 133, potassium 3.7, BUN 42, creatinine 1.6. ProBNP level is 4540. IMPRESSION: 1. Patient with dilated cardiomyopathy nonischemic with congestive heart failure functional class IV [place] [employer]. 2. Permanent atrial fibrillation. 3. Aortic stenosis low-flow low-gradient. 4. Cellulitis of both lower extremities with methicillin-resistant Staphylococcus aureus and Pseudomonas aeruginosa culture from the skin. RECOMMENDATIONS: At this time, will continue supportive measures. We have him on dobutamine and dopamine to improve his cardiac output. We are trying to feed him with protein rich nutrients. The patient is really very compromised. We will continue to follow him. Prognosis remains very poor. cc: Joss Farmer MD [facility]
[2019-11-03] MEDS: TYLENOL PO PRN (12:15)
[2019-11-03] MEDS: LOVENOX SUBQ SCH (15:00)
--- NOTE | 2019-11-03 16:27 | PROGRESS NOTE ---
DATE: 11/03/2019 SUBJECTIVE: Patient has no major complaints. OBJECTIVE: Vital Signs: Blood pressure 107/74, heart rate of 95, respiratory rate of 20, temperature 98.1 degrees, 97% on 3 L. Cardiovascular: Regular rate and rhythm. Pulmonary: Bilateral breath sounds are clear to auscultation. GI: Soft, nontender, nondistended. Bowel sounds were positive. LABORATORY DATA: White count 3, hemoglobin and hematocrit 13 and 42, platelets 260,000. Creatinine is 1.6. PROBLEM LIST: 1. Acute systolic heart failure. We will continue diuretics. He is on dobutamine, dopamine. Cardiology is following. We are still diuresing. He does not have a [place], which is a bit strange, I thought that had been put in before so we need to really keep up with his ins and outs, which I do not think we have really been able to. So, we are going to work on that today. 2. Multi-culture Pseudomonas methicillin-resistant Staphylococcal aureus decubitus. We will continue wound care and IV antibiotics. He is currently on Zosyn and daptomycin based on sensitivities. DISPOSITION: Pending clinical status. We will continue to follow closely in the unit. cc: Joe Weston MD
--- NOTE | 2019-11-03 17:45 | PROVIDER PROGRESS NOTE ---
Progress Note Dr. Sarkar Progress Note/Pulmonary and or critical care Subjective: The patient is awake and alert. He stays on Dobutamine and Dopamine drips at this time. No family at the bedside. He states he is breathing better. Input was appreciated from Dr. Weston and other teams on the case. Objective: Vital Signs: T 98.8 (no fever in last 24 hours), [place] 97, RR 16, BP 120/80 and SaO2 91% on NC 3L. Physical Examination: General: Lying in bed. No acute distress noted. HEENT: Normocephalic. Atraumatic. Trachea midline. Mucosa pink and moist. Chest: Even and unlabored. Symmetrical excursion. Improved air entry bilaterally. CVS: Irregularly irregular. S1 and S2 appreciated. Abdomen: Soft. Non-distended. Normoactive bowel sounds in all 4 quadrants. Extremities: BLE dressings intact with off-loading boots in place. Neuro: Awake and alert. Answer simple questions. Follow simple commands. Labs and Radiology: Laboratory Results 11/02/19 11/03/19 11/03/19 19:53 04:40 04:40 WBC 3.85 L RBC 4.46 L Hgb 13.6 L Hct 42.1 MCV 94.4 MCH 30.5 MCHC 32.3 L RDW Std Deviation 17.3 H Plt Count 260 MPV 9.6 Immature Gran % (Auto) 0.0 Neut % (Auto) 90.7 H Lymph % (Auto) 4.9 L [place] % (Auto) 4.4 Eos % (Auto) 0.0 Baso % (Auto) 0.0 Immature Gran # (Auto) 0.00 Neut # (Auto) 3.49 Lymph # (Auto) 0.19 L [place] # (Auto) 0.17 Eos # (Auto) 0.00 Baso # (Auto) 0.00 Segmented Neutrophils 91 H Lymphocytes 5 L Monocytes 4 Sodium 133 L Potassium 3.7 Chloride 97 L Carbon Dioxide 21 L Anion Gap 15 BUN 42 H Creatinine 1.6 H Estimated GFR/1.73 m2 53 BUN/Creatinine Ratio 26 Glucose 169 H POC Glucose 181 H Calculated Osmolality 281 Calcium 9.1 Magnesium 1.7 Gal-D-Glhhwvyjojw Pept 11/03/19 11/03/19 11/03/19 04:40 05:58 10:55 WBC RBC Hgb Hct MCV MCH MCHC RDW Std Deviation Plt Count MPV Immature Gran % (Auto) Neut % (Auto) Lymph % (Auto) [place] % (Auto) Eos % (Auto) Baso % (Auto) Immature Gran # (Auto) Neut # (Auto) Lymph # (Auto) [place] # (Auto) Eos # (Auto) Baso # (Auto) Segmented Neutrophils Lymphocytes Monocytes Sodium Potassium Chloride Carbon Dioxide Anion Gap BUN Creatinine Estimated GFR/1.73 m2 BUN/Creatinine Ratio Glucose POC Glucose 159 H 181 H Calculated Osmolality Calcium Magnesium [id number]-Viziqdueaon Pept 4540 H 11/03/19 15:52 WBC RBC Hgb Hct MCV MCH MCHC RDW Std Deviation Plt Count MPV Immature Gran % (Auto) Neut % (Auto) Lymph % (Auto) [place] % (Auto) Eos % (Auto) Baso % (Auto) Immature Gran # (Auto) Neut # (Auto) Lymph # (Auto) [place] # (Auto) Eos # (Auto) Baso # (Auto) Segmented Neutrophils Lymphocytes Monocytes Sodium Potassium Chloride Carbon Dioxide Anion Gap BUN Creatinine Estimated GFR/1.73 m2 BUN/Creatinine Ratio Glucose POC Glucose 163 H Calculated Osmolality Calcium Magnesium [id number]-M-Fenpzgzxzni Pept Assessment: Acute hypoxemic respiratory failure. Sepsis and shock with no fever or leukocytosis. Shock possibly secondary to diuretic therapy since admission. Worsening pulmonary edema with increased small bilateral effusions. BLE cellulitis. Left leg wound culture grows Pseudomonas Aeruginosa and Staphylococcus Aureus. Acute on chronic renal failure. Congestive heart failure with pulmonary edema, pleural effusions and proBNP elevation. Troponin T elevation. Plan: Supplemental oxygen as needed. We titrated supplemental oxygen to the patients needs per clinical protocols. We will keep monitoring patients response closely. Continue Dobutamine and Dopamine per Cardiology. We will keep monitoring patients blood pressure closely. Continue stress dosage of Solu-Cortef. Continue antibiotics including Zosyn and Linezolid. Continue diuretic as tolerated. We will follow up CXR tomorrow. Total evaluation time in minutes: 33.
[2019-11-03 18:28] LABS: URINE SOURCE CATH
[2019-11-03 18:32] LABS: BILIRUBIN URINE NEGATIVE (NEGATIVE); BLOOD URINE TRACE (NEGATIVE); COLOR YELLOW; GLUCOSE URINE NEGATIVE (NEGATIVE); KETONE URINE NEGATIVE (NEGATIVE); LEUKOCYTES URINE NEGATIVE (NEGATIVE); NITRITE URINE NEGATIVE (NEGATIVE); PROTEIN URINE TRACE mg/dL (NEGATIVE); SP GRAVITY URINE 1.019; TURBIDITY URINE CLEAR (CLEAR); UROBILINOGEN URINE NORMAL (NORMAL)
[2019-11-03 18:34] LABS: UR EPITHELIAL CELLS <10 /HPF (<10); URINE BACTERIA NEGATIVE /HPF; URINE RBC <10 /HPF (<10); URINE WBC <10 /HPF (<10)
[2019-11-03] MEDS: CUBICIN 500 MG in NS 100 ML IV SCH (19:49)
[2019-11-04] MEDS: DOBUTAMINE 250 MG/D5W 250 MG/250 ML IV.SOLN IV SCH (00:19)
[2019-11-04 00:48] LABS: ALLEN TEST YES; BE -4.5 mmoll (-3.0-3.0); HCO3-(ACT) 20.2 mmoll (20.0-26.0); METHB 0.9 % (0.0-1.5); PCO2(98.6) 43 mmHg (35-45); SAMPLE BLOOD; THB 14.8 g/dL (11.5-17.4); pH(98.6) 7.31 (7.35-7.45)
[2019-11-04 00:53] LABS: BLOOD TYPE VENOUS; MODALITY VENTIMASK
[2019-11-04 00:54] LABS: O2HB 57.5 % (95.0-99.0); PO2(98.6) 33 mmHg (60-100)
[2019-11-04 00:55] LABS: O2(CT) 11.9 mL/dL (15.0-23.0)
[2019-11-04] MEDS: ZOSYN 2.25 GM in NS 50 ML IV SCH ×4 (01:29→20:18)
[2019-11-04] MEDS: SOLU-CORTEF IV SCH ×3 (03:33→20:18)
[2019-11-04] MEDS: ALBUMIN 25% IV SCH ×2 (05:06→18:31)
[2019-11-04 05:26] LABS: HEMATOCRIT 41.7 % (42.0-52.0); HEMOGLOBIN 13.4 g/dL (14.0-18.0); LYMPH% 4.2 % (20.5-51.1); MCH 30.2 PG (27-31); MCHC 32.1 g/dL (33-37); MCV 93.9 FL (81-99); MONO# 0.33 X1000 (0.11-0.59); MPV 9.4 FL (7.4-10.4); NEUT# 4.18 X1000 (1.4-6.5); NEUT% 88.8 % (42.2-75.2); PLT 204 X1000 (130-400); RBC 4.44 XMIL (4.7-6.1); RDW 17.5 % (11.5-14.5); WBC 4.71 X1000 (4.8-10.8)
[2019-11-04] MEDS: DOPAMINE 400 MG/D5W 400 MG/500 ML IV.SOLN IV SCH (05:39)
[2019-11-04 05:47] LABS: CALCIUM 9.1 mg/dL (8.8-10.2); CREATININE 1.6 mg/dL (0.7-1.2); POTASSIUM 3.5 mmol/L (3.5-5.1)
[2019-11-04] MEDS: LASIX IV SCH ×2 (06:02→18:31)
--- NOTE | 2019-11-04 06:55 | CONSULTATION ---
DATE OF CONSULTATION: 11/03/2019 CHIEF COMPLAINT: Difficulty with catheterization. HISTORY OF PRESENT ILLNESS: Mr. Segal is a 64-year-old male who was admitted on 10/29/2019 to the ICU related to sepsis due to lower extremity cellulitis. He has an extensive past medical history of congestive heart failure, multiple admissions regarding this as well as chronic systolic ejection fraction of 25%, aortic stenosis, as well as atrial fibrillation and uncontrolled diabetes. 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 Urology was consulted today regarding placement of the urethral catheter. The patient has been in the ICU since the and has been receiving Lasix and has been relatively incontinent of urine. Urology was consulted for placement of catheter to assist in monitoring urinary output. The patient denies significant changes in scrotal swelling. He feels that it is better than prior examinations. He denies any dysuria, hematuria, urgency, or frequency. PAST MEDICAL HISTORY: 1. Ischemic cardiomyopathy. 2. Systolic congestive heart failure with ejection fraction of 25%. 3. Aortic stenosis. 4. Superficial thrombophlebitis of the lower extremities. 5. Atrial fibrillation. 6. History of Karen gangrene. 7. Uncontrolled diabetes. 8. Pulmonary hypertension. 9. Anxiety. 10. Hypertension. PAST SURGICAL HISTORY: 1. Incision and drainage of a scrotal abscess. 2. Right hydrocelectomy. 3. Primary closure of scrotum wound. ALLERGIES: No known drug allergies. HOME MEDICATIONS: 1. Amitriptyline 25 mg daily. 2. Vitamin D 50,000 units daily. 3. Lasix 40 mg p.o. daily. 4. Iron 10 mg p.o. daily. 5. Magnesium oxalate 400 mg p.o. daily. FAMILY HISTORY: Denies family history of malignancy. SOCIAL HISTORY: Patient lives alone. He denies any tobacco, alcohol, or illicit drug use. PHYSICAL EXAMINATION: Vital signs: Temperature 98.1 degrees, heart rate 95, blood pressure 112/85, oxygen saturation 98% on room air. General: No acute distress. Resting comfortably in bed. Alert and oriented x3. HEENT: Normocephalic, atraumatic. Pupils equal, round, reactive to light. The patient has poor dentition. Pulmonary: Good respiratory effort without audible wheezing or rales. Cardiovascular: Regular rate and rhythm. Abdomen: Soft, nontender, nondistended. A small amount of anasarca palpated. Genitourinary: The patient has a slightly buried penis with visible meatus without any lesions present. The scrotum appears to be normal with evidence of a well-healing lesion overlying the right portion of the scrotum. No palpable crepitus, erythema or warmth is felt. Minimal edema is seen. Neurologic: Gross motor and sensory intact. Musculoskeletal: Evidence of 2+ edema. Skin: Lesion on the abdominal and chest wall. LABORATORY DATA: White blood cell count 3.9, hemoglobin 13.6, hematocrit 41, platelets 260,000, sodium 133, potassium 3.7, chloride 97, bicarbonate 21, BUN 42, creatinine 1.6, glucose 169. ProBNP 4540. ASSESSMENT AND PLAN: Mr. Segal is a 64-year-old with a history of nonischemic cardiomyopathy, heart failure, atrial fibrillation, history of Karen gangrene, uncontrolled diabetes, hypertension, and anxiety, who presents in consultation for difficult catheter placement. The patient has required catheter insertion on several recent hospitalizations due to patient's anatomy. It was difficult to place the catheter due to the buried penis, and nursing had tried previously. Urology was consulted for further recommendations. The patient was evaluated, and using a ZIPwire, it was passed through the urethra and a seen to coil within the bladder itself. This was left in place, and a 14-[place]oz[place] silicone catheter was passed over the wire into the bladder itself, returning clear yellow urine. It was insufflated with 10 mL of sterile water and placed to gravity drainage. This was all done under sterile technique. A sample was sent for analysis. STATLock was placed to the lower extremity. The patient will continue with indwelling catheter as well as needed by primary team. It can be removed at that time. Bladder scans for Mr. Segal are likely less beneficial as he has a significant amount of fluid on his abdomen and ascites, which limits accuracy of these. From a urologic standpoint, we will keep the indwelling catheter at this time. The patient has what appears to be a healing wound within the scrotum. I do not think his scrotum will ever be back to normal, but there is no palpable erythema, warmth, or crepitus on exam today. No significant fluctuance is seen or signs of scrotal infection. Continue scrotal elevation for scrotal edema. Please call with questions or concerns. cc: Michael Dominguez MD [facility]
[2019-11-04] MEDS ORDERED: SAMSCA PO ONE (07:32)
--- NOTE | 2019-11-04 07:42 | Diag Imaging Result Doc PS360 ---
EXAM: CHEST-PORTABLE 11/04/2019 HISTORY: dyspnea TECHNIQUE: AP portable at 0522 COMMENT: There is a right pleural effusion. There is cardiomegaly. There is alveolar and interstitial opacity in both lower lung palumbo as well as the right upper lobe. There is platelike atelectasis in the left upper lobe. Compared to 11/02/2019 considering differences in inspiration there has been no appreciable change. IMPRESSION: Cardiomegaly, pulmonary edema, and right pleural effusion. Electronically signed by Jamison Esquivel 11/04/2019 7:39 AM
--- NOTE | 2019-11-04 08:01 | CARDIOLOGY PROGRESS NOTE ---
DATE: 11/04/2019 CHIEF COMPLAINT: Shortness of breath, swelling. SUBJECTIVE: Mr. Segal is confused. According to the nurses, he has been hallucinating. He is very lethargic, hard to arousal. OBJECTIVE: Vital signs: Blood pressure today is 96/82, respirations 19, pulse 98, temperature is 98 degrees. General: The patient is lethargic. He arousals to voice commands and noxious stimuli. He does not sustain a conversation. HEENT: Jugular vein distention. Chest: Diminished breath sounds at bases. Heart: Sounds are irregularly irregular with a systolic murmur over the aortic area and a third heart sound. Skin: There is some chronic rash on the skin that I described back in September of 2018, it has not really changed that much. Abdomen: Diminished bowel sounds, slightly prominent. Extremities: Did show edema. Neurologic exam: Lethargic, moves some in the upper extremities. BLOOD WORK: White cell count 4720, hemoglobin 13.4, hematocrit 41.7. Sodium 129, potassium 3.5, BUN 47, creatinine 1.6. Chest x-ray today shows worsening right pleural effusion with question of some infiltrate underneath. IMPRESSION: 1. Patient who presented with decompensated advanced heart failure functional class IV. Secondary to dilated nonischemic cardiomyopathy. 2. Permanent atrial fibrillation. 3. Low-flow low-gradient aortic stenosis. 4. Cellulitis of both lower extremities. 5. Old herpes zoster in the left anterior chest. That was present over a year ago. It has really not changed that much. RECOMMENDATIONS: At this time, I would add some Samsca to deal with the hyponatremia. I am not sure as to whether or not he would really benefit by the addition of valacyclovir and in fact that medication could potentially be somewhat detrimental because of his renal impairment and low cardiac output. I will discuss that with Dr. Weston. cc: Joss Farmer MD
[2019-11-04] MEDS: ELAVIL PO SCH (08:29)
[2019-11-04] MEDS: HEMOCYTE PO SCH (08:31)
[2019-11-04] MEDS ORDERED: VITAMIN D PO SCH (09:00)
[2019-11-04] MEDS: DOBUTAMINE 500/D5W 500 MG/250 ML IV.SOLN IV SCH (09:32)
[2019-11-04] MEDS: MIRALAX PO SCH ×2 (09:34→20:18)
[2019-11-04] MEDS ORDERED: SODIUM BICARBONATE 8.4% IV PUSH ONE (11:49)
--- NOTE | 2019-11-04 13:57 | PROGRESS NOTE ---
DATE: 11/04/2019 INTERVAL HISTORY: The patient remains on dopamine and dobutamine. Encephalopathy somewhat improved, although he remains mildly confused on the pressors as above. Blood pressure has been pretty reasonable. Patient afebrile. No acute events overnight. Still requiring quite a bit of oxygen. REVIEW OF SYSTEMS: Still some dyspnea on exertion but overall improved. The 12-point review of systems otherwise negative except as per interval history. LABS: WBC 4.7, hemoglobin 13.4, hematocrit 41.7, platelets 204,000. Sodium 129, potassium 3.5, BUN 47, creatinine 1.6, glucose 91 to 212. One reading up to 400, but all other results are essentially under 200. Suspect that this in an error. IMAGING: Chest x-ray with ongoing cardiomegaly, pulmonary edema and right pleural effusion. VITAL SIGNS: Temperature 98.4 degrees, pulse 95, respirations 19, blood pressure 104/84, O2 saturation 92% on 6 L by nasal cannula. PHYSICAL EXAMINATION: General: No acute distress. Vitals: As above. HEENT: Normocephalic, atraumatic. Some JVD noted. Pulmonary: Reasonable air entry bilaterally, slightly diminished at the bases. Few scattered rales. Cardiovascular: Irregular rhythm but normal rate. Left upper sternal border murmur noted. Abdomen: Soft, minimally distended. Bowel sounds slightly decreased. Extremities: Peripheral pulses intact. No clubbing or cyanosis. Neurologic: Cranial nerves grossly intact. No focal deficits identified. Psychiatric: Normal mood and affect. Awake, alert, cooperative, oriented to person and time but not place at the time of my exam. ASSESSMENT AND PLAN: 1. Acute on chronic combined systolic and diastolic congestive heart failure, last EF 25. The patient also with severe tricuspid regurgitation, moderate to severe mitral regurgitation and pulmonary hypertension. Blackwood placed yesterday, so we tried to get more accurate ins and outs. Remains on dobutamine and dopamine and aggressive Lasix. Continue attempting to diurese him and monitor respiratory status closely. Cardiology on board and assisting. 2. Lower extremity cellulitis and infected decubitus ulcers. Culture growing out Pseudomonas and MRSA. The patient on antibiotics with daptomycin and Zosyn which we will plan on continuing. The patient has had Karen gangrene in the past, so his anatomy is not entirely normal. Urology had to assist with Blackwood placement yesterday. Continue wound care and monitor closely. 3. Atrial fibrillation. Some mildly elevated heart rate yesterday but pretty reasonable today. Cardiology following. 4. Hyponatremia mild to moderate but pretty consistently low and trend was trending down. Cardiology giving him a dose of Samsca today to see if that will help with that. 5. Acute kidney injury. Patient appears to have had normal baseline creatinine late last year. Has been as high as 2.0 on just after admission. Has trended down slightly since then, although remains elevated to 1.6. Continue diuresis and monitor kidney function. 6. Hyperglycemia, likely stress induced as his A1c came back normal. May need outpatient glucose tolerance test to confirm that his A1c was not falsely low. 7. Constipation. Patient reporting no bowel movement last several days. We will go ahead and start him on some MiraLAX.
[2019-11-04] MEDS: LOVENOX SUBQ SCH (14:16)
[2019-11-04] MEDS: BENADRYL CREAM TOP PRN (18:31)
--- NOTE | 2019-11-04 18:44 | PULMONOLOGY PROGRESS NOTE ---
DATE: 11/04/2019 SUBJECTIVE: The patient will look at the practitioner, but will not follow commands. The patient does not appear to be oriented. He remains on dopamine and dobutamine. OBJECTIVE: Vital Signs: Blood pressure 111/79, heart rate 94, respiratory rate 14, oxygen in 92% on 6 L per nasal cannula. Intake 2186, output 1600. The patient has been afebrile for the last 24 hours. HEENT: Pupils are equal. Oropharynx appears clear. Neck: Supple. Chest: Reveals diminished breath sounds bilaterally. Cardiac exam: S1-S2 with a gallop present. Rhythm is irregular. Abdomen: Soft. Extremities: Reveal 2+ peripheral edema. LABORATORIES: No arterial blood gas today. Sodium 129, potassium 3.5, chloride 93, bicarbonate 20, BUN 47, creatinine 1.6 glucose 400, but likely was related to the draw. He has not had any repeat sugars that high. Chest x-ray reveals cardiomegaly, mild atelectasis in the left mid lung zone, and effusions, left greater than right. IMPRESSION: A 64-year-old with: 1. Acute hypoxemic respiratory failure. 2. Systolic heart failure. 3. Bilateral pleural effusions. 4. Acute on chronic renal failure. DISCUSSION: A 64-year-old with problems outlined above. He remains on dobutamine and dopamine. His prognosis appears guarded to poor. RECOMMENDATIONS: 1. Continue oxygen for hypoxemic respiratory failure. 2. Continue current vasopressor regimen to augment a failing heart. 3. End-of-life discussions recommended. cc: Gerson Yost MD
[2019-11-04] MEDS: CUBICIN 500 MG in NS 100 ML IV SCH (21:20)
[2019-11-05] MEDS: ZOSYN 2.25 GM in NS 50 ML IV SCH ×4 (02:47→21:18)
[2019-11-05] MEDS: SOLU-CORTEF IV SCH ×3 (04:34→21:18)
[2019-11-05] MEDS: MORPHINE IV PRN ×2 (04:35→21:28)
[2019-11-05 05:33] LABS: ALLEN TEST YES; BE -6.7 mmoll (-3.0-3.0); BLOOD TYPE ARTERIAL; HCO3-(ACT) 19.7 mmoll (20.0-26.0); METHB 0.7 % (0.0-1.5); MODALITY NRB; O2(CT) 20.7 mL/dL (15.0-23.0); O2HB 97.4 % (95.0-99.0); PCO2(98.6) 31 mmHg (35-45); PO2(98.6) 196 mmHg (60-100); SAMPLE BLOOD; SAO2 99.9 % (95.0-100.0); THB 14.8 g/dL (11.5-17.4); pH(98.6) 7.36 (7.35-7.45)
[2019-11-05 06:31] LABS: HEMOGLOBIN 13.9 g/dL (14.0-18.0); LYMPH# 0.27 X1000 (1.2-3.4); LYMPH% 5.4 % (20.5-51.1); MCH 30.5 PG (27-31); MCHC 32.3 g/dL (33-37); MCV 94.5 FL (81-99); MONO# 0.24 X1000 (0.11-0.59); MONO% 4.8 % (1.7-9.3); MPV 9.8 FL (7.4-10.4); NEUT# 4.49 X1000 (1.4-6.5); NEUT% 89.8 % (42.2-75.2); PLT 178 X1000 (130-400); RBC 4.55 XMIL (4.7-6.1); RDW 17.6 % (11.5-14.5)
[2019-11-05] MEDS: LASIX IV SCH ×2 (06:34→23:43)
[2019-11-05] MEDS: DOPAMINE 400 MG/D5W 400 MG/500 ML IV.SOLN IV SCH ×2 (06:35→11:34)
[2019-11-05] MEDS: DOBUTAMINE 500/D5W 500 MG/250 ML IV.SOLN IV SCH ×2 (06:36→18:13)
[2019-11-05] MEDS: ALBUMIN 25% IV SCH (06:37)
[2019-11-05 07:11] LABS: ALB/GLOB RATIO 1.2; CALCIUM 9.9 mg/dL (8.8-10.2); CREATININE 1.9 mg/dL (0.7-1.2); POTASSIUM 4.1 mmol/L (3.5-5.1); TOTAL BILIRUBIN 2.74 mg/dL (0.20-1.00); TOTAL PROTEIN 7.4 g/dL (6.3-8.3)
[2019-11-05 07:24] LABS: LYMPHS 4 % (21-51); SEGS 90 % (42-75)
--- NOTE | 2019-11-05 07:25 | Diag Imaging Result Doc PS360 ---
EXAM: CHEST-PORTABLE HISTORY: abnormal exam TECHNIQUE: Single view COMPARISON: 11/04/2019 FINDINGS: There are moderate-sized bilateral pleural effusions. These may be slightly larger. The heart is enlarged and there is pulmonary edema. There is basilar atelectasis. It appears that the right-sided PICC line has been pulled back and is no longer at the junction of the atrium and superior vena cava. It appears to be at the junction of the subclavian vein and superior vena cava. IMPRESSION: 1.Cardiomegaly with pulmonary edema and pleural effusions 2.Basilar atelectasis 3.The right-sided PICC line has been pulled back and now lies near the junction of the subclavian vein and superior vena cava. Electronically signed by Jaylon Delong 11/05/2019 7:23 AM
[2019-11-05] MEDS: ELAVIL PO SCH ×2 (09:01→12:25)
[2019-11-05] MEDS: HEMOCYTE PO SCH ×2 (09:01→12:26)
[2019-11-05] MEDS: MIRALAX PO SCH ×3 (09:02→21:28)
[2019-11-05] MEDS ORDERED: LASIX IV ONE (10:45)
--- NOTE | 2019-11-05 13:05 | PROGRESS NOTE ---
DATE: 11/05/2019 SUBJECTIVE: The patient is somewhat lethargic this morning. He does not appear to be any distress. He continues on supplemental oxygen per mask. Urine output is diminished. OBJECTIVE: Vital signs: Blood pressure 102/87, heart rate 98, oxygen saturation 97% on nonrebreather mask. Neck: Jugular venous distention is prominent. Chest: Auscultation of the chest reveals bibasilar inspiratory crackles. Cardiac Exam: Reveals an irregular rate and rhythm with S3 gallop. Extremities: Demonstrate edema. LABORATORY DATA: Includes white blood cell count of 5.0, hematocrit 43.0, platelet count 178,000. Sodium 138, potassium 4.1, chloride 101, carbon dioxide 17, BUN 60, creatinine 1.9 glucose 158, albumin 4.0. IMPRESSION: 1. [id number] systolic heart failure with evidence of biventricular heart failure and probable associated cardiorenal syndrome. 2. Dilated nonischemic cardiomyopathy, severe. 3. Permanent atrial fibrillation. 4. Low-flow low-gradient aortic stenosis. RECOMMENDATIONS: 1. Increase dobutamine to 7.5 mcg/kg/minute. 2. Increase Lasix and try and promote adequate diuresis. 3. May consider switching to milrinone if variable clinical response is not forthcoming as well as consider possible use of metolazone. cc: Rafi Artis MD
[2019-11-05] MEDS: LOVENOX SUBQ SCH (14:25)
--- NOTE | 2019-11-05 15:33 | PROGRESS NOTE ---
DATE: 11/05/2019 INTERVAL HISTORY: The patient remains on dopamine and dobutamine. Oxygen turned up last night, the lowest documented saturation I see is 90. Current saturations are excellent so hopefully will be able titrate that back down. Blood pressure somewhat improved. Patient pretty lethargic this morning but he did get some pain medicine just 3, 4 hours ago. Remains afebrile. No other acute events. REVIEW OF SYSTEMS: Unable to obtain secondary to patient mental status. LABS: WBC 5, hemoglobin 13.9, hematocrit 43.0, platelets 178,000. ABG with pH 7.36, pCO2 31, PO2 196 on nonrebreather. Sodium 138, potassium 4.1, BUN 60, creatinine 1.9, glucose 82 to 173 . IMAGING: Chest x-ray with roughly stable. VITALS: T-max 98.4 degrees, pulse 98, respirations 18, blood pressure 102/87, O2 saturation 99 percent on nonrebreather. PHYSICAL EXAMINATION: General: No acute distress. Vitals as above. Somewhat lethargic but is arousable. HEENT: Normocephalic, atraumatic. JVD still present. Pulmonary: Diminished with scattered rales at the bases. No wheezing, decent air entry. Cardiovascular: Irregular rhythm but normal rate. Left upper sternal border murmur stable. Abdomen: Soft, mild distention remains, bowel sounds a little decreased, nontender. Extremities: Peripheral pulses intact. No clubbing or cyanosis. Neurologic: Cranial nerves grossly intact. No focal deficits identified. Psychiatric: Asleep, arouses but only very briefly before falling back asleep not really following commands currently. ASSESSMENT AND PLAN: 1. Acute on chronic combined systolic and diastolic congestive heart failure. Last ejection fraction 25%. Patient also with severe tricuspid regurg, moderate to severe mitral regurg and pulmonary hypertension. Patient has been on dopamine, dobutamine as per Cardiology. Blood pressure been adequate but we have not been able to get very good diuresis. Cardiology increasing his dobutamine. May add metolazone. Will continue to monitor I's and O's and see if we can get some of this fluid off of him. 2. Lower extremity cellulitis and infected decubitus ulcers. Culture grew Pseudomonas and methicillin-resistant Staphylococcus aureus. Patient on antibiotics with daptomycin and Zosyn which will continue. 3. History of Karen gangrene with difficulty placing Blackwood. Blackwood was successfully placed by Urology on 11/02. Monitor ins and outs and wounds. 4. Atrial fibrillation. Rate control has been adequate, continue to monitor. 5. Hyponatremia improved status post Samsca yesterday. Continue to monitor. 6. Acute kidney injury. Baseline creatinine normal late last year. Creatinine up to 2.0 at one point during this hospitalization down to 1.6 yesterday back up a little bit today. Some up and down but really roughly stable over the course of the hospitalization. Continue to monitor but do not see any point making any big changes based on that at this point. 7. Hyperglycemia may be stress induced as his A1c was normal but if he improves and is discharged then will likely need outpatient glucose tolerance test to confirm his A1c is not falsely low. 8. Constipation. Placed on MiraLAX. No bowel movement yet will continue that, consider escalation tomorrow if he still does not have 1. 9. Encephalopathy. Patient pretty significantly lethargic this morning. He did get some morphine although not a huge dose of it prior to my exam that may be the cause. Will see what he does over the course of the day. Will try to minimize sedating medications. No focal deficits suggest a neurologic event, no fever, no new leukocytosis. 10. Disposition. Patient with severe heart failure, we have had difficulty getting good diuresis thus far. 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 Will see how he does and get palliative care to see him prior to talk with patient and/or family when possible about goals of care.
--- NOTE | 2019-11-05 15:46 | PULMONOLOGY PROGRESS NOTE ---
DATE: 11/05/2019 SUBJECTIVE: The patient was sleeping. He is arousable. He is extremely weak. He attempts to communicate but speech is slightly garbled. He remains on dobutamine and dopamine. OBJECTIVE: Vital Signs: Blood pressure 102/87, heart rate 98, respiratory rate 18, oxygen saturation 97% on non-rebreather. He was not negative in the last 24 hour period. HEENT: Pupils are equal. Oropharynx appears clear. Neck: Supple. Cardiac: Irregular rhythm start cardiac exam irregular rhythm with S1-S2 and S3. Chest: Decreased breath sounds right greater than left base. Abdomen: Soft. Extremities: Reveal 2+ peripheral edema. LABORATORIES: Arterial blood gas reveals a pH 7.36, pCO2 of 31, PO2 of 196 with a lactate of 2.7. Sodium 138, potassium 4.1 chloride 101, bicarbonate 17, BUN 60, creatinine 1.9. Chest x-ray reveals cardiomegaly, pulmonary vascular distention, pleural effusions, right greater than left without improvement. IMPRESSION: A 64-year-old with: 1. Acute hypoxemic respiratory failure. 2. Systolic heart failure. 3. Bilateral pleural effusions. 4. Acute on chronic renal failure with a cardio renal syndrome. DISCUSSION: A 64-year-old with problems outlined above. He remains on dobutamine and dopamine, but is not sustaining a significant fluid balance. PLAN: 1. Continue current oxygen therapy. 2. Vasopressors as outlined by Dr. Artis for a failing heart. 3. Consider end of life discussions. cc: Gerson Yost MD
[2019-11-05] MEDS ORDERED: ZAROXOLYN PO ONE (20:21)
[2019-11-05] MEDS ORDERED: DIURIL IV ONE (20:22)
[2019-11-05] MEDS ORDERED: STERILE WATER INJ. ONE (21:15)
[2019-11-05] MEDS: CUBICIN 500 MG in NS 100 ML IV SCH (21:18)
[2019-11-06] MEDS: ZOSYN 2.25 GM in NS 50 ML IV SCH ×4 (02:43→20:14)
[2019-11-06] MEDS: MORPHINE IV PRN (04:33)
[2019-11-06] MEDS: SOLU-CORTEF IV SCH (04:33)
[2019-11-06] MEDS: DOPAMINE 400 MG/D5W 400 MG/500 ML IV.SOLN IV SCH ×3 (04:33→05:54)
[2019-11-06] MEDS: DOBUTAMINE 500/D5W 500 MG/250 ML IV.SOLN IV SCH (05:51)
[2019-11-06 09:12] LABS: BASO# 0.01 X1000 (0.0-0.2); BASO% 0.1 % (0.0-0.8); HEMATOCRIT 42.7 % (42.0-52.0); HEMOGLOBIN 13.8 g/dL (14.0-18.0); IMM GRAN# 0.02 X1000 (0.0-0.04); IMM GRAN% 0.3 % (0.0-0.5); LYMPH# 0.91 X1000 (1.2-3.4); LYMPH% 11.5 % (20.5-51.1); MCH 31.5 PG (27-31); MCHC 32.3 g/dL (33-37); MCV 97.5 FL (81-99); MONO# 0.52 X1000 (0.11-0.59); MONO% 6.5 % (1.7-9.3); MPV 9.8 FL (7.4-10.4); NEUT# 6.48 X1000 (1.4-6.5); NEUT% 81.6 % (42.2-75.2); PLT 168 X1000 (130-400); RBC 4.38 XMIL (4.7-6.1); RDW 18.2 % (11.5-14.5); WBC 7.94 X1000 (4.8-10.8)
[2019-11-06 09:29] LABS: CALCIUM 9.6 mg/dL (8.8-10.2); CREATININE 2.5 mg/dL (0.7-1.2); POTASSIUM 4.7 mmol/L (3.5-5.1)
[2019-11-06 09:50] LABS: ANISOCYTOSIS 2+; HOWELL-JOLLY BODIES 1+; HYPOCHROM 1+; LYMPHS 11 % (21-51); MONO 5 % (1-9); POIKILOCYTOSIS 1+; SEGS 81 % (42-75)
[2019-11-06] MEDS ORDERED: MILRINONE IV ONE (10:01)
[2019-11-06] MEDS: PRIMACOR 20 MG/D5W 100 ML 20 MG/100 ML IVPB IV SCH ×3 (11:03→19:00)
[2019-11-06] MEDS: MIRALAX PO SCH ×2 (11:07→21:21)
[2019-11-06] MEDS: ELAVIL PO SCH (11:07)
[2019-11-06] MEDS: HEMOCYTE PO SCH (11:08)
[2019-11-06] MEDS: LASIX IV SCH (11:54)
[2019-11-06] MEDS: LOVENOX SUBQ SCH (14:23)
--- NOTE | 2019-11-06 14:50 | PROGRESS NOTE ---
DATE: 11/06/2019 SUBJECTIVE: The patient arouses to verbal stimuli and denies discomfort but quickly drifts back off to sleep. He has had limited response to efforts to diurese. OBJECTIVE: Vital Signs: Blood pressure 109/71, heart rate 95, oxygen saturation 97% on Venturi mask at 50%. Jugular distention is demonstrated, suggesting elevated central venous pressure. Auscultation of the chest reveals coarse breath sounds bilaterally. Cardiac examination reveals an irregular rate and rhythm with S3 gallop. Extremities demonstrate mild edema. Laboratory Data: Includes white blood cell count of 7.94, hematocrit 42.7, hemoglobin 13.8, platelet count 168,000. Sodium 136, potassium 4.7, chloride 100, carbon dioxide 14, BUN 75, creatinine 2.5, glucose 173. IMPRESSION: 1. Acute on chronic systolic heart failure with evidence of biventricular failure and probable associated cardiorenal syndrome. 2. Severe dilated nonischemic cardiomyopathy. 3. Acute on chronic renal dysfunction. 4. Atrial fibrillation. 5. Low-flow, low gradient aortic stenosis. RECOMMENDATIONS: 1. Switch from dobutamine to Primacor. 2. Continue efforts to diurese with IV Lasix. 3. Prognosis appears to be poor. Palliative care consult appropriate. cc: Rafi Artis MD
--- NOTE | 2019-11-06 15:35 | PROGRESS NOTE ---
DATE: 11/06/2019 INTERVAL HISTORY: The patient remains somnolent but a little more arousable than yesterday. Following commands better. He still falls back to sleep as soon as he is being interacted with. He remains on dopamine and dobutamine. Afebrile. No acute events overnight. REVIEW OF SYSTEMS: Unable to obtain secondary to patient's mental status. LABS: WBC 7.9, hemoglobin 13.8, hematocrit 42.7, platelets 168,000. Sodium 136, potassium 4.7, BUN 75, creatinine 2.5, glucose 137 to 177. VITAL SIGNS: T-max 97.9 degrees, pulse 89, respirations 18, blood pressure 94/60, O2 saturation 96% on 50% Ventimask. PHYSICAL EXAMINATION: General: No acute distress, somnolent. Vital signs: As above. HEENT: Normocephalic, atraumatic. Cardiovascular: Irregular rhythm but normal rate. Left lower sternal border murmur noted. Pulmonary: Remains diminished at the bases with a few scattered rales. No wheezing and reasonable air entry. Abdomen: Soft. Minimal distention. Bowel sounds a little decreased but present. Nontender. Extremities: Peripheral pulses intact. No clubbing or cyanosis. Bilateral legs heavily bandaged. Neurologic: Cranial nerves grossly intact. No focal deficits identified, although exam is somewhat limited by patient's mental status. Psychiatric: Patient asleep. Arouses a little more readily than yesterday. Will remain awake briefly and follow most simple commands, but not really answering questions very well. ASSESSMENT AND PLAN: 1. Acute on chronic combined systolic and diastolic congestive heart failure. Last EF 25%. Also with severe tricuspid regurgitation and mitral regurgitation and pulmonary hypertension. Patient has been on dopamine, dobutamine as per Cardiology. Really have not been able to get good diuresis. Yesterday Cardiology gave additional Lasix in the morning and then metolazone in addition to that in the evening. Still without a good response. Uncertain what else we can do to try to get any fluid off of him, but prognosis is likely poor. 2. Lower extremity cellulitis and infected decubitus ulcers. Culture grew Pseudomonas and MRSA. Patient on antibiotics with daptomycin and Zosyn as per culture results, which we will continue. 3. Atrial fibrillation. Rate control remains adequate. 4. Hyponatremia. Remains resolved. 5. Acute kidney injury. Baseline creatinine normal late last year. Baseline mostly around 1.6 here, but trending up today after attempts at aggressive diuresis yesterday. Cardiology plans on continuing Lasix but not giving any further metolazone. We will monitor. 6. Hyperglycemia, stable. A1c within normal limits. 7. Constipation. Placed on MiraLAX. Monitor. 8. Encephalopathy. A little better this morning. Still unsure of the exact etiology, but does appear to be improving. May just be related to general illness. 9. Disposition. Patient with end-stage heart failure as well as poor nutrition, lower extremity and decubitus ulcers which have been infected. We have not been able to get adequate diuresis despite aggressive efforts by Cardiology, as well as drips with dobutamine and dopamine. Prognosis likely poor. We will try to get a hold of family and discuss goals of care.
--- NOTE | 2019-11-06 16:13 | PULMONOLOGY PROGRESS NOTE ---
DATE: 11/06/2019 SUBJECTIVE: The patient is arousable. He attempts to speak but is very weak. OBJECTIVE: Vital Signs: The patient has been afebrile for the last 24 hours. Blood pressure 94/60, heart rate 89, respiratory rate 8, oxygen saturation 96%. He remains on dopamine and dobutamine. HEENT: Pupils are equal. Oropharynx appears clear. Neck is supple. Chest reveals crackles bilaterally with decreased breath sounds on the right. Cardiac Examination: S1, S2, and S3 present. Abdomen is soft. Extremities reveal 1+ peripheral edema. Laboratories: White blood count 7.94, hemoglobin 13.8, platelet count 168,000. Sodium 136, potassium 4.7, chloride 100, bicarbonate 14, anion gap 22, BUN 75, creatinine 2.5. IMPRESSION: A 64-year-old with: 1. Acute hypoxemic respiratory failure. 2. Severe systolic heart failure with continued fluid retention. 3. Bilateral pleural effusions. 4. Acute on chronic renal failure with cardiorenal syndrome and continued increasing in creatinine and BUN. PLAN: 1. Continue current oxygen therapy. 2. Continue attempts to augment cardiac output as per cardiology. 3. Prognosis is poor. cc: Gerson Yost MD
[2019-11-06] MEDS: CUBICIN 500 MG in NS 100 ML IV SCH (20:14)
[2019-11-07] MEDS: LASIX IV SCH ×2 (00:34→12:00)
[2019-11-07] MEDS: ZOSYN 2.25 GM in NS 50 ML IV SCH ×2 (02:50→09:01)
[2019-11-07] MEDS: PRIMACOR 20 MG/D5W 100 ML 20 MG/100 ML IVPB IV SCH ×3 (02:50→11:01)
[2019-11-07] MEDS: DOPAMINE 400 MG/D5W 400 MG/500 ML IV.SOLN IV SCH (02:50)
[2019-11-07] MEDS: BENADRYL CREAM TOP PRN (04:26)
[2019-11-07] MEDS: MORPHINE IV PRN (04:36)
[2019-11-07 06:25] LABS: HEMATOCRIT 39.8 % (42.0-52.0); HEMOGLOBIN 12.8 g/dL (14.0-18.0); IMM GRAN# 0.02 X1000 (0.0-0.04); IMM GRAN% 0.3 % (0.0-0.5); LYMPH# 0.53 X1000 (1.2-3.4); LYMPH% 6.9 % (20.5-51.1); MCH 30.1 PG (27-31); MCHC 32.2 g/dL (33-37); MCV 93.6 FL (81-99); MONO# 0.55 X1000 (0.11-0.59); MONO% 7.1 % (1.7-9.3); MPV 9.4 FL (7.4-10.4); NEUT# 6.62 X1000 (1.4-6.5); NEUT% 85.7 % (42.2-75.2); PLT 143 X1000 (130-400); RBC 4.25 XMIL (4.7-6.1); WBC 7.72 X1000 (4.8-10.8)
[2019-11-07 06:53] LABS: CALCIUM 9.9 mg/dL (8.8-10.2); MAGNESIUM 2.2 mg/dL (1.5-2.7); POTASSIUM 3.6 mmol/L (3.5-5.1)
--- NOTE | 2019-11-07 07:06 | Diag Imaging Result Doc PS360 ---
CHEST-PORTABLE - 11/07/2019 INDICATION: abnormal exam COMPARISON: 11/05/2019 FINDINGS: There is been placement of a right PICC line in good position with the catheter tip at the cavoatrial junction. There is been slight decrease in the moderate right pleural effusion. There has also been slight decrease in the central infiltrate on the left side. Stable severe cardiomegaly and pulmonary vascular congestion. IMPRESSION: Improvement from prior. Electronically signed by Gatito Madrid 11/07/2019 7:03 AM
[2019-11-07] MEDS: ELAVIL PO SCH (09:02)
[2019-11-07] MEDS: MIRALAX PO SCH (09:03)
[2019-11-07] MEDS: HEMOCYTE PO SCH (09:03)
--- NOTE | 2019-11-07 11:59 | CARDIOLOGY PROGRESS NOTE ---
DATE: 11/07/2019 CHIEF COMPLAINT: Shortness of breath, swelling. SUBJECTIVE: Mr. Segal continues to be confused and mumbling with his speech. He will make eye contact and answer some questions appropriately, but he seems a little bit more lethargic and confused today. PHYSICAL EXAMINATION: Vital Signs: Blood pressure is 88/54. His pulse is 102 beats per minute. His temperature is 96.4 degrees Fahrenheit. Intake and output totals have been positive for the last 5 days. General: This patient is lethargic and somewhat confused today. He will arouse easily and make good eye contact, but does not sustain a conversation or answer questions appropriately for an extended period of time. HEENT: He does show some mild JVD, and otherwise neck is supple and trachea is midline. Chest: With diminished breath sounds bilaterally anteriorly. The patient is too weak today to sit up on his own. Heart: Heart sounds are irregularly irregular, and I can appreciate a systolic murmur that is most prominent over the aortic area. No rubs or gallops appreciated. Abdomen: Soft, only slightly distended. Bowel sounds are present, just diminished. Extremities: Bilateral lower extremities are wrapped in Unna boot therapy by Wound Care nurse, but there is mild edema noted in the tops of his feet and thighs, as well as in bilateral upper extremities. Neurologic: The patient is lethargic and somewhat confused. He is moving his upper and lower extremities mildly. IMAGING STUDIES: Chest x-ray today showed that there is a slight decrease in the moderate right pleural effusion, and there has been some decrease in the central infiltrate on the left side. Stable severe cardiomegaly and pulmonary vascular congestion. PERTINENT LABORATORY DATA: Sodium 135, potassium 3.6, BUN is 87, creatinine is 3.0. Magnesium is 2.2. His white blood cell count is 7.72, his hemoglobin is 12.8, his hematocrit is 39.8, and his platelets are 143,000. IMPRESSION: 1. Decompensated advanced heart failure secondary to a dilated nonischemic cardiomyopathy, functional class IV. Patient currently requiring support with dopamine at 3 mcg/kg per minute and Primacor at 0.375 mcg/kg per minute. We are giving diuresis with Lasix intravenously 120 mg every 12 hours. However, of note, his urine output has significantly decreased over the last 3 days, with only 225 mL of output in the last 24 hours. We will give the patient some albumin 12.5 mg intravenously prior to each Lasix dose, and will continue supportive care at this time. 2. Permanent atrial fibrillation, variable rate control. Will continue to monitor. 3. Low-flow, low-gradient aortic stenoses. 4. Cellulitis of both lower extremities. The patient is on daptomycin intravenously. Patient receiving Unna boot therapy to bilateral lower extremities by wound nurse, with treatment being changed out 3 to 4 times per week. 5. Hyponatremia. This has improved with some doses of Samsca. We will continue to monitor. 6. Acute on chronic renal insufficiency with worsening renal output despite intravenous Lasix in the setting of decompensated heart failure. RECOMMENDATIONS: At this time, we will continue the supportive care as noted above. This patient has been discussed with Dr. Farmer. His recommendations are above and will be forthcoming. There is significant concern in the setting of worsening renal insufficiency with creatinine increasing from 1.6 to 3.0 over the last 3 days, and significant reduction in renal output. The patient's prognosis is very guarded. Dictated by KIM Thorpe for Joss Farmer MD cc: KIM Thorpe MD I agree with above Assessment and Plan. MTDD
[2019-11-07] MEDS ORDERED: ATIVAN IV PRN (13:31)
[2019-11-07] MEDS ORDERED: MORPHINE IV PRN (13:32)
--- NOTE | 2019-11-07 16:48 | PROGRESS NOTE ---
DATE: 11/07/2019 INTERVAL HISTORY: Patient is a little more awake and alert this morning but otherwise has continued to do poorly. After discussion with family and palliative care, they have elected to go a comfort care route. The patient has severe combined systolic/diastolic heart failure. He has been on dobutamine, dopamine and extremely aggressive diuresis with very little output and is beginning to have significant kidney failure. He also has infected lower extremity and decubitus ulcers, which are not healing very well. Because of all this, family is now making him comfort measures only. We will stop all of the above and see how he does. If he appears to be stable over the next few hours, we will move him to a regular room. If he appears to be remaining stable over the next day or 2, then will likely go home with hospice. LABS: WBC 7.7, hemoglobin 12.8, hematocrit 39.8, platelets 143,000. Sodium 135, potassium 3.6, BUN 87, creatinine 3, glucose 137 to 197. VITALS: T-max 97.9 degrees, pulse 107, respirations 13, blood pressure 83/63, O2 saturation 94% on 2 L by nasal cannula. PHYSICAL EXAMINATION: General: No acute distress. Chronically ill appearing. Vitals: As above. HEENT: Normocephalic, atraumatic. Cardiovascular: Irregular rhythm, normal rate, left lower sternal border murmur, stable. Pulmonary: He continues to be diminished at the bases with a few scattered rales. Abdomen: Soft. Minimal distention. Stable. Bowel sounds remain a little decreased but present. Abdomen is nontender. Extremities: Peripheral pulses intact. No clubbing or cyanosis. Bilateral legs remain heavily bandaged. Neurologic: Cranial nerves grossly intact. No focal deficits identified. Psychiatric: Patient awake, much more alert than yesterday but still fairly confused. Oriented to person and mostly to place but not time at all. Cooperative with very simple commands only. ASSESSMENT AND PLAN: 1. Acute on chronic combined systolic and diastolic congestive heart failure. Last ejection fraction 25%. Also with severe tricuspid regurgitation and mitral regurgitation and pulmonary hypertension. The patient has been on dopamine, dobutamine as above, now moving towards comfort care. The patient has been on very aggressive diuresis with Lasix 120 b.i.d., metolazone, albumin and various other things with very little diuresis. 2. Lower extremity cellulitis, infected decubitus ulcers. Has been on antibiotics but now moving towards comfort care. 3. Atrial fibrillation. Atrial fibrillation remains rate controlled. 4. Hyponatremia. 5. Acute kidney injury, worsening. 6. Hyperglycemia. 7. Constipation. 8. Metabolic encephalopathy. A little better today but still pretty confused. 9. Disposition: Moving to comfort care as above.
[2019-11-07] MEDS ORDERED: DOPAMINE 400 MG/D5W 400 MG/500 ML IV.SOLN IV SCH (17:00)
[2019-11-07] MEDS: ATIVAN IV PRN (19:59)
[2019-11-07] MEDS ORDERED: ALBUMIN 25% IV SCH (21:00)
--- NOTE | 2019-11-07 22:14 | PULMONOLOGY PROGRESS NOTE ---
DATE: 11/07/2019 SUBJECTIVE: The patient is arousable. He attempts to converse, but has unintelligible speech. He appears profoundly weak. OBJECTIVE: Vital Signs: BP 91/59, heart rate 109, respiratory rate 14, oxygen saturation 93%. HEENT: Pupils are equal and reactive. Oropharynx appears clear. Neck: Is supple. Chest: Reveals coarse rhonchi bilaterally. Cardiac exam: S1, S2. Abdomen: Is soft. Extremities: Reveal 1+ peripheral edema. LABORATORIES: BUN 87, creatinine 3.0. Sodium 135, potassium 3.6, chloride 96, bicarbonate 19, anion gap 20. Chest x-ray reveals slight decrease in pulmonary congestion and right pleural effusion. He continues to have cardiomegaly. IMPRESSION: A 64-year-old with 1. Acute hypoxemic respiratory failure. 2. Severe systolic heart failure. 3. Bilateral effusions. 4. Acute on chronic renal failure due to the cardiorenal syndrome. DISCUSSION: A 64-year-old with problems outlined above. Despite ongoing vasopressor use, his urine output continues to decline with worsening renal function. His prognosis is poor. PLAN: 1. Continue current oxygen therapy. 2. Continue attempts to augment cardiac output. 3. Prognosis is poor. End-of-life discussions have been held and he will be allowed to have a natural if he does not survive this hospital stay. cc: Gerson Yost MD
[2019-11-08] MEDS: ATIVAN IV PRN ×4 (00:14→22:56)
[2019-11-08] MEDS: MORPHINE IV PRN ×2 (01:29→13:57)
[2019-11-08] MEDS: ELAVIL PO SCH (08:25)
[2019-11-08] MEDS ORDERED: TYLENOL PR PRN (08:30)
[2019-11-08] MEDS ORDERED: HALDOL IV PRN (17:19)
--- NOTE | 2019-11-08 17:38 | PROGRESS NOTE ---
DATE: 11/08/2019 SUBJECTIVE: The patient has no major complaints. OBJECTIVE: Blood pressure is 128/85, heart rate of 103, respiratory rate of 16, temperature 97.3 degrees, 99% on 4 L. Cardiovascular: Regular rate and rhythm. Pulmonary: Bilateral breath sounds clear to auscultation. GI: Soft, nontender, nondistended. Bowel sounds were positive. PROBLEM LIST: 1. Multiple decubitus ulcers, positive for Pseudomonas and methicillin-resistant Staphylococcus aureus. 2. Acute kidney injury. 3. Severe dilated cardiomyopathy. PLAN: Family has elected to pursue comfort care measures. To me, he seems more agitated this afternoon so I am not sure how well his symptoms are controlled. His vitals are pretty stable so I do think we should progress with an inpatient hospice evaluation. Palliative care is following. We are looking at inpatient hospice at this point, if feasible. We will continue to monitor closely and provide comfort care measures. These measures were discussed with the family. cc: Joe Weston MD
[2019-11-09] MEDS: ATIVAN IV PRN ×5 (02:08→16:58)
[2019-11-09] MEDS: MORPHINE IV PRN ×5 (05:54→16:58)
[2019-11-09] MEDS: ELAVIL PO SCH (10:25)
--- NOTE | 2019-11-09 17:02 | PROGRESS NOTE ---
DATE: 11/09/2019 SUBJECTIVE: Patient has no major complaints. OBJECTIVE: Vital Signs: Blood pressure is 105/80, heart rate of 103, respiratory rate 97.1 degrees, 99% on 4 L. Cardiovascular: Regular rate and rhythm. Pulmonary: Bilateral breath sounds clear to auscultation. Gastrointestinal: Abdomen soft, nontender, nondistended. Bowel sounds are positive. No laboratory data. PROBLEM LIST: Decubitus ulcers with Pseudomonas and Methicillin-resistant Staphylococcus aureus with concurrent acute kidney injury, severe dilated cardiomyopathy. We will continue comfort care measures. is imminent, although his vital signs have not declined significantly in the last 24 hours but we will continue to follow. cc: oJe Weston MD
[2019-11-10] MEDS: MORPHINE IV PRN ×4 (08:01→20:36)
[2019-11-10] MEDS: ATIVAN IV PRN ×4 (08:01→20:35)
[2019-11-10] MEDS: ELAVIL PO SCH (11:55)
--- NOTE | 2019-11-10 17:58 | PROGRESS NOTE ---
DATE: 11/10/2019 SUBJECTIVE: Patient has no major complaints. OBJECTIVE: Vital signs: Blood pressure is 110/73, heart rate of 100, respiratory rate of 20, temperature 97.8 degrees. Saturating 95% on 4 L. Cardiovascular: Regular rate and rhythm. Pulmonary: Rhonchi, wheezing. Gastrointestinal: Abdomen soft, nontender, nondistended. Bowel sounds are positive. LABORATORY DATA: No new data. PROBLEM LIST: Sepsis, shock, acute kidney injury, decubitus ulcers, severe dilated cardiomyopathy. PLAN: We are pursuing comfort care measures at this point. is imminent, but he has not had a rapid decline. He kind of looks at baseline to me. cc: Joe Weston MD
[2019-11-11] MEDS: MORPHINE IV PRN ×2 (05:18→17:42)
[2019-11-11] MEDS: ATIVAN IV PRN (05:18)
[2019-11-11] MEDS: ELAVIL PO SCH (10:39)
[2019-11-11] MEDS: ATROPINE 1 % OPHTH SOLN SL PRN (14:14)
[2019-11-11] MEDS ORDERED: TRANSDERM-SCOP TD SCH (17:15)
--- NOTE | 2019-11-11 17:25 | PROGRESS NOTE ---
DATE: 11/11/2019 SUBJECTIVE: The patient has no major complaints. OBJECTIVE: Vital Signs: Blood pressure is 93/58, heart rate of 109, respiratory rate of 15, but he was much less than that. Cardiovascular: Regular rate and rhythm. Pulmonary: Bilateral breath sounds diminished at the bases. GI: Soft, nontender, nondistended. Bowel sounds are positive. LABORATORY DATA: I do not have any new data today. PROBLEM LIST: He is in septic shock secondary to infected decubitus ulcers with persistent shock and acute kidney injury. We are doing comfort care measures. To me he looks a little worse than yesterday, as far as his breathing. It is more shallow. He has much more prolonged episodes of apnea. So, I think he is progressing. We are trying to look at options for home, but there is really not a lot a home options. His current house is [facility] and the family members who have remained kind of close by him live in a small apartment. There is no way to accommodate. His most closest relative is in [place] and will not be able to assist in this issue. So, we may have to look at placement versus inpatient hospice. We will continue to follow. cc: Joe Weston MD
[2019-11-12] MEDS: MORPHINE IV PRN (05:35)
[2019-11-12] MEDS: ATROPINE 1 % OPHTH SOLN SL PRN ×2 (05:35→19:34)
[2019-11-12] MEDS: ELAVIL PO SCH (14:53)
[2019-11-12] MEDS ORDERED: DURAGESIC 12 MICROGM/HR PATCH TD SCH (20:00)
--- NOTE | 2019-11-12 20:05 | PROGRESS NOTE ---
DATE: 11/12/2019 SUBJECTIVE: The patient has no major complaints. OBJECTIVE: Blood pressure 102/57, heart rate of 101, respiratory rate 16, temperature 99.6 degrees.Cardiovascular: Regular rate and rhythm. Pulmonary: Bilateral breath sounds, clear to auscultation. GI: Soft, nontender, nondistended. Bowel sounds are positive. LABORATORY DATA: White count is 7. There is no new data. ASSESSMENT AND PLAN: Persistent septic shock associated with infected decubitus with methicillin- resistant Staphylococcus aureus and something else, pseudomonas I believe; worsening kidney function, encephalopathy. Plan is to continue hospice care until things stabilize. is imminent, although we may have to entertain looking at outpatient hospice if available. The family situation is difficult currently. cc: Joe Weston MD
[2019-11-13] MEDS: ELAVIL PO SCH (08:04)
[2019-11-13] MEDS: ATROPINE 1 % OPHTH SOLN SL PRN (08:05)
[2019-11-13 16:18] VITALS: BP 66/43
--- NOTE | 2019-11-13 19:51 | PROGRESS NOTE ---
DATE: 11/13/2019 SUBJECTIVE: Today, he sounds worse. He looks worse. I do not think it is going to be long before he passes. OBJECTIVE DATA: At 4 p.m., respiratory rate of 8, blood pressure of 66/43, sats of 73%. He has been okay and then today his blood pressure has dropped, so I think he is actively dying. He also has fairly significant secretion issues. He has been on scopolamine. On exam, he has got rhonchorous breath sounds. He is breathing agonally. So, we will see how he does, but he has decubitus ulcers with septic shock, MRSA and Pseudomonas. We will continue to monitor closely, but I think he is actively dying and it most likely will be within next 24 hours. cc: Joe Weston MD
--- NOTE | 2019-11-24 18:47 | DISCHARGE SUMMARY ---
ADMISSION DATE: 10/29/2019 DISCHARGE DATE: 11/13/2019 FINAL DIAGNOSES: 1. Septic shock associated with decubitus ulcers infected with methicillin-resistant Staphylococcus aureus and pseudomonas. 2. Acute renal failure. 3. Dilated cardiomyopathy with an ejection fraction of 15% to 20%. CONSULTATIONS: Dr. Farmer, Cardiology; Dr. Houston, General Surgery; Dr. Sarkar, Pulmonary; Dr. Dominguez, Urology. PROCEDURES: None. HOSPITAL COURSE: Briefly, this is a 64-year-old male who has very limited mobility, chronic ulcerations and decubitus in his sacral area. He has had issues with that before. Apparently he stopped getting home health about 3 weeks prior to admission, so his bandages were not changed and there was soiling of his bandages with urine and possibly feces. He had purulent drainage, so he was brought in for evaluation. Creatinine 1.4. White count was normal. Cultures grew out pseudomonas from his left leg wound, and pseudomonas and MRSA from the 14th from the other wound. Surgery was consulted, and they recommended wound care, Unna boots, but no debridement. Echocardiogram was obtained which showed an EF of 25%, which was close to what he had previously. Consulted Cardiology because of CHF and IV diuretics. He had fairly significant protein-calorie malnutrition. Pulmonary was consulted because he developed progressive shock and hypoxia, worsening pulmonary edema. I think eventually he was placed on Lasix. He had been on Zosyn and linezolid, which were both effective. I believe the pseudomonas was pansensitive. Because of his poor cardiac function, though, I think eventually he was placed on dobutamine and dopamine because of positive inotrope and dopamine, and that is what he ended up getting placed on. I think that was on the . Surgery re-evaluated the patient. He was placed on dobutamine and albumin. He improved marginally. I think we switched him to daptomycin, and he was placed on hydrocortisone because I think he developed some progressive hypotension. We discussed poor prognosis, short and long-term. Dr. Leal saw the patient. He had a history of Karen. He developed progressive encephalopathy. I think he continued to progress; however, despite aggressive diuresis 120 b.i.d., the family after discussion decided that they would pursue comfort care measures. We pursued inpatient hospice and comfort care measures. I do not think he ever ended up being evaluated by hospice, but he continued to progress and finally he became more and more hypotensive, and he was pronounced on the at 1925 hours. A 35-minute discharge time. cc: MD Jose Daniel Galaviz CRNP
== END 2019-11-13 19:25 | disposition expired | DRG 871 ==
LOC: SUPCPDRO → ED 11:05 → EDIPHOLD 14:26 → SUATTDRO 14:26 → 3N 17:50 → ICU 10-30 11:34 → 3N 11-08 01:19
PROVIDERS: ATTEND Internal Medicine